=== PATIENT | male | born 1970 | race Caucasian/White ===

== ENCOUNTER 2022-05-16 17:26 | Emergency (ER) | payer MEDICAID, OTHER ==
--- NOTE | 2022-05-16 17:32 | ERPHSYRPT ---
- History of Present Illness Time Seen by Provider: 05/16/22 17:32 Source: patient Exam Limitations: no limitations Physician History: This is a morbidly obese 52-year-old white male patient who was brought to the emergency department by his friend because of increasing bilateral lower extremity swelling with ulcerations over the last 2 to 2-1/2 weeks. Patient has a history of hypertension, chronic venous stasis disease, diabetes, peripheral neuropathy and is on anticoagulation therapy. Patient states that he does ambulate. He states he does not raise the legs above the level of his heart when he is not ambulating. Patient moved here from [facility] and has not had an appointment with a local physician. Patient does have some right upper quadrant abdominal pain. He did fall 2 and half weeks ago and hit his right upper abdomen on the corner of a cabinet and there is been some swelling and tenderness in that area. He also has had, unknowingly, fractures in his lower leg in the past. He does not have a lot of sensation in his lower extremities and feet because of his significant peripheral neuropathy. Patient denies chest pain. He denies shortness of breath. Method of Injury: fell Occurred: other (2 and half weeks ago) Quality: other (Swelling bilateral lower extremities) Severity of Pain-Max: mild Severity of Pain-Current: mild Lower Extremities Pain: leg: bilateral (Below the knee swelling with ulcerations and redness) Modifying Factors: Improves With: nothing Associated Symptoms: none Allergies/Adverse Reactions: No Known Drug Allergies Allergy (Verified 05/16/22 19:06) Home Medications: Apixaban [Eliquis] 5 mg PO BID 05/16/22 [History] Furosemide 40 mg [Lasix 40 MG] 40 mg PO DAILY 05/16/22 [History] Metformin HCl [Metformin ER Gastric] 1,000 mg PO DAILY 05/16/22 [History] Potassium Chloride 10 meq PO DAILY 05/16/22 [History] Sacubitril/Valsartan [Entresto 24 mg-26 mg Tablet] 1 tab PO BID 05/16/22 [History] Travel Risk - International Travel Have you traveled outside of the country in past 3 weeks: No - Coronavirus Screening Are you exhibiting any of the following symptoms?: No Close contact with a COVID-19 positive Pt in past 14-21 Days: No - Review of Systems Constitutional: No Symptoms Eyes: No Symptoms Ears, Nose, & Throat: No Symptoms Respiratory: No Symptoms Cardiac: No Symptoms Abdominal/Gastrointestinal: No Symptoms Genitourinary Symptoms: No Symptoms Musculoskeletal: No Symptoms Skin: Cellulitis (Bilateral lower extremities with chronic venous stasis disease and ulcerations) Neurological: No Symptoms Psychological: No Symptoms Endocrine: No Symptoms Hematologic/Lymphatic: No Symptoms Immunological/Allergic: No Symptoms All Other Systems: Reviewed and Negative - Past Medical History Pertinent Past Medical History: Yes - Past Surgical History Past Surgical History: Yes - Nursing Vital Signs Nursing Vital Signs: Initial Vital Signs Temperature 97.7 F 05/16/22 18:31 Pulse Rate 89 05/16/22 18:31 Blood Pressure 114/71 05/16/22 18:31 O2 Sat by Pulse Oximetry 98 05/16/22 18:31 Pain Scale Pain Intensity 0 - Physical Exam General Appearance: no apparent distress, alert, anxiety, obese Eyes, Ears, Nose, Throat Exam: normal ENT inspection, moist mucous membranes Neck Exam: normal inspection, non-tender, supple, full range of motion Cardiovascular/Respiratory Exam: chest non-tender, no respiratory distress Gastrointestinal/Abdominal Exam: soft, tenderness (Mild tenderness and swelling right upper quadrant abdominal wall. Morbidly obese abdomen) Back Exam: normal inspection, normal range of motion, No CVA tenderness, No vertebral tenderness Hips Exam: bilateral: non-tender, normal inspection, normal range of motion, no evidence of injury Legs Exam: right leg: other (Bilateral below the knee swelling, redness and), bilateral leg: normal range of motion, soft tissue tenderness, swelling Knees Exam: bilateral knee: non-tender, normal inspection, normal range of motion, no evidence of injury Ankle Exam: bilateral ankle: soft tissue tenderness, swelling Foot Exam: bilateral foot: soft tissue tenderness, swelling Neuro/Tendon Exam: normal motor functions, normal tendon functions, no evidence tendon injury, sensory deficit (Bilateral lower extremities below the knee. Patient has significant peripheral neuropathy) Mental Status Exam: alert, oriented x 3, cooperative Skin Exam: other (Bilateral below the knee chronic venous stasis disease with ulcerations and cellulitis present) SpO2 Interpretation: normal O2 Delivery: Room Air - Course Nursing assessment & vital signs reviewed: Yes Ordered Tests: Active Orders 24 hr Category Date Time Status IV Insertion STAT Care 05/16/22 19:09 Active ABDOMEN AND PELVIS W/0 CONTRAS [CT] Stat Exams 05/16/22 19:10 Taken CHEST WITHOUT CONTRAST [CT] Stat Exams 05/16/22 19:43 Taken LOWER LEG Stat Exams 05/16/22 19:11 Taken BLOOD CULTURE Stat Lab 05/16/22 20:20 Received CBC W DIFF Stat Lab 05/16/22 Completed CMP Stat Lab 05/16/22 Completed Medication Summary Generic Name Dose Route Start Last Admin Trade Name Freq PRN Reason Stop Dose Admin Levofloxacin/Dextrose 500 mg in 100 mls @ 100 mls/hr 05/16/22 21:42 05/16/22 21:58 Levofloxacin 500mg/100ml D5w IV 05/16/22 22:41 100 ml/hr STAT STA 100 mls/hr Administration Discontinued Medications Generic Name Dose Route Start Last Admin Trade Name Freq PRN Reason Stop Dose Admin Levofloxacin/Dextrose Confirm 05/16/22 21:57 Levofloxacin 500mg/100ml D5w Administered 05/16/22 21:58 Dose 500 mg in 100 mls @ ud IV .K-MED ONE Lab/Rad Data: Laboratory Result Diagrams 05/16/22 Unknown 05/16/22 Unknown Laboratory Results 05/16/22 05/16/22 Range/Units Unknown Unknown WBC 7.3 (4.0-10.5) x10^3/uL RBC 4.81 (4.1-5.6) x10^6/uL Hgb 14.3 (12.5-18.0) g/dL Hct 43.1 (42-50) % MCV 89.6 (78-100) fL MCH 29.7 (26-32) pg MCHC 33.2 (32-36) g/dL RDW 14.2 H (11.5-14.0) % Plt Count 244 (150-450) x10^3/uL MPV 10.8 (7.5-11.0) fL Gran % 61.0 (36.0-66.0) % Immature Gran % (Auto) 0.3 (0.00-0.4) % Nucleat RBC Rel Count 0.0 (0.00-0.1) % Eos # (Auto) 0.16 (0-0.5) x10^3/uL Immature Gran # (Auto) 0.02 (0.00-0.03) x10^3u/L Absolute Lymphs (auto) 2.03 (1.0-4.6) x10^3/uL Absolute Monos (auto) 0.57 (0.0-1.3) x10^3/uL Absolute Nucleated RBC 0.00 (0.00-0.01) x10^3u/L Lymphocytes % 28.0 (24.0-44.0) % Monocytes % 7.9 (0.0-12.0) % Eosinophils % 2.2 (0.00-5.0) % Basophils % 0.6 (0.0-0.4) % Absolute Granulocytes 4.43 (1.4-6.9) x10^3/uL Basophils # 0.04 (0-0.4) x10^3/uL Sodium 140 (137-145) mmol/L Potassium 3.9 (3.5-5.1) mmol/L Chloride 100 (98-107) mmol/L Carbon Dioxide 26 (22-30) mmol/L Anion Gap 17.3 H (5-15) MEQ/L BUN 10 (9-20) mg/dL Creatinine 0.85 (0.66-1.25) mg/dL Estimated GFR > 60.0 ML/MIN Glucose 111 H (74-106) mg/dL Calcium 9.1 (8.4-10.2) mg/dL Total Bilirubin 0.80 (0.2-1.3) mg/dL AST 32 (17-59) U/L ALT 17 (0-50) U/L Alkaline Phosphatase 89 (38-126) U/L Serum Total Protein 8.8 H (6.3-8.2) g/dL Albumin 4.5 (3.5-5.0) g/dL - Progress Progress: improved, pain not gone completely, re-examined Progress Note: 05/16/22 21:43 X-ray left tib-fib interpreted by me. There is no acute fracture or dislocation . 05/16/22 21:59 CAT scan of the abdomen and pelvis without contrast shows right lower rectus muscle mass versus hematoma. Normal appendectomy. Distended gallbladder with tiny stones. Markedly distended urinary bladder with mild wall thickening concerning for chronic outlet obstruction versus neurogenic bladder. CAT scan of the chest without contrast shows right lung fibrosis/scarring. No acute process present. This patient's medical issue is 1 of moderate complexity. The level of complexi ty in the work-up performed is based on review of the patient's past medical history, medication list, drug allergy list, history of present illness and physical findings on examination. The work-up includes placement of intravenous line, infusion of intravenous fluids, CT scan of the chest without contrast, CT scan of the abdomen pelvis without contrast, x-ray of the left lower leg( tib- fib). In addition we ordered a CBC, CMP, urinalysis. I reviewed the results of this work-up. Patient has cellulitis with chronic venous stasis disease and ulcerations. Patient is receiving Levaquin 500 mg intravenously during his stay in the emergency department. He also has a right abdominal wall hematoma. I feel it is most likely a hematoma versus a mass because he had trauma to this area within the last 2 to 2-1/2 weeks. Discharge planning is to discharge the patient to home with prescription for Levaquin oral antibiotic. Counseled pt/family regarding: lab results, diagnosis, need for follow-up, rad results Medical Desision Making - Discussion of managment Agreed on:: Treatment plan, need for follow-up - Diagnostic Testing Diagnostic test were ordered, analyzed, and reviewed by me: Yes Radiological Interpretation: Interpreted by me, Reviewed by me, Teleradiologist Report - Risk of complications The pt has a mod risk of morbidity or mortality based on: Need for prescription drug management - Departure Departure Disposition: Home Clinical Impression: Cellulitis, Chronic cutaneous venous stasis ulcer Condition: Stable Critical Care Time: No Referrals: DOCTOR,NO FAMILY [Primary Care Provider] - Follow up/PCP as directed Additional Instructions: Keep both your lower extremities elevated above the level of your heart when not ambulating. Keep your skin clean daily with soap and water including both lower extremities thighs knees lower legs ankles and feet. Take your antibiotics as prescribed. Take your medication as prescribed. Keep your appointment with your primary care provider that you schedule. Prescriptions: Levofloxacin [Levaquin 500 MG Tablet] 500 mg PO DAILY #7 tablet
[2022-05-16 19:17] LABS: Absolute Neutrophil Ct (ANC) 4.43 x10^3/uL (1.4-6.9); BASOPHIL % 0.6 % (0.0-0.4); Basophil (Absolute #) 0.04 x10^3/uL (0-0.4); Eosinophil % 2.2 % (0.00-5.0); Eosinophil (Absolute #) 0.16 x10^3/uL (0-0.5); Hematocrit 43.1 % (42-50); Hemoglobin 14.3 g/dL (12.5-18.0); IMMATURE GRAN # 0.02 x10^3u/L (0.00-0.03); IMMATURE GRAN % 0.3 % (0.00-0.4); Lymphocyte (Absolute #) 2.03 x10^3/uL (1.0-4.6); Mean Cell Volume 89.6 fL (78-100); Mean Corpuscular Hemoglobin 29.7 pg (26-32); Mean Corpuscular Hgb Concent. 33.2 g/dL (32-36); Mean Platelet Volume 10.8 fL (7.5-11.0); Monocyte (Absolute #) 0.57 x10^3/uL (0.0-1.3); Monocytes % 7.9 % (0.0-12.0); Platelet Count 244 x10^3/uL (150-450); Red Blood Count 4.81 x10^6/uL (4.1-5.6); Red Cell Distribution Width 14.2 % (11.5-14.0); White Blood Count 7.3 x10^3/uL (4.0-10.5)
[2022-05-16 19:24] LABS: ALBUMIN 4.5 g/dL (3.5-5.0); ALKALINE PHOSPHATASE 89 U/L (38-126); ANION GAP 17.3 MEQ/L (5-15); BLOOD UREA NITROGEN 10 mg/dL (9-20); CHLORIDE 100 mmol/L (98-107); Calcium 9.1 mg/dL (8.4-10.2); Carbon Dioxide 26 mmol/L (22-30); Creatinine 1 0.85 mg/dL (0.66-1.25); EST GLOMERULAR FILTRATION RATE > 60.0 ML/MIN; Glucose 111 mg/dL (74-106); Potassium 3.9 mmol/L (3.5-5.1); SGOT/AST 32 U/L (17-59); SGPT/ALT 17 U/L (0-50); SODIUM 140 mmol/L (137-145); Total Protein 8.8 g/dL (6.3-8.2)
[2022-05-16] MEDS ORDERED: Levofloxacin 500MG/100ML D5W 500 MG/100 ML BAG IV STA (21:42)
[2022-05-16] MEDS ORDERED: Levofloxacin 500MG/100ML D5W 500 MG/100 ML BAG IV ONE (21:57)
[2022-05-16 22:31] VITALS: O2SAT 98
[2022-05-16 23:28] VITALS: BP 138/99; PULSE 75
--- NOTE | 2022-05-17 08:43 | XRAY ---
Indication: Pain and swelling. Comparison: None 2 view left lower leg demonstrates osteopenia, moderate tricompartmental knee degenerative changes, tiny posterior/large plantar heel spurs, moderate scattered vascular calcifications, and multiple posterior medial vascular clips. No other bony, articular, or soft tissue abnormalities.
--- NOTE | 2022-05-17 08:45 | XRAY ---
Indication: Pain following fall. Multiple contiguous axial images obtained through the chest without contrast. Comparison: None Right midlung demonstrates fibrosis/scarring. No suspicious pulmonary mass/nodule, infiltrate, effusion, or pneumothorax. Heart not enlarged with CABG surgery. Aorta minimally atherosclerotic without aneurysm. Small paratracheal calcified nodes. No pathologic mediastinal lymphadenopathy. Bony thorax intact with mild degenerative changes throughout the spine and sternotomy hardware. CT abdomen/pelvis reported separately. Impression: Nonacute CT chest without contrast exam with chronic features.
--- NOTE | 2022-05-17 08:49 | XRAY ---
Indication: Right upper quadrant pain. Status post fall. Multiple contiguous axial images obtained through the abdomen and pelvis without contrast. Comparison: None CT chest reported separately. Noncontrasted stomach and bowel loops appear nonobstructed with normal appendix. Mildly distended gallbladder with tiny gallstones in the dependent portion. Urinary bladder is distended with mild circumferential wall thickening either chronic outlet obstruction versus neurogenic bladder. Enlarged prostate gland impresses on the base of the bladder. A few tiny hepatic/splenic calcified granulomas. No free fluid/air. Remaining liver, gallbladder, pancreas, spleen, adrenal glands, kidneys, ureters, and bladder are unremarkable for noncontrast exam. Mild scattered aortoiliac calcifications without AAA. Osseous structures intact with osteopenia, mild/moderate multilevel degenerative spondylosis, and incompletely visualized right proximal femur orthopedic hardware. Right lower rectus abdominis muscle demonstrates a 3.5 x 4.6 x 5.5 cm mass versus hematoma. Impression: 1. Mild distended gallbladder with tiny gallstones. Sonogram may yield further information. 2. Right lower rectus abdominis muscle mass versus hematoma. 3. Distended urinary bladder with circumferential wall thickening. Rule out chronic outlet obstruction versus neurogenic bladder. 4. Chronic findings including arteriosclerotic disease, chronic bony findings, and old granulomatous disease.
== END 2022-05-16 23:29 | disposition home or self-care (01) ==
LOC: ED 17:26
DX: I83.012 Varicose veins of right lower extremity with ulcer of calf (principal); I83.022 Varicose veins of left lower extremity with ulcer of calf; L97.219 Non-pressure chronic ulcer of right calf with unspecified severity; L97.229 Non-pressure chronic ulcer of left calf with unspecified severity; L03.116 Cellulitis of left lower limb; L03.115 Cellulitis of right lower limb; S30.1XXA Contusion of abdominal wall, initial encounter; W19.XXXA Unspecified fall, initial encounter; I10 Essential (primary) hypertension; E11.42 Type 2 diabetes mellitus with diabetic polyneuropathy; Z79.01 Long term (current) use of anticoagulants; Z79.84 Long term (current) use of oral hypoglycemic drugs; Z79.899 Other long term (current) drug therapy
CPT/HCPCS: 36000; 36415; 71250; 73590; 74176; 80053; 85025; 87040; 96365; 99284; J1956

== ENCOUNTER 2023-03-09 16:03 | Observation (INO) | payer OTHER ==
--- NOTE | 2023-03-09 16:11 | ERPHSYRPT ---
- History of Present Illness Time Seen by Provider: 03/09/23 16:11 Historian: patient, EMS Exam Limitations: no limitations Physician History: This is an overweight 52-year-old white male patient who presents with nausea vomiting for 2 days. He has also had intermittent chest pain. Patient denies fever. Patient denies cough. Patient has not had any fever or diarrhea. Patient does have a history of atrial fibrillation on Eliquis. He has a history of coronary disease (CABG and cardiac stent) he also has a history of CHF, diabetes, peripheral neuropathy, CVA/TIAs and hypertension. Timing/Duration: day(s) (2) Quality: burning Abdominal Pain Onset Location: generalized abdomen Pain Radiation: no radiation Severity of Pain-Max: moderate Severity of Pain-Current: moderate Modifying Factors: Improves With: vomiting Associated Symptoms: chest pain, loss of appetite, nausea, vomiting, weakness Previous symptoms: no prior history, no recent treatment Allergies/Adverse Reactions: No Known Drug Allergies Allergy (Verified 03/09/23 16:05) Home Medications: Apixaban [Eliquis] 5 mg PO BID 05/16/22 [History] Metformin HCl [Metformin ER Gastric] 1,000 mg PO DAILY 05/16/22 [History] Furosemide [Lasix] 1 tab PO DAILY 03/09/23 [History] Gabapentin [Neurontin ] 1 cap PO QID 03/09/23 [History] Metoprolol Succinate 25 mg Xl* [Toprol-Xl 25MG Tablets] 1 tab PO DAILY 03/09/23 [History] Potassium Chloride 1 tab PO BID 03/09/23 [History] Hx Influenza Vaccination/Date Given: Yes Hx Pneumococcal Vaccination/Date Given: No Travel Risk - International Travel Have you traveled outside of the country in past 3 weeks: No - Coronavirus Screening Are you exhibiting any of the following symptoms?: Yes Symptoms: Fever, Vomiting/Diarrhea - Vaccine Status Have you recieved a Covid-19 vaccination: No - Review of Systems Constitutional: Weakness Eyes: No Symptoms Ears, Nose, & Throat: No Symptoms Respiratory: No Symptoms Cardiac: Chest Pain Abdominal/Gastrointestinal: Abdominal Pain (Unremittent), Nausea, Vomiting, Appetite Changes, No Diarrhea, No Constipation Genitourinary Symptoms: No Symptoms Musculoskeletal: No Symptoms Skin: No Symptoms Neurological: No Symptoms Psychological: No Symptoms Endocrine: No Symptoms Hematologic/Lymphatic: No Symptoms Immunological/Allergic: No Symptoms All Other Systems: Reviewed and Negative - Past Medical History Pertinent Past Medical History: Yes Neurological History: Peripheral Neuropathy, Stroke, TIA Cardiac History: Arrhythmia, Coronary Artery Disease, Hypertension, Myocardial Infarction ([place]) Respiratory History: No Pertinent History Endocrine Medical History: Diabetes Type II Musculoskeletal History: Arthritis GI Medical History: Ulcer Other Medical History: CVA IN 2013, 6 MYOCARDIO INFARCTION (MOST RECENT IN 2019), TRIPLE BYPASS SURGERY IN 2010; HE LOST APPROXIMATELY 160 POUNDS IN 2019 DUE TO INFECTION AND LACK OF APPETITE - Past Surgical History Past Surgical History: Yes Cardiac: Angioplasty, CABG, Cardiac Catheterization, Cardiac Stent Musculoskeletal: Amputation, Orthopedic Surgery Other Surgical History: jasvir big toes amputated, 2nd toe on left foot and 3rd toe on right foot, hip with ubaldo and 2 pins - Social History Smoking Status: Never smoker Exposure to second hand smoke: No Drug Use: marijuana Patient Lives Alone: No - Nursing Vital Signs Nursing Vital Signs: Initial Vital Signs Pulse Rate 105 H 03/09/23 16:06 Respiratory Rate 10 L 03/09/23 16:06 Blood Pressure 135/100 03/09/23 16:06 O2 Sat by Pulse Oximetry 99 03/09/23 16:06 Pain Scale Pain Intensity 5 - Physical Exam General Appearance: no apparent distress, alert, anxiety Eye Exam: PERRL/EOMI, eyes nml inspection Ears, Nose, Throat Exam: normal ENT inspection, moist mucous membranes Neck Exam: normal inspection, non-tender, supple, full range of motion Respiratory Exam: normal breath sounds, chest tenderness (Unremittent), lungs clear, airway intact, No respiratory distress Cardiovascular Exam: tachycardia, irregular Gastrointestinal/Abdomen Exam: soft, normal bowel sounds, tenderness (Burning mild diffuse) Rectal Exam: not done Back Exam: normal inspection, normal range of motion, No CVA tenderness, No vertebral tenderness Extremity Exam: normal inspection, normal range of motion, pelvis stable Neurologic Exam: alert, oriented x 3, cooperative, trial lawyer II-XII nml as tested, normal mood/affect, sensation nml Skin Exam: normal color, warm, dry Lymphatic Exam: No adenopathy O2 Delivery: Room Air - Course Nursing assessment & vital signs reviewed: Yes EKG Interpreted by Me: RATE (108), A-fib, NORMAL AXIS, Other (No acute ischemic changes on today's twelve-lead EKG.) Ordered Tests: Active Orders 24 hr Category Date Time Status EKG-ER Only STAT Care 03/09/23 16:15 Active IV Insertion STAT Care 03/09/23 16:15 Active ABDOMEN AND PELVIS W/0 CONTRAS [CT] Stat Exams 03/09/23 16:15 Taken AMYLASE Stat Lab 03/09/23 16:50 Completed BLOOD CULTURE Stat Lab 03/09/23 16:50 Received BNPII [NT PRO BNPII] Stat Lab 03/09/23 Completed CBC W DIFF Stat Lab 03/09/23 16:50 Completed CMP Stat Lab 03/09/23 16:50 Completed CULTURE,URINE Stat Lab 03/09/23 18:50 Received LIPASE Stat Lab 03/09/23 16:50 Completed TROPONIN Q4H Lab 03/09/23 16:50 Completed TROPONIN Q4H Lab 03/09/23 20:15 Ordered TROPONIN Q4H Lab 03/10/23 00:15 Ordered UA W/RFX UR CULTURE Stat Lab 03/09/23 18:50 Completed Medication Summary Generic Name Dose Route Start Last Admin Trade Name Freq PRN Reason Stop Dose Admin Sodium Chloride 1,000 mls @ 100 mls/hr 03/09/23 16:15 03/09/23 16:27 Sodium Chloride 0.9% 1000 Ml IV 04/08/23 16:14 100 mls/hr .Q10H VALERIE Administration Discontinued Medications Generic Name Dose Route Start Last Admin Trade Name Freq PRN Reason Stop Dose Admin Furosemide 40 mg 03/09/23 17:43 03/09/23 18:02 Furosemide 40 Mg/4 Ml Vial IV 03/09/23 17:44 40 mg STAT ONE Administration Furosemide Confirm 03/09/23 18:01 Furosemide 40 Mg/4 Ml Vial Administered 03/09/23 18:02 Dose 40 mg .ROUTE .STK-MED ONE Hydromorphone HCl 0.5 mg 03/09/23 17:06 03/09/23 17:28 Hydromorphone 1 Mg/1ml Inj IV 03/09/23 17:07 0.5 mg STAT ONE Administration Hydromorphone HCl Confirm 03/09/23 17:26 Hydromorphone 1 Mg/1ml Inj Administered 03/09/23 17:27 Dose 1 mg .ROUTE .STK-MED ONE Metoprolol Tartrate 2.5 mg 03/09/23 18:55 Metoprolol Tartrate 5 Mg/5 Ml Vial IV 03/09/23 18:56 STAT ONE Morphine Sulfate 4 mg 03/09/23 16:37 03/09/23 16:42 Morphine Sulfate 4 Mg/Ml Injection IV 03/09/23 16:38 Not Given STAT ONE Morphine Sulfate Confirm 03/09/23 16:39 Morphine Sulfate 4 Mg/Ml Injection Administered 03/09/23 16:40 Dose 4 mg .ROUTE .STK-MED ONE Ondansetron HCl 4 mg 03/09/23 16:15 03/09/23 16:28 Ondansetron Hcl 4 Mg/2 Ml Vial IV 03/09/23 16:16 4 mg STAT ONE Administration Ondansetron HCl Confirm 03/09/23 16:24 Ondansetron Hcl 4 Mg/2 Ml Vial Administered 03/09/23 16:25 Dose 4 mg .ROUTE .STK-MED ONE Lab/Rad Data: Laboratory Result Diagrams 03/09/23 16:50 03/09/23 16:50 Laboratory Results 03/09/23 03/09/23 03/09/23 Range/Units Unknown 18:50 16:55 WBC (4.0-10.5) x10^3/uL RBC (4.1-5.6) x10^6/uL Hgb (12.5-18.0) g/dL Hct (42-50) % MCV (78-100) fL MCH (26-32) pg MCHC (32-36) g/dL RDW (11.5-14.0) % Plt Count (150-450) x10^3/uL MPV (7.5-11.0) fL Gran % (36.0-66.0) % Immature Gran % (Auto) (0.00-0.4) % Nucleat RBC Rel Count (0.00-0.1) % Eos # (Auto) (0-0.5) x10^3/uL Immature Gran # (Auto) (0.00-0.03) x10^3u/L Absolute Lymphs (auto) (1.0-4.6) x10^3/uL Absolute Monos (auto) (0.0-1.3) x10^3/uL Absolute Nucleated RBC (0.00-0.01) x10^3u/L Lymphocytes % (24.0-44.0) % Monocytes % (0.0-12.0) % Eosinophils % (0.00-5.0) % Basophils % (0.0-0.4) % Absolute Granulocytes (1.4-6.9) x10^3/uL Basophils # (0-0.4) x10^3/uL Sodium (137-145) mmol/L Potassium (3.5-5.1) mmol/L Chloride (98-107) mmol/L Carbon Dioxide (22-30) mmol/L Anion Gap (5-15) MEQ/L BUN (9-20) mg/dL Creatinine (0.66-1.25) mg/dL Estimated GFR ML/MIN Glucose (74-106) mg/dL Calcium (8.4-10.2) mg/dL Total Bilirubin (0.2-1.3) mg/dL AST (17-59) U/L ALT (0-50) U/L Alkaline Phosphatase (38-126) U/L Troponin I (0.000-0.034) ng/mL NT-Pro-B Natriuret Pep 3580 (<300) pg/mL Serum Total Protein (6.3-8.2) g/dL Albumin (3.5-5.0) g/dL Amylase (30-110) U/L Lipase (23-300) U/L Urine Color Yellow (Yellow) Urine Appearance Clear (Clear) Urine pH 7.5 (4.6-8.0) Ur Specific [place] 1.010 (1.005-1.030) Urine Protein 100 A (Negative) Urine Glucose (UA) 100 A (Negative) mg/dL Urine Ketones Negative (Negative) Urine Blood Trace (Negative) Urine Nitrite Negative (Negative) Urine Bilirubin Negative (Negative) Urine Urobilinogen 1.0 A (0.2) mg/dL Ur Leukocyte Esterase Negative (Negative) Urine Microscopic RBC 0-2 (0-5) /HPF Urine Microscopic WBC 6-10 A (0-5) /HPF Ur Epithelial Cells None Seen (None Seen) /HPF Urine Bacteria None Seen (None Seen) /HPF Urine Mucus Rare A (NEGATIVE) /HPF Urine Culture Reflexed YES (NO) Influenza Type A Ag NEGATIVE (NEGATIVE) Influenza Type B Ag NEGATIVE (NEGATIVE) RSV (PCR) NEGATIVE (NEGATIVE) SARS-CoV-2 (PCR) NEGATIVE (NEGATIVE) Slides for Path Review 03/09/23 03/09/23 Range/Units 16:50 16:50 WBC 10.1 (4.0-10.5) x10^3/uL RBC 5.42 (4.1-5.6) x10^6/uL Hgb 16.3 (12.5-18.0) g/dL Hct 49.2 (42-50) % MCV 90.8 (78-100) fL MCH 30.1 (26-32) pg MCHC 33.1 (32-36) g/dL RDW 12.8 (11.5-14.0) % Plt Count 213 (150-450) x10^3/uL MPV 10.8 (7.5-11.0) fL Gran % 91.3 H (36.0-66.0) % Immature Gran % (Auto) 0.4 (0.00-0.4) % Nucleat RBC Rel Count 0.0 (0.00-0.1) % Eos # (Auto) 0.01 (0-0.5) x10^3/uL Immature Gran # (Auto) 0.04 H (0.00-0.03) x10^3u/L Absolute Lymphs (auto) 0.59 L (1.0-4.6) x10^3/uL Absolute Monos (auto) 0.23 (0.0-1.3) x10^3/uL Absolute Nucleated RBC 0.00 (0.00-0.01) x10^3u/L Lymphocytes % 5.8 L (24.0-44.0) % Monocytes % 2.3 (0.0-12.0) % Eosinophils % 0.1 (0.00-5.0) % Basophils % 0.1 (0.0-0.4) % Absolute Granulocytes 9.23 H (1.4-6.9) x10^3/uL Basophils # 0.01 (0-0.4) x10^3/uL Sodium 134 L (137-145) mmol/L Potassium 3.7 (3.5-5.1) mmol/L Chloride 97 L (98-107) mmol/L Carbon Dioxide 27 (22-30) mmol/L Anion Gap 13.9 (5-15) MEQ/L BUN 12 (9-20) mg/dL Creatinine 0.77 (0.66-1.25) mg/dL Estimated GFR 106.4 ML/MIN Glucose 173 H (74-106) mg/dL Calcium 9.1 (8.4-10.2) mg/dL Total Bilirubin 0.80 (0.2-1.3) mg/dL AST 24 (17-59) U/L ALT 17 (0-50) U/L Alkaline Phosphatase 86 (38-126) U/L Troponin I 0.088 H* (0.000-0.034) ng/mL NT-Pro-B Natriuret Pep (<300) pg/mL Serum Total Protein 8.4 H (6.3-8.2) g/dL Albumin 4.1 (3.5-5.0) g/dL Amylase 103 (30-110) U/L Lipase 278 (23-300) U/L Urine Color (Yellow) Urine Appearance (Clear) Urine pH (4.6-8.0) Ur Specific [place] (1.005-1.030) Urine Protein (Negative) Urine Glucose (UA) (Negative) mg/dL Urine Ketones (Negative) Urine Blood (Negative) Urine Nitrite (Negative) Urine Bilirubin (Negative) Urine Urobilinogen (0.2) mg/dL Ur Leukocyte Esterase (Negative) Urine Microscopic RBC (0-5) /HPF Urine Microscopic WBC (0-5) /HPF Ur Epithelial Cells (None Seen) /HPF Urine Bacteria (None Seen) /HPF Urine Mucus (NEGATIVE) /HPF Urine Culture Reflexed (NO) Influenza Type A Ag (NEGATIVE) Influenza Type B Ag (NEGATIVE) RSV (PCR) (NEGATIVE) SARS-CoV-2 (PCR) (NEGATIVE) Slides for Path Review YES - Progress Progress: improved, pain not gone completely Progress Note: 03/09/23 17:06 Patient's medical issue is 1 of moderate complexity. Level complex in the workup performed is based on review of the patient's past medical history, review the patient's medication list, review the patient's drug allergy list, history present illness and physical findings on examination. The workup includes placement of intravenous line, infusion lower saline solution, 4 mg of intravenous Zofran, CBC, CMP, amylase, lipase, troponin level, CT scan of the abdomen pelvis without contrast and urinalysis. 03/09/23 17:07 Patient refuses the morphine. It makes him nauseated. We, together, decided on Dilaudid 1/2 mg intravenously. 03/09/23 18:55 I interpreted the patient's laboratory data results. The patient has a troponin of 0.088. He is currently not having any chest pain. Patient has a history of atrial fibrillation and his heart rate is approximately 108 bpm when he came in in an atrial fibrillation type rhythm. Currently, he is running now in the high 90s and low 100s. I will provide him with a low-dose of metoprolol intrave nously. I will discuss with the hospitalist about placing this patient in observation versus transferring the patient out. I think his troponin level 0.88 may be related to the high rate of atrial fibrillation that he was in for a period of time prior to arrival to the emergency department. Again, at this time the patient has no complaints of abdominal pain, shortness of breath or chest pain. CT scan of the abdomen pelvis without contrast shows mild distended gallbladder with tiny gallstones present. The appendix is not seen. This study was interpreted by the radiologist and I reviewed the impression. 03/09/23 19:54 Repeat twelve-lead EKG performed at 1943 on 03/09/2023 shows a heart rate of 90 bpm. Patient is in atrial fibrillation. There is no evidence of any ST elevation or ST depression. There is normal axis deviation. There is normal QRS and normal intervals present. 03/09/23 20:[address] Guidry, our telehospitalist. I reviewed the patient's past medical history, presenting complaint, radiographic study results as well as laboratory data study results and twelve-lead EKG results. We will place the patient in observation and provide the patient with antiemetics, very low rate fluid intravenously and serial troponins and repeat twelve-lead EKG in the morning. Will also repeat CBC and CMP in the morning. Counseled pt/family regarding: lab results, diagnosis, need for follow-up, rad results Medical Desision Making - Independent Historian Additional History obtained from: Desk Representative/EMT - Diagnostic Testing Diagnostic test were ordered, analyzed, and reviewed by me: Yes Radiological Interpretation: Reviewed by me, Teleradiologist Report - Risk of complications The pt has a high risk of morbidity or mortality based on: Decision regarding hospitilization or escalation of hosp level of care - Departure Departure Disposition: Observation Clinical Impression: Vomiting, Atrial fibrillation with RVR, Elevated brain natriuretic peptide (BNP) level, Elevated troponin Condition: Stable Critical Care Time: Yes Critical Care Time(excluding separately billable procedures): Critical 30-74 mins (40 minutes) Referrals: [facility] [Primary Care Provider] - Follow up/PCP as directed
[2023-03-09] MEDS ORDERED: Sodium Chloride 0.9% 1000 ML 1,000 ML IV SCH (16:15)
[2023-03-09] MEDS ORDERED: Zofran 4 MG/2 ML VIAL IV ONE (16:15)
[2023-03-09] MEDS ORDERED: Zofran 4 MG/2 ML VIAL ONE (16:24)
[2023-03-09] MEDS ORDERED: Sodium Chloride 0.9% 1000 ML 1,000 ML ONE (16:24)
[2023-03-09] MEDS ORDERED: MORPHINE SULFATE 4 MG INJ IV ONE (16:37)
[2023-03-09] MEDS ORDERED: MORPHINE SULFATE 4 MG INJ ONE (16:39)
[2023-03-09 17:02] LABS: Absolute Neutrophil Ct (ANC) 9.23 x10^3/uL (1.4-6.9); BASOPHIL % 0.1 % (0.0-0.4); Basophil (Absolute #) 0.01 x10^3/uL (0-0.4); Eosinophil % 0.1 % (0.00-5.0); Eosinophil (Absolute #) 0.01 x10^3/uL (0-0.5); Hematocrit 49.2 % (42-50); Hemoglobin 16.3 g/dL (12.5-18.0); IMMATURE GRAN # 0.04 x10^3u/L (0.00-0.03); IMMATURE GRAN % 0.4 % (0.00-0.4); Lymphocyte (Absolute #) 0.59 x10^3/uL (1.0-4.6); Lymphocytes % 5.8 % (24.0-44.0); Mean Cell Volume 90.8 fL (78-100); Mean Corpuscular Hemoglobin 30.1 pg (26-32); Mean Corpuscular Hgb Concent. 33.1 g/dL (32-36); Mean Platelet Volume 10.8 fL (7.5-11.0); Monocyte (Absolute #) 0.23 x10^3/uL (0.0-1.3); Monocytes % 2.3 % (0.0-12.0); Neutrophil % 91.3 % (36.0-66.0); Platelet Count 213 x10^3/uL (150-450); Red Blood Count 5.42 x10^6/uL (4.1-5.6); Red Cell Distribution Width 12.8 % (11.5-14.0); White Blood Count 10.1 x10^3/uL (4.0-10.5)
[2023-03-09] MEDS ORDERED: Hydromorphone 1 mg/ml Injection IV ONE (17:06)
[2023-03-09] MEDS ORDERED: Hydromorphone 1 mg/ml Injection ONE (17:26)
[2023-03-09 17:27] LABS: ALBUMIN 4.1 g/dL (3.5-5.0); ANION GAP 13.9 MEQ/L (5-15); BILIRUBIN,TOTAL 0.8 mg/dL (0.2-1.3); Calcium 9.1 mg/dL (8.4-10.2); Creatinine 1 0.77 mg/dL (0.66-1.25); EST GLOMERULAR FILTRATION RATE 106.4 ML/MIN; Potassium 3.7 mmol/L (3.5-5.1); Total Protein 8.4 g/dL (6.3-8.2)
[2023-03-09 17:39] LABS: INFLUENZA A NEGATIVE (NEGATIVE); INFLUENZA B NEGATIVE (NEGATIVE); RESPIRATORY SYNCTIAL VIRUS NEGATIVE (NEGATIVE); SARS-CoV-2 Xpert Express NEGATIVE (NEGATIVE)
[2023-03-09] MEDS ORDERED: Lasix 40 MG/4 ML IV ONE (17:43)
[2023-03-09 17:59] LABS: Slide Review 1 YES
[2023-03-09 18:00] LABS: TROPONIN 0.088 ng/mL (0.000-0.034)
[2023-03-09] MEDS ORDERED: Lasix 40 MG/4 ML ONE (18:01)
[2023-03-09] MEDS ORDERED: LOPRESSOR INJECTION IV ONE (18:55)
[2023-03-09 19:09] LABS: Appearance Clear (Clear); Bilirubin Negative (Negative); Blood Trace (Negative); Glucose, Urine 100 mg/dL (Negative); Ketones Negative (Negative); Leukocyte Esterase Negative (Negative); Nitrite Negative (Negative); Ph 7.5 (4.6-8.0); Protein,Urine Dip 100 (Negative)
[2023-03-09 19:12] LABS: ADD URINE CULTURE? YES (NO); Bacteria None Seen /HPF (None Seen); Epithelial Cells None Seen /HPF (None Seen); Mucus Rare /HPF (NEGATIVE); RBC 0-2 /HPF (0-5)
[2023-03-09] MEDS ORDERED: Zofran 4 MG/2 ML VIAL IV PRN (20:53)
[2023-03-09] MEDS ORDERED: TYLENOL 325 MG PO PRN (20:53)
[2023-03-09] MEDS ORDERED: HUMULIN R SQ PRN (20:53)
--- NOTE | 2023-03-09 21:17 | PCM.HP ---
History of Present Illness - Chief Complaint Chief Complaint: Vomiting Date: 03/09/23 History of Present Illness: Mr Garcia is a 52 year old male with a past medical history significant for hypertension, diabetes, hyperlipidemia, atrial fibrillation and coronary artery disease who presents to the ER with complaints of nausea and vomiting for two days. He was given some fluids and anti-emetics but then went into rapid afib that slowed down after IV beta james. Initial labs though demonstrated an elevated troponin of 0.088 associated with an elevated BNP of 3850. He denies any chest pain or shortness of breath. No current nausea, vomiting or diarrhea. No dysuria, hematuria or urinary symptoms. He has been recommended for admission for further evaluation given his cardiac history. - Review of Systems Constitutional: No Fever, No Chills Eyes: No Vision Changes Ears, Nose, & Throat: No Epistaxis Respiratory: No Cough, No Orthopnea, No Short Of Breath Cardiac: No Chest Pain, No Edema Abdominal/Gastrointestinal: Nausea, Vomiting, No Abdominal Pain, No Diarrhea Genitourinary Symptoms: No Dysuria, No Frequency Musculoskeletal: No Arthralgias Skin: No Cellulitis Neurological: No Dizziness Endocrine: No Polyuria, No Polydipsia Medications & Allergies Home Medications: Home Medication List Apixaban [Eliquis] 5 mg PO BID 05/16/22 [History Confirmed 03/09/23] Metformin HCl [Metformin ER Gastric] 1,000 mg PO DAILY 05/16/22 [History Confirmed 03/09/23] Furosemide [Lasix] 1 tab PO DAILY 03/09/23 [History Confirmed 03/09/23] Gabapentin [Neurontin ] 1 cap PO QID 03/09/23 [History Confirmed 03/09/23] Metoprolol Succinate 25 mg Xl* [Toprol-Xl 25MG Tablets] 1 tab PO DAILY 03/09/23 [History Confirmed 03/09/23] Potassium Chloride 1 tab PO BID 03/09/23 [History Confirmed 03/09/23] Allergies/Adverse Reactions: Allergies Allergy/AdvReac Type Severity Reaction Status Date / Time No Known Drug Allergies Allergy Verified 03/09/23 16:05 - Past Medical History Past Medical History: Yes Neurological History: Peripheral Neuropathy, Stroke, TIA Cardiac History: Arrhythmia, Coronary Artery Disease, Hypertension, Myocardial Infarction ([place]) Respiratory History: No Pertinent History Endocrine Medical History: Diabetes Type II Musculoskelatal History: Arthritis GI Medical History: Ulcer Comment: CVA IN 2013, 6 MYOCARDIO INFARCTION (MOST RECENT IN 2019), TRIPLE BYPASS SURGERY IN 2010; HE LOST APPROXIMATELY 160 POUNDS IN 2020 DUE TO INFECTION AND LACK OF APPETITE - Past Surgical History Past Surgical History: Yes Cardiac History: Angioplasty, CABG, Cardiac Catheterization, Cardiac Stent Musculskeletal Surgical Hx: Amputation, Orthopedic Surgery Other Surgical History: jasvir big toes amputated, 2nd toe on left foot and 3rd toe on right foot, hip with ubaldo and 2 pins - Social History Smoking Status: Never smoker Exposure to second hand smoke: No Alcohol: None Drug Use: marijuana - Physical Exam Vital Signs: Vital Signs - 24 hr Temp Pulse Resp BP BP Pulse Ox 03/09/23 20:30 90 125/91 99 03/09/23 20:00 101 H 127/83 99 03/09/23 19:30 91 H 15 111/81 97 03/09/23 19:00 10 L 118/89 96 03/09/23 17:50 103 H 116/86 94 L 03/09/23 17:00 160/111 98 03/09/23 16:35 102 H 13 141/102 03/09/23 16:32 105 H 9 L 96 03/09/23 16:07 96.6 F 110 H 10 L 135/100 100 03/09/23 16:06 105 H 10 L 135/100 99 General Appearance: no apparent distress Neurologic Exam: alert Ears, Nose, Throat Exam: dry mucous membranes Neck Exam: supple, full range of motion Respiratory Exam: lungs clear, No respiratory distress Cardiovascular Exam: irregular, No regular rate/rhythm Gastrointestinal/Abdomen Exam: soft, No tenderness, No distention Extremity Exam: No pedal edema, No swelling Skin Exam: warm, dry Results - Labs Lab/Micro Results: Lab Results-Last 24 Hours 03/09/23 03/09/23 03/09/23 Range/Units 16:50 16:50 16:55 WBC 10.1 (4.0-10.5) x10^3/uL RBC 5.42 (4.1-5.6) x10^6/uL Hgb 16.3 (12.5-18.0) g/dL Hct 49.2 (42-50) % MCV 90.8 (78-100) fL MCH 30.1 (26-32) pg MCHC 33.1 (32-36) g/dL RDW 12.8 (11.5-14.0) % Plt Count 213 (150-450) x10^3/uL MPV 10.8 (7.5-11.0) fL Gran % 91.3 H (36.0-66.0) % Immature Gran % (Auto) 0.4 (0.00-0.4) % Nucleat RBC Rel Count 0.0 (0.00-0.1) % Eos # (Auto) 0.01 (0-0.5) x10^3/uL Immature Gran # (Auto) 0.04 H (0.00-0.03) x10^3u/L Absolute Lymphs (auto) 0.59 L (1.0-4.6) x10^3/uL Absolute Monos (auto) 0.23 (0.0-1.3) x10^3/uL Absolute Nucleated RBC 0.00 (0.00-0.01) x10^3u/L Lymphocytes % 5.8 L (24.0-44.0) % Monocytes % 2.3 (0.0-12.0) % Eosinophils % 0.1 (0.00-5.0) % Basophils % 0.1 (0.0-0.4) % Absolute Granulocytes 9.23 H (1.4-6.9) x10^3/uL Basophils # 0.01 (0-0.4) x10^3/uL Sodium 134 L (137-145) mmol/L Potassium 3.7 (3.5-5.1) mmol/L Chloride 97 L (98-107) mmol/L Carbon Dioxide 27 (22-30) mmol/L Anion Gap 13.9 (5-15) MEQ/L BUN 12 (9-20) mg/dL Creatinine 0.77 (0.66-1.25) mg/dL Estimated GFR 106.4 ML/MIN Glucose 173 H (74-106) mg/dL Calcium 9.1 (8.4-10.2) mg/dL Total Bilirubin 0.80 (0.2-1.3) mg/dL AST 24 (17-59) U/L ALT 17 (0-50) U/L Alkaline Phosphatase 86 (38-126) U/L Troponin I 0.088 H* (0.000-0.034) ng/mL NT-Pro-B Natriuret Pep (<300) pg/mL Serum Total Protein 8.4 H (6.3-8.2) g/dL Albumin 4.1 (3.5-5.0) g/dL Amylase 103 (30-110) U/L Lipase 278 (23-300) U/L Urine Color (Yellow) Urine Appearance (Clear) Urine pH (4.6-8.0) Ur Specific [place] (1.005-1.030) Urine Protein (Negative) Urine Glucose (UA) (Negative) mg/dL Urine Ketones (Negative) Urine Blood (Negative) Urine Nitrite (Negative) Urine Bilirubin (Negative) Urine Urobilinogen (0.2) mg/dL Ur Leukocyte Esterase (Negative) Urine Microscopic RBC (0-5) /HPF Urine Microscopic WBC (0-5) /HPF Ur Epithelial Cells (None Seen) /HPF Urine Bacteria (None Seen) /HPF Urine Mucus (NEGATIVE) /HPF Urine Culture Reflexed (NO) Influenza Type A Ag NEGATIVE (NEGATIVE) Influenza Type B Ag NEGATIVE (NEGATIVE) RSV (PCR) NEGATIVE (NEGATIVE) SARS-CoV-2 (PCR) NEGATIVE (NEGATIVE) Slides for Path Review YES 03/09/23 03/09/23 Range/Units 18:50 Unknown WBC (4.0-10.5) x10^3/uL RBC (4.1-5.6) x10^6/uL Hgb (12.5-18.0) g/dL Hct (42-50) % MCV (78-100) fL MCH (26-32) pg MCHC (32-36) g/dL RDW (11.5-14.0) % Plt Count (150-450) x10^3/uL MPV (7.5-11.0) fL Gran % (36.0-66.0) % Immature Gran % (Auto) (0.00-0.4) % Nucleat RBC Rel Count (0.00-0.1) % Eos # (Auto) (0-0.5) x10^3/uL Immature Gran # (Auto) (0.00-0.03) x10^3u/L Absolute Lymphs (auto) (1.0-4.6) x10^3/uL Absolute Monos (auto) (0.0-1.3) x10^3/uL Absolute Nucleated RBC (0.00-0.01) x10^3u/L Lymphocytes % (24.0-44.0) % Monocytes % (0.0-12.0) % Eosinophils % (0.00-5.0) % Basophils % (0.0-0.4) % Absolute Granulocytes (1.4-6.9) x10^3/uL Basophils # (0-0.4) x10^3/uL Sodium (137-145) mmol/L Potassium (3.5-5.1) mmol/L Chloride (98-107) mmol/L Carbon Dioxide (22-30) mmol/L Anion Gap (5-15) MEQ/L BUN (9-20) mg/dL Creatinine (0.66-1.25) mg/dL Estimated GFR ML/MIN Glucose (74-106) mg/dL Calcium (8.4-10.2) mg/dL Total Bilirubin (0.2-1.3) mg/dL AST (17-59) U/L ALT (0-50) U/L Alkaline Phosphatase (38-126) U/L Troponin I (0.000-0.034) ng/mL NT-Pro-B Natriuret Pep 3580 (<300) pg/mL Serum Total Protein (6.3-8.2) g/dL Albumin (3.5-5.0) g/dL Amylase (30-110) U/L Lipase (23-300) U/L Urine Color Yellow (Yellow) Urine Appearance Clear (Clear) Urine pH 7.5 (4.6-8.0) Ur Specific [place] 1.010 (1.005-1.030) Urine Protein 100 A (Negative) Urine Glucose (UA) 100 A (Negative) mg/dL Urine Ketones Negative (Negative) Urine Blood Trace (Negative) Urine Nitrite Negative (Negative) Urine Bilirubin Negative (Negative) Urine Urobilinogen 1.0 A (0.2) mg/dL Ur Leukocyte Esterase Negative (Negative) Urine Microscopic RBC 0-2 (0-5) /HPF Urine Microscopic WBC 6-10 A (0-5) /HPF Ur Epithelial Cells None Seen (None Seen) /HPF Urine Bacteria None Seen (None Seen) /HPF Urine Mucus Rare A (NEGATIVE) /HPF Urine Culture Reflexed YES (NO) Influenza Type A Ag (NEGATIVE) Influenza Type B Ag (NEGATIVE) RSV (PCR) (NEGATIVE) SARS-CoV-2 (PCR) (NEGATIVE) Slides for Path Review - Radiology Impressions Radiology Exams & Impressions: Radiology Procedures Category Date Time Status ABDOMEN AND PELVIS W/0 CONTRAS [CT] Stat Exams 03/09/23 16:15 Taken - Other Procedures and Tests Respiratory Therapy 03/09/23 20:53 EKG REPEAT IN AM Assessment/Plan (1) Hyponatremia Current Visit: Yes Status: Acute Assessment & Plan: Likely from hypovolemia, doubt SIADH 1. NS IVFs 2. Limit free water 3. Monitor electrolytes closely Code(s): E87.1 - HYPO-OSMOLALITY AND HYPONATREMIA (2) Atrial fibrillation with RVR Current Visit: Yes Status: Acute Assessment & Plan: Likely exacerbated by intravascular volume depletion 1. Rate control 2. Continue eliquis 3. Telemetry Code(s): I48.91 - UNSPECIFIED ATRIAL FIBRILLATION (3) Elevated troponin Current Visit: Yes Status: Acute Assessment & Plan: Likely from elevated heart rate, no signs/symptoms of ACS 1. Trend troponin 2. Monitor on telemetry 3. Continue ASA, beta james, Eliquis Code(s): R79.89 - OTHER SPECIFIED ABNORMAL FINDINGS OF BLOOD CHEMISTRY (4) Vomiting Current Visit: Yes Status: Acute Assessment & Plan: Likely from gastroenteritis versus gallstones 1. IVFs 2. Anti-emetics 3. Trend LFTs Code(s): R11.10 - VOMITING, UNSPECIFIED (5) Type 2 diabetes mellitus with diabetic nephropathy Current Visit: Yes Status: Acute Assessment & Plan: Elevated blood sugars with evidence of proteinuria on u/a with normal specific gravity 1. Check UPC 2. RAAS agents to reduce proteinuria Code(s): E11.21 - TYPE 2 DIABETES MELLITUS WITH DIABETIC NEPHROPATHY Telemedicine Encounter - Telemedicine Encounter Telemedicine Encounter: The entirety of this encounter was performed via Telemedicine"
[2023-03-09] MEDS ORDERED: HUMALOG SQ PRN (21:24)
[2023-03-09] MEDS: ELIQUIS 2.5 MG TABLET PO SCH (22:18)
[2023-03-09] MEDS: Lopressor 25MG Tab PO SCH (22:19)
[2023-03-09] MEDS: NEURONTIN PO SCH (22:19)
[2023-03-09] MEDS: Sodium Chloride 0.9% 1000 ML 1,000 ML IV SCH (22:19)
[2023-03-09 22:27] LABS: CREATININE,URINE RANDOM 47.6 MG/DL
[2023-03-10 02:27] LABS: Absolute Neutrophil Ct (ANC) 8.09 x10^3/uL (1.4-6.9); BASOPHIL % 0.2 % (0.0-0.4); Basophil (Absolute #) 0.02 x10^3/uL (0-0.4); Eosinophil % 0.1 % (0.00-5.0); Eosinophil (Absolute #) 0.01 x10^3/uL (0-0.5); Hematocrit 47.4 % (42-50); Hemoglobin 15.8 g/dL (12.5-18.0); IMMATURE GRAN # 0.06 x10^3u/L (0.00-0.03); IMMATURE GRAN % 0.6 % (0.00-0.4); Lymphocyte (Absolute #) 1.67 x10^3/uL (1.0-4.6); Lymphocytes % 15.9 % (24.0-44.0); Mean Corpuscular Hemoglobin 30.3 pg (26-32); Mean Corpuscular Hgb Concent. 33.3 g/dL (32-36); Mean Platelet Volume 10.8 fL (7.5-11.0); Monocyte (Absolute #) 0.65 x10^3/uL (0.0-1.3); Monocytes % 6.2 % (0.0-12.0); Platelet Count 246 x10^3/uL (150-450); Red Blood Count 5.21 x10^6/uL (4.1-5.6); Red Cell Distribution Width 12.9 % (11.5-14.0); White Blood Count 10.5 x10^3/uL (4.0-10.5)
[2023-03-10 02:58] LABS: ANION GAP 11.8 MEQ/L (5-15); BILIRUBIN,TOTAL 0.7 mg/dL (0.2-1.3); Calcium 8.8 mg/dL (8.4-10.2); Creatinine 1 0.87 mg/dL (0.66-1.25); EST GLOMERULAR FILTRATION RATE 102.5 ML/MIN; MAGNESIUM 1.8 mg/dL (1.6-2.3); Potassium 3.5 mmol/L (3.5-5.1); Total Protein 8.3 g/dL (6.3-8.2)
[2023-03-10 04:19] VITALS: RESP 18
--- NOTE | 2023-03-10 05:15 | PCM.NOTE ---
Date and Time: 03/10/23 0502 Subjective Assessment: Mr. Garcia is a 52 year old male with a pmhx of peripheral neuropathy, stroke, Afib (on eliquis), DMII, RI, CAD (CABG/cardiac stent), and HTN who presented to ED 03/09/23 with complaints of a two day history of nausea and vomiting. During presentation he also had some intermittent chest pain. In ED EKG showed AFIB, normal axis HR 108, no ischemic changes. CT scan of the abdomen pelvis without contrast shows mild distended gallbladder with tiny gallstones present. Lab findings remarkable for mild hyponatremia, BNP at 6410, and uptrending troponins 0.160>0.135>0.088. Patient given metoprolol which has controlled his HR. 135. Objective Exam Wound Assessment: Skin/Wound Assessment Wound/Incision Assessment Start: 03/09/23 21:17 Text: Status: Active Freq: Q6H Protocol: Document 03/10/23 02:00 MP (Rec: 03/10/23 02:55 MP [id number]) Wound/Incision Assessment Left Anterior/Posterior Calf Wound Assessment Admission Wound Stage Non Pressure Wound Dressing Status Dry & Intact Drainage Amount None Wound Photo Photo Taken Yes OBJECTIVE DATA Vital Signs: Vital Signs - 24 hr Temp Pulse Resp BP BP Pulse Ox 03/10/23 04:00 97.7 F 75 18 143/81 98 03/09/23 23:37 98.2 F 88 20 125/77 96 03/09/23 22:00 97 03/09/23 20:55 97.8 F 90 16 134/89 96 03/09/23 20:30 90 125/91 99 03/09/23 20:00 101 H 127/83 99 03/09/23 19:30 91 H 15 111/81 97 03/09/23 19:00 10 L 118/89 96 03/09/23 17:50 103 H 116/86 94 L 03/09/23 17:00 160/111 98 03/09/23 16:35 102 H 13 141/102 03/09/23 16:32 105 H 9 L 96 03/09/23 16:07 96.6 F 110 H 10 L 135/100 100 03/09/23 16:06 105 H 10 L 135/100 99 Pain Assessment - Last Documented Pain Intensity 1 Pain Scale Used 0-10 Pain Scale Intake and Output: Intake & Output 03/07/23 03/08/23 03/09/23 03/10/23 11:59 11:59 11:59 11:59 Intake Total 1138 Output Total 400 Balance 738 Weight 104.9 kg Lab Results: Lab Results-Last 24 Hours 03/09/23 03/09/23 03/09/23 Range/Units 16:50 16:50 16:55 WBC 10.1 (4.0-10.5) x10^3/uL RBC 5.42 (4.1-5.6) x10^6/uL Hgb 16.3 (12.5-18.0) g/dL Hct 49.2 (42-50) % MCV 90.8 (78-100) fL MCH 30.1 (26-32) pg MCHC 33.1 (32-36) g/dL RDW 12.8 (11.5-14.0) % Plt Count 213 (150-450) x10^3/uL MPV 10.8 (7.5-11.0) fL Gran % 91.3 H (36.0-66.0) % Immature Gran % (Auto) 0.4 (0.00-0.4) % Nucleat RBC Rel Count 0.0 (0.00-0.1) % Eos # (Auto) 0.01 (0-0.5) x10^3/uL Immature Gran # (Auto) 0.04 H (0.00-0.03) x10^3u/L Absolute Lymphs (auto) 0.59 L (1.0-4.6) x10^3/uL Absolute Monos (auto) 0.23 (0.0-1.3) x10^3/uL Absolute Nucleated RBC 0.00 (0.00-0.01) x10^3u/L Lymphocytes % 5.8 L (24.0-44.0) % Monocytes % 2.3 (0.0-12.0) % Eosinophils % 0.1 (0.00-5.0) % Basophils % 0.1 (0.0-0.4) % Absolute Granulocytes 9.23 H (1.4-6.9) x10^3/uL Basophils # 0.01 (0-0.4) x10^3/uL Sodium 134 L (137-145) mmol/L Potassium 3.7 (3.5-5.1) mmol/L Chloride 97 L (98-107) mmol/L Carbon Dioxide 27 (22-30) mmol/L Anion Gap 13.9 (5-15) MEQ/L BUN 12 (9-20) mg/dL Creatinine 0.77 (0.66-1.25) mg/dL Estimated GFR 106.4 ML/MIN Glucose 173 H (74-106) mg/dL POC Glucometer (74 to 106) mg/dL Calcium 9.1 (8.4-10.2) mg/dL Magnesium (1.6-2.3) mg/dL Total Bilirubin 0.80 (0.2-1.3) mg/dL AST 24 (17-59) U/L ALT 17 (0-50) U/L Alkaline Phosphatase 86 (38-126) U/L Troponin I 0.088 H* (0.000-0.034) ng/mL NT-Pro-B Natriuret Pep (<300) pg/mL Serum Total Protein 8.4 H (6.3-8.2) g/dL Albumin 4.1 (3.5-5.0) g/dL Amylase 103 (30-110) U/L Lipase 278 (23-300) U/L Urine Color (Yellow) Urine Appearance (Clear) Urine pH (4.6-8.0) Ur Specific [place] (1.005-1.030) Urine Protein (Negative) Urine Glucose (UA) (Negative) mg/dL Urine Ketones (Negative) Urine Blood (Negative) Urine Nitrite (Negative) Urine Bilirubin (Negative) Urine Urobilinogen (0.2) mg/dL Ur Leukocyte Esterase (Negative) Urine Microscopic RBC (0-5) /HPF Urine Microscopic WBC (0-5) /HPF Ur Epithelial Cells (None Seen) /HPF Urine Bacteria (None Seen) /HPF Urine Mucus (NEGATIVE) /HPF Urine Culture Reflexed (NO) Ur Random Creatinine MG/DL U Random Total Protein (0-12) mg/dL Influenza Type A Ag NEGATIVE (NEGATIVE) Influenza Type B Ag NEGATIVE (NEGATIVE) RSV (PCR) NEGATIVE (NEGATIVE) SARS-CoV-2 (PCR) NEGATIVE (NEGATIVE) Slides for Path Review YES 03/09/23 03/09/2303/09/24 Range/Units 18:50 18:50 22:20 WBC (4.0-10.5) x10^3/uL RBC (4.1-5.6) x10^6/uL Hgb (12.5-18.0) g/dL Hct (42-50) % MCV (78-100) fL MCH (26-32) pg MCHC (32-36) g/dL RDW (11.5-14.0) % Plt Count (150-450) x10^3/uL MPV (7.5-11.0) fL Gran % (36.0-66.0) % Immature Gran % (Auto) (0.00-0.4) % Nucleat RBC Rel Count (0.00-0.1) % Eos # (Auto) (0-0.5) x10^3/uL Immature Gran # (Auto) (0.00-0.03) x10^3u/L Absolute Lymphs (auto) (1.0-4.6) x10^3/uL Absolute Monos (auto) (0.0-1.3) x10^3/uL Absolute Nucleated RBC (0.00-0.01) x10^3u/L Lymphocytes % (24.0-44.0) % Monocytes % (0.0-12.0) % Eosinophils % (0.00-5.0) % Basophils % (0.0-0.4) % Absolute Granulocytes (1.4-6.9) x10^3/uL Basophils # (0-0.4) x10^3/uL Sodium (137-145) mmol/L Potassium (3.5-5.1) mmol/L Chloride (98-107) mmol/L Carbon Dioxide (22-30) mmol/L Anion Gap (5-15) MEQ/L BUN (9-20) mg/dL Creatinine (0.66-1.25) mg/dL Estimated GFR ML/MIN Glucose (74-106) mg/dL POC Glucometer (74 to 106) mg/dL Calcium (8.4-10.2) mg/dL Magnesium (1.6-2.3) mg/dL Total Bilirubin (0.2-1.3) mg/dL AST (17-59) U/L ALT (0-50) U/L Alkaline Phosphatase (38-126) U/L Troponin I 0.135 H* (0.000-0.034) ng/mL NT-Pro-B Natriuret Pep (<300) pg/mL Serum Total Protein (6.3-8.2) g/dL Albumin (3.5-5.0) g/dL Amylase (30-110) U/L Lipase (23-300) U/L Urine Color Yellow (Yellow) Urine Appearance Clear (Clear) Urine pH 7.5 (4.6-8.0) Ur Specific [place] 1.010 (1.005-1.030) Urine Protein 100 A (Negative) Urine Glucose (UA) 100 A (Negative) mg/dL Urine Ketones Negative (Negative) Urine Blood Trace (Negative) Urine Nitrite Negative (Negative) Urine Bilirubin Negative (Negative) Urine Urobilinogen 1.0 A (0.2) mg/dL Ur Leukocyte Esterase Negative (Negative) Urine Microscopic RBC 0-2 (0-5) /HPF Urine Microscopic WBC 6-10 A (0-5) /HPF Ur Epithelial Cells None Seen (None Seen) /HPF Urine Bacteria None Seen (None Seen) /HPF Urine Mucus Rare A (NEGATIVE) /HPF Urine Culture Reflexed YES (NO) Ur Random Creatinine 47.6 MG/DL U Random Total Protein 104 H (0-12) mg/dL Influenza Type A Ag (NEGATIVE) Influenza Type B Ag (NEGATIVE) RSV (PCR) (NEGATIVE) SARS-CoV-2 (PCR) (NEGATIVE) Slides for Path Review 03/09/23 03/09/23 03/10/23 Range/Units 22:20 Unknown 02:15 WBC (4.0-10.5) x10^3/uL RBC (4.1-5.6) x10^6/uL Hgb (12.5-18.0) g/dL Hct (42-50) % MCV (78-100) fL MCH (26-32) pg MCHC (32-36) g/dL RDW (11.5-14.0) % Plt Count (150-450) x10^3/uL MPV (7.5-11.0) fL Gran % (36.0-66.0) % Immature Gran % (Auto) (0.00-0.4) % Nucleat RBC Rel Count (0.00-0.1) % Eos # (Auto) (0-0.5) x10^3/uL Immature Gran # (Auto) (0.00-0.03) x10^3u/L Absolute Lymphs (auto) (1.0-4.6) x10^3/uL Absolute Monos (auto) (0.0-1.3) x10^3/uL Absolute Nucleated RBC (0.00-0.01) x10^3u/L Lymphocytes % (24.0-44.0) % Monocytes % (0.0-12.0) % Eosinophils % (0.00-5.0) % Basophils % (0.0-0.4) % Absolute Granulocytes (1.4-6.9) x10^3/uL Basophils # (0-0.4) x10^3/uL Sodium (137-145) mmol/L Potassium (3.5-5.1) mmol/L Chloride (98-107) mmol/L Carbon Dioxide (22-30) mmol/L Anion Gap (5-15) MEQ/L BUN (9-20) mg/dL Creatinine (0.66-1.25) mg/dL Estimated GFR ML/MIN Glucose (74-106) mg/dL POC Glucometer 147 H (74 to 106) mg/dL Calcium (8.4-10.2) mg/dL Magnesium (1.6-2.3) mg/dL Total Bilirubin (0.2-1.3) mg/dL AST (17-59) U/L ALT (0-50) U/L Alkaline Phosphatase (38-126) U/L Troponin I 0.160 H* (0.000-0.034) ng/mL NT-Pro-B Natriuret Pep 3580 (<300) pg/mL Serum Total Protein (6.3-8.2) g/dL Albumin (3.5-5.0) g/dL Amylase (30-110) U/L Lipase (23-300) U/L Urine Color (Yellow) Urine Appearance (Clear) Urine pH (4.6-8.0) Ur Specific [place] (1.005-1.030) Urine Protein (Negative) Urine Glucose (UA) (Negative) mg/dL Urine Ketones (Negative) Urine Blood (Negative) Urine Nitrite (Negative) Urine Bilirubin (Negative) Urine Urobilinogen (0.2) mg/dL Ur Leukocyte Esterase (Negative) Urine Microscopic RBC (0-5) /HPF Urine Microscopic WBC (0-5) /HPF Ur Epithelial Cells (None Seen) /HPF Urine Bacteria (None Seen) /HPF Urine Mucus (NEGATIVE) /HPF Urine Culture Reflexed (NO) Ur Random Creatinine MG/DL U Random Total Protein (0-12) mg/dL Influenza Type A Ag (NEGATIVE) Influenza Type B Ag (NEGATIVE) RSV (PCR) (NEGATIVE) SARS-CoV-2 (PCR) (NEGATIVE) Slides for Path Review 03/10/23 03/10/23 Range/Units 02:15 02:15 WBC 10.5 (4.0-10.5) x10^3/uL RBC 5.21 (4.1-5.6) x10^6/uL Hgb 15.8 (12.5-18.0) g/dL Hct 47.4 (42-50) % MCV 91.0 (78-100) fL MCH 30.3 (26-32) pg MCHC 33.3 (32-36) g/dL RDW 12.9 (11.5-14.0) % Plt Count 246 (150-450) x10^3/uL MPV 10.8 (7.5-11.0) fL Gran % 77.0 H (36.0-66.0) % Immature Gran % (Auto) 0.6 H (0.00-0.4) % Nucleat RBC Rel Count 0.0 (0.00-0.1) % Eos # (Auto) 0.01 (0-0.5) x10^3/uL Immature Gran # (Auto) 0.06 H (0.00-0.03) x10^3u/L Absolute Lymphs (auto) 1.67 (1.0-4.6) x10^3/uL Absolute Monos (auto) 0.65 (0.0-1.3) x10^3/uL Absolute Nucleated RBC 0.00 (0.00-0.01) x10^3u/L Lymphocytes % 15.9 L (24.0-44.0) % Monocytes % 6.2 (0.0-12.0) % Eosinophils % 0.1 (0.00-5.0) % Basophils % 0.2 (0.0-0.4) % Absolute Granulocytes 8.09 H (1.4-6.9) x10^3/uL Basophils # 0.02 (0-0.4) x10^3/uL Sodium 135 L (137-145) mmol/L Potassium 3.5 (3.5-5.1) mmol/L Chloride 97 L (98-107) mmol/L Carbon Dioxide 29 (22-30) mmol/L Anion Gap 11.8 (5-15) MEQ/L BUN 15 (9-20) mg/dL Creatinine 0.87 (0.66-1.25) mg/dL Estimated GFR 102.5 ML/MIN Glucose 135 H (74-106) mg/dL POC Glucometer (74 to 106) mg/dL Calcium 8.8 (8.4-10.2) mg/dL Magnesium 1.8 (1.6-2.3) mg/dL Total Bilirubin 0.70 (0.2-1.3) mg/dL AST 24 (17-59) U/L ALT 16 (0-50) U/L Alkaline Phosphatase 75 (38-126) U/L Troponin I (0.000-0.034) ng/mL NT-Pro-B Natriuret Pep 6410 (<300) pg/mL Serum Total Protein 8.3 H (6.3-8.2) g/dL Albumin 4.0 (3.5-5.0) g/dL Amylase (30-110) U/L Lipase (23-300) U/L Urine Color (Yellow) Urine Appearance (Clear) Urine pH (4.6-8.0) Ur Specific [place] (1.005-1.030) Urine Protein (Negative) Urine Glucose (UA) (Negative) mg/dL Urine Ketones (Negative) Urine Blood (Negative) Urine Nitrite (Negative) Urine Bilirubin (Negative) Urine Urobilinogen (0.2) mg/dL Ur Leukocyte Esterase (Negative) Urine Microscopic RBC (0-5) /HPF Urine Microscopic WBC (0-5) /HPF Ur Epithelial Cells (None Seen) /HPF Urine Bacteria (None Seen) /HPF Urine Mucus (NEGATIVE) /HPF Urine Culture Reflexed (NO) Ur Random Creatinine MG/DL U Random Total Protein (0-12) mg/dL Influenza Type A Ag (NEGATIVE) Influenza Type B Ag (NEGATIVE) RSV (PCR) (NEGATIVE) SARS-CoV-2 (PCR) (NEGATIVE) Slides for Path Review Radiology Exams: Radiology Procedures Category Date Time Status ABDOMEN AND PELVIS W/0 CONTRAS [CT] Stat Exams 03/09/23 16:15 Taken Assessment/Plan (1) Atrial fibrillation with RVR Current Visit: Yes Status: Acute Assessment & Plan: 03/09: Likely exacerbated by intravascular volume depletion 1. Rate control 2. Continue eliquis 3. Telemetry Code(s): I48.91 - UNSPECIFIED ATRIAL FIBRILLATION (2) Nausea & vomiting Current Visit: Yes Status: Acute Assessment & Plan: -ant-emetics -CT abdomen and pelvis demonstrating mild distended gallbladder with tiny gallstones present, will consult surgery Code(s): R11.2 - NAUSEA WITH VOMITING, UNSPECIFIED (3) CAD (coronary artery disease) Current Visit: Yes Status: Acute Assessment & Plan: -noted, continue appropriate home medications Code(s): I25.10 - ATHSCL HEART DISEASE OF [place] CORONARY ARTERY W/O ANG PCTRS (4) HTN (hypertension) Current Visit: Yes Status: Acute Assessment & Plan: -stable, continue appropriate home meds Code(s): I10 - ESSENTIAL (PRIMARY) HYPERTENSION (5) Elevated brain natriuretic peptide (BNP) level Current Visit: Yes Status: Acute Assessment & Plan: -BNP at 6410 -Recent ECHO 09/21/22: EF 40-45% IMPRESSION: 1. MODERATE CONCENTRIC LEFT VENTRICULAR HYPERTROPHY WITH MODERATE LEFT VENTRICULAR SYSTOLIC DYSFUNCTION. 2. BIATRIAL ENLARGEMENT. 3. MILD AORTIC ROOT DILATATION. 4. MILD MITRAL REGURGITATION. 5. TRACE TRICUSPID REGURGITATION. Code(s): R79.89 - OTHER SPECIFIED ABNORMAL FINDINGS OF BLOOD CHEMISTRY (6) Elevated troponin Current Visit: Yes Status: Acute Assessment & Plan: -Most likely secondary to afib, EKG with no ischemia -TELE -Continue ASA/Eliquis/Metoprolol Code(s): R79.89 - OTHER SPECIFIED ABNORMAL FINDINGS OF BLOOD CHEMISTRY (7) Hyponatremia Current Visit: Yes Status: Acute Assessment & Plan: -secondary to hypovolemia -gentle hydration -Monitor renal/lytes daily Code(s): E87.1 - HYPO-OSMOLALITY AND HYPONATREMIA (8) Type 2 diabetes mellitus with diabetic nephropathy Current Visit: Yes Status: Acute Assessment & Plan: -ADA -SSI -a1c Code(s): E11.21 - TYPE 2 DIABETES MELLITUS WITH DIABETIC NEPHROPATHY (9) Vomiting Current Visit: Yes Status: Acute Assessment & Plan: 03/09/23 Likely from gastroenteritis versus gallstones 1. IVFs 2. Anti-emetics 3. Trend LFTs Code(s): R11.10 - VOMITING, UNSPECIFIED
[2023-03-10] MEDS: Sodium Chloride 0.9% 1000 ML 1,000 ML IV SCH (07:38)
--- NOTE | 2023-03-10 08:36 | XRAY ---
Indication: Abdomen pain, nausea, vomiting, diarrhea. Multiple contiguous axial images obtained through the abdomen and pelvis without contrast. Comparison: May 16, 2022 Lung bases again demonstrate scattered fibrosis/scarring. No infiltrate or effusion. Heart not enlarged with CABG. Noncontrasted stomach and bowel loops appear nonobstructed with normal appendix. Again mildly distended gallbladder with tiny gallstones in the dependent portion. There remains a few tiny hepatic/splenic calcified granulomas. No free fluid/air. Remaining liver, gallbladder, pancreas, spleen, adrenal glands, kidneys, ureters, bladder, and uterus are unremarkable for noncontrast exam. Again mild scattered aortoiliac calcifications without AAA. Osseous structures intact again with osteopenia, mild/moderate degenerative changes throughout thoracolumbar spine, and incompletely visualized proximal right femur orthopedic hardware. Impression: 1. Again mildly distended gallbladder with gallstones. Sonogram may yield further information if clinically warranted. 2. Chronic findings including arteriosclerotic disease, chronic bony findings, and old granulomatous disease. 3. Remaining CT abdomen/pelvis without contrast exam is negative.
[2023-03-10] MEDS ORDERED: Unasyn 3 GM Vial*** 3 G in Sodium Chloride 0.9% 100 ML IV ONE (10:00)
[2023-03-10] MEDS ORDERED: Lasix 40 MG/4 ML IV SCH (10:00)
[2023-03-10] MEDS ORDERED: ENOXAPARIN SODIUM SQ SCH (10:00)
--- NOTE | 2023-03-10 10:35 | PCM.DS ---
Discharge Summary Date of Admission: 03/09/23 20:47 Date of Discharge: 03/10/23 Admitting Physician: LILA DE LA CRUZ MD Allergies Allergies No Known Drug Allergies Allergy (Verified 03/09/23 16:05) Hospital Summary - Hospital Course Hospital Course: Mr. Garcia is a 52 year old male with a pmhx of peripheral neuropathy, stroke, Afib (on eliquis), DMII, [place] x 6, CAD (CABG/cardiac stent), and HTN who presented to ED 03/09/23 with complaints of a two day history of nausea and vomiting. During presentation he also had some intermittent chest pain. In ED EKG showed AFIB, normal axis HR 108, no ischemic changes. CT scan of the abdomen pelvis without contrast shows mild distended gallbladder with tiny gallstones present. Lab findings remarkable for mild hyponatremia, BNP at 6410, and uptrending troponins 0.160>0.135>0.088. Patient given metoprolol which has controlled his HR. Repeat EKG showing AFIB, nonspecific IVCD w/LAD, aterolateral infarct age indeterminate. Due to extensive heart history with uptrending troponins as well as the need for possible surgical intervention patient will be transferred to higher level of care for cardiac evaluation/surgical evaluation. I spent 35 minutes [id number] with the patient on the day of discharge per forming discharge exam, discussing hospital stay and discharge instructions with patient and caregivers, preparation of discharge records, prescriptions & referral forms and addressing any questions/concerns the patient had as documented above. - Vitals & Intake/Output Vital Signs: Vital Signs Temperature 97.3 F 03/10/23 08:00 Pulse Rate 65 03/10/23 08:00 Respiratory Rate 18 03/10/23 08:00 Blood Pressure 128/71 03/10/23 08:00 O2 Sat by Pulse Oximetry 92 L 03/10/23 08:00 Intake & Output: Intake & Output 03/07/23 03/08/23 03/09/23 03/10/23 11:59 11:59 11:59 11:59 Intake Total 1138 Output Total 400 Balance 738 Weight 104.9 kg - Lab Result Diagrams: 03/10/23 02:15 03/10/23 02:15 Lab Results-Last 24 Hrs: Lab Results-Last 24 Hours 03/09/23 03/09/23 03/09/23 Range/Units 16:50 16:50 16:55 WBC 10.1 (4.0-10.5) x10^3/uL RBC 5.42 (4.1-5.6) x10^6/uL Hgb 16.3 (12.5-18.0) g/dL Hct 49.2 (42-50) % MCV 90.8 (78-100) fL MCH 30.1 (26-32) pg MCHC 33.1 (32-36) g/dL RDW 12.8 (11.5-14.0) % Plt Count 213 (150-450) x10^3/uL MPV 10.8 (7.5-11.0) fL Gran % 91.3 H (36.0-66.0) % Immature Gran % (Auto) 0.4 (0.00-0.4) % Nucleat RBC Rel Count 0.0 (0.00-0.1) % Eos # (Auto) 0.01 (0-0.5) x10^3/uL Immature Gran # (Auto) 0.04 H (0.00-0.03) x10^3u/L Absolute Lymphs (auto) 0.59 L (1.0-4.6) x10^3/uL Absolute Monos (auto) 0.23 (0.0-1.3) x10^3/uL Absolute Nucleated RBC 0.00 (0.00-0.01) x10^3u/L Lymphocytes % 5.8 L (24.0-44.0) % Monocytes % 2.3 (0.0-12.0) % Eosinophils % 0.1 (0.00-5.0) % Basophils % 0.1 (0.0-0.4) % Absolute Granulocytes 9.23 H (1.4-6.9) x10^3/uL Basophils # 0.01 (0-0.4) x10^3/uL Sodium 134 L (137-145) mmol/L Potassium 3.7 (3.5-5.1) mmol/L Chloride 97 L (98-107) mmol/L Carbon Dioxide 27 (22-30) mmol/L Anion Gap 13.9 (5-15) MEQ/L BUN 12 (9-20) mg/dL Creatinine 0.77 (0.66-1.25) mg/dL Estimated GFR 106.4 ML/MIN Glucose 173 H (74-106) mg/dL POC Glucometer (74 to 106) mg/dL Hemoglobin A1c (4.5-6.0) % Calcium 9.1 (8.4-10.2) mg/dL Magnesium (1.6-2.3) mg/dL Total Bilirubin 0.80 (0.2-1.3) mg/dL AST 24 (17-59) U/L ALT 17 (0-50) U/L Alkaline Phosphatase 86 (38-126) U/L Troponin I 0.088 H* (0.000-0.034) ng/mL NT-Pro-B Natriuret Pep (<300) pg/mL Serum Total Protein 8.4 H (6.3-8.2) g/dL Albumin 4.1 (3.5-5.0) g/dL Amylase 103 (30-110) U/L Lipase 278 (23-300) U/L Urine Color (Yellow) Urine Appearance (Clear) Urine pH (4.6-8.0) Ur Specific [place] (1.005-1.030) Urine Protein (Negative) Urine Glucose (UA) (Negative) mg/dL Urine Ketones (Negative) Urine Blood (Negative) Urine Nitrite (Negative) Urine Bilirubin (Negative) Urine Urobilinogen (0.2) mg/dL Ur Leukocyte Esterase (Negative) Urine Microscopic RBC (0-5) /HPF Urine Microscopic WBC (0-5) /HPF Ur Epithelial Cells (None Seen) /HPF Urine Bacteria (None Seen) /HPF Urine Mucus (NEGATIVE) /HPF Urine Culture Reflexed (NO) Ur Random Creatinine MG/DL U Random Total Protein (0-12) mg/dL Influenza Type A Ag NEGATIVE (NEGATIVE) Influenza Type B Ag NEGATIVE (NEGATIVE) RSV (PCR) NEGATIVE (NEGATIVE) SARS-CoV-2 (PCR) NEGATIVE (NEGATIVE) Slides for Path Review YES 03/09/23 03/09/23 03/09/23 Range/Units 18:50 18:50 22:20 WBC (4.0-10.5) x10^3/uL RBC (4.1-5.6) x10^6/uL Hgb (12.5-18.0) g/dL Hct (42-50) % MCV (78-100) fL MCH (26-32) pg MCHC (32-36) g/dL RDW (11.5-14.0) % Plt Count (150-450) x10^3/uL MPV (7.5-11.0) fL Gran % (36.0-66.0) % Immature Gran % (Auto) (0.00-0.4) % Nucleat RBC Rel Count (0.00-0.1) % Eos # (Auto) (0-0.5) x10^3/uL Immature Gran # (Auto) (0.00-0.03) x10^3u/L Absolute Lymphs (auto) (1.0-4.6) x10^3/uL Absolute Monos (auto) (0.0-1.3) x10^3/uL Absolute Nucleated RBC (0.00-0.01) x10^3u/L Lymphocytes % (24.0-44.0) % Monocytes % (0.0-12.0) % Eosinophils % (0.00-5.0) % Basophils % (0.0-0.4) % Absolute Granulocytes (1.4-6.9) x10^3/uL Basophils # (0-0.4) x10^3/uL Sodium (137-145) mmol/L Potassium (3.5-5.1) mmol/L Chloride (98-107) mmol/L Carbon Dioxide (22-30) mmol/L Anion Gap (5-15) MEQ/L BUN (9-20) mg/dL Creatinine (0.66-1.25) mg/dL Estimated GFR ML/MIN Glucose (74-106) mg/dL POC Glucometer (74 to 106) mg/dL Hemoglobin A1c (4.5-6.0) % Calcium (8.4-10.2) mg/dL Magnesium (1.6-2.3) mg/dL Total Bilirubin (0.2-1.3) mg/dL AST (17-59) U/L ALT (0-50) U/L Alkaline Phosphatase (38-126) U/L Troponin I 0.135 H* (0.000-0.034) ng/mL NT-Pro-B Natriuret Pep (<300) pg/mL Serum Total Protein (6.3-8.2) g/dL Albumin (3.5-5.0) g/dL Amylase (30-110) U/L Lipase (23-300) U/L Urine Color Yellow (Yellow) Urine Appearance Clear (Clear) Urine pH 7.5 (4.6-8.0) Ur Specific [place] 1.010 (1.005-1.030) Urine Protein 100 A (Negative) Urine Glucose (UA) 100 A (Negative) mg/dL Urine Ketones Negative (Negative) Urine Blood Trace (Negative) Urine Nitrite Negative (Negative) Urine Bilirubin Negative (Negative) Urine Urobilinogen 1.0 A (0.2) mg/dL Ur Leukocyte Esterase Negative (Negative) Urine Microscopic RBC 0-2 (0-5) /HPF Urine Microscopic WBC 6-10 A (0-5) /HPF Ur Epithelial Cells None Seen (None Seen) /HPF Urine Bacteria None Seen (None Seen) /HPF Urine Mucus Rare A (NEGATIVE) /HPF Urine Culture Reflexed YES (NO) Ur Random Creatinine 47.6 MG/DL U Random Total Protein 104 H (0-12) mg/dL Influenza Type A Ag (NEGATIVE) Influenza Type B Ag (NEGATIVE) RSV (PCR) (NEGATIVE) SARS-CoV-2 (PCR) (NEGATIVE) Slides for Path Review 03/09/23 03/09/23 03/10/23 Range/Units 22:20 Unknown 02:15 WBC (4.0-10.5) x10^3/uL RBC (4.1-5.6) x10^6/uL Hgb (12.5-18.0) g/dL Hct (42-50) % MCV (78-100) fL MCH (26-32) pg MCHC (32-36) g/dL RDW (11.5-14.0) % Plt Count (150-450) x10^3/uL MPV (7.5-11.0) fL Gran % (36.0-66.0) % Immature Gran % (Auto) (0.00-0.4) % Nucleat RBC Rel Count (0.00-0.1) % Eos # (Auto) (0-0.5) x10^3/uL Immature Gran # (Auto) (0.00-0.03) x10^3u/L Absolute Lymphs (auto) (1.0-4.6) x10^3/uL Absolute Monos (auto) (0.0-1.3) x10^3/uL Absolute Nucleated RBC (0.00-0.01) x10^3u/L Lymphocytes % (24.0-44.0) % Monocytes % (0.0-12.0) % Eosinophils % (0.00-5.0) % Basophils % (0.0-0.4) % Absolute Granulocytes (1.4-6.9) x10^3/uL Basophils # (0-0.4) x10^3/uL Sodium (137-145) mmol/L Potassium (3.5-5.1) mmol/L Chloride (98-107) mmol/L Carbon Dioxide (22-30) mmol/L Anion Gap (5-15) MEQ/L BUN (9-20) mg/dL Creatinine (0.66-1.25) mg/dL Estimated GFR ML/MIN Glucose (74-106) mg/dL POC Glucometer 147 H (74 to 106) mg/dL Hemoglobin A1c (4.5-6.0) % Calcium (8.4-10.2) mg/dL Magnesium (1.6-2.3) mg/dL Total Bilirubin (0.2-1.3) mg/dL AST (17-59) U/L ALT (0-50) U/L Alkaline Phosphatase (38-126) U/L Troponin I 0.160 H* (0.000-0.034) ng/mL NT-Pro-B Natriuret Pep 3580 (<300) pg/mL Serum Total Protein (6.3-8.2) g/dL Albumin (3.5-5.0) g/dL Amylase (30-110) U/L Lipase (23-300) U/L Urine Color (Yellow) Urine Appearance (Clear) Urine pH (4.6-8.0) Ur Specific [place] (1.005-1.030) Urine Protein (Negative) Urine Glucose (UA) (Negative) mg/dL Urine Ketones (Negative) Urine Blood (Negative) Urine Nitrite (Negative) Urine Bilirubin (Negative) Urine Urobilinogen (0.2) mg/dL Ur Leukocyte Esterase (Negative) Urine Microscopic RBC (0-5) /HPF Urine Microscopic WBC (0-5) /HPF Ur Epithelial Cells (None Seen) /HPF Urine Bacteria (None Seen) /HPF Urine Mucus (NEGATIVE) /HPF Urine Culture Reflexed (NO) Ur Random Creatinine MG/DL U Random Total Protein (0-12) mg/dL Influenza Type A Ag (NEGATIVE) Influenza Type B Ag (NEGATIVE) RSV (PCR) (NEGATIVE) SARS-CoV-2 (PCR) (NEGATIVE) Slides for Path Review 03/10/23 03/10/23 03/10/23 Range/Units 02:15 02:15 02:15 WBC 10.5 (4.0-10.5) x10^3/uL RBC 5.21 (4.1-5.6) x10^6/uL Hgb 15.8 (12.5-18.0) g/dL Hct 47.4 (42-50) % MCV 91.0 (78-100) fL MCH 30.3 (26-32) pg MCHC 33.3 (32-36) g/dL RDW 12.9 (11.5-14.0) % Plt Count 246 (150-450) x10^3/uL MPV 10.8 (7.5-11.0) fL Gran % 77.0 H (36.0-66.0) % Immature Gran % (Auto) 0.6 H (0.00-0.4) % Nucleat RBC Rel Count 0.0 (0.00-0.1) % Eos # (Auto) 0.01 (0-0.5) x10^3/uL Immature Gran # (Auto) 0.06 H (0.00-0.03) x10^3u/L Absolute Lymphs (auto) 1.67 (1.0-4.6) x10^3/uL Absolute Monos (auto) 0.65 (0.0-1.3) x10^3/uL Absolute Nucleated RBC 0.00 (0.00-0.01) x10^3u/L Lymphocytes % 15.9 L (24.0-44.0) % Monocytes % 6.2 (0.0-12.0) % Eosinophils % 0.1 (0.00-5.0) % Basophils % 0.2 (0.0-0.4) % Absolute Granulocytes 8.09 H (1.4-6.9) x10^3/uL Basophils # 0.02 (0-0.4) x10^3/uL Sodium 135 L (137-145) mmol/L Potassium 3.5 (3.5-5.1) mmol/L Chloride 97 L (98-107) mmol/L Carbon Dioxide 29 (22-30) mmol/L Anion Gap 11.8 (5-15) MEQ/L BUN 15 (9-20) mg/dL Creatinine 0.87 (0.66-1.25) mg/dL Estimated GFR 102.5 ML/MIN Glucose 135 H (74-106) mg/dL POC Glucometer (74 to 106) mg/dL Hemoglobin A1c 6.40 H (4.5-6.0) % Calcium 8.8 (8.4-10.2) mg/dL Magnesium 1.8 (1.6-2.3) mg/dL Total Bilirubin 0.70 (0.2-1.3) mg/dL AST 24 (17-59) U/L ALT 16 (0-50) U/L Alkaline Phosphatase 75 (38-126) U/L Troponin I (0.000-0.034) ng/mL NT-Pro-B Natriuret Pep 6410 (<300) pg/mL Serum Total Protein 8.3 H (6.3-8.2) g/dL Albumin 4.0 (3.5-5.0) g/dL Amylase (30-110) U/L Lipase (23-300) U/L Urine Color (Yellow) Urine Appearance (Clear) Urine pH (4.6-8.0) Ur Specific [place] (1.005-1.030) Urine Protein (Negative) Urine Glucose (UA) (Negative) mg/dL Urine Ketones (Negative) Urine Blood (Negative) Urine Nitrite (Negative) Urine Bilirubin (Negative) Urine Urobilinogen (0.2) mg/dL Ur Leukocyte Esterase (Negative) Urine Microscopic RBC (0-5) /HPF Urine Microscopic WBC (0-5) /HPF Ur Epithelial Cells (None Seen) /HPF Urine Bacteria (None Seen) /HPF Urine Mucus (NEGATIVE) /HPF Urine Culture Reflexed (NO) Ur Random Creatinine MG/DL U Random Total Protein (0-12) mg/dL Influenza Type A Ag (NEGATIVE) Influenza Type B Ag (NEGATIVE) RSV (PCR) (NEGATIVE) SARS-CoV-2 (PCR) (NEGATIVE) Slides for Path Review 03/10/23 Range/Units 07:46 WBC (4.0-10.5) x10^3/uL RBC (4.1-5.6) x10^6/uL Hgb (12.5-18.0) g/dL Hct (42-50) % MCV (78-100) fL MCH (26-32) pg MCHC (32-36) g/dL RDW (11.5-14.0) % Plt Count (150-450) x10^3/uL MPV (7.5-11.0) fL Gran % (36.0-66.0) % Immature Gran % (Auto) (0.00-0.4) % Nucleat RBC Rel Count (0.00-0.1) % Eos # (Auto) (0-0.5) x10^3/uL Immature Gran # (Auto) (0.00-0.03) x10^3u/L Absolute Lymphs (auto) (1.0-4.6) x10^3/uL Absolute Monos (auto) (0.0-1.3) x10^3/uL Absolute Nucleated RBC (0.00-0.01) x10^3u/L Lymphocytes % (24.0-44.0) % Monocytes % (0.0-12.0) % Eosinophils % (0.00-5.0) % Basophils % (0.0-0.4) % Absolute Granulocytes (1.4-6.9) x10^3/uL Basophils # (0-0.4) x10^3/uL Sodium (137-145) mmol/L Potassium (3.5-5.1) mmol/L Chloride (98-107) mmol/L Carbon Dioxide (22-30) mmol/L Anion Gap (5-15) MEQ/L BUN (9-20) mg/dL Creatinine (0.66-1.25) mg/dL Estimated GFR ML/MIN Glucose (74-106) mg/dL POC Glucometer 128 H (74 to 106) mg/dL Hemoglobin A1c (4.5-6.0) % Calcium (8.4-10.2) mg/dL Magnesium (1.6-2.3) mg/dL Total Bilirubin (0.2-1.3) mg/dL AST (17-59) U/L ALT (0-50) U/L Alkaline Phosphatase (38-126) U/L Troponin I (0.000-0.034) ng/mL NT-Pro-B Natriuret Pep (<300) pg/mL Serum Total Protein (6.3-8.2) g/dL Albumin (3.5-5.0) g/dL Amylase (30-110) U/L Lipase (23-300) U/L Urine Color (Yellow) Urine Appearance (Clear) Urine pH (4.6-8.0) Ur Specific [place] (1.005-1.030) Urine Protein (Negative) Urine Glucose (UA) (Negative) mg/dL Urine Ketones (Negative) Urine Blood (Negative) Urine Nitrite (Negative) Urine Bilirubin (Negative) Urine Urobilinogen (0.2) mg/dL Ur Leukocyte Esterase (Negative) Urine Microscopic RBC (0-5) /HPF Urine Microscopic WBC (0-5) /HPF Ur Epithelial Cells (None Seen) /HPF Urine Bacteria (None Seen) /HPF Urine Mucus (NEGATIVE) /HPF Urine Culture Reflexed (NO) Ur Random Creatinine MG/DL U Random Total Protein (0-12) mg/dL Influenza Type A Ag (NEGATIVE) Influenza Type B Ag (NEGATIVE) RSV (PCR) (NEGATIVE) SARS-CoV-2 (PCR) (NEGATIVE) Slides for Path Review Micro Results-Entire Visit: Accuchecks Date 03/10/23 Time 08:46 - Radiology Exams Ordered Rad Exams-Entire Visit: Radiology Procedures Category Date Time Status ABDOMEN AND PELVIS W/0 CONTRAS [CT] Stat Exams 03/09/23 16:15 Completed - Procedures and Test Procedures and Tests throughout Hospitalization: Therapy Orders & Screens 03/09/23 20:53 EKG REPEAT IN AM Comment: Discharge Exam General Appearance: no apparent distress Neurologic Exam: alert, oriented x 3, cooperative Eye Exam: PERRL Ears, Nose, Throat Exam: normal ENT inspection Neck Exam: normal inspection Respiratory Exam: normal breath sounds, lungs clear Cardiovascular Exam: tachycardia Gastrointestinal/Abdomen Exam: soft, normal bowel sounds, tenderness (TTP RUQ) Male Genitalia Exam: deferred Rectal Exam: deferred Back Exam: normal inspection Skin Exam: other (multiple pock- like abrasions to bilateral forarms in various stages of healing) Wound Assessment: Skin/Wound Assessment Wound/Incision Assessment Start: 03/09/23 21:17 Text: Status: Active Freq: Q6H Protocol: Document 03/10/23 08:00 RF (Rec: 03/10/23 09:19 RF [id number]) Wound/Incision Assessment Left Anterior/Posterior Calf Wound Assessment Admission Wound Stage Non Pressure Wound Dressing Status Dry & Intact Drainage Amount None Wound Photo Photo Taken Yes Final Diagnosis/Problem List - Final Discharge Diagnosis/Problem (1) Cholelithiasis Current Visit: Yes Status: Acute (2) Atrial fibrillation with RVR Current Visit: Yes Status: Acute Code(s): I48.91 - UNSPECIFIED ATRIAL FIBRILLATION (3) Nausea & vomiting Current Visit: Yes Status: Acute Code(s): R11.2 - NAUSEA WITH VOMITING, UNSPECIFIED (4) CAD (coronary artery disease) Current Visit: Yes Status: Acute Code(s): I25.10 - ATHSCL HEART DISEASE OF [place] CORONARY ARTERY W/O ANG PCTRS (5) HTN (hypertension) Current Visit: Yes Status: Acute Code(s): I10 - ESSENTIAL (PRIMARY) HYPERTENSION (6) Elevated brain natriuretic peptide (BNP) level Current Visit: Yes Status: Acute Code(s): R79.89 - OTHER SPECIFIED ABNORMAL FINDINGS OF BLOOD CHEMISTRY (7) Elevated troponin Current Visit: Yes Status: Acute Code(s): R79.89 - OTHER SPECIFIED ABNORMAL FINDINGS OF BLOOD CHEMISTRY (8) Hyponatremia Current Visit: Yes Status: Acute Code(s): E87.1 - HYPO-OSMOLALITY AND HYPONATREMIA (9) Type 2 diabetes mellitus with diabetic nephropathy Current Visit: Yes Status: Acute Code(s): E11.21 - TYPE 2 DIABETES MELLITUS WITH DIABETIC NEPHROPATHY (10) Vomiting Current Visit: Yes Status: Acute Code(s): R11.10 - VOMITING, UNSPECIFIED - Discharge Disposition: DC TO [facility] Condition: Fair Prescriptions: Continue Metformin HCl [Metformin ER Gastric] 1,000 mg PO DAILY Furosemide [Lasix] 1 tab PO DAILY Gabapentin [Neurontin ] 1 cap PO QID Potassium Chloride 1 tab PO BID Metoprolol Succinate 25 mg Xl* [Toprol-Xl 25MG Tablets] 1 tab PO DAILY Discontinued Apixaban [Eliquis] 5 mg PO BID
--- NOTE | 2023-03-10 10:41 | PCM.DS ---
Discharge Summary Date of Admission: 03/09/23 20:47 Admitting Physician: LILA DE LA CRUZ MD Allergies Allergies No Known Drug Allergies Allergy (Verified 03/09/23 16:05) Hospital Summary - Vitals & Intake/Output Vital Signs: Vital Signs Temperature 97.3 F 03/10/23 08:00 Pulse Rate 65 03/10/23 08:00 Respiratory Rate 18 03/10/23 08:00 Blood Pressure 128/71 03/10/23 08:00 O2 Sat by Pulse Oximetry 92 L 03/10/23 08:00 Intake & Output: Intake & Output 03/07/23 03/08/23 03/09/23 03/10/23 11:59 11:59 11:59 11:59 Intake Total 1138 Output Total 400 Balance 738 Weight 104.9 kg - Lab Result Diagrams: 03/10/23 02:15 03/10/23 02:15 Lab Results-Last 24 Hrs: Lab Results-Last 24 Hours 03/09/23 03/09/23 03/09/23 Range/Units 16:50 16:50 16:55 WBC 10.1 (4.0-10.5) x10^3/uL RBC 5.42 (4.1-5.6) x10^6/uL Hgb 16.3 (12.5-18.0) g/dL Hct 49.2 (42-50) % MCV 90.8 (78-100) fL MCH 30.1 (26-32) pg MCHC 33.1 (32-36) g/dL RDW 12.8 (11.5-14.0) % Plt Count 213 (150-450) x10^3/uL MPV 10.8 (7.5-11.0) fL Gran % 91.3 H (36.0-66.0) % Immature Gran % (Auto) 0.4 (0.00-0.4) % Nucleat RBC Rel Count 0.0 (0.00-0.1) % Eos # (Auto) 0.01 (0-0.5) x10^3/uL Immature Gran # (Auto) 0.04 H (0.00-0.03) x10^3u/L Absolute Lymphs (auto) 0.59 L (1.0-4.6) x10^3/uL Absolute Monos (auto) 0.23 (0.0-1.3) x10^3/uL Absolute Nucleated RBC 0.00 (0.00-0.01) x10^3u/L Lymphocytes % 5.8 L (24.0-44.0) % Monocytes % 2.3 (0.0-12.0) % Eosinophils % 0.1 (0.00-5.0) % Basophils % 0.1 (0.0-0.4) % Absolute Granulocytes 9.23 H (1.4-6.9) x10^3/uL Basophils # 0.01 (0-0.4) x10^3/uL Sodium 134 L (137-145) mmol/L Potassium 3.7 (3.5-5.1) mmol/L Chloride 97 L (98-107) mmol/L Carbon Dioxide 27 (22-30) mmol/L Anion Gap 13.9 (5-15) MEQ/L BUN 12 (9-20) mg/dL Creatinine 0.77 (0.66-1.25) mg/dL Estimated GFR 106.4 ML/MIN Glucose 173 H (74-106) mg/dL POC Glucometer (74 to 106) mg/dL Hemoglobin A1c (4.5-6.0) % Calcium 9.1 (8.4-10.2) mg/dL Magnesium (1.6-2.3) mg/dL Total Bilirubin 0.80 (0.2-1.3) mg/dL AST 24 (17-59) U/L ALT 17 (0-50) U/L Alkaline Phosphatase 86 (38-126) U/L Troponin I 0.088 H* (0.000-0.034) ng/mL NT-Pro-B Natriuret Pep (<300) pg/mL Serum Total Protein 8.4 H (6.3-8.2) g/dL Albumin 4.1 (3.5-5.0) g/dL Amylase 103 (30-110) U/L Lipase 278 (23-300) U/L Urine Color (Yellow) Urine Appearance (Clear) Urine pH (4.6-8.0) Ur Specific [place] (1.005-1.030) Urine Protein (Negative) Urine Glucose (UA) (Negative) mg/dL Urine Ketones (Negative) Urine Blood (Negative) Urine Nitrite (Negative) Urine Bilirubin (Negative) Urine Urobilinogen (0.2) mg/dL Ur Leukocyte Esterase (Negative) Urine Microscopic RBC (0-5) /HPF Urine Microscopic WBC (0-5) /HPF Ur Epithelial Cells (None Seen) /HPF Urine Bacteria (None Seen) /HPF Urine Mucus (NEGATIVE) /HPF Urine Culture Reflexed (NO) Ur Random Creatinine MG/DL U Random Total Protein (0-12) mg/dL Influenza Type A Ag NEGATIVE (NEGATIVE) Influenza Type B Ag NEGATIVE (NEGATIVE) RSV (PCR) NEGATIVE (NEGATIVE) SARS-CoV-2 (PCR) NEGATIVE (NEGATIVE) Slides for Path Review YES 03/09/23 03/09/23 03/09/23 Range/Units 18:50 18:50 22:20 WBC (4.0-10.5) x10^3/uL RBC (4.1-5.6) x10^6/uL Hgb (12.5-18.0) g/dL Hct (42-50) % MCV (78-100) fL MCH (26-32) pg MCHC (32-36) g/dL RDW (11.5-14.0) % Plt Count (150-450) x10^3/uL MPV (7.5-11.0) fL Gran % (36.0-66.0) % Immature Gran % (Auto) (0.00-0.4) % Nucleat RBC Rel Count (0.00-0.1) % Eos # (Auto) (0-0.5) x10^3/uL Immature Gran # (Auto) (0.00-0.03) x10^3u/L Absolute Lymphs (auto) (1.0-4.6) x10^3/uL Absolute Monos (auto) (0.0-1.3) x10^3/uL Absolute Nucleated RBC (0.00-0.01) x10^3u/L Lymphocytes % (24.0-44.0) % Monocytes % (0.0-12.0) % Eosinophils % (0.00-5.0) % Basophils % (0.0-0.4) % Absolute Granulocytes (1.4-6.9) x10^3/uL Basophils # (0-0.4) x10^3/uL Sodium (137-145) mmol/L Potassium (3.5-5.1) mmol/L Chloride (98-107) mmol/L Carbon Dioxide (22-30) mmol/L Anion Gap (5-15) MEQ/L BUN (9-20) mg/dL Creatinine (0.66-1.25) mg/dL Estimated GFR ML/MIN Glucose (74-106) mg/dL POC Glucometer (74 to 106) mg/dL Hemoglobin A1c (4.5-6.0) % Calcium (8.4-10.2) mg/dL Magnesium (1.6-2.3) mg/dL Total Bilirubin (0.2-1.3) mg/dL AST (17-59) U/L ALT (0-50) U/L Alkaline Phosphatase (38-126) U/L Troponin I 0.135 H* (0.000-0.034) ng/mL NT-Pro-B Natriuret Pep (<300) pg/mL Serum Total Protein (6.3-8.2) g/dL Albumin (3.5-5.0) g/dL Amylase (30-110) U/L Lipase (23-300) U/L Urine Color Yellow (Yellow) Urine Appearance Clear (Clear) Urine pH 7.5 (4.6-8.0) Ur Specific [place] 1.010 (1.005-1.030) Urine Protein 100 A (Negative) Urine Glucose (UA) 100 A (Negative) mg/dL Urine Ketones Negative (Negative) Urine Blood Trace (Negative) Urine Nitrite Negative (Negative) Urine Bilirubin Negative (Negative) Urine Urobilinogen 1.0 A (0.2) mg/dL Ur Leukocyte Esterase Negative (Negative) Urine Microscopic RBC 0-2 (0-5) /HPF Urine Microscopic WBC 6-10 A (0-5) /HPF Ur Epithelial Cells None Seen (None Seen) /HPF Urine Bacteria None Seen (None Seen) /HPF Urine Mucus Rare A (NEGATIVE) /HPF Urine Culture Reflexed YES (NO) Ur Random Creatinine 47.6 MG/DL U Random Total Protein 104 H (0-12) mg/dL Influenza Type A Ag (NEGATIVE) Influenza Type B Ag (NEGATIVE) RSV (PCR) (NEGATIVE) SARS-CoV-2 (PCR) (NEGATIVE) Slides for Path Review 03/09/23 03/09/23 03/10/23 Range/Units 22:20 Unknown 02:15 WBC (4.0-10.5) x10^3/uL RBC (4.1-5.6) x10^6/uL Hgb (12.5-18.0) g/dL Hct (42-50) % MCV (78-100) fL MCH (26-32) pg MCHC (32-36) g/dL RDW (11.5-14.0) % Plt Count (150-450) x10^3/uL MPV (7.5-11.0) fL Gran % (36.0-66.0) % Immature Gran % (Auto) (0.00-0.4) % Nucleat RBC Rel Count (0.00-0.1) % Eos # (Auto) (0-0.5) x10^3/uL Immature Gran # (Auto) (0.00-0.03) x10^3u/L Absolute Lymphs (auto) (1.0-4.6) x10^3/uL Absolute Monos (auto) (0.0-1.3) x10^3/uL Absolute Nucleated RBC (0.00-0.01) x10^3u/L Lymphocytes % (24.0-44.0) % Monocytes % (0.0-12.0) % Eosinophils % (0.00-5.0) % Basophils % (0.0-0.4) % Absolute Granulocytes (1.4-6.9) x10^3/uL Basophils # (0-0.4) x10^3/uL Sodium (137-145) mmol/L Potassium (3.5-5.1) mmol/L Chloride (98-107) mmol/L Carbon Dioxide (22-30) mmol/L Anion Gap (5-15) MEQ/L BUN (9-20) mg/dL Creatinine (0.66-1.25) mg/dL Estimated GFR ML/MIN Glucose (74-106) mg/dL POC Glucometer 147 H (74 to 106) mg/dL Hemoglobin A1c (4.5-6.0) % Calcium (8.4-10.2) mg/dL Magnesium (1.6-2.3) mg/dL Total Bilirubin (0.2-1.3) mg/dL AST (17-59) U/L ALT (0-50) U/L Alkaline Phosphatase (38-126) U/L Troponin I 0.160 H* (0.000-0.034) ng/mL NT-Pro-B Natriuret Pep 3580 (<300) pg/mL Serum Total Protein (6.3-8.2) g/dL Albumin (3.5-5.0) g/dL Amylase (30-110) U/L Lipase (23-300) U/L Urine Color (Yellow) Urine Appearance (Clear) Urine pH (4.6-8.0) Ur Specific [place] (1.005-1.030) Urine Protein (Negative) Urine Glucose (UA) (Negative) mg/dL Urine Ketones (Negative) Urine Blood (Negative) Urine Nitrite (Negative) Urine Bilirubin (Negative) Urine Urobilinogen (0.2) mg/dL Ur Leukocyte Esterase (Negative) Urine Microscopic RBC (0-5) /HPF Urine Microscopic WBC (0-5) /HPF Ur Epithelial Cells (None Seen) /HPF Urine Bacteria (None Seen) /HPF Urine Mucus (NEGATIVE) /HPF Urine Culture Reflexed (NO) Ur Random Creatinine MG/DL U Random Total Protein (0-12) mg/dL Influenza Type A Ag (NEGATIVE) Influenza Type B Ag (NEGATIVE) RSV (PCR) (NEGATIVE) SARS-CoV-2 (PCR) (NEGATIVE) Slides for Path Review 03/10/23 03/10/23 03/10/23 Range/Units 02:15 02:15 02:15 WBC 10.5 (4.0-10.5) x10^3/uL RBC 5.21 (4.1-5.6) x10^6/uL Hgb 15.8 (12.5-18.0) g/dL Hct 47.4 (42-50) % MCV 91.0 (78-100) fL MCH 30.3 (26-32) pg MCHC 33.3 (32-36) g/dL RDW 12.9 (11.5-14.0) % Plt Count 246 (150-450) x10^3/uL MPV 10.8 (7.5-11.0) fL Gran % 77.0 H (36.0-66.0) % Immature Gran % (Auto) 0.6 H (0.00-0.4) % Nucleat RBC Rel Count 0.0 (0.00-0.1) % Eos # (Auto) 0.01 (0-0.5) x10^3/uL Immature Gran # (Auto) 0.06 H (0.00-0.03) x10^3u/L Absolute Lymphs (auto) 1.67 (1.0-4.6) x10^3/uL Absolute Monos (auto) 0.65 (0.0-1.3) x10^3/uL Absolute Nucleated RBC 0.00 (0.00-0.01) x10^3u/L Lymphocytes % 15.9 L (24.0-44.0) % Monocytes % 6.2 (0.0-12.0) % Eosinophils % 0.1 (0.00-5.0) % Basophils % 0.2 (0.0-0.4) % Absolute Granulocytes 8.09 H (1.4-6.9) x10^3/uL Basophils # 0.02 (0-0.4) x10^3/uL Sodium 135 L (137-145) mmol/L Potassium 3.5 (3.5-5.1) mmol/L Chloride 97 L (98-107) mmol/L Carbon Dioxide 29 (22-30) mmol/L Anion Gap 11.8 (5-15) MEQ/L BUN 15 (9-20) mg/dL Creatinine 0.87 (0.66-1.25) mg/dL Estimated GFR 102.5 ML/MIN Glucose 135 H (74-106) mg/dL POC Glucometer (74 to 106) mg/dL Hemoglobin A1c 6.40 H (4.5-6.0) % Calcium 8.8 (8.4-10.2) mg/dL Magnesium 1.8 (1.6-2.3) mg/dL Total Bilirubin 0.70 (0.2-1.3) mg/dL AST 24 (17-59) U/L ALT 16 (0-50) U/L Alkaline Phosphatase 75 (38-126) U/L Troponin I (0.000-0.034) ng/mL NT-Pro-B Natriuret Pep 6410 (<300) pg/mL Serum Total Protein 8.3 H (6.3-8.2) g/dL Albumin 4.0 (3.5-5.0) g/dL Amylase (30-110) U/L Lipase (23-300) U/L Urine Color (Yellow) Urine Appearance (Clear) Urine pH (4.6-8.0) Ur Specific [place] (1.005-1.030) Urine Protein (Negative) Urine Glucose (UA) (Negative) mg/dL Urine Ketones (Negative) Urine Blood (Negative) Urine Nitrite (Negative) Urine Bilirubin (Negative) Urine Urobilinogen (0.2) mg/dL Ur Leukocyte Esterase (Negative) Urine Microscopic RBC (0-5) /HPF Urine Microscopic WBC (0-5) /HPF Ur Epithelial Cells (None Seen) /HPF Urine Bacteria (None Seen) /HPF Urine Mucus (NEGATIVE) /HPF Urine Culture Reflexed (NO) Ur Random Creatinine MG/DL U Random Total Protein (0-12) mg/dL Influenza Type A Ag (NEGATIVE) Influenza Type B Ag (NEGATIVE) RSV (PCR) (NEGATIVE) SARS-CoV-2 (PCR) (NEGATIVE) Slides for Path Review 03/10/23 Range/Units 07:46 WBC (4.0-10.5) x10^3/uL RBC (4.1-5.6) x10^6/uL Hgb (12.5-18.0) g/dL Hct (42-50) % MCV (78-100) fL MCH (26-32) pg MCHC (32-36) g/dL RDW (11.5-14.0) % Plt Count (150-450) x10^3/uL MPV (7.5-11.0) fL Gran % (36.0-66.0) % Immature Gran % (Auto) (0.00-0.4) % Nucleat RBC Rel Count (0.00-0.1) % Eos # (Auto) (0-0.5) x10^3/uL Immature Gran # (Auto) (0.00-0.03) x10^3u/L Absolute Lymphs (auto) (1.0-4.6) x10^3/uL Absolute Monos (auto) (0.0-1.3) x10^3/uL Absolute Nucleated RBC (0.00-0.01) x10^3u/L Lymphocytes % (24.0-44.0) % Monocytes % (0.0-12.0) % Eosinophils % (0.00-5.0) % Basophils % (0.0-0.4) % Absolute Granulocytes (1.4-6.9) x10^3/uL Basophils # (0-0.4) x10^3/uL Sodium (137-145) mmol/L Potassium (3.5-5.1) mmol/L Chloride (98-107) mmol/L Carbon Dioxide (22-30) mmol/L Anion Gap (5-15) MEQ/L BUN (9-20) mg/dL Creatinine (0.66-1.25) mg/dL Estimated GFR ML/MIN Glucose (74-106) mg/dL POC Glucometer 128 H (74 to 106) mg/dL Hemoglobin A1c (4.5-6.0) % Calcium (8.4-10.2) mg/dL Magnesium (1.6-2.3) mg/dL Total Bilirubin (0.2-1.3) mg/dL AST (17-59) U/L ALT (0-50) U/L Alkaline Phosphatase (38-126) U/L Troponin I (0.000-0.034) ng/mL NT-Pro-B Natriuret Pep (<300) pg/mL Serum Total Protein (6.3-8.2) g/dL Albumin (3.5-5.0) g/dL Amylase (30-110) U/L Lipase (23-300) U/L Urine Color (Yellow) Urine Appearance (Clear) Urine pH (4.6-8.0) Ur Specific [place] (1.005-1.030) Urine Protein (Negative) Urine Glucose (UA) (Negative) mg/dL Urine Ketones (Negative) Urine Blood (Negative) Urine Nitrite (Negative) Urine Bilirubin (Negative) Urine Urobilinogen (0.2) mg/dL Ur Leukocyte Esterase (Negative) Urine Microscopic RBC (0-5) /HPF Urine Microscopic WBC (0-5) /HPF Ur Epithelial Cells (None Seen) /HPF Urine Bacteria (None Seen) /HPF Urine Mucus (NEGATIVE) /HPF Urine Culture Reflexed (NO) Ur Random Creatinine MG/DL U Random Total Protein (0-12) mg/dL Influenza Type A Ag (NEGATIVE) Influenza Type B Ag (NEGATIVE) RSV (PCR) (NEGATIVE) SARS-CoV-2 (PCR) (NEGATIVE) Slides for Path Review Micro Results-Entire Visit: Accuchecks Date 03/10/23 Time 08:46 - Radiology Exams Ordered Rad Exams-Entire Visit: Radiology Procedures Category Date Time Status ABDOMEN AND PELVIS W/0 CONTRAS [CT] Stat Exams 03/09/23 16:15 Completed - Procedures and Test Procedures and Tests throughout Hospitalization: Therapy Orders & Screens 03/09/23 20:53 EKG REPEAT IN AM Comment: Discharge Exam Wound Assessment: Skin/Wound Assessment Wound/Incision Assessment Start: 03/09/23 21:17 Text: Status: Active Freq: Q6H Protocol: Document 03/10/23 08:00 RF (Rec: 03/10/23 09:19 RF [id number]) Wound/Incision Assessment Left Anterior/Posterior Calf Wound Assessment Admission Wound Stage Non Pressure Wound Dressing Status Dry & Intact Drainage Amount None Wound Photo Photo Taken Yes Final Diagnosis/Problem List - Final Discharge Diagnosis/Problem (1) Cholelithiasis Current Visit: Yes Status: Acute (2) Atrial fibrillation with RVR Current Visit: Yes Status: Acute Code(s): I48.91 - UNSPECIFIED ATRIAL FIBRILLATION (3) Nausea & vomiting Current Visit: Yes Status: Acute Code(s): R11.2 - NAUSEA WITH VOMITING, UNSPECIFIED (4) CAD (coronary artery disease) Current Visit: Yes Status: Acute Code(s): I25.10 - ATHSCL HEART DISEASE OF [place] CORONARY ARTERY W/O ANG PCTRS (5) HTN (hypertension) Current Visit: Yes Status: Acute Code(s): I10 - ESSENTIAL (PRIMARY) HYPERTENSION (6) Elevated brain natriuretic peptide (BNP) level Current Visit: Yes Status: Acute Code(s): R79.89 - OTHER SPECIFIED ABNORMAL FINDINGS OF BLOOD CHEMISTRY (7) Elevated troponin Current Visit: Yes Status: Acute Code(s): R79.89 - OTHER SPECIFIED ABNORMAL FINDINGS OF BLOOD CHEMISTRY (8) Hyponatremia Current Visit: Yes Status: Acute Code(s): E87.1 - HYPO-OSMOLALITY AND HYPONATREMIA (9) Type 2 diabetes mellitus with diabetic nephropathy Current Visit: Yes Status: Acute Code(s): E11.21 - TYPE 2 DIABETES MELLITUS WITH DIABETIC NEPHROPATHY (10) Vomiting Current Visit: Yes Status: Acute Code(s): R11.10 - VOMITING, UNSPECIFIED - Discharge Disposition: DC TO [facility] Condition: Fair Prescriptions: New Ampicillin /Sulbactam 3 gm [Unasyn 3 GM Vial] 3 g IV Q6H Continue Metformin HCl [Metformin ER Gastric] 1,000 mg PO DAILY Furosemide [Lasix] 1 tab PO DAILY Gabapentin [Neurontin ] 1 cap PO QID Potassium Chloride 1 tab PO BID Metoprolol Succinate 25 mg Xl* [Toprol-Xl 25MG Tablets] 1 tab PO DAILY Discontinued Apixaban [Eliquis] 5 mg PO BID
[2023-03-10] MEDS: ELIQUIS 2.5 MG TABLET PO SCH (10:50)
[2023-03-10] MEDS ORDERED: Unasyn 3 GM Vial*** 3 G in Sodium Chloride 100ML MINI-BAG PLUS 100 ML IV SCH (11:00)
--- NOTE | 2023-03-10 11:03 | PCM.DCORD ---
- Discharge Discharge Date: 03/10/23 Disposition: DC TO [facility] Condition: Fair Prescriptions: New Ampicillin /Sulbactam 3 gm [Unasyn 3 GM Vial] 3 g IV Q6H Continue Metformin HCl [Metformin ER Gastric] 1,000 mg PO DAILY Furosemide [Lasix] 1 tab PO DAILY Gabapentin [Neurontin ] 1 cap PO QID Potassium Chloride 1 tab PO BID Metoprolol Succinate 25 mg Xl* [Toprol-Xl 25MG Tablets] 1 tab PO DAILY Discontinued Apixaban [Eliquis] 5 mg PO BID Additional Instructions: Please hold Eliquis until surgery has evaluated pt
[2023-03-10] MEDS: Lopressor 25MG Tab PO SCH (11:09)
[2023-03-10] MEDS: NEURONTIN PO SCH ×2 (11:09→15:57)
[2023-03-10 11:55] VITALS: O2SAT 98
[2023-03-10 16:28] VITALS: BP 135/94; PULSE 75; TEMP 97.2
== END 2023-03-10 16:48 | disposition home or self-care (01) ==
LOC: ED 16:03 → MED SURG 20:47
PROVIDERS: ADMIT Internal Medicine Nephrology; ATTEND Internal Medicine Nephrology
DX: K80.20 Calculus of gallbladder without cholecystitis without obstruction (principal); I48.91 Unspecified atrial fibrillation; I25.10 Atherosclerotic heart disease of native coronary artery without angina pectoris; I10 Essential (primary) hypertension; R79.89 Other specified abnormal findings of blood chemistry; E87.1 Hypo-osmolality and hyponatremia; E11.21 Type 2 diabetes mellitus with diabetic nephropathy; R11.10 Vomiting, unspecified; I25.2 Old myocardial infarction; E78.5 Hyperlipidemia, unspecified; Z79.01 Long term (current) use of anticoagulants; Z79.899 Other long term (current) drug therapy; Z20.828 Contact with and (suspected) exposure to other viral communicable diseases; Z86.73 Personal history of transient ischemic attack (TIA), and cerebral infarction without residual deficits; Z95.0 Presence of cardiac pacemaker
CPT/HCPCS: 0241U; 36000; 36415; 74176; 80053; 81001; 82150; 82570; 82947; 83036; 83690; 83735; 83880; 84156; 84484; 85025; 87040; 87086; 93005; 93268; 96374; 96375; 99285; 99291; G0378; Q3014; J0295; J1170; J1940; J2270; J2405; A9270-GY

== ENCOUNTER 2023-05-09 05:27 | Day surgery (SDC) | payer OTHER ==
[2023-05-09 06:16] VITALS: RESP 18; TEMP 97.6
[2023-05-09] MEDS: Lactated Ringers 1,000 ML IV SCH (06:21)
[2023-05-09] MEDS: CEFAZOLIN 2 GM-D5W BAG** 2 GM/50 ML ML IV SCH (06:21)
[2023-05-09 06:31] LABS: Hematocrit 43.7 % (42-50); Mean Cell Volume 95.8 fL (78-100); Mean Corpuscular Hemoglobin 30.7 pg (26-32); Mean Platelet Volume 10.9 fL (7.5-11.0); Platelet Count 201 x10^3/uL (150-450); Red Blood Count 4.56 x10^6/uL (4.1-5.6); Red Cell Distribution Width 13.8 % (11.5-14.0); White Blood Count 5.9 x10^3/uL (4.0-10.5)
[2023-05-09] MEDS ORDERED: Xylocaine 1% Vial 30 ML PF IJ ONE (06:33)
[2023-05-09] MEDS ORDERED: Marcaine Mpf 0.5% Vial 30 Ml ONE (06:33)
[2023-05-09 06:58] LABS: ALBUMIN 3.4 g/dL (3.5-5.0); ANION GAP 10.4 MEQ/L (5-15); BILIRUBIN,TOTAL 0.1 mg/dL (0.2-1.3); Calcium 8.4 mg/dL (8.4-10.2); Creatinine 1 1.34 mg/dL (0.66-1.25); EST GLOMERULAR FILTRATION RATE 62.6 ML/MIN; Potassium 4.5 mmol/L (3.5-5.1); Total Protein 7.1 g/dL (6.3-8.2)
[2023-05-09] MEDS ORDERED: Zofran 4 MG/2 ML VIAL ONE (08:08)
[2023-05-09 08:17] VITALS: BP 139/95; PULSE 65; O2SAT 96
--- NOTE | 2023-05-09 13:49 | OP ---
SURGERY DATE/TIME: 05/09/2023 0716 PREOPERATIVE DIAGNOSES: 1) Vascular myelitis right second toe. 2) Diabetic foot wound. 3) Chronic ulceration with osteomyelitis. 4) Diabetic peripheral neuropathy. 5) Previous history of multiple amputations. POSTOPERATIVE DIAGNOSES: 1) Vascular myelitis right second toe. 2) Diabetic foot wound. 3) Chronic ulceration with osteomyelitis. 4) Diabetic peripheral neuropathy. 5) Previous history of multiple amputations. PROCEDURE: Amputation second digit at the level of the metatarsophalangeal joint right foot. SURGEON: Carson Song DPM. MANAGED SECURITY SALES CONSULTANT: None. HEMOSTASIS: Pressure dressing. ESTIMATED BLOOD LOSS: Minimal. MATERIALS: 4-0 Monocryl, 3-0 Nylon. INJECTABLES: 10 cc of a 1:1 mixture of 1% lidocaine plain and 0.5% bupivacaine plain injected in a digital block-type fashion. INDICATION FOR SURGERY: Edwardo is a very pleasant 53-year-old male known to my service for wound care. He was a handoff from our previous wound care provider. On initial inspection, there is a positive probe to bone to the second distal interphalangeal joint. X-rays were taken which were not as descriptive. However, did show some destructive changes. MRI was obtained demonstrating some significant cortical irregularities and bone marrow edema consistent with infection. As a result, the decision was made to undergo amputation to prevent spread of infection from the second toe to the base of the right foot. The patient understands all risks, complications and benefits of surgical intervention at this time including but not limited to infection, hematoma, seroma, possibility of delayed wound healing, nonwound healing, possible failure of surgical intervention and possible need for surgical intervention at a later date. No guarantees were provided as to the outcome of surgical intervention. Plenty of time was allowed for the patient to ask questions which were answered to his apparent satisfaction. It is with that we decided to proceed. DESCRIPTION OF PROCEDURE AND FINDINGS: The patient is brought into the OR and placed on the OR table in the supine position. At this time, the right foot was prepped and draped in the typical sterile fashion and lowered onto the surgical field. At this time, a fish mouth incision was made over the dorsal aspect of the second digit circumferentially. This was then carried down perpendicular to the longitudinal axis of the toe down to the level of bone. The disarticulation took place at the level of the metatarsophalangeal joint. 1,000 ml of Bactisure was then utilized to flush the surgical site and then 1.5 liters of sterile saline. Following this, 4-0 Monocryl was utilized to coapt the subcutaneous edges of skin and the skin edges were then coapted in simple interrupted and a horizontal mattress-type fashion. Following this, a dressing consisting of Betadine, Adaptic, 4x4, Kerlix and HIRA was applied to the patient's right lower extremity. The patient was returned to the postoperative anesthesia care unit with vital signs stable and vascular status intact. The patient handled the anesthesia as well as the procedure without significant complication. Postoperative orders as indicated in the patient's discharge chart.
== END 2023-05-09 08:37 | disposition home or self-care (01) ==
LOC: SDC 05:27
PROVIDERS: ATTEND Podiatrist Foot & Ankle Surgery
DX: G04.89 Other myelitis (principal); E11.621 Type 2 diabetes mellitus with foot ulcer; M86.9 Osteomyelitis, unspecified; E11.42 Type 2 diabetes mellitus with diabetic polyneuropathy; Z89.9 Acquired absence of limb, unspecified
CPT/HCPCS: 28820; 36415; 80053; 82947; 85027; A6260; J0690; J2001; J2405

== ENCOUNTER 2023-09-11 05:31 | Day surgery (SDC) | payer OTHER ==
[2023-09-11] MEDS ORDERED: CEFAZOLIN 2 GM/100 ML NaCl 2 GM/100 ML IVPB IV ONE (06:16)
[2023-09-11] MEDS ORDERED: Xylocaine 1% Vial 30 ML PF IJ ONE (06:17)
[2023-09-11] MEDS ORDERED: Marcaine Mpf 0.5% Vial 30 Ml ONE (06:17)
[2023-09-11] MEDS ORDERED: Sodium Chloride 0.9% 1000 ML 1,000 ML ONE (06:17)
[2023-09-11 06:22] VITALS: RESP 18
[2023-09-11] MEDS: Sodium Chloride 0.9% 1000 ML 1,000 ML IV SCH (06:23)
[2023-09-11 06:35] LABS: Hematocrit 46.6 % (40.1-51.0); Hemoglobin 15.4 g/dL (13.7-17.5); Mean Corpuscular Hemoglobin 30.1 pg (25.7-32.2); Mean Platelet Volume 10.6 fL (9.4-12.4); Platelet Count 210 x10^3/uL (163-337); Red Blood Count 5.12 x10^6/uL (4.63-6.08); Red Cell Distribution Width 13.6 % (11.6-14.4); White Blood Count 8.2 x10^3/uL (4.23-9.07)
[2023-09-11 06:47] LABS: ALBUMIN 3.9 g/dL (3.5-5.0); ANION GAP 13.1 MEQ/L (5-15); BILIRUBIN,TOTAL 0.4 mg/dL (0.2-1.3); Calcium 8.7 mg/dL (8.4-10.2); Creatinine 1 1.09 mg/dL (0.66-1.25); EST GLOMERULAR FILTRATION RATE 80.2 ML/MIN; Potassium 3.9 mmol/L (3.5-5.1); Total Protein 7.5 g/dL (6.3-8.2)
[2023-09-11] MEDS: CEFAZOLIN 2 GM/100 ML NaCl 2 GM/100 ML IVPB IV SCH (07:00)
[2023-09-11 07:55] VITALS: TEMP 96.7; O2SAT 97
[2023-09-11 08:01] VITALS: BP 131/86; PULSE 66
--- NOTE | 2023-09-14 07:17 | OP ---
SURGERY DATE/TIME: 09/11/2023 3396 - 3088 PREOPERATIVE DIAGNOSES: 1) Osteomyelitis, left foot. 2) Diabetes mellitus. 3) Peripheral neuropathy. POSTOPERATIVE DIAGNOSES: 1) Osteomyelitis, left foot. 2) Diabetes mellitus. 3) Peripheral neuropathy. PROCEDURE: Amputation third digit left foot partial. SURGEON: Carson Song DPM ENGRAVER PANTOGRAPH: None. ANESTHESIA: Local. HEMOSTASIS: Pressure dressing. ESTIMATED BLOOD LOSS: Approximately 1 mL. MATERIALS: 4-0 Monocryl, 3-0 nylon INJECTABLES: 10 mL of a 1:1 mixture of 1% lidocaine plain and 0.5% bupivacaine plain injected in a digital block-type fashion. INDICATIONS: The patient is a very pleasant 53-year-old male well known to my service for peripheral neuropathy and multiple amputations to the bilateral lower extremities. In a recent encounter, the patient was seen approximately 3 months ago, however, showed up with a new concern where he stubbed his left third digit. He indicates that there were some significant issues as far as swelling and drainage. The patient was concerned and requested followup sooner than his originally anticipated date. On clinical examination, the patient did demonstrate an ulceration to the tip of the toe with gross changes of the tip of the toe indicative of at least previous infection. On radiographs, there was some cortical lysis consistent with the ulceration. At this time, discussion was held with the patient in regard to options for treatment. The patient opted to go the route of partial amputation of the toe at this time. The patient understands all risks, complications, and benefits of surgical intervention at this time including, but not limited to, infection, hematoma, seroma, possibility of delayed wound healing, non-wound healing, and possible need for further surgical intervention at a later date. No guarantees were provided as to the outcome of surgical intervention at this time. It is at this time we decided to proceed. DESCRIPTION OF PROCEDURE AND FINDINGS: The patient was brought into the operating room and placed on the operating room table in the supine position. At this time, the left lower extremity was prepped and draped in the typical sterile fashion and lowered onto the surgical field. Secondary to the patient's neuropathy, the option for a block was offered. The patient was amenable, however, did not even feel the block for the injection. He had a 1:1 mixture of 1% lidocaine plain and 0.5% bupivacaine plain injected in a digital block-type fashion with a total of 10 mL. Following this, a fishmouth incision was made over the base of the proximal phalanx of the third digit. This was utilized to make incisions perpendicular to the site of the digit, disarticulating the proximal interphalangeal joint. An 18 mm sagittal saw was then utilized to resect approximately 1/2 of the mid diaphysis of the proximal phalanx. Copious amounts of sterile saline were then utilized to flush the surgical site. A 4-0 Monocryl was then utilized in a simple interrupted buried-type fashion to coapt the subcutaneous skin edges and then a 4-0 nylon was utilized in a simple interrupted-type fashion to coapt the skin edges. A dressing consisting of Betadine, Adaptic, 4 x 4, Kerlix, and Ronnie was applied to the patient's left lower extremity. The patient was then returned to the postoperative anesthesia care unit with vital signs stable and vascular status intact. The patient handled the block as well as the procedure without significant complication. Postoperative orders as indicated in the patient's discharge notes.
== END 2023-09-11 08:08 | disposition home or self-care (01) ==
LOC: SDC 05:31
PROVIDERS: ATTEND Podiatrist Foot & Ankle Surgery
DX: M86.9 Osteomyelitis, unspecified (principal); E11.42 Type 2 diabetes mellitus with diabetic polyneuropathy
CPT/HCPCS: 28124; 36415; 80053; 82947; 85027; J0690

== ENCOUNTER 2023-12-12 09:43 | Observation (INO) | payer MEDICAID, OTHER ==
--- NOTE | 2023-12-19 09:51 | OP ---
THIS REPORT WAS DUPLICATED - IN ANOTHER ACCOUNT NUMBER
[2024-01-16] MEDS ORDERED: Xylocaine 1% Vial 30 ML PF IJ ONE (06:56)
[2024-01-16] MEDS ORDERED: MARCAINE 0.5%-EPI 1:200,000 VL IJ ONE (06:56)
[2024-01-16 07:54] LABS: Hematocrit 39.4 % (40.1-51.0); Hemoglobin 12.8 g/dL (13.7-17.5); Mean Cell Volume 91.2 fL (79.0-92.2); Mean Corpuscular Hemoglobin 29.6 pg (25.7-32.2); Mean Corpuscular Hgb Concent. 32.5 g/dL (32.3-36.5); Mean Platelet Volume 10.1 fL (9.4-12.4); Platelet Count 173 x10^3/uL (163-337); Red Blood Count 4.32 x10^6/uL (4.63-6.08); Red Cell Distribution Width 13.7 % (11.6-14.4); White Blood Count 6.7 x10^3/uL (4.23-9.07)
[2024-01-16 08:00] LABS: ALBUMIN 3.7 g/dL (3.5-5.0); ANION GAP 13.1 MEQ/L (5-15); BILIRUBIN,TOTAL 0.6 mg/dL (0.2-1.3); Calcium 8.7 mg/dL (8.4-10.2); Creatinine 1 1.07 mg/dL (0.66-1.25); Potassium 4.2 mmol/L (3.5-5.1); Total Protein 7.6 g/dL (6.3-8.2)
[2024-01-16] MEDS ORDERED: CEFAZOLIN 2 GM/100 ML NaCl 2 GM/100 ML IVPB IV ONE (08:15)
[2024-01-16] MEDS: CEFAZOLIN 2 GM/100 ML NaCl 2 GM/100 ML IVPB IV SCH (08:16)
[2024-01-16] MEDS ORDERED: MINERAL OIL LIGHT 10 ML FOR SURGERY ONE (09:47)
[2024-01-16] MEDS ORDERED: Thrombin-JMI 5000 UNITS TP ONE (10:10)
--- NOTE | 2024-01-16 10:11 | PCM.HP ---
History of Present Illness - Chief Complaint Chief Complaint: right foot wound Date: 01/16/24 History of Present Illness: is a 53 year old male with a PMHX of a-fib, CAD, HTN, neuropathy, PVD, diabetic foot ulcer, history of multiple amputations, and type II DM patient of Dr. Byrd presents s/p I&D with bone debridement abductor digit minimi muscle flap, peroneus brevis tendon transfer, split thickness graft with possible delayed primary closure of his right foot. Hospitalist consulted for medical management. Medications & Allergies Home Medications: Home Medication List Metformin HCl [Metformin ER Gastric] 1,000 mg PO DAILY 05/16/22 [History Confirmed 01/16/24] Furosemide [Lasix] 20 mg PO UD 03/09/23 [History Confirmed 01/16/24] Metoprolol Succinate 25 mg Xl* [Toprol-Xl 25MG Tablets] 25 mg PO DAILY 0 03/09/23 [History Confirmed 01/16/24] Potassium Chloride 20 meq PO BID 03/09/23 [History Confirmed 01/16/24] Alpha Lipoic Acid/Biotin [Alpha Lipoic Acid - Biotin Cap] 1 each PO BID 05/05/23 [History Confirmed 01/16/24] Apixaban [Eliquis] 5 mg PO BID 05/05/23 [History Confirmed 01/16/24] Atorvastatin Calcium 80 mg PO DAILY 05/05/23 [History Confirmed 01/16/24] Empagliflozin [Jardiance] 10 mg PO DAILY 05/05/23 [History Confirmed 01/16/24] Escitalopram Oxalate 10 mg PO DAILY 05/05/23 [History Confirmed 01/16/24] Isosorbide Mononitrate 30 mg [Imdur 30 MG] 30 mg PO DAILY 05/05/23 [History Confirmed 01/16/24] Multivitamin 1 each PO DAILY 05/05/23 [History Confirmed 01/16/24] Amiodarone HCl 200 mg [Cordarone 200 MG] 200 mg PO DAILY 12/26/23 [History Confirmed 01/16/24] Fexofenadine HCl 180 mg PO DAILY PRN PRN 12/26/23 [History Confirmed 01/16/24] Fluticasone Propionate [Flonase NASAL] 1 spray IH DAILY 12/26/23 [History Confirmed 01/16/24] Gabapentin [Neurontin ] 300 mg PO QID 12/26/23 [History Confirmed 01/16/24] Isosorbide Mononitrate 30 mg [Imdur 30 MG] 30 mg PO DAILY 12/26/23 [History Confirmed 01/16/24] Sacubitril/Valsartan [Entresto 49 mg-51 mg Tablet] 1 tab PO TID 12/26/23 [History Confirmed 01/16/24] Aspirin EC 81 mg [Ecotrin 81 mg] 81 mg PO DAILY 30 Days #30 tablet 12/28/23 [Rx Confirmed 01/16/24] Hydrocodone/Acetaminophen [Hydrocodone-Acetamin 5-325 mg] 1 each PO Q6H PRN PRN 3 Days #12 tablet MDD 4 12/28/23 [Rx Confirmed 01/16/24] Vancomycin/Water For Inj (Peg) [Vancomycin 1.25 gm/250 ml Bag] 1.25 gm IV Q12HT #84 iv piggy 12/28/23 [Rx Confirmed 01/16/24] Allergies/Adverse Reactions: Allergies Allergy/AdvReac Type Severity Reaction Status Date / Time No Known Drug Allergies Allergy Verified 01/16/24 07:33 - Past Medical History Past Medical History: Yes Neurological History: Peripheral Neuropathy, Stroke, TIA ENT History: No Pertinent History Cardiac History: Arrhythmia, Coronary Artery Disease, Hypertension, Myocardial Infarction ([place]), Other Respiratory History: CHF Endocrine Medical History: Diabetes Type II Musculoskelatal History: Arthritis GI Medical History: Ulcer History: No Pertinent History Pyscho-Social History: No Pertinent History Male Reproductive Disorders: No Pertinent History Comment: CVA IN 2013, 6 MYOCARDIO INFARCTION (MOST RECENT IN 2019), TRIPLE BYPASS SURGERY IN 2010; HE LOST APPROXIMATELY 160 POUNDS IN 2019 DUE TO INFECTION AND LACK OF APPETITE, A.FIB - Past Surgical History Past Surgical History: Yes Neuro Surgical History: No Pertinent History Cardiac History: Angioplasty, CABG, Cardiac Catheterization, Cardiac Stent Respiratory Surgery: No Pertinent History GI Surgical History: No Pertinent History Genitourinary Surgical Hx: No Pertinent History Musculskeletal Surgical Hx: Amputation, Orthopedic Surgery Male Surgical History: No Pertinent History Other Surgical History: jasvir big toes amputated, 2nd toe on left foot and 3rd toe on right foot, hip with ubaldo and 2 pins, Hx of TIA 2014, Bleeding tendancy takes blood thinners. - Social History Smoking Status: Never smoker Exposure to second hand smoke: No Alcohol: None Drug Use: marijuana - Social Determinants of Health Will the patient participate in the screening: Yes Do you worry about a steady place to live?: No In the past 12 months,have you had to go without utilities?: No Have you or anyone in your house had to go without enough: No Transportation Issues: No Has anyone in your support network made you feel unsafe?: No Does the patient want assistance with any of the above?: No - Physical Exam Vital Signs: Vital Signs - 24 hr Temp Pulse Resp BP Pulse Ox 01/16/24 07:51 97.4 F 70 18 132/81 99 01/16/24 07:38 97.4 F 70 18 132/81 99 Results - Labs Lab/Micro Results: Lab Results-Last 24 Hours 01/16/24 01/16/24 01/16/24 Range/Units 07:37 07:58 07:58 WBC 6.7 (4.23-9.07) x10^3/uL RBC 4.32 L (4.63-6.08) x10^6/uL Hgb 12.8 L (13.7-17.5) g/dL Hct 39.4 L (40.1-51.0) % MCV 91.2 (79.0-92.2) fL MCH 29.6 (25.7-32.2) pg MCHC 32.5 (32.3-36.5) g/dL RDW 13.7 (11.6-14.4) % Plt Count 173 (163-337) x10^3/uL MPV 10.1 (9.4-12.4) fL Sodium 137 (135-145) mmol/L Potassium 4.2 (3.5-5.1) mmol/L Chloride 106 (98-107) mmol/L Carbon Dioxide 22 (22-30) mmol/L Anion Gap 13.1 (5-15) MEQ/L BUN 17 (9-20) mg/dL Creatinine 1.07 (0.66-1.25) mg/dL Estimated GFR 82.0 ML/MIN Glucose 152 H (74-106) mg/dL POC Glucometer 137 H (74 to 106) mg/dL Calcium 8.7 (8.4-10.2) mg/dL Total Bilirubin 0.60 (0.2-1.3) mg/dL AST 38 (17-59) U/L ALT 29 (0-50) U/L Alkaline Phosphatase 93 (38-126) U/L Serum Total Protein 7.6 (6.3-8.2) g/dL Albumin 3.7 (3.5-5.0) g/dL - Radiology Impressions Radiology Exams & Impressions: Radiology Procedures Category Date Time Status FLUOROSCOPY UP TO 1 HR Routine Exams 01/16/24 07:06 Ordered FOOT (MINIMUM 3 VIEWS) Routine Exams 01/16/24 07:06 Ordered Assessment/Plan (1) Osteomyelitis of right foot Current Visit: No Status: Acute Code(s): M86.9 - OSTEOMYELITIS, UNSPECIFIED (2) Diabetic peripheral neuropathy Current Visit: Yes Status: Acute Assessment & Plan: -Advised good glycemic control, current A1c at 6.34 Code(s): E11.42 - TYPE 2 DIABETES MELLITUS WITH DIABETIC POLYNEUROPATHY (3) Peripheral vascular disease Current Visit: Yes Status: Acute Assessment & Plan: -adds complexity Code(s): I73.9 - PERIPHERAL VASCULAR DISEASE, UNSPECIFIED (4) History of partial amputation of toe of left foot Current Visit: Yes Status: Acute Assessment & Plan: -noted Code(s): Z89.422 - ACQUIRED ABSENCE OF OTHER LEFT TOE(S) (5) HLD (hyperlipidemia) Current Visit: Yes Status: Acute Assessment & Plan: -continue statin Code(s): E78.5 - HYPERLIPIDEMIA, UNSPECIFIED (6) History of atrial fibrillation Current Visit: Yes Status: Acute Assessment & Plan: -Will resume eliquis/ASA when okay with podiatry -continue metoprolol Code(s): Z86.79 - PERSONAL HISTORY OF OTHER DISEASES OF THE CIRCULATORY SYSTEM (7) CAD (coronary artery disease) Current Visit: No Status: Chronic Assessment & Plan: -continue home meds -entresto, Imdur, atorvastatin, jardiance -Most recent Echo 10/11/22 EF 40-45% IMPRESSION: 1. MODERATE CONCENTRIC LEFT VENTRICULAR HYPERTROPHY WITH MODERATE LEFT VENTRICULAR SYSTOLIC DYSFUNCTION. 2. BIATRIAL ENLARGEMENT. 3. MILD AORTIC ROOT DILATATION. 4. MILD MITRAL REGURGITATION. 5. TRACE TRICUSPID REGURGITATION Code(s): I25.10 - ATHSCL HEART DISEASE OF [place] CORONARY ARTERY W/O ANG PCTRS (8) HTN (hypertension) Current Visit: No Status: Chronic Assessment & Plan: -stable continue home meds Code(s): I10 - ESSENTIAL (PRIMARY) HYPERTENSION (9) Type 2 diabetes mellitus with diabetic nephropathy Current Visit: No Status: Chronic Assessment & Plan: -ADA diet -SSI -A1c 12/28/23 6.34 - good glycemic control Code(s): E11.21 - TYPE 2 DIABETES MELLITUS WITH DIABETIC NEPHROPATHY
[2024-01-16] MEDS ORDERED: Marcaine Mpf 0.5% Vial 30 Ml ONE (10:14)
[2024-01-16] MEDS ORDERED: XYLOCAINE 1%/Epi 1:100000 MDV 20 ML ONE (10:14)
[2024-01-16] MEDS ORDERED: Sodium Chloride 0.9% 1000 ML 1,000 ML ONE (10:59)
--- NOTE | 2024-01-16 12:31 | XRAY ---
Indication: Right foot incision and drainage with debridement, abductor digit minimi muscle flap, peroneous brevis tendon transfer, and split thickness graft. Intraoperative fluoroscopy provided for 36 seconds. 5 digital spot images submitted for interpretation demonstrates instrumentation lateral midfoot. Last image demonstrates orthopedic button lateral to 2nd cuneiform. Correlate with intraoperative findings/report.
--- NOTE | 2024-01-16 12:46 | PCM.HP ---
<MATTEO DUMONT - Last Filed: 01/16/24 13:01> History of Present Illness - Chief Complaint Chief Complaint: right foot wound Date: 01/16/24 History of Present Illness: is a 53 year old male with a PMHX of a-fib(recent cardioversion 01/08/24), CAD, stroke (2013) CHF (sees Jeanna), HTN, neuropathy, PVD, diabetic foot ulcer, history of multiple amputations, and type II DM patient of Dr. Byrd presents s/p I&D with bone debridement abductor digit minimi muscle flap, peroneus brevis tendon transfer, split thickness graft with possible delayed primary closure of his right foot. Hospitalist consulted for medical management. Patient doing well s/p surgery. Currently rating pain 0/10. Plan is for IV abx and rehab on discharge. - Review of Systems Constitutional: No Symptoms Eyes: No Symptoms Ears, Nose, & Throat: No Symptoms Respiratory: No Symptoms Cardiac: No Symptoms Abdominal/Gastrointestinal: No Symptoms Genitourinary Symptoms: No Symptoms Musculoskeletal: No Symptoms, Other Skin: Other (Surgical incision to RLE -wrapped in surgical dressing CDI) Neurological: Other (neuropathy BLE ) Psychological: No Symptoms Endocrine: No Symptoms Hematologic/Lymphatic: No Symptoms Immunological/Allergic: No Symptoms Medications & Allergies Home Medications: Home Medication List Metformin HCl [Metformin ER Gastric] 1,000 mg PO DAILY 05/16/22 [History Confirmed 01/16/24] Furosemide [Lasix] 20 mg PO UD 03/09/23 [History Confirmed 01/16/24] Metoprolol Succinate 25 mg Xl* [Toprol-Xl 25MG Tablets] 25 mg PO DAILY 03/09/23 [History Confirmed 01/16/24] Potassium Chloride 20 meq PO BID 03/09/23 [History Confirmed 01/16/24] Apixaban [Eliquis] 5 mg PO BID 05/05/23 [History Confirmed 01/16/24] Atorvastatin Calcium 80 mg PO HS 05/05/23 [History Confirmed 01/16/24] Empagliflozin [Jardiance] 10 mg PO DAILY 05/05/23 [History Confirmed 01/16/24] Escitalopram Oxalate 10 mg PO DAILY 05/05/23 [History Confirmed 01/16/24] Multivitamin 1 each PO DAILY 05/05/23 [History Confirmed 01/16/24] Amiodarone HCl 200 mg [Cordarone 200 MG] 200 mg PO DAILY 12/26/23 [History Confirmed 01/16/24] Fluticasone Propionate [Flonase NASAL] 1 spray IH DAILY 12/26/23 [History Confirmed 01/16/24] Gabapentin [Neurontin ] 600 mg PO BID 12/26/23 [History Confirmed 01/16/24] Isosorbide Mononitrate 30 mg [Imdur 30 MG] 30 mg PO DAILY 12/26/23 [History Confirmed 01/16/24] Sacubitril/Valsartan [Entresto 49 mg-51 mg Tablet] 1 tab PO TID 12/26/23 [History Confirmed 01/16/24] Aspirin EC 81 mg [Ecotrin 81 mg] 81 mg PO DAILY 30 Days #30 tablet 12/28/23 [Rx Confirmed 01/16/24] Hydrocodone/Acetaminophen [Hydrocodone-Acetamin 5-325 mg] 1 each PO Q6H PRN PRN 3 Days #12 tablet MDD 4 12/28/23 [Rx Confirmed 01/16/24] Vancomycin/Water For Inj (Peg) [Vancomycin 1.25 gm/250 ml Bag] 1.25 gm IV Q12HT #84 iv piggy 12/28/23 [Rx Confirmed 01/16/24] Allergies/Adverse Reactions: Allergies Allergy/AdvReac Type Severity Reaction Status Date / Time No Known Drug Allergies Allergy Verified 01/16/24 07:33 - Past Medical History Past Medical History: Yes Neurological History: Peripheral Neuropathy, Stroke, TIA ENT History: No Pertinent History Cardiac History: Arrhythmia, Coronary Artery Disease, Hypertension, Myocardial Infarction ([place]), Other Respiratory History: CHF Endocrine Medical History: Diabetes Type II Musculoskelatal History: Arthritis GI Medical History: Ulcer History: No Pertinent History Pyscho-Social History: No Pertinent History Male Reproductive Disorders: No Pertinent History Comment: CVA IN 2013, 6 MYOCARDIO INFARCTION (MOST RECENT IN 2019), TRIPLE BYPASS SURGERY IN 2010; HE LOST APPROXIMATELY 160 POUNDS IN 2019 DUE TO INFECTION AND LACK OF APPETITE, A.FIB - Past Surgical History Past Surgical History: Yes Neuro Surgical History: No Pertinent History Cardiac History: Angioplasty, CABG, Cardiac Catheterization, Cardiac Stent Respiratory Surgery: No Pertinent History GI Surgical History: No Pertinent History Genitourinary Surgical Hx: No Pertinent History Musculskeletal Surgical Hx: Amputation, Orthopedic Surgery Male Surgical History: No Pertinent History Other Surgical History: jasvir big toes amputated, 2nd toe on left foot and 3rd toe on right foot, hip with ubaldo and 2 pins, Hx of TIA 2013, Bleeding tendancy takes blood thinners. - Social History Smoking Status: Never smoker Exposure to second hand smoke: No Alcohol: None Drug Use: marijuana - Social Determinants of Health Will the patient participate in the screening: Yes Do you worry about a steady place to live?: No In the past 12 months,have you had to go without utilities?: No Have you or anyone in your house had to go without enough: No Transportation Issues: No Has anyone in your support network made you feel unsafe?: No Does the patient want assistance with any of the above?: No - Physical Exam Vital Signs: Vital Signs - 24 hr Temp Pulse Resp BP Pulse Ox 01/16/24 07:51 97.4 F 70 18 132/81 99 01/16/24 07:38 97.4 F 70 18 132/81 99 General Appearance: no apparent distress Neurologic Exam: alert, oriented x 3, cooperative Eye Exam: PERRL/EOMI Ears, Nose, Throat Exam: normal ENT inspection Neck Exam: normal inspection Respiratory Exam: normal breath sounds, lungs clear Cardiovascular Exam: regular rate/rhythm, normal heart sounds Gastrointestinal/Abdomen Exam: soft, normal bowel sounds Rectal Exam: deferred Back Exam: normal inspection Extremity Exam: amputations (Left toes partial amputation digits 1-3 Right toes great toe and second complete amputation - 3rd digit is a partial amputation), swelling (LLE +3 pitting edema) Skin Exam: other (Surgical wound to RLE with dressing CDI no surrounding erythema or shadow drainage) Results - Labs Lab/Micro Results: Lab Results-Last 24 Hours 01/16/24 01/16/24 01/16/24 Range/Units 07:37 07:58 07:58 WBC 6.7 (4.23-9.07) x10^3/uL RBC 4.32 L (4.63-6.08) x10^6/uL Hgb 12.8 L (13.7-17.5) g/dL Hct 39.4 L (40.1-51.0) % MCV 91.2 (79.0-92.2) fL MCH 29.6 (25.7-32.2) pg MCHC 32.5 (32.3-36.5) g/dL RDW 13.7 (11.6-14.4) % Plt Count 173 (163-337) x10^3/uL MPV 10.1 (9.4-12.4) fL Sodium 137 (135-145) mmol/L Potassium 4.2 (3.5-5.1) mmol/L Chloride 106 (98-107) mmol/L Carbon Dioxide 22 (22-30) mmol/L Anion Gap 13.1 (5-15) MEQ/L BUN 17 (9-20) mg/dL Creatinine 1.07 (0.66-1.25) mg/dL Estimated GFR 82.0 ML/MIN Glucose 152 H (74-106) mg/dL POC Glucometer 137 H (74 to 106) mg/dL Calcium 8.7 (8.4-10.2) mg/dL Total Bilirubin 0.60 (0.2-1.3) mg/dL AST 38 (17-59) U/L ALT 29 (0-50) U/L Alkaline Phosphatase 93 (38-126) U/L Serum Total Protein 7.6 (6.3-8.2) g/dL Albumin 3.7 (3.5-5.0) g/dL - Radiology Impressions Radiology Exams & Impressions: Radiology Procedures Category Date Time Status FLUOROSCOPY UP TO 1 HR Routine Exams 01/16/24 07:06 Taken FOOT (MINIMUM 3 VIEWS) Routine Exams 01/16/24 07:06 Completed Assessment/Plan (1) Osteomyelitis of right foot Current Visit: No Status: Acute Assessment & Plan: -S/P I&D with bone debridement abductor digit minimi muscle flap, peroneus brevis tendon transfer, split thickness graft with possible delayed primary closure of his right foot -Last office visit dated 01/08/24 reviewed -CMP, CBC reviewed -Podiatry following, plan for vanc/zosyn per podiatry - will need rehab at d/c Code(s): M86.9 - OSTEOMYELITIS, UNSPECIFIED (2) Diabetic peripheral neuropathy Current Visit: Yes Status: Acute Assessment & Plan: -Advised good glycemic control, current A1c at 6.34 Code(s): E11.42 - TYPE 2 DIABETES MELLITUS WITH DIABETIC POLYNEUROPATHY (3) Peripheral vascular disease Current Visit: Yes Status: Acute Assessment & Plan: -noted, adds complexity Code(s): I73.9 - PERIPHERAL VASCULAR DISEASE, UNSPECIFIED (4) History of partial amputation of toe of left foot Current Visit: Yes Status: Acute Code(s): Z89.422 - ACQUIRED ABSENCE OF OTHER LEFT TOE(S) (5) HLD (hyperlipidemia) Current Visit: Yes Status: Acute Assessment & Plan: -continue statin Code(s): E78.5 - HYPERLIPIDEMIA, UNSPECIFIED (6) History of atrial fibrillation Current Visit: Yes Status: Acute Assessment & Plan: -Recent Cardioversion per pt on 01/08/24 -continue metoprolol/Eliquis Code(s): Z86.79 - PERSONAL HISTORY OF OTHER DISEASES OF THE CIRCULATORY SYSTEM (7) CAD (coronary artery disease) Current Visit: No Status: Chronic Assessment & Plan: -continue home meds -entresto, Imdur, atorvastatin, jardiance -Most recent Echo reviewed from 10/11/22 EF 40-45% IMPRESSION: 1. MODERATE CONCENTRIC LEFT VENTRICULAR HYPERTROPHY WITH MODERATE LEFT VENTRICULAR SYSTOLIC DYSFUNCTION. 2. BIATRIAL ENLARGEMENT. 3. MILD AORTIC ROOT DILATATION. 4. MILD MITRAL REGURGITATION. 5. TRACE TRICUSPID REGURGITATION Code(s): I25.10 - ATHSCL HEART DISEASE OF [place] CORONARY ARTERY W/O ANG PCTRS (8) HTN (hypertension) Current Visit: No Status: Chronic Assessment & Plan: -stable continue home meds Code(s): I10 - ESSENTIAL (PRIMARY) HYPERTENSION (9) Type 2 diabetes mellitus with diabetic nephropathy Current Visit: No Status: Chronic Assessment & Plan: -ADA diet -SSI -A1c 12/28/23 6.34 - good glycemic control Code(s): E11.21 - TYPE 2 DIABETES MELLITUS WITH DIABETIC NEPHROPATHY (10) CHF (congestive heart failure) Current Visit: Yes Status: Acute Assessment & Plan: -Continue home meds Entresto, Jardiance, lasix -EF estimated at 40-45% on echo dated 10/11/22 Code(s): I50.9 - HEART FAILURE, UNSPECIFIED Telemedicine Encounter - Telemedicine Encounter Telemedicine Encounter: "The entirety of this encounter was performed via Telemedicine" This visit was performed using real-time audio and video connection between my location and thepatients locationwith the assistance of a surrogateat the patients location. Written or verbal consent was obtained from the patient/guardian to perform this visit usingnchrOpera Solutionstelemedicine technology. Any patient questions regarding the telemedicine interaction were answered. <VELASQUEZ BAIRD - Last Filed: 01/16/24 21:32> History of Present Illness - Chief Complaint History of Present Illness: is a 53 year old male. - Physical Exam Vital Signs: Vital Signs - 24 hr Temp Pulse Resp BP Pulse Ox 01/16/24 19:54 98.3 F 79 18 128/78 96 01/16/24 15:25 97.4 F 58 L 16 132/77 97 01/16/24 12:37 97.4 F 58 L 16 132/77 97 01/16/24 07:51 97.4 F 70 18 132/81 99 01/16/24 07:38 97.4 F 70 18 132/81 99 Wound Assessment: Skin/Wound Assessment Wound/Incision Assessment Start: 01/16/24 12:55 Text: Status: Active Freq: Protocol: Document 01/16/24 19:07 RB (Rec: 01/16/24 19:09 RB [id number]) Wound/Incision Assessment RIGHT LOWER LEG Comment shadowing noted to outer dressing, , protocal to reennforce drsg as needed, this not warranted yet, will continue to monitor Results - Labs Lab/Micro Results: Lab Results-Last 24 Hours 01/16/24 01/16/24 01/16/24 Range/Units 07:37 07:58 07:58 WBC 6.7 (4.23-9.07) x10^3/uL RBC 4.32 L (4.63-6.08) x10^6/uL Hgb 12.8 L (13.7-17.5) g/dL Hct 39.4 L (40.1-51.0) % MCV 91.2 (79.0-92.2) fL MCH 29.6 (25.7-32.2) pg MCHC 32.5 (32.3-36.5) g/dL RDW 13.7 (11.6-14.4) % Plt Count 173 (163-337) x10^3/uL MPV 10.1 (9.4-12.4) fL Sodium 137 (135-145) mmol/L Potassium 4.2 (3.5-5.1) mmol/L Chloride 106 (98-107) mmol/L Carbon Dioxide 22 (22-30) mmol/L Anion Gap 13.1 (5-15) MEQ/L BUN 17 (9-20) mg/dL Creatinine 1.07 (0.66-1.25) mg/dL Estimated GFR 82.0 ML/MIN Glucose 152 H (74-106) mg/dL POC Glucometer 137 H (74 to 106) mg/dL Calcium 8.7 (8.4-10.2) mg/dL Total Bilirubin 0.60 (0.2-1.3) mg/dL AST 38 (17-59) U/L ALT 29 (0-50) U/L Alkaline Phosphatase 93 (38-126) U/L Serum Total Protein 7.6 (6.3-8.2) g/dL Albumin 3.7 (3.5-5.0) g/dL 01/16/24 01/16/24 01/16/24 Range/Units 13:54 16:13 20:49 WBC (4.23-9.07) x10^3/uL RBC (4.63-6.08) x10^6/uL Hgb (13.7-17.5) g/dL Hct (40.1-51.0) % MCV (79.0-92.2) fL MCH (25.7-32.2) pg MCHC (32.3-36.5) g/dL RDW (11.6-14.4) % Plt Count (163-337) x10^3/uL MPV (9.4-12.4) fL Sodium (135-145) mmol/L Potassium (3.5-5.1) mmol/L Chloride (98-107) mmol/L Carbon Dioxide (22-30) mmol/L Anion Gap (5-15) MEQ/L BUN (9-20) mg/dL Creatinine (0.66-1.25) mg/dL Estimated GFR ML/MIN Glucose (74-106) mg/dL POC Glucometer 84 101 101 (74 to 106) mg/dL Calcium (8.4-10.2) mg/dL Total Bilirubin (0.2-1.3) mg/dL AST (17-59) U/L ALT (0-50) U/L Alkaline Phosphatase (38-126) U/L Serum Total Protein (6.3-8.2) g/dL Albumin (3.5-5.0) g/dL Accuchecks Date 01/16/24 Date 01/16/24 Time 16:20 Time 13:56 - Radiology Impressions Radiology Exams & Impressions: Radiology Procedures Category Date Time Status FLUOROSCOPY UP TO 1 HR Routine Exams 01/16/24 07:06 Completed FOOT (MINIMUM 3 VIEWS) Routine Exams 01/16/24 07:06 Completed Telemedicine Encounter - Telemedicine Encounter Telemedicine Encounter: "The entirety of this encounter was performed via Telemedicine" This visit was performed using real-time audio and video connection between my location and thepatients locationwith the assistance of a surrogateat the patients location. Written or verbal consent was obtained from the patient/guardian to perform this visit usingNodeFly technology. Any patient questions regarding the telemedicine interaction were answered. YUDY Encounter - YUDY Encounter Attestation YUDY Encounter Attestation: "DEVORA Vega andhavediscussed pertinent aspects of their care with Matteo Dumont and agree with the history, physical exam (any modifications based on my personal exam will be noted below), assessment, and plan as outlined in original note. Please see immediately below for my summary of findings and additional assessment and plan along with any meaningful corrections/explanations to the Subjective/Objective portions of the YUDY note will be noted." My portion of the encounter took place via telemedicine. -Patient with right lateral foot ulcer with OM with surgical debridement x 2 in Nov, now s/p skin grafting by podiatry. IV antibiotic until culture available. Plan is for DC to residential due to non weight bearing status of right foot.
[2024-01-16] MEDS ORDERED: HUMALOG SQ PRN (12:50)
[2024-01-16] MEDS ORDERED: TYLENOL 325 MG PO PRN (12:50)
[2024-01-16] MEDS ORDERED: NORCO 7.5/325 MG TAB PO PRN (12:50)
[2024-01-16] MEDS ORDERED: NORCO 5/325 MG PO PRN (12:50)
[2024-01-16] MEDS ORDERED: CLARITIN 10 MG PO PRN (13:05)
[2024-01-16] MEDS ORDERED: MEDICATION INTERVENTION MC SCH ×2 (13:15)
[2024-01-16] MEDS: PIPERACILLIN/TAZOBACTAM 3.375 GM in Sodium Chloride 100ML MINI-BAG PLUS 100 ML IV SCH (13:52)
--- NOTE | 2024-01-16 13:53 | XRAY ---
36 seconds of fluoroscopy was used in surgery for a right foot incision and drainage with debridement, abductor digit minimi muscle flap, peroneous brevis tendon transfer, and split thickness graft.
[2024-01-16] MEDS: ZOCOR 20MG PO SCH (13:55)
[2024-01-16] MEDS: ECOTRIN 81 MG PO SCH (13:55)
[2024-01-16] MEDS: Flonase NASAL NS SCH (13:55)
[2024-01-16] MEDS: Klor Con PO SCH (13:55)
[2024-01-16] MEDS: Cordarone 200 MG PO SCH (13:55)
[2024-01-16] MEDS: Lasix 20 MG/2 ML IV SCH (13:56)
[2024-01-16] MEDS ORDERED: VANCOMYCIN 2 GRAM/400 ML BAG 2 GM/400 ML PIGGYBACK IV SCH (14:00)
[2024-01-16] MEDS: PHARMACY DOSING REQUIRED: VANCOMYCIN IV STA (14:10)
[2024-01-16] MEDS: NEURONTIN PO SCH ×2 (14:10→21:22)
[2024-01-16] MEDS: ENTRESTO 49 MG-51 MG TABLET PO SCH (14:37)
[2024-01-16] MEDS: VANCOMYCIN 1.25 GM/250 ML BAG 1.25 GM/250 ML PIGGYBACK IV SCH (14:37)
[2024-01-16] MEDS ORDERED: Zofran 4 MG/2 ML VIAL IV PRN (17:12)
[2024-01-16] MEDS: NORCO 5/325 MG PO PRN (17:53)
[2024-01-16] MEDS: IMODIUM 2 MG PO PRN (18:59)
[2024-01-16] MEDS: MORPHINE SULFATE 2 MG INJ IV ONE (21:21)
[2024-01-16] MEDS: ELIQUIS 2.5 MG TABLET PO SCH (21:22)
[2024-01-16] MEDS ORDERED: [UNRECOGNIZED DRUG - OTHER] PO SCH (22:00)
[2024-01-16] MEDS ORDERED: ALPHA LIPOIC ACID PO SCH (22:00)
[2024-01-16] MEDS ORDERED: VANCOMYCIN 1.25 GM/250 ML BAG IV SCH (22:00)
[2024-01-16] MEDS ORDERED: BIOTIN PO SCH (22:00)
--- NOTE | 2024-01-17 04:52 | PCM.NOTE ---
Date and Time: 01/17/24 0451 Subjective Assessment: is a 53 year old male with a PMHX of a-fib(recent cardioversion 01/08/24), CAD, stroke (2013) CHF (sees Jeanna), HTN, neuropathy, PVD, diabetic foot ulcer, history of multiple amputations, and type II DM patient of Dr. Byrd presents s/p I&D with bone debridement abductor digit minimi muscle flap, peroneus brevis tendon transfer, split thickness graft with possible delayed primary closure of his right foot. Hospitalist consulted for medical management. Patient doing well s/p surgery. Currently rating pain 0/10. Plan is for IV abx and rehab on discharge. 01/17/24: Met with patient bedside. PODS#1 doing well. Pain is controlled. Reports morphine made him vomit last night but is doing well on [place]. Bone biopsy pending. Continue zosyn/vanc for now. Podiatry following- will notify with plans for final abx course. Denies fever,cough, sob, cp, abdominal pain, ROCHE, dizziness, N/V/D. - Review of Systems Constitutional: No Symptoms Eyes: No Symptoms Ears, Nose, & Throat: No Symptoms Respiratory: No Symptoms Cardiac: No Symptoms Abdominal/Gastrointestinal: No Symptoms Genitourinary Symptoms: No Symptoms Musculoskeletal: Other (right foot pain 4/10) Neurological: Other (Surgical wound to RLE covered in dressing) Psychological: No Symptoms Endocrine: No Symptoms Hematologic/Lymphatic: No Symptoms Immunological/Allergic: No Symptoms Objective Exam General Appearance: no apparent distress Neurologic Exam: alert, oriented x 3, cooperative Skin Exam: normal color, other (Surgical wound to RLE covered in dressing) Wound Assessment: Skin/Wound Assessment Wound/Incision Assessment Start: 01/16/24 12:55 Text: Status: Active Freq: Protocol: Document 01/16/24 19:07 RB (Rec: 01/16/24 19:09 RB [id number]) Wound/Incision Assessment RIGHT LOWER LEG Comment shadowing noted to outer dressing, , protocal to reennforce drsg as needed, this not warranted yet, will continue to monitor Eye Exam: PERRL Ears, Nose, Throat Exam: normal ENT inspection Neck Exam: normal inspection Respiratory Exam: normal breath sounds, lungs clear Cardiovascular Exam: regular rate/rhythm, normal heart sounds Gastrointestinal/Abdomen Exam: soft, normal bowel sounds Extremity Exam: normal inspection Back Exam: normal inspection Male Genitalia Exam: deferred Rectal Exam: deferred Objective Data Vital Signs: Vital Signs - 24 hr Temp Pulse Resp BP Pulse Ox 01/17/24 02:52 97.7 F 73 16 120/70 98 01/16/24 23:26 99.2 F 80 17 152/79 96 01/16/24 19:54 98.3 F 79 18 128/78 96 01/16/24 15:25 97.4 F 58 L 16 132/77 97 01/16/24 12:37 97.4 F 58 L 16 132/77 97 01/16/24 07:51 97.4 F 70 18 132/81 99 01/16/24 07:38 97.4 F 70 18 132/81 99 Pain Assessment - Last Documented Pain Intensity 5 Pain Scale Used 0-10 Pain Scale Intake and Output: Intake & Output 01/14/24 01/15/24 01/16/24 01/17/24 11:59 11:59 11:59 11:59 Intake Total 1740 Output Total 300 Balance 1440 Weight 245 kg 111.13 kg Lab Results: Lab Results-Last 24 Hours 01/16/24 01/16/24 01/16/24 Range/Units 07:37 07:58 07:58 WBC 6.7 (4.23-9.07) x10^3/uL RBC 4.32 L (4.63-6.08) x10^6/uL Hgb 12.8 L (13.7-17.5) g/dL Hct 39.4 L (40.1-51.0) % MCV 91.2 (79.0-92.2) fL MCH 29.6 (25.7-32.2) pg MCHC 32.5 (32.3-36.5) g/dL RDW 13.7 (11.6-14.4) % Plt Count 173 (163-337) x10^3/uL MPV 10.1 (9.4-12.4) fL Sodium 137 (135-145) mmol/L Potassium 4.2 (3.5-5.1) mmol/L Chloride 106 (98-107) mmol/L Carbon Dioxide 22 (22-30) mmol/L Anion Gap 13.1 (5-15) MEQ/L BUN 17 (9-20) mg/dL Creatinine 1.07 (0.66-1.25) mg/dL Estimated GFR 82.0 ML/MIN Glucose 152 H (74-106) mg/dL POC Glucometer 137 H (74 to 106) mg/dL Calcium 8.7 (8.4-10.2) mg/dL Total Bilirubin 0.60 (0.2-1.3) mg/dL AST 38 (17-59) U/L ALT 29 (0-50) U/L Alkaline Phosphatase 93 (38-126) U/L Serum Total Protein 7.6 (6.3-8.2) g/dL Albumin 3.7 (3.5-5.0) g/dL 01/16/24 01/16/24 01/16/24 Range/Units 13:54 16:13 20:49 WBC (4.23-9.07) x10^3/uL RBC (4.63-6.08) x10^6/uL Hgb (13.7-17.5) g/dL Hct (40.1-51.0) % MCV (79.0-92.2) fL MCH (25.7-32.2) pg MCHC (32.3-36.5) g/dL RDW (11.6-14.4) % Plt Count (163-337) x10^3/uL MPV (9.4-12.4) fL Sodium (135-145) mmol/L Potassium (3.5-5.1) mmol/L Chloride (98-107) mmol/L Carbon Dioxide (22-30) mmol/L Anion Gap (5-15) MEQ/L BUN (9-20) mg/dL Creatinine (0.66-1.25) mg/dL Estimated GFR ML/MIN Glucose (74-106) mg/dL POC Glucometer 84 101 101 (74 to 106) mg/dL Calcium (8.4-10.2) mg/dL Total Bilirubin (0.2-1.3) mg/dL AST (17-59) U/L ALT (0-50) U/L Alkaline Phosphatase (38-126) U/L Serum Total Protein (6.3-8.2) g/dL Albumin (3.5-5.0) g/dL Radiology Exams: Radiology Procedures Category Date Time Status FLUOROSCOPY UP TO 1 HR Routine Exams 01/16/24 07:06 Completed FOOT (MINIMUM 3 VIEWS) Routine Exams 01/16/24 07:06 Completed Multi-Disciplinary Progress Notes: Multi-Disciplinary Progress Notes 01/16/24 13:56 Case Management Note by Cesilia Hanley AND LEVEL OF CARE STARTED AT THIS TIME FULL REFERRAL FAXED TO [facility] Initialized on 01/16/24 13:56 - END OF NOTE Assessment/Plan (1) Osteomyelitis of right foot Current Visit: No Status: Acute Assessment & Plan: -S/P I&D with bone debridement abductor digit minimi muscle flap, peroneus brevis tendon transfer, split thickness graft with possible delayed primary closure of his right foot -Last office visit dated 01/08/24 reviewed -CMP, CBC reviewed -Podiatry following, plan for vanc/zosyn per podiatry - will need rehab at d/c 01/16: -Podiatry following, bone biopsy pending -discussed case- awaiting final determination of abx for discharge to rehab -Continue vanc/zosyn pending biopsy results -pain controlled -CMP, CBC reviewed with no concerning findings Code(s): M86.9 - OSTEOMYELITIS, UNSPECIFIED (2) Diabetic peripheral neuropathy Current Visit: Yes Status: Acute Assessment & Plan: -Advised good glycemic control, current A1c at 6.34 Code(s): E11.42 - TYPE 2 DIABETES MELLITUS WITH DIABETIC POLYNEUROPATHY (3) Peripheral vascular disease Current Visit: Yes Status: Acute Assessment & Plan: -noted, adds complexity Code(s): I73.9 - PERIPHERAL VASCULAR DISEASE, UNSPECIFIED (4) History of partial amputation of toe of left foot Current Visit: Yes Status: Acute Code(s): Z89.422 - ACQUIRED ABSENCE OF OTHER LEFT TOE(S) (5) HLD (hyperlipidemia) Current Visit: Yes Status: Acute Assessment & Plan: -continue statin Code(s): E78.5 - HYPERLIPIDEMIA, UNSPECIFIED (6) History of atrial fibrillation Current Visit: Yes Status: Acute Assessment & Plan: -Recent Cardioversion per pt on 01/08/24 -continue metoprolol/Eliquis Code(s): Z86.79 - PERSONAL HISTORY OF OTHER DISEASES OF THE CIRCULATORY SYSTEM (7) CAD (coronary artery disease) Current Visit: No Status: Chronic Assessment & Plan: -continue home meds -entresto, Imdur, atorvastatin, jardiance -Most recent Echo reviewed from 10/11/22 EF 40-45% IMPRESSION: 1. MODERATE CONCENTRIC LEFT VENTRICULAR HYPERTROPHY WITH MODERATE LEFT VENTRICULAR SYSTOLIC DYSFUNCTION. 2. BIATRIAL ENLARGEMENT. 3. MILD AORTIC ROOT DILATATION. 4. MILD MITRAL REGURGITATION. 5. TRACE TRICUSPID REGURGITATION Code(s): I25.10 - ATHSCL HEART DISEASE OF [place] CORONARY ARTERY W/O ANG PCTRS (8) HTN (hypertension) Current Visit: No Status: Chronic Assessment & Plan: -stable continue home meds Code(s): I10 - ESSENTIAL (PRIMARY) HYPERTENSION (9) Type 2 diabetes mellitus with diabetic nephropathy Current Visit: No Status: Chronic Assessment & Plan: -ADA diet -SSI -A1c 12/28/23 6.34 - good glycemic control Code(s): E11.21 - TYPE 2 DIABETES MELLITUS WITH DIABETIC NEPHROPATHY (10) CHF (congestive heart failure) Current Visit: Yes Status: Acute Assessment & Plan: -Continue home meds Entresto, Jardiance, lasix -EF estimated at 40-45% on echo dated 10/11/22 Code(s): M86.9 - OSTEOMYELITIS, UNSPECIFIED (2) Diabetic peripheral neuropathy Current Visit: Yes Status: Acute Code(s): E11.42 - TYPE 2 DIABETES MELLITUS WITH DIABETIC POLYNEUROPATHY (3) Peripheral vascular disease Current Visit: Yes Status: Acute Code(s): I73.9 - PERIPHERAL VASCULAR DISEASE, UNSPECIFIED (4) History of partial amputation of toe of left foot Current Visit: Yes Status: Acute Code(s): Z89.422 - ACQUIRED ABSENCE OF OTHER LEFT TOE(S) (5) HLD (hyperlipidemia) Current Visit: Yes Status: Acute Code(s): E78.5 - HYPERLIPIDEMIA, UNSPECIFIED (6) History of atrial fibrillation Current Visit: Yes Status: Acute Code(s): Z86.79 - PERSONAL HISTORY OF OTHER DISEASES OF THE CIRCULATORY SYSTEM (7) CAD (coronary artery disease) Current Visit: No Status: Chronic Code(s): I25.10 - ATHSCL HEART DISEASE OF [place] CORONARY ARTERY W/O ANG PCTRS (8) HTN (hypertension) Current Visit: No Status: Chronic Code(s): I10 - ESSENTIAL (PRIMARY) HYPERTENSION (9) Type 2 diabetes mellitus with diabetic nephropathy Current Visit: No Status: Chronic Code(s): E11.21 - TYPE 2 DIABETES MELLITUS WITH DIABETIC NEPHROPATHY (10) CHF (congestive heart failure) Current Visit: Yes Status: Acute Code(s): I50.9 - HEART FAILURE, UNSPECIFIED
[2024-01-17 05:19] LABS: Absolute Neutrophil Ct (ANC) 6.06 x10^3/uL (1.78-5.38); BASOPHIL % 0.4 % (0.2-1.2); Basophil (Absolute #) 0.03 x10^3/uL (0.01-0.08); Eosinophil % 1.7 % (0.8-7.0); Eosinophil (Absolute #) 0.14 x10^3/uL (0.04-0.54); Hematocrit 35.8 % (40.1-51.0); Hemoglobin 11.8 g/dL (13.7-17.5); IMMATURE GRAN # 0.02 x10^3u/L (0.001-0.031); IMMATURE GRAN % 0.2 % (0.001-0.429); Lymphocytes % 13.6 % (21.8-53.1); Mean Cell Volume 90.4 fL (79.0-92.2); Mean Corpuscular Hemoglobin 29.8 pg (25.7-32.2); Mean Platelet Volume 10.7 fL (9.4-12.4); Monocyte (Absolute #) 0.72 x10^3/uL (0.30-0.82); Monocytes % 8.9 % (5.3-12.2); Neutrophil % 75.2 % (34.0-67.9); Platelet Count 118 x10^3/uL (163-337); Red Blood Count 3.96 x10^6/uL (4.63-6.08); Red Cell Distribution Width 13.6 % (11.6-14.4); White Blood Count 8.1 x10^3/uL (4.23-9.07)
[2024-01-17 05:45] LABS: ALBUMIN 3.4 g/dL (3.5-5.0); BILIRUBIN,TOTAL 0.8 mg/dL (0.2-1.3); Calcium 8.2 mg/dL (8.4-10.2); Creatinine 1 1.16 mg/dL (0.66-1.25); EST GLOMERULAR FILTRATION RATE 74.4 ML/MIN; Potassium 4.2 mmol/L (3.5-5.1); Total Protein 7.3 g/dL (6.3-8.2)
[2024-01-17] MEDS: Imdur 30 MG PO SCH (08:56)
[2024-01-17] MEDS: Lexapro PO SCH (08:56)
[2024-01-17] MEDS: Toprol-Xl 25MG Tablets PO SCH (08:57)
[2024-01-17] MEDS: THERAGRAN MULTIVITAMIN PO SCH (08:58)
[2024-01-17] MEDS: JARDIANCE PO SCH (08:59)
[2024-01-17] MEDS ORDERED: Glucophage XR 500 MG PO SCH (10:00)
[2024-01-17] MEDS ORDERED: Imdur 30 MG PO SCH (10:00)
[2024-01-17] MEDS ORDERED: LASIX 20 MG PO SCH (10:00)
[2024-01-18 03:58] VITALS: RESP 16
--- NOTE | 2024-01-18 05:03 | PCM.NOTE ---
Date and Time: 01/18/24 0502 Subjective Assessment: is a 53 year old male with a PMHX of a-fib(recent cardioversion 01/08/24), CAD, stroke (2013) CHF (sees Jeanna), HTN, neuropathy, PVD, diabetic foot ulcer, history of multiple amputations, and type II DM patient of Dr. Byrd presents s/p I&D with bone debridement abductor digit minimi muscle flap, peroneus brevis tendon transfer, split thickness graft with possible delayed primary closure of his right foot. Hospitalist consulted for medical management. Patient doing well s/p surgery. Currently rating pain 0/10. Plan is for IV abx and rehab on discharge. 01/17/24: Met with patient bedside. PODS#1 doing well. Pain is controlled. Reports morphine made him vomit last night but is doing well on Palm. Bone biopsy pending. Continue zosyn/vanc for now. Podiatry following- will notify with plans for final abx course. Denies fever,cough, sob, cp, abdominal pain, ROCHE, dizziness, N/V/D. Objective Exam Wound Assessment: Skin/Wound Assessment Wound/Incision Assessment Start: 01/16/24 12:55 Text: Status: Active Freq: Protocol: Document 01/16/24 19:07 RB (Rec: 01/16/24 19:09 RB [id number]) Wound/Incision Assessment RIGHT LOWER LEG Comment shadowing noted to outer dressing, , protocal to reennforce drsg as needed, this not warranted yet, will continue to monitor Objective Data Vital Signs: Vital Signs - 24 hr Temp Pulse Resp BP Pulse Ox 01/18/24 03:56 97 F 59 L 16 108/66 95 01/17/24 23:56 97.7 F 62 18 130/71 97 01/17/24 19:48 96.8 F 63 18 126/60 96 01/17/24 16:00 97.1 F 52 L 16 124/63 97 01/17/24 10:56 97.8 F 67 16 97/66 95 01/17/24 06:53 97.6 F 61 16 126/71 95 Pain Assessment - Last Documented Pain Intensity 4 Pain Scale Used 0-10 Pain Scale Intake and Output: Intake & Output 01/15/24 01/16/24 01/17/24 12/12/24 11:59 11:59 11:59 11:59 Intake Total 4820 1711 Output Total 750 1525 Balance 1570 186 Weight 245 kg 107.9 kg Lab Results: Lab Results-Last 24 Hours 01/17/24 01/17/24 01/17/24 Range/Units 05:10 05:10 07:17 WBC 8.1 (4.23-9.07) x10^3/uL RBC 3.96 L (4.63-6.08) x10^6/uL Hgb 11.8 L (13.7-17.5) g/dL Hct 35.8 L (40.1-51.0) % MCV 90.4 (79.0-92.2) fL MCH 29.8 (25.7-32.2) pg MCHC 33.0 (32.3-36.5) g/dL RDW 13.6 (11.6-14.4) % Plt Count 118 L (163-337) x10^3/uL MPV 10.7 (9.4-12.4) fL Gran % 75.2 H (34.0-67.9) % Immature Gran % (Auto) 0.2 (0.001-0.429) % Nucleat RBC Rel Count 0.0 (0.00-0.2) % Eos # (Auto) 0.14 (0.04-0.54) x10^3/uL Immature Gran # (Auto) 0.02 (0.001-0.031) x10^3u/L Absolute Lymphs (auto) 1.10 L (1.32-3.57) x10^3/uL Absolute Monos (auto) 0.72 (0.30-0.82) x10^3/uL Absolute Nucleated RBC 0.00 (0.00-0.012) x10^3u/L Lymphocytes % 13.6 L (21.8-53.1) % Monocytes % 8.9 (5.3-12.2) % Eosinophils % 1.7 (0.8-7.0) % Basophils % 0.4 (0.2-1.2) % Absolute Granulocytes 6.06 H (1.78-5.38) x10^3/uL Basophils # 0.03 (0.01-0.08) x10^3/uL Sodium 132 L (135-145) mmol/L Potassium 4.2 (3.5-5.1) mmol/L Chloride 103 (98-107) mmol/L Carbon Dioxide 23 (22-30) mmol/L Anion Gap 11.0 (5-15) MEQ/L BUN 20 (9-20) mg/dL Creatinine 1.16 (0.66-1.25) mg/dL Estimated GFR 74.4 ML/MIN Glucose 109 H (74-106) mg/dL POC Glucometer 84 (74 to 106) mg/dL Calcium 8.2 L (8.4-10.2) mg/dL Total Bilirubin 0.80 (0.2-1.3) mg/dL AST 30 (17-59) U/L ALT 24 (0-50) U/L Alkaline Phosphatase 84 (38-126) U/L Serum Total Protein 7.3 (6.3-8.2) g/dL Albumin 3.4 L (3.5-5.0) g/dL 01/17/24 01/17/24 01/17/24 Range/Units 11:24 16:13 20:56 WBC (4.23-9.07) x10^3/uL RBC (4.63-6.08) x10^6/uL Hgb (13.7-17.5) g/dL Hct (40.1-51.0) % MCV (79.0-92.2) fL MCH (25.7-32.2) pg MCHC (32.3-36.5) g/dL RDW (11.6-14.4) % Plt Count (163-337) x10^3/uL MPV (9.4-12.4) fL Gran % (34.0-67.9) % Immature Gran % (Auto) (0.001-0.429) % Nucleat RBC Rel Count (0.00-0.2) % Eos # (Auto) (0.04-0.54) x10^3/uL Immature Gran # (Auto) (0.001-0.031) x10^3u/L Absolute Lymphs (auto) (1.32-3.57) x10^3/uL Absolute Monos (auto) (0.30-0.82) x10^3/uL Absolute Nucleated RBC (0.00-0.012) x10^3u/L Lymphocytes % (21.8-53.1) % Monocytes % (5.3-12.2) % Eosinophils % (0.8-7.0) % Basophils % (0.2-1.2) % Absolute Granulocytes (1.78-5.38) x10^3/uL Basophils # (0.01-0.08) x10^3/uL Sodium (135-145) mmol/L Potassium (3.5-5.1) mmol/L Chloride (98-107) mmol/L Carbon Dioxide (22-30) mmol/L Anion Gap (5-15) MEQ/L BUN (9-20) mg/dL Creatinine (0.66-1.25) mg/dL Estimated GFR ML/MIN Glucose (74-106) mg/dL POC Glucometer 133 H 96 124 H (74 to 106) mg/dL Calcium (8.4-10.2) mg/dL Total Bilirubin (0.2-1.3) mg/dL AST (17-59) U/L ALT (0-50) U/L Alkaline Phosphatase (38-126) U/L Serum Total Protein (6.3-8.2) g/dL Albumin (3.5-5.0) g/dL Radiology Exams: Radiology Procedures Category Date Time Status FLUOROSCOPY UP TO 1 HR Routine Exams 01/16/24 07:06 Completed FOOT (MINIMUM 3 VIEWS) Routine Exams 01/16/24 07:06 Completed Multi-Disciplinary Progress Notes: Multi-Disciplinary Progress Notes 01/17/24 12:37 Case Management Note by Cesilia Hanley OF [facility] HAS ACCEPTED PATIENT LEVEL OF CARE STILL PENDING AT THIS TIME- THIS WILL NEED TO BE COMPLETE BEFORE PATIENT CAN GO TO SNF. S/W PATIENT ABOUT PLANS- HE CONTINUES TO BE AGREEABLE TO THIS PLAN. Initialized on 01/17/24 12:37 - END OF NOTE Assessment/Plan (1) Osteomyelitis of right foot Current Visit: No Status: Acute Assessment & Plan: -S/P I&D with bone debridement abductor digit minimi muscle flap, peroneus brevis tendon transfer, split thickness graft with possible delayed primary closure of his right foot -Last office visit dated 01/08/24 reviewed -CMP, CBC reviewed -Podiatry following, plan for vanc/zosyn per podiatry - will need rehab at d/c 01/16: -Podiatry following, bone biopsy pending -discussed case- awaiting final determination of abx for discharge to rehab -Continue vanc/zosyn pending biopsy results -pain controlled -CMP, CBC reviewed with no concerning findings Code(s): M86.9 - OSTEOMYELITIS, UNSPECIFIED (2) Diabetic peripheral neuropathy Current Visit: Yes Status: Acute Assessment & Plan: -Advised good glycemic control, current A1c at 6.34 Code(s): E11.42 - TYPE 2 DIABETES MELLITUS WITH DIABETIC POLYNEUROPATHY (3) Peripheral vascular disease Current Visit: Yes Status: Acute Assessment & Plan: -noted, adds complexity Code(s): I73.9 - PERIPHERAL VASCULAR DISEASE, UNSPECIFIED (4) History of partial amputation of toe of left foot Current Visit: Yes Status: Acute Code(s): Z89.422 - ACQUIRED ABSENCE OF OTHER LEFT TOE(S) (5) HLD (hyperlipidemia) Current Visit: Yes Status: Acute Assessment & Plan: -continue statin Code(s): E78.5 - HYPERLIPIDEMIA, UNSPECIFIED (6) History of atrial fibrillation Current Visit: Yes Status: Acute Assessment & Plan: -Recent Cardioversion per pt on 01/08/24 -continue metoprolol/Eliquis Code(s): Z86.79 - PERSONAL HISTORY OF OTHER DISEASES OF THE CIRCULATORY SYSTEM (7) CAD (coronary artery disease) Current Visit: No Status: Chronic Assessment & Plan: -continue home meds -entresto, Imdur, atorvastatin, jardiance -Most recent Echo reviewed from 10/11/22 EF 40-45% IMPRESSION: 1. MODERATE CONCENTRIC LEFT VENTRICULAR HYPERTROPHY WITH MODERATE LEFT VENTRICULAR SYSTOLIC DYSFUNCTION. 2. BIATRIAL ENLARGEMENT. 3. MILD AORTIC ROOT DILATATION. 4. MILD MITRAL REGURGITATION. 5. TRACE TRICUSPID REGURGITATION Code(s): I25.10 - ATHSCL HEART DISEASE OF [place] CORONARY ARTERY W/O ANG PCTRS (8) HTN (hypertension) Current Visit: No Status: Chronic Assessment & Plan: -stable continue home meds Code(s): I10 - ESSENTIAL (PRIMARY) HYPERTENSION (9) Type 2 diabetes mellitus with diabetic nephropathy Current Visit: No Status: Chronic Assessment & Plan: -ADA diet -SSI -A1c 12/28/23 6.34 - good glycemic control Code(s): E11.21 - TYPE 2 DIABETES MELLITUS WITH DIABETIC NEPHROPATHY (10) CHF (congestive heart failure) Current Visit: Yes Status: Acute Assessment & Plan: -Continue home meds Entresto, Jardiance, lasix -EF estimated at 40-45% on echo dated 10/11/22 Code(s): M86.9 - OSTEOMYELITIS, UNSPECIFIED (2) Diabetic peripheral neuropathy Current Visit: Yes Status: Acute Code(s): E11.42 - TYPE 2 DIABETES MELLITUS WITH DIABETIC POLYNEUROPATHY (3) Peripheral vascular disease Current Visit: Yes Status: Acute Code(s): I73.9 - PERIPHERAL VASCULAR DISEASE, UNSPECIFIED (4) History of partial amputation of toe of left foot Current Visit: Yes Status: Acute Code(s): Z89.422 - ACQUIRED ABSENCE OF OTHER LEFT TOE(S) (5) HLD (hyperlipidemia) Current Visit: Yes Status: Acute Code(s): E78.5 - HYPERLIPIDEMIA, UNSPECIFIED (6) History of atrial fibrillation Current Visit: Yes Status: Acute Code(s): Z86.79 - PERSONAL HISTORY OF OTHER DISEASES OF THE CIRCULATORY SYSTEM (7) CAD (coronary artery disease) Current Visit: No Status: Chronic Code(s): I25.10 - ATHSCL HEART DISEASE OF [place] CORONARY ARTERY W/O ANG PCTRS (8) HTN (hypertension) Current Visit: No Status: Chronic Code(s): I10 - ESSENTIAL (PRIMARY) HYPERTENSION (9) Type 2 diabetes mellitus with diabetic nephropathy Current Visit: No Status: Chronic Code(s): E11.21 - TYPE 2 DIABETES MELLITUS WITH DIABETIC NEPHROPATHY (10) CHF (congestive heart failure) Current Visit: Yes Status: Acute Code(s): I50.9 - HEART FAILURE, UNSPECIFIED
[2024-01-18 05:51] LABS: Absolute Neutrophil Ct (ANC) 5.94 x10^3/uL (1.78-5.38); BASOPHIL % 0.2 % (0.2-1.2); Basophil (Absolute #) 0.02 x10^3/uL (0.01-0.08); Eosinophil % 3.4 % (0.8-7.0); Eosinophil (Absolute #) 0.29 x10^3/uL (0.04-0.54); Hematocrit 33.3 % (40.1-51.0); IMMATURE GRAN # 0.02 x10^3u/L (0.001-0.031); IMMATURE GRAN % 0.2 % (0.001-0.429); Lymphocytes % 18.6 % (21.8-53.1); Mean Corpuscular Hemoglobin 29.7 pg (25.7-32.2); Mean Platelet Volume 10.4 fL (9.4-12.4); Monocyte (Absolute #) 0.71 x10^3/uL (0.30-0.82); Monocytes % 8.3 % (5.3-12.2); Neutrophil % 69.3 % (34.0-67.9); Platelet Count 103 x10^3/uL (163-337); Red Cell Distribution Width 13.5 % (11.6-14.4); White Blood Count 8.6 x10^3/uL (4.23-9.07)
[2024-01-18 06:06] LABS: ALBUMIN 3.3 g/dL (3.5-5.0); ANION GAP 10.1 MEQ/L (5-15); BILIRUBIN,TOTAL 0.6 mg/dL (0.2-1.3); Creatinine 1 1.09 mg/dL (0.66-1.25); EST GLOMERULAR FILTRATION RATE 80.2 ML/MIN; Total Protein 6.8 g/dL (6.3-8.2)
--- NOTE | 2024-01-18 11:45 | OP ---
SURGERY DATE/TIME: 01/16/2024 [id number] PREOPERATIVE DIAGNOSES: 1) Osteomyelitis, right foot. 2) Diabetes mellitus, uncontrolled. 3) Peripheral neuropathy. 4) Multiple history of amputation. 5) Atrial fibrillation. 6) Difficulty with ambulation. POSTOPERATIVE DIAGNOSES: 1) Osteomyelitis, right foot. 2) Diabetes mellitus, uncontrolled. 3) Peripheral neuropathy. 4) Multiple history of amputation. 5) Atrial fibrillation. 6) Difficulty with ambulation. PROCEDURES: 1) Incision and drainage with bone debridement to cuboid and fourth metatarsal. 2) Partial metatarsal resection. 3) Peroneus brevis tendon transfer to cuboid. 4) Abductor digiti minimi muscle flap. 5) Delayed primary closure of wound and split-thickness skin graft from posteromedial calf of right to right foot. SURGEON: Carson Song DPM. TRANSPORTATION MANAGER: MARIA E Ch. ANESTHESIA: Local. HEMOSTASIS: Pressure dressing. ESTIMATED BLOOD LOSS: Approximately 30 mL. MATERIALS: A 4 mm ToggleLoc, a FiberLoop loop suture, 4-0 Monocryl, 2-0 Vicryl, 3-0 nylon, and 4-0 nylon as well. INJECTABLES: 10 mL of 1% lidocaine with epinephrine and then 10 mL of a 1:1 mixture of 1% lidocaine plain and 0.5% Bupivacaine plain injected in an ankle block-type fashion to the right ankle. INDICATIONS FOR PROCEDURE: This is a staged procedure for the patient. He has since demonstrated relatively clean margins to the remaining bone at the level of the cuboid, the fourth metatarsal, as well as the remaining fifth metatarsal. From that standpoint, we have decided to go ahead and proceed with the second stage of the procedure, which consists of a muscle mobilization and tendon transfer since the amputation was partial amputation of the styloid process at the fifth metatarsal and split-thickness skin graft over the surgical site in order to get better coaptation and closure of the wound. From that standpoint, patient has been made aware of all risks, complications, and benefits of surgical intervention at this time including, but not limited to, infection, hematoma, seroma, possibility of delayed wound healing, non-wound healing, and possible failure of surgical intervention. No guarantees were provided as to the intervention at this time; however, the goal is limb salvage and retained function. From that standpoint, patient has been made aware of all these risks and complications and is willing to proceed. Plenty of time was allowed for the patient to ask questions, which were answered to his apparent satisfaction. It was at this time we decided to proceed. DESCRIPTION OF PROCEDURE AND FINDINGS: Patient was into the operating room and placed on the operating room table in the supine position. At this time, the right lower extremity was prepped and draped in the typical sterile fashion. Attention was directed to the wound on the right leg and the posteromedial calf where a 10 mL injection of lidocaine with epinephrine was injected just 10 cm proximal to the medial malleolus posteromedially just below the palpable dell of the calf. There was also an injection consisting of 10 mL of a mixture of 1% lidocaine plain and 0.5% Bupivacaine plain injected in a sural and a superficial peroneal nerve block. Once this took place, debridement of the wound took place. We utilized a curette and rongeurs in order to debride the cuboid as well as the fourth metatarsal. Following this, a portion of the fifth metatarsal that is remaining was taken for pathology. Copious amounts of sterile saline were utilized to flush the surgical site at this time. Once this was performed, the peroneus brevis tendon was identified. A FiberLoop was attached to it with 5 limbs able to be attached to the peroneus brevis. A drill hole was made through the cuboid, and utilizing a 4 mm ToggleLoc, the ToggleLoc was then introduced and under significant tension with the foot held at neutral the ToggleLoc was tightened and the tendon was pulled into the hole. From that standpoint, once again 1000 mL of Bactisure and 500 mL of sodium chloride were then utilized to flush the surgical site. The abductor digiti minimi flap was then harvested and reflected over the bone that was exposed. Once this occurred, adequate apposition of the edges was seen. The distal extent of the wound, approximately 5 cm, was then coapted utilizing 2-0 Vicryl and 3-0 nylon under minimal tension in an alternating simple interrupted buried sutures as well as horizontal mattress utilizing 3-0 nylon. From that standpoint, a split-thickness skin graft with the dermatome set to 0.016 inch as well as a 2 mm blade was then utilized to harvest from the posteromedial calf after cleansing with sterile saline and then alcohol and then mineral oil was rubbed on the site harvesting approximately a 6 cm split-thickness skin graft. This was then sent through the dermatome where a 1:1.5 ratio was then run through the mesher. Once this was performed, this was secured to the wound base utilizing 4-0 nylon in a running continuous suture. Following this, a dressing consisting of Betadine, Adaptic, 4 x 4, Kerlix, ABD, and Ronnie was then applied to the patient's right lower extremity. The patient was then reversed from anesthesia and returned to the postanesthesia care unit with vital signs stable and vascular status intact. The patient handled the anesthesia as well as the procedure without significant complication. Postoperative orders as indicated in the patient's discharge chart.
[2024-01-18 12:25] VITALS: BP 95/55; PULSE 66; TEMP 96.6; O2SAT 92
--- NOTE | 2024-01-18 12:32 | PCM.DS ---
Discharge Summary Date of Admission: 01/16/24 06:57 Date of Discharge: 01/18/24 Admitting Physician: VELASQUEZ BAIRD MD Primary Care Provider: TOÑO PACK Allergies Allergies morphine Adverse Reaction (Verified 01/17/24 04:47) [facility] Summary - Hospital Course Hospital Course: is a 53 year old male with a PMHX of a-fib(recent cardioversion 01/08/24), CAD, stroke (2013) CHF (sees Jeanna), HTN, neuropathy, PVD, diabetic foot ulcer, history of multiple amputations, and type II DM patient of Dr. Byrd presents s/p I&D with bone debridement abductor digit minimi muscle flap, peroneus brevis tendon transfer, split thickness graft with possible delayed primary closure of his right foot. Hospitalist consulted for medical management. Patient doing well s/p surgery. Currently rating pain 0/10. Plan is for IV abx and rehab on discharge. Patient doing well s/p surgery. Will discharge to SNF for IV abx and rehab. Discharge Note New Medications: Vancomycin Follow Up: podiatry Results pending: biopsy Latest Assessment & Plan (1) Osteomyelitis of right foot Current Visit: No Status: Acute Assessment & Plan: -S/P I&D with bone debridement abductor digit minimi muscle flap, peroneus brevis tendon transfer, split thickness graft with possible delayed primary closure of his right foot -Last office visit dated 01/08/24 reviewed -CMP, CBC reviewed -Podiatry following, plan for vanc/zosyn per podiatry - will need rehab at d/c 01/16: -Podiatry following, bone biopsy pending -discussed case- awaiting final determination of abx for discharge to rehab -Continue vanc/zosyn pending biopsy results -pain controlled -CMP, CBC reviewed with no concerning findings 01/17: -Continue vanc on discharge at SNF -Podiatry will follow OP Code(s): M86.9 - OSTEOMYELITIS, UNSPECIFIED (2) Diabetic peripheral neuropathy Current Visit: Yes Status: Acute Assessment & Plan: -Advised good glycemic control, current A1c at 6.34 Code(s): E11.42 - TYPE 2 DIABETES MELLITUS WITH DIABETIC POLYNEUROPATHY (3) Peripheral vascular disease Current Visit: Yes Status: Acute Assessment & Plan: -noted, adds complexity Code(s): I73.9 - PERIPHERAL VASCULAR DISEASE, UNSPECIFIED (4) History of partial amputation of toe of left foot Current Visit: Yes Status: Acute Code(s): Z89.422 - ACQUIRED ABSENCE OF OTHER LEFT TOE(S) (5) HLD (hyperlipidemia) Current Visit: Yes Status: Acute Assessment & Plan: -continue statin Code(s): E78.5 - HYPERLIPIDEMIA, UNSPECIFIED (6) History of atrial fibrillation Current Visit: Yes Status: Acute Assessment & Plan: -Recent Cardioversion per pt on 01/08/24 -continue metoprolol/Eliquis Code(s): Z86.79 - PERSONAL HISTORY OF OTHER DISEASES OF THE CIRCULATORY SYSTEM (7) CAD (coronary artery disease) Current Visit: No Status: Chronic Assessment & Plan: -continue home meds -entresto, Imdur, atorvastatin, jardiance -Most recent Echo reviewed from 10/11/22 EF 40-45% IMPRESSION: 1. MODERATE CONCENTRIC LEFT VENTRICULAR HYPERTROPHY WITH MODERATE LEFT VENTRICULAR SYSTOLIC DYSFUNCTION. 2. BIATRIAL ENLARGEMENT. 3. MILD AORTIC ROOT DILATATION. 4. MILD MITRAL REGURGITATION. 5. TRACE TRICUSPID REGURGITATION Code(s): I25.10 - ATHSCL HEART DISEASE OF [place] CORONARY ARTERY W/O ANG PCTRS (8) HTN (hypertension) Current Visit: No Status: Chronic Assessment & Plan: -stable continue home meds Code(s): I10 - ESSENTIAL (PRIMARY) HYPERTENSION (9) Type 2 diabetes mellitus with diabetic nephropathy Current Visit: No Status: Chronic Assessment & Plan: -ADA diet -SSI -A1c 12/28/23 6.34 - good glycemic control Code(s): E11.21 - TYPE 2 DIABETES MELLITUS WITH DIABETIC NEPHROPATHY (10) CHF (congestive heart failure) Current Visit: Yes Status: Acute Assessment & Plan: -Continue home meds Entresto, Jardiance, lasix -EF estimated at 40-45% on echo dated 10/11/22 Code(s): M86.9 - OSTEOMYELITIS, UNSPECIFIED I spent 35 minutes [id number] with the patient on the day of discharge performing discharge exam, discussing hospital stay and discharge instructions with patient and caregivers, preparation of discharge records, prescriptions & referral forms and addressing any questions/concerns the patient had as documented above. - Vitals & Intake/Output Vital Signs: Vital Signs Temperature 96.6 F 01/18/24 12:00 Pulse Rate 66 01/18/24 12:00 Respiratory Rate 16 01/18/24 12:00 Blood Pressure 95/55 01/18/24 12:00 O2 Sat by Pulse Oximetry 92 L 01/18/24 12:00 Intake & Output: Intake & Output 01/16/24 01/17/24 01/18/24 01/19/24 11:59 11:59 11:59 11:59 Intake Total 2320 1951 Output Total 545 1525 Balance 1570 426 Weight 245 kg 107.9 kg 108.5 kg - Lab Result Diagrams: 01/18/24 05:45 01/18/24 05:45 Lab Results-Last 24 Hrs: Lab Results-Last 24 Hours 01/17/24 01/17/24 01/18/24 Range/Units 16:13 20:56 05:45 WBC 8.6 (4.23-9.07) x10^3/uL RBC 3.70 L (4.63-6.08) x10^6/uL Hgb 11.0 L (13.7-17.5) g/dL Hct 33.3 L (40.1-51.0) % MCV 90.0 (79.0-92.2) fL MCH 29.7 (25.7-32.2) pg MCHC 33.0 (32.3-36.5) g/dL RDW 13.5 (11.6-14.4) % Plt Count 103 L (163-337) x10^3/uL MPV 10.4 (9.4-12.4) fL Gran % 69.3 H (34.0-67.9) % Immature Gran % (Auto) 0.2 (0.001-0.429) % Nucleat RBC Rel Count 0.0 (0.00-0.2) % Eos # (Auto) 0.29 (0.04-0.54) x10^3/uL Immature Gran # (Auto) 0.02 (0.001-0.031) x10^3u/L Absolute Lymphs (auto) 1.60 (1.32-3.57) x10^3/uL Absolute Monos (auto) 0.71 (0.30-0.82) x10^3/uL Absolute Nucleated RBC 0.00 (0.00-0.012) x10^3u/L Lymphocytes % 18.6 L (21.8-53.1) % Monocytes % 8.3 (5.3-12.2) % Eosinophils % 3.4 (0.8-7.0) % Basophils % 0.2 (0.2-1.2) % Absolute Granulocytes 5.94 H (1.78-5.38) x10^3/uL Basophils # 0.02 (0.01-0.08) x10^3/uL Sodium (135-145) mmol/L Potassium (3.5-5.1) mmol/L Chloride (98-107) mmol/L Carbon Dioxide (22-30) mmol/L Anion Gap (5-15) MEQ/L BUN (9-20) mg/dL Creatinine (0.66-1.25) mg/dL Estimated GFR ML/MIN Glucose (74-106) mg/dL POC Glucometer 96 124 H (74 to 106) mg/dL Calcium (8.4-10.2) mg/dL Total Bilirubin (0.2-1.3) mg/dL AST (17-59) U/L ALT (0-50) U/L Alkaline Phosphatase (38-126) U/L Serum Total Protein (6.3-8.2) g/dL Albumin (3.5-5.0) g/dL 01/18/24 01/18/24 01/18/24 Range/Units 05:45 06:59 08:19 WBC (4.23-9.07) x10^3/uL RBC (4.63-6.08) x10^6/uL Hgb (13.7-17.5) g/dL Hct (40.1-51.0) % MCV (79.0-92.2) fL MCH (25.7-32.2) pg MCHC (32.3-36.5) g/dL RDW (11.6-14.4) % Plt Count (163-337) x10^3/uL MPV (9.4-12.4) fL Gran % (34.0-67.9) % Immature Gran % (Auto) (0.001-0.429) % Nucleat RBC Rel Count (0.00-0.2) % Eos # (Auto) (0.04-0.54) x10^3/uL Immature Gran # (Auto) (0.001-0.031) x10^3u/L Absolute Lymphs (auto) (1.32-3.57) x10^3/uL Absolute Monos (auto) (0.30-0.82) x10^3/uL Absolute Nucleated RBC (0.00-0.012) x10^3u/L Lymphocytes % (21.8-53.1) % Monocytes % (5.3-12.2) % Eosinophils % (0.8-7.0) % Basophils % (0.2-1.2) % Absolute Granulocytes (1.78-5.38) x10^3/uL Basophils # (0.01-0.08) x10^3/uL Sodium 131 L (135-145) mmol/L Potassium 4.0 (3.5-5.1) mmol/L Chloride 104 (98-107) mmol/L Carbon Dioxide 21 L (22-30) mmol/L Anion Gap 10.1 (5-15) MEQ/L BUN 19 (9-20) mg/dL Creatinine 1.09 (0.66-1.25) mg/dL Estimated GFR 80.2 ML/MIN Glucose 77 (74-106) mg/dL POC Glucometer 67 L 114 H (74 to 106) mg/dL Calcium 8.0 L (8.4-10.2) mg/dL Total Bilirubin 0.60 (0.2-1.3) mg/dL AST 24 (17-59) U/L ALT 19 (0-50) U/L Alkaline Phosphatase 80 (38-126) U/L Serum Total Protein 6.8 (6.3-8.2) g/dL Albumin 3.3 L (3.5-5.0) g/dL 01/18/24 Range/Units 11:27 WBC (4.23-9.07) x10^3/uL RBC (4.63-6.08) x10^6/uL Hgb (13.7-17.5) g/dL Hct (40.1-51.0) % MCV (79.0-92.2) fL MCH (25.7-32.2) pg MCHC (32.3-36.5) g/dL RDW (11.6-14.4) % Plt Count (163-337) x10^3/uL MPV (9.4-12.4) fL Gran % (34.0-67.9) % Immature Gran % (Auto) (0.001-0.429) % Nucleat RBC Rel Count (0.00-0.2) % Eos # (Auto) (0.04-0.54) x10^3/uL Immature Gran # (Auto) (0.001-0.031) x10^3u/L Absolute Lymphs (auto) (1.32-3.57) x10^3/uL Absolute Monos (auto) (0.30-0.82) x10^3/uL Absolute Nucleated RBC (0.00-0.012) x10^3u/L Lymphocytes % (21.8-53.1) % Monocytes % (5.3-12.2) % Eosinophils % (0.8-7.0) % Basophils % (0.2-1.2) % Absolute Granulocytes (1.78-5.38) x10^3/uL Basophils # (0.01-0.08) x10^3/uL Sodium (135-145) mmol/L Potassium (3.5-5.1) mmol/L Chloride (98-107) mmol/L Carbon Dioxide (22-30) mmol/L Anion Gap (5-15) MEQ/L BUN (9-20) mg/dL Creatinine (0.66-1.25) mg/dL Estimated GFR ML/MIN Glucose (74-106) mg/dL POC Glucometer 148 H (74 to 106) mg/dL Calcium (8.4-10.2) mg/dL Total Bilirubin (0.2-1.3) mg/dL AST (17-59) U/L ALT (0-50) U/L Alkaline Phosphatase (38-126) U/L Serum Total Protein (6.3-8.2) g/dL Albumin (3.5-5.0) g/dL Micro Results-Entire Visit: Accuchecks Date 01/18/24 Date 01/18/24 Date 01/18/24 Date 01/17/24 Date 01/17/24 Time 21:00 - Procedures and Test Procedures and Tests throughout Hospitalization: Therapy Orders & Screens 01/16/24 12:50 PT Eval & Treat (MD Order) ONCE Reason for Eval:: weakness Diagnosis: right foot wound OT Eval and Treat (MD Order) ONCE Comment: Physician Instructions: Reason For Exam: Diagnosis: right foot wound Discharge Exam General Appearance: no apparent distress Neurologic Exam: alert, oriented x 3, cooperative Eye Exam: PERRL Ears, Nose, Throat Exam: normal ENT inspection Neck Exam: normal inspection Respiratory Exam: normal breath sounds, lungs clear Cardiovascular Exam: regular rate/rhythm, normal heart sounds Gastrointestinal/Abdomen Exam: soft, normal bowel sounds Male Genitalia Exam: deferred Rectal Exam: deferred Extremity Exam: other (RLE covered with surgical dressing) Wound Assessment: Skin/Wound Assessment Wound/Incision Assessment Start: 01/16/24 12:55 Text: Status: Active Freq: Protocol: Document 01/16/24 19:07 RB (Rec: 01/16/24 19:09 RB [id number]) Wound/Incision Assessment RIGHT LOWER LEG Comment shadowing noted to outer dressing, , protocal to reennforce drsg as needed, this not warranted yet, will continue to monitor Final Diagnosis/Problem List - Final Discharge Diagnosis/Problem (1) Osteomyelitis of right foot Current Visit: No Status: Acute Code(s): M86.9 - OSTEOMYELITIS, UNSPECIFIED (2) Diabetic peripheral neuropathy Current Visit: Yes Status: Acute Code(s): E11.42 - TYPE 2 DIABETES MELLITUS WITH DIABETIC POLYNEUROPATHY (3) Peripheral vascular disease Current Visit: Yes Status: Acute Code(s): I73.9 - PERIPHERAL VASCULAR DISEASE, UNSPECIFIED (4) History of partial amputation of toe of left foot Current Visit: Yes Status: Acute Code(s): Z89.422 - ACQUIRED ABSENCE OF OTHER LEFT TOE(S) (5) HLD (hyperlipidemia) Current Visit: Yes Status: Acute Code(s): E78.5 - HYPERLIPIDEMIA, UNSPECIFIED (6) History of atrial fibrillation Current Visit: Yes Status: Acute Code(s): Z86.79 - PERSONAL HISTORY OF OTHER DISEASES OF THE CIRCULATORY SYSTEM (7) CAD (coronary artery disease) Current Visit: No Status: Chronic Code(s): I25.10 - ATHSCL HEART DISEASE OF [place] CORONARY ARTERY W/O ANG PCTRS (8) HTN (hypertension) Current Visit: No Status: Chronic Code(s): I10 - ESSENTIAL (PRIMARY) HYPERTENSION (9) Type 2 diabetes mellitus with diabetic nephropathy Current Visit: No Status: Chronic Code(s): E11.21 - TYPE 2 DIABETES MELLITUS WITH DIABETIC NEPHROPATHY (10) CHF (congestive heart failure) Current Visit: Yes Status: Acute Code(s): I50.9 - HEART FAILURE, UNSPECIFIED - Discharge Discharge Date: 01/18/24 Disposition: DC TO ANY "OTHER" SNF Condition: Stable Prescriptions: New Vancomycin/Water For Inj (Peg) [Vancomycin 1.25 gm/250 ml Bag] 1.25 gm IV Q12H #84 iv piggy Continue Metformin HCl [Metformin ER Gastric] 1,000 mg PO DAILY Furosemide [Lasix] 20 mg PO UD Potassium Chloride 20 meq PO BID Metoprolol Succinate 25 mg Xl* [Toprol-Xl 25MG Tablets] 25 mg PO DAILY Multivitamin 1 each PO DAILY Empagliflozin [Jardiance] 10 mg PO DAILY Escitalopram Oxalate 10 mg PO DAILY Apixaban [Eliquis] 5 mg PO BID Atorvastatin Calcium 80 mg PO HS Amiodarone HCl 200 mg [Cordarone 200 MG] 200 mg PO DAILY Gabapentin [Neurontin ] 600 mg PO BID Fluticasone Propionate [Flonase NASAL] 1 spray IH DAILY Sacubitril/Valsartan [Entresto 49 mg-51 mg Tablet] 1 tab PO TID Isosorbide Mononitrate 30 mg [Imdur 30 MG] 30 mg PO DAILY Aspirin EC 81 mg [Ecotrin 81 mg] 81 mg PO DAILY 30 Days #30 tablet Hydrocodone/Acetaminophen [Hydrocodone-Acetamin 5-325 mg] 1 each PO Q6H PRN PRN 3 Days #12 tablet MDD 4 PRN Reason: Pain Additional Instructions: SNF ORDERS: ADMIT TO USP CARE 1999 NILSA ADA DIET ACHS ACCU CHECKS STRICT NON WTBEARING TO OP FOOT LEAVE DRESSING IN PLACE, DO NOT CHANGE OR ALTER CONTINUE ASPIRIN AND ELIQUIS ORDERED FOR DVT PROPHYLAXIS ROUTINE PICC LINE CARE SEE ORDERS FOR IV VANCOMYCIN Q12H (6 WEEKS), FACILITY PHARMACY TO MONITOR LABS PER PROTOCOL SEE ATTACHED MED LIST Follow up with: MONTSERRAT BALL DPM [ACTIVE STAFF] - 01/23/24 2:00 pm TOÑO PACK MD [Primary Care Provider] - 01/24/24 11:00 am
[2024-01-18] MEDS ORDERED: TROUGH DRUG LEVELS IJ ONE (14:30)
== END 2024-01-18 13:59 ==
LOC: MED SURG 01-16 06:57 → EDSTATUS 01-16 14:07
PROVIDERS: ADMIT Internal Medicine; ATTEND Podiatrist Foot & Ankle Surgery
DX: M86.9 Osteomyelitis, unspecified (principal); E11.42 Type 2 diabetes mellitus with diabetic polyneuropathy; I73.9 Peripheral vascular disease, unspecified; E78.5 Hyperlipidemia, unspecified; Z86.79 Personal history of other diseases of the circulatory system; I25.10 Atherosclerotic heart disease of native coronary artery without angina pectoris; E11.621 Type 2 diabetes mellitus with foot ulcer; E11.21 Type 2 diabetes mellitus with diabetic nephropathy; I11.0 Hypertensive heart disease with heart failure; I50.9 Heart failure, unspecified; I48.91 Unspecified atrial fibrillation; R26.2 Difficulty in walking, not elsewhere classified; Z86.73 Personal history of transient ischemic attack (TIA), and cerebral infarction without residual deficits; Z79.01 Long term (current) use of anticoagulants; Z79.899 Other long term (current) drug therapy; Z89.421 Acquired absence of other right toe(s)
CPT/HCPCS: 13160; 15100; 15738; 27691; 28005; 28122; 36415; 73630; 76000; 80053; 82947; 85025; 85027; 97162; 97165; 97530; A6260; C1713; G0378; Q3014; J0690; J1940; J2270; A9270-GY; J3370

== ENCOUNTER 2023-12-14 05:49 | Day surgery (SDC) | payer OTHER ==
[2023-12-14] MEDS ORDERED: Xylocaine 1% Vial 30 ML PF IJ ONE (06:27)
[2023-12-14] MEDS ORDERED: Marcaine Mpf 0.5% Vial 30 Ml ONE (06:27)
[2023-12-14] MEDS: CEFAZOLIN 2 GM/100 ML NaCl 2 GM/100 ML IVPB IV SCH (06:33)
[2023-12-14] MEDS: Sodium Chloride 0.9% 1000 ML 1,000 ML IV SCH (06:33)
[2023-12-14 06:42] VITALS: RESP 18
[2023-12-14 06:46] LABS: Hematocrit 49.6 % (40.1-51.0); Hemoglobin 16.6 g/dL (13.7-17.5); Mean Cell Volume 90.7 fL (79.0-92.2); Mean Corpuscular Hemoglobin 30.3 pg (25.7-32.2); Mean Corpuscular Hgb Concent. 33.5 g/dL (32.3-36.5); Mean Platelet Volume 10.5 fL (9.4-12.4); Platelet Count 186 x10^3/uL (163-337); Red Blood Count 5.47 x10^6/uL (4.63-6.08); Red Cell Distribution Width 13.2 % (11.6-14.4); White Blood Count 6.3 x10^3/uL (4.23-9.07)
[2023-12-14 07:55] LABS: ALBUMIN 3.5 g/dL (3.5-5.0); ANION GAP 14.6 MEQ/L (5-15); BILIRUBIN,TOTAL 0.5 mg/dL (0.2-1.3); Calcium 8.4 mg/dL (8.4-10.2); Creatinine 1 1.02 mg/dL (0.66-1.25); EST GLOMERULAR FILTRATION RATE 86.8 ML/MIN; Potassium 4.2 mmol/L (3.5-5.1); Total Protein 7.2 g/dL (6.3-8.2)
[2023-12-14 08:26] VITALS: BP 144/90; PULSE 55; TEMP 97; O2SAT 97
--- NOTE | 2023-12-14 09:23 | XRAY ---
Indication: Right foot bone biopsy. Intraoperative fluoroscopy provided for 19 seconds. 10 digital spot images submitted for interpretation initially demonstrates metallic localizer tip lateral to cuboid. Later images demonstrates metallic localizer tip lateral to navicular bone. Correlate with intraoperative findings/report.
--- NOTE | 2023-12-14 12:12 | XRAY ---
19 seconds of fluoroscopy was used in surgery for a right foot bone biopsy.
--- NOTE | 2024-01-01 11:16 | OP ---
SURGERY DATE/TIME: 12/14/2023 [id number] PREOPERATIVE DIAGNOSES: 1) Osteomyelitis, right foot. 2) Diabetic foot ulcer. 3) Diabetic peripheral neuropathy. 4) History of multiple amputations. POSTOPERATIVE DIAGNOSES: 1) Osteomyelitis, right foot. 2) Diabetic foot ulcer. 3) Diabetic peripheral neuropathy. 4) History of multiple amputations. PROCEDURE: Incision and drainage with bone debridement to the right lower extremity with bone biopsy of cuboid and fifth metatarsal and application of negative pressure wound VAC therapy. SURGEON: Carson Song DPM DAM TENDER: None. ANESTHESIA: Local. HEMOSTASIS: A pressure dressing. ESTIMATED BLOOD LOSS: Minimal. INJECTABLES: 20 mL of a 1:1 mixture of 1% lidocaine plain and 0.25% bupivacaine plain injected in a mini Pitts block-type fashion. INDICATIONS: The patient is a very pleasant patient who is very well known for multiple bouts of diabetic foot ulceration as well as osteomyelitis to the bilateral lower extremities. At this time, patient is developing new wound to the right lower extremity which has resulted in a positive probe to bone. An MRI was obtained demonstrating a positive increase in signal on the T2 imaging and a dropout on T1. As a result, the patient was made aware of all risks, complications and benefits of surgical intervention at this time including, but not limited to infection, hematoma, seroma, possibility of delayed wound healing, non-wound healing, and possible need for further surgical intervention at this time. Plenty of time is left for the patient to ask question which were answered to his apparent satisfaction. It is at this time we decided to proceed. DESCRIPTION OF PROCEDURE AND FINDINGS: The patient was brought into the operating room and placed on the operating room table in the supine position. At this time, the right lower extremity was prepped and draped in a typical sterile fashion and lowered onto the surgical field. At this time, utilizing the combination of curettes, rongeurs and a 15 blade, the wound was debrided utilizing the 15 blade to incise the wound edges for a healthy bleeding edge removing any necrotic or devitalized tissue. The bone was then debrided at both the site of the fifth metatarsal as well as the cuboid. A bone biopsy was removed utilizing rongeurs to the fifth metatarsal as well as the cuboid under fluoroscopic guidance. Following this, copious amounts of sterile saline were utilized to flush the surgical site. A 3M wound VAC was then applied utilizing wound VAC drape and black foam and making sure that the wound VAC was operating at 125 mmHg with minimal appreciated leaks. Patient was then reversed from anesthesia and returned to the postoperative anesthesia care unit with vital signs stable and vascular status intact. Patient handled the anesthesia as well as the procedure without significant complication. Postoperative orders as indicated in the patient's discharge chart.
== END 2023-12-14 09:28 | disposition home or self-care (01) ==
LOC: SDC 05:49
PROVIDERS: ATTEND Podiatrist Foot & Ankle Surgery
DX: M86.9 Osteomyelitis, unspecified (principal); E11.621 Type 2 diabetes mellitus with foot ulcer; E11.42 Type 2 diabetes mellitus with diabetic polyneuropathy; Z89.429 Acquired absence of other toe(s), unspecified side
CPT/HCPCS: 20240; 28005; 36415; 73630; 76000; 80053; 85027; 87070; 87075; 88304; 88311; 97607; A6260; J0690

== ENCOUNTER 2023-12-26 09:45 | Observation (INO) | payer OTHER ==
[2023-12-26] MEDS ORDERED: CEFAZOLIN 2 GM/100 ML NaCl 2 GM/100 ML IVPB IV ONE (10:54)
[2023-12-26] MEDS: CEFAZOLIN 2 GM/100 ML NaCl 2 GM/100 ML IVPB IV SCH (11:10)
[2023-12-26] MEDS ORDERED: Xylocaine 1% Vial 30 ML PF IJ ONE (14:41)
[2023-12-26] MEDS ORDERED: Marcaine Mpf 0.5% Vial 30 Ml IJ ONE (14:41)
--- NOTE | 2023-12-26 14:46 | XRAY ---
Indication: Partial right 5th metatarsal amputation. Intraoperative fluoroscopy provided for 32 seconds. 5 digital spot images submitted for interpretation demonstrates partial amputation base 5th metatarsal. Correlate with intraoperative findings/report.
--- NOTE | 2023-12-26 15:14 | XRAY ---
32 seconds of fluoroscopy was used in surgery for a partial right 5th metatarsal amputation.
--- NOTE | 2023-12-26 15:45 | PCM.HP ---
History of Present Illness - Chief Complaint Chief Complaint: right foot Date: 12/26/23 History of Present Illness: is a 53 year old male with PMHX of a-fib, CAD, HTN, and type II DM. Hospitalist asked to consult for medical management. Pt had surgery with pod iatfarhad, Dr. Byrd, for partial right metatarsal amputation. Wound vac in place. He also has diabetic R foot osteomyelitis. Will start broad spectrum antibiotics per podiatry request. Pt gave cefazolin 2mg in the OR. Will continue pain meds. Pt states pain is well controlled at this time. He is agreeable to rehab at d/c. He denies any further concerns at this time. - Review of Systems Constitutional: No Fever, No Chills Eyes: No Symptoms Ears, Nose, & Throat: No Symptoms Respiratory: No Cough, No Short Of Breath Cardiac: No Chest Pain, No Edema, No Syncope Abdominal/Gastrointestinal: No Abdominal Pain, No Nausea, No Vomiting, No Diarrhea Genitourinary Symptoms: No Dysuria Musculoskeletal: No Back Pain, No Neck Pain Skin: Skin Lesions (Right foot 5th toe partial amputation), No Rash Neurological: No Dizziness, No Focal Weakness, No Sensory Changes Psychological: No Symptoms Endocrine: No Symptoms Hematologic/Lymphatic: No Symptoms Immunological/Allergic: No Symptoms Medications & Allergies Home Medications: Home Medication List Metformin HCl [Metformin ER Gastric] 1,000 mg PO DAILY 05/16/22 [History Confirmed 12/26/23] Furosemide [Lasix] 20 mg PO UD 03/09/23 [History Confirmed 12/26/23] Metoprolol Succinate 25 mg Xl* [Toprol-Xl 25MG Tablets] 25 mg PO DAILY 03/09/23 [History Confirmed 12/26/23] Potassium Chloride 20 mg PO BID 03/09/23 [History Confirmed 12/26/23] Alpha Lipoic Acid/Biotin [Alpha Lipoic Acid - Biotin Cap] 1 each PO BID 05/05/23 [History Confirmed 12/26/23] Apixaban [Eliquis] 5 mg PO BID 05/05/23 [History Confirmed 12/26/23] Atorvastatin Calcium 80 mg PO DAILY 05/05/23 [History Confirmed 12/26/23] Empagliflozin [Jardiance] 10 mg PO DAILY 05/05/23 [History Confirmed 12/26/23] Escitalopram Oxalate 10 mg PO DAILY 05/05/23 [History Confirmed 12/26/23] Isosorbide Mononitrate 30 mg [Imdur 30 MG] 30 mg PO DAILY 05/05/23 [History Confirmed 12/26/23] Multivitamin 1 each PO DAILY 05/05/23 [History Confirmed 12/26/23] Amiodarone HCl 200 mg [Cordarone 200 MG] 200 mg PO DAILY 12/26/23 [History Confirmed 12/26/23] Fexofenadine HCl 180 mg PO DAILY PRN PRN 12/26/23 [History Confirmed 12/26/23] Fluticasone Propionate [Flonase NASAL] 1 spray IH DAILY 12/26/23 [History Confirmed 12/26/23] Gabapentin [Neurontin ] 300 mg PO QID 12/26/23 [History Confirmed 12/26/23] Hydrocodone/Acetaminophen [Hydrocodone-Acetamin 5-325 mg] 1 each PO Q6H PRN PRN 12/26/23 [History Confirmed 12/26/23] Isosorbide Mononitrate 30 mg [Imdur 30 MG] 30 mg PO DAILY 12/26/23 [History Confirmed 12/26/23] Sacubitril/Valsartan [Entresto 49 mg-51 mg Tablet] 1 tab PO TID 12/26/23 [History Confirmed 12/26/23] Allergies/Adverse Reactions: Allergies Allergy/AdvReac Type Severity Reaction Status Date / Time No Known Drug Allergies Allergy Verified 12/26/23 10:49 - Past Medical History Past Medical History: Yes Neurological History: Peripheral Neuropathy, Stroke, TIA ENT History: No Pertinent History Cardiac History: Arrhythmia, Coronary Artery Disease, Hypertension, Myocardial Infarction ([place]), Other Respiratory History: CHF Endocrine Medical History: Diabetes Type II Musculoskelatal History: Arthritis GI Medical History: Ulcer History: No Pertinent History Pyscho-Social History: No Pertinent History Male Reproductive Disorders: No Pertinent History Comment: CVA IN 2013, 6 MYOCARDIO INFARCTION (MOST RECENT IN 2019), TRIPLE BYPASS SURGERY IN 2010; HE LOST APPROXIMATELY 160 POUNDS IN 2019 DUE TO INFECTION AND LACK OF APPETITE, A.FIB - Past Surgical History Past Surgical History: Yes Neuro Surgical History: No Pertinent History Cardiac History: Angioplasty, CABG, Cardiac Catheterization, Cardiac Stent Respiratory Surgery: No Pertinent History GI Surgical History: No Pertinent History Genitourinary Surgical Hx: No Pertinent History Musculskeletal Surgical Hx: Amputation, Orthopedic Surgery Male Surgical History: No Pertinent History Other Surgical History: jasvir big toes amputated, 2nd toe on left foot and 3rd toe on right foot, hip with ubaldo and 2 pins, Hx of TIA 2013, Bleeding tendancy takes blood thinners. - Social History Smoking Status: Never smoker Exposure to second hand smoke: Yes Alcohol: None Drug Use: marijuana - Social Determinants of Health Will the patient participate in the screening: Yes Do you worry about a steady place to live?: No In the past 12 months,have you had to go without utilities?: No Have you or anyone in your house had to go without enough: No Transportation Issues: No Has anyone in your support network made you feel unsafe?: No Does the patient want assistance with any of the above?: No - Physical Exam Vital Signs: Vital Signs - 24 hr Temp Pulse Resp BP Pulse Ox 12/26/23 15:03 97.1 F 78 17 133/82 100 12/26/23 11:23 98.7 F 74 16 113/75 99 12/26/23 11:17 98.7 F 74 16 113/75 99 12/26/23 10:53 98.7 F 74 16 113/75 99 General Appearance: no apparent distress, alert Neurologic Exam: alert, oriented x 3, cooperative, normal mood/affect, nml cerebellar function, nml station & gait, sensation nml, No motor deficits Eye Exam: PERRL/EOMI, eyes nml inspection Ears, Nose, Throat Exam: normal ENT inspection, TMs normal, pharynx normal, moist mucous membranes Neck Exam: normal inspection, non-tender, supple, full range of motion Respiratory Exam: normal breath sounds, lungs clear, No respiratory distress Cardiovascular Exam: regular rate/rhythm, normal heart sounds, normal peripheral pulses Gastrointestinal/Abdomen Exam: soft, normal bowel sounds, No tenderness, No mass Back Exam: normal inspection, normal range of motion, No CVA tenderness, No vertebral tenderness Extremity Exam: normal inspection, normal range of motion, pelvis stable, other (Right foot 5th toe amputation, wound vac in place) Skin Exam: normal color, warm, dry, No rash Lymphatic Exam: No adenopathy Results - Radiology Impressions Radiology Exams & Impressions: Radiology Procedures Category Date Time Status FLUOROSCOPY UP TO 1 HR Routine Exams 12/26/23 06:51 Completed FOOT (MINIMUM 3 VIEWS) Routine Exams 12/26/23 06:51 Completed Assessment/Plan (1) Osteomyelitis of right foot Current Visit: Yes Status: Acute Assessment & Plan: - Per podiatry - being diabetic adds to complexity - Broad spectrum antibiotics - vancomycin and zosyn - BC x2 - will need rehab placement per podiatry at d/c. Code(s): M86.9 - OSTEOMYELITIS, UNSPECIFIED (2) Status post amputation of right foot through metatarsal bone Current Visit: Yes Status: Acute Assessment & Plan: - POD #1 Right foot 5th metat[address] with Dr. Byrd- podiatry - Wound vac on place. - cefazolin IV in OR by podiatry - XR reviewed - Per podiatry continue Eliquis, ASA, narcotic pain medication - PT eval per podiatry recs Code(s): Z89.431 - ACQUIRED ABSENCE OF RIGHT FOOT (3) CAD (coronary artery disease) Current Visit: No Status: Chronic Assessment & Plan: - continue home meds Code(s): I25.10 - ATHSCL HEART DISEASE OF [place] CORONARY ARTERY W/O ANG PCTRS (4) HTN (hypertension) Current Visit: No Status: Chronic Assessment & Plan: - BP stable - continue home meds Code(s): I10 - ESSENTIAL (PRIMARY) HYPERTENSION (5) Obesity (BMI 30-39.9) Current Visit: Yes Status: Chronic Assessment & Plan: - advised ADA diet and exercise Code(s): E66.9 - OBESITY, UNSPECIFIED (6) Type 2 diabetes mellitus with diabetic nephropathy Current Visit: No Status: Chronic Assessment & Plan: - continue oral home meds VTE:Eliquis Next of KIN: Ruddy Granados [phone] D/C Plan: per podiatry Code status: "The entirety of this encounter was performed via Telemedicine" This visit was performed using real-time audio and video connection between my location and thepatients locationwith the assistance of a surrogateat the patients location. Written or verbal consent was obtained from the patient/guardian to perform this visit [facility] technology. Any patient questions regarding the telemedicine interaction were a nswered. Code(s): E11.21 - TYPE 2 DIABETES MELLITUS WITH DIABETIC NEPHROPATHY
[2023-12-26] MEDS ORDERED: MEDICATION INTERVENTION MC SCH (17:30)
[2023-12-26] MEDS: Imdur 30 MG PO SCH (17:48)
[2023-12-26] MEDS: ZOCOR 20MG PO SCH (17:48)
[2023-12-26] MEDS: THERAGRAN MULTIVITAMIN PO SCH (17:48)
[2023-12-26] MEDS: Lexapro PO SCH (17:48)
[2023-12-26] MEDS: NEURONTIN PO SCH (17:49)
[2023-12-26] MEDS: Glucophage 500 MG PO SCH (17:49)
[2023-12-26] MEDS: Oxy-IR 5 MG PO PRN (17:49)
[2023-12-26] MEDS: Cordarone 200 MG PO SCH (17:49)
[2023-12-26] MEDS: JARDIANCE PO SCH (17:50)
[2023-12-26] MEDS ORDERED: NORCO 5/325 MG PO PRN (18:13)
[2023-12-26] MEDS ORDERED: NON-FORMULARY ITEM (Fexofenadine Hcl [Fexofenadine Hcl] 180 MG Tablet) PO PRN (18:13)
[2023-12-26] MEDS: PIPERACILLIN/TAZOBACTAM 3.375 GM in Sodium Chloride 100ML MINI-BAG PLUS 100 ML IV SCH (18:27)
[2023-12-26] MEDS: PHARMACY DOSING REQUIRED: VANCOMYCIN IV STA (18:57)
[2023-12-26] MEDS: ELIQUIS 2.5 MG TABLET PO SCH (21:16)
[2023-12-26] MEDS: Klor Con PO SCH (21:16)
[2023-12-26] MEDS: VANCOMYCIN 1.25 GM/250 ML BAG 1.25 GM/250 ML PIGGYBACK IV SCH (21:16)
[2023-12-26] MEDS: Zofran 4 MG/2 ML VIAL IV PRN (21:53)
[2023-12-26] MEDS ORDERED: NON-FORMULARY ITEM (Apixaban [Eliquis] 5 MG Tablet) PO SCH (22:00)
[2023-12-26] MEDS ORDERED: NON-FORMULARY ITEM (Potassium Chloride [Potassium Chloride] 20 MEQ Tablet.Er) PO SCH (22:00)
[2023-12-27 05:21] LABS: Hematocrit 41.5 % (40.1-51.0); Hemoglobin 13.6 g/dL (13.7-17.5); Mean Cell Volume 90.2 fL (79.0-92.2); Mean Corpuscular Hemoglobin 29.6 pg (25.7-32.2); Mean Corpuscular Hgb Concent. 32.8 g/dL (32.3-36.5); Mean Platelet Volume 10.2 fL (9.4-12.4); Platelet Count 246 x10^3/uL (163-337); Red Cell Distribution Width 12.8 % (11.6-14.4); White Blood Count 8.3 x10^3/uL (4.23-9.07)
[2023-12-27 06:38] LABS: ALBUMIN 3.2 g/dL (3.5-5.0); BILIRUBIN,TOTAL 0.6 mg/dL (0.2-1.3); Creatinine 1 1.09 mg/dL (0.66-1.25); EST GLOMERULAR FILTRATION RATE 80.2 ML/MIN; Potassium 4.1 mmol/L (3.5-5.1); Total Protein 7.1 g/dL (6.3-8.2)
[2023-12-27] MEDS ORDERED: Oxy-IR 5 MG PO PRN (07:12)
[2023-12-27] MEDS: ENTRESTO 49 MG-51 MG TABLET PO SCH (08:28)
[2023-12-27] MEDS ORDERED: NON-FORMULARY ITEM (Metformin Hcl [Metformin Er Gastric] 1,000 MG Tabergr24h) PO SCH (10:00)
[2023-12-27] MEDS ORDERED: NON-FORMULARY ITEM (Dapagliflozin Propanediol [Farxiga] 5 MG Tablet) PO SCH (10:00)
[2023-12-27] MEDS ORDERED: NON-FORMULARY ITEM (Multivitamin [Multivitamin] 1 EACH Tablet) PO SCH (10:00)
[2023-12-27] MEDS ORDERED: ALPHA LIPOIC ACID PO SCH (10:00)
[2023-12-27] MEDS ORDERED: BIOTIN PO SCH (10:00)
[2023-12-27] MEDS ORDERED: LIPITOR 40MG PO SCH (10:00)
[2023-12-27] MEDS ORDERED: Imdur 30 MG PO SCH (10:00)
[2023-12-27] MEDS ORDERED: [UNRECOGNIZED DRUG - OTHER] PO SCH (10:00)
[2023-12-27] MEDS: LASIX 20 MG PO SCH (10:13)
[2023-12-27] MEDS: ELIQUIS 2.5 MG TABLET PO SCH (10:13)
[2023-12-27] MEDS: ECOTRIN 81 MG PO SCH (10:13)
[2023-12-27] MEDS: Toprol-Xl 25MG Tablets PO SCH (10:13)
[2023-12-27] MEDS: CLARITIN 10 MG PO SCH (10:13)
[2023-12-27] MEDS: Flonase NASAL NS SCH (10:14)
--- NOTE | 2023-12-27 10:42 | PCM.NOTE ---
Date and Time: 12/27/23 [facility] Subjective Assessment: 12/26/23 is a 53 year old male with PMHX of a-fib, CAD, HTN, and type II DM. Hospitalist asked to consult for medical management. Pt had surgery with podiatry, Dr. Byrd, for partial right metatarsal amputation. Wound vac in place. He also has diabetic R foot osteomyelitis. Will start broad spectrum antibiotics per podiatry request. Pt gave cefazolin 2mg in the OR. Will continue pain meds. Pt states pain is well controlled at this time. He is agreeable to rehab at d/c. He denies any further concerns at this time. 12/27/23 Pt resting in bed. Pain in well controlled. Case management working on rehab placement for OP IV antibiotics and wound care. PICC line to be placed today. Continue IV antibiotics. Pt denies CP, SOB, abd pain, N/V/D. - Review of Systems Constitutional: No Fever, No Chills Eyes: No Symptoms Ears, Nose, & Throat: No Symptoms Respiratory: No Cough, No Short Of Breath Cardiac: No Chest Pain, No Edema, No Syncope Abdominal/Gastrointestinal: No Abdominal Pain, No Nausea, No Vomiting, No Diarrhea Genitourinary Symptoms: No Dysuria Musculoskeletal: No Back Pain, No Neck Pain Skin: Other (Right foot 5th toe partial amputation)), No Rash Neurological: No Dizziness, No Focal Weakness, No Sensory Changes Psychological: No Symptoms Endocrine: No Symptoms Hematologic/Lymphatic: No Symptoms Immunological/Allergic: No Symptoms Objective Exam General Appearance: no apparent distress, alert, obese Neurologic Exam: alert, oriented x 3, cooperative, normal mood/affect, nml cerebellar function, sensation nml, No motor deficits Skin Exam: normal color, warm, dry Eye Exam: PERRL, EOMI, eyes nml inspection Ears, Nose, Throat Exam: normal ENT inspection, pharynx normal, moist mucous membranes Neck Exam: normal inspection, non-tender, supple, full range of motion Respiratory Exam: normal breath sounds, lungs clear, No respiratory distress Cardiovascular Exam: regular rate/rhythm, normal heart sounds Gastrointestinal/Abdomen Exam: soft, No tenderness, No mass Extremity Exam: normal inspection, normal range of motion, other (Right foot 5th toe partial amputation- wrapped and wound vac in place) Back Exam: normal inspection, normal range of motion, No CVA tenderness, No vertebral tenderness Male Genitalia Exam: deferred Rectal Exam: deferred Objective Data Vital Signs: Vital Signs - 24 hr Temp Pulse Resp BP Pulse Ox 12/27/23 07:49 97.0 F 69 16 111/59 96 12/27/23 02:35 97.3 F 79 18 118/77 93 L 12/26/23 23:44 97.5 F 61 18 108/73 97 12/26/23 20:00 97.8 F 75 18 121/74 97 12/26/23 15:03 97.1 F 78 17 133/82 100 12/26/23 11:23 98.7 F 74 16 113/75 99 12/26/23 11:17 98.7 F 74 16 113/75 99 12/26/23 10:53 98.7 F 74 16 113/75 99 Pain Assessment - Last Documented Pain Intensity 3 Pain Scale Used 0-10 Pain Scale Intake and Output: Intake & Output 12/24/23 12/25/23 12/26/23 12/27/23 11:59 11:59 11:59 11:59 Intake Total 1060 Output Total 575 Balance 485 Weight 113.3 kg 113 kg Lab Results: Lab Results-Last 24 Hours 12/27/23 12/27/23 Range/Units 05:00 05:00 WBC 8.3 (4.23-9.07) x10^3/uL RBC 4.60 L (4.63-6.08) x10^6/uL Hgb 13.6 L (13.7-17.5) g/dL Hct 41.5 (40.1-51.0) % MCV 90.2 (79.0-92.2) fL MCH 29.6 (25.7-32.2) pg MCHC 32.8 (32.3-36.5) g/dL RDW 12.8 (11.6-14.4) % Plt Count 246 (163-337) x10^3/uL MPV 10.2 (9.4-12.4) fL Sodium 136 (135-145) mmol/L Potassium 4.1 (3.5-5.1) mmol/L Chloride 104 (98-107) mmol/L Carbon Dioxide 23 (22-30) mmol/L Anion Gap 13.0 (5-15) MEQ/L BUN 14 (9-20) mg/dL Creatinine 1.09 (0.66-1.25) mg/dL Estimated GFR 80.2 ML/MIN Glucose 123 H (74-106) mg/dL Calcium 8.0 L (8.4-10.2) mg/dL Total Bilirubin 0.60 (0.2-1.3) mg/dL AST 29 (17-59) U/L ALT 20 (0-50) U/L Alkaline Phosphatase 104 (38-126) U/L Serum Total Protein 7.1 (6.3-8.2) g/dL Albumin 3.2 L (3.5-5.0) g/dL Radiology Exams: Radiology Procedures Category Date Time Status FLUOROSCOPY UP TO 1 HR Routine Exams 12/26/23 06:51 Completed FOOT (MINIMUM 3 VIEWS) Routine Exams 12/26/23 06:51 Completed Assessment/Plan (1) Osteomyelitis of right foot Current Visit: Yes Status: Acute Code(s): M86.9 - OSTEOMYELITIS, UNSPECIFIED (2) Status post amputation of right foot through metatarsal bone Current Visit: Yes Status: Acute Code(s): Z89.431 - ACQUIRED ABSENCE OF RIGHT FOOT (3) CAD (coronary artery disease) Current Visit: No Status: Chronic Code(s): I25.10 - ATHSCL HEART DISEASE OF [place] CORONARY ARTERY W/O ANG PCTRS (4) HTN (hypertension) Current Visit: No Status: Chronic Code(s): I10 - ESSENTIAL (PRIMARY) HYPERTENSION (5) Obesity (BMI 30-39.9) Current Visit: Yes Status: Chronic Code(s): E66.9 - OBESITY, UNSPECIFIED (6) Type 2 diabetes mellitus with diabetic nephropathy Current Visit: No Status: Chronic Assessment & Plan: (1) Osteomyelitis of right foot Current Visit: Yes Status: Acute Assessment & Plan: - Per podiatry - being diabetic adds to complexity - Broad spectrum antibiotics - vancomycin and zosyn - BC x2- pending - will need rehab placement per podiatry at d/c. - case management working on this. - reviewed previous blood culture results- will need OP IV antibiotics - PICC line ordered - CBC and CMP reviewed Code(s): M86.9 - OSTEOMYELITIS, UNSPECIFIED (2) Status post amputation of right foot through metatarsal bone Current Visit: Yes Status: Acute Assessment & Plan: - POD #1 Right foot 5th metat[address] with Dr. Byrd- podiatry - Wound vac on place. - cefazolin IV in OR by podiatry - XR reviewed - Per podiatry continue Eliquis, ASA, narcotic pain medication - PT eval per podiatry recs 12/26 - POD #2 - pain well controlled 04/15- manageable per pt - non- weight bearing right foot per podiatry - Eliquis 5mg BID - narcotic pain meds Code(s): Z89.431 - ACQUIRED ABSENCE OF RIGHT FOOT (3) CAD (coronary artery disease) Current Visit: No Status: Chronic Assessment & Plan: - continue home meds Code(s): I25.10 - ATHSCL HEART DISEASE OF [place] CORONARY ARTERY W/O ANG PCTRS (4) HTN (hypertension) Current Visit: No Status: Chronic Assessment & Plan: - BP stable - continue home meds Code(s): I10 - ESSENTIAL (PRIMARY) HYPERTENSION (5) Obesity (BMI 30-39.9) Current Visit: Yes Status: Chronic Assessment & Plan: - advised ADA diet and exercise Code(s): E66.9 - OBESITY, UNSPECIFIED (6) Type 2 diabetes mellitus with diabetic nephropathy Current Visit: No Status: Chronic Assessment & Plan: - continue oral home meds VTE:Deloresis Next of KIN: Ruddy Granados [phone] D/C Plan: per podiatry Code status: Code(s): E11.21 - TYPE 2 DIABETES MELLITUS WITH DIABETIC NEPHROPATHY
[2023-12-27] MEDS: NORCO 5/325 MG PO PRN (12:17)
--- NOTE | 2023-12-27 14:41 | XRAY ---
Indication: PICC placement. Comparison: None Portable chest demonstrates left arm PICC line with tip projecting over mid SVC. Lungs demonstrates minimal right base subsegmental atelectasis scarring. Remaining heart and left lung unremarkable with incidental CABG. Bony thorax intact with osteopenia and mild degenerative changes.
--- NOTE | 2023-12-27 23:46 | OP ---
SURGERY DATE/TIME: 12/26/2023 [id number] PREOPERATIVE DIAGNOSES: 1) Osteomyelitis, fifth metatarsal styloid process right foot. 2) Diabetic foot ulcer. 3) Diabetic peripheral neuropathy. 4) Diabetes mellitus, controlled. 5) Peripheral vascular disease. POSTOPERATIVE DIAGNOSES: 1) Osteomyelitis, fifth metatarsal styloid process right foot. 2) Diabetic foot ulcer. 3) Diabetic peripheral neuropathy. 4) Diabetes mellitus, controlled. 5) Peripheral vascular disease. PROCEDURES: 1) Incision and drainage with bone debridement, right lower extremity. 2) Partial amputation fifth metatarsal base. 3) Placement of antibiotic-impregnated spacer. 4) Application of negative pressure wound VAC therapy to the right lower extremity. SURGEON: Carson Song DPM TECHNOLOGY PROJECT MANAGER: Gary Art NP ANESTHESIA: Local. HEMOSTASIS: A pressure dressing. ESTIMATED BLOOD LOSS: Approximately less than 20 mL. MATERIALS: Genex antibiotic cement impregnated with gentamicin and a Medela wound VAC. INJECTABLES: 10 mL of a 1:1 mixture of 1% lidocaine plain and 0.5% bupivacaine plain injected in a superficial peroneal and sural nerve block to the right lower extremity. INDICATIONS: The patient is a very pleasant 53-year-old male very well-known to my service for multiple ulcerations and multiple needs for amputation secondary to peripheral neuropathy and osteomyelitis. At this time, patient has developed a significant wound that probes directly to the bone to the styloid process of the fifth metatarsal. On previous visit, we did do a bone debridement and obtained bone biopsies which demonstrated osteomyelitis of the fifth metatarsal. Given this finding and cultures showing Enterococcus faecalis, discussion was held with the patient in regard to options for proceeding. At this time, we have decided to proceed with a partial amputation of the fifth metatarsal in order to eliminate the infected bone as well as debride the surrounding bone in this area, washing this out with copious amounts of sterile saline, placing an antibiotic spacer, and then placing a wound VAC in order to close off the wound until the infection has been eradicated and proceeding with a staged procedure for a muscle flap and potential transfer of the peroneus brevis tendon to uninfected bone as well as a split-thickness skin graft. Patient has been made aware of all risks, complications, and benefits of surgical intervention at this time including, but not limited to, infection; hematoma; seroma; possibility of delayed wound healing; non-wound healing; and possible need for further surgical intervention at a later date. The patient will be going from an outpatient to inpatient. This has already been discussed with the attending on the floor as well as care coordination. Patient understands all this and also plans for placement into a rehab facility given patient's progressively worsening generalized weakness to the lower extremities. Patient understands all risks, complications, and benefits of surgical intervention at this time including, but not limited to, infection; hematoma; seroma; possibility of delayed wound healing; non-wound healing; possible failure of surgical intervention; and possible need for further amputation or further surgical intervention at a later date. No guarantees have been provided as to the outcome. It is at this time we decided to proceed. DESCRIPTION OF PROCEDURE AND FINDINGS: Patient was brought into the operating room and placed on the operating room table in the supine position. At this time, the right lower extremity was prepped and draped in the typical sterile fashion. Attention was directed to the lateral aspect of the foot where the sural nerve and the superficial peroneal nerve were blocked utilizing 10 mL of a 1:1 mixture of 1% lidocaine plain and 0.5% bupivacaine plain. Following this, the incision was deepened utilizing a 15-blade. A sagittal saw was then utilized to resect the base of the fifth metatarsal, going to the level of the mid diaphysis of the fifth metatarsal, removing the fifth metatarsal from its ligamentous attachments. The peroneus brevis tendon was identified before resecting it and tagged utilizing 2-0 PDS. Following this, copious amounts of sterile saline were utilized to flush the surgical site. The cuboid and the remaining fifth metatarsal were debrided utilizing a combination of rongeurs and curettes. This was once again flushed utilizing copious amounts of Bactisure and sterile saline. Following this, an antibiotic-impregnated cement was then inserted into the deficit to act as a space-occupying object and impregnating the area with gentamicin. From that standpoint, the area was cleansed and a negative pressure wound VAC therapy was applied with 125 mmHg and no appreciated leaks. Following this, a dressing consisting of Betadine, Adaptic, 4 x 4, Kerlix, and Ronnie was applied to the patient's right lower extremity. The patient was then returned to the postoperative anesthesia care unit with vital signs stable and vascular status intact. The patient handled the anesthesia, as well as the procedure, without significant complication. Postoperative orders as indicated in the patient's discharge chart.
[2023-12-28 05:27] LABS: Hematocrit 41.5 % (40.1-51.0); Hemoglobin 13.5 g/dL (13.7-17.5); Mean Cell Volume 90.4 fL (79.0-92.2); Mean Corpuscular Hemoglobin 29.4 pg (25.7-32.2); Mean Corpuscular Hgb Concent. 32.5 g/dL (32.3-36.5); Mean Platelet Volume 10.4 fL (9.4-12.4); Platelet Count 249 x10^3/uL (163-337); Red Blood Count 4.59 x10^6/uL (4.63-6.08); White Blood Count 8.2 x10^3/uL (4.23-9.07)
[2023-12-28 05:43] LABS: ALBUMIN 3.3 g/dL (3.5-5.0); ANION GAP 16.6 MEQ/L (5-15); BILIRUBIN,TOTAL 0.7 mg/dL (0.2-1.3); Calcium 8.1 mg/dL (8.4-10.2); Creatinine 1 1.15 mg/dL (0.66-1.25); EST GLOMERULAR FILTRATION RATE 75.2 ML/MIN; Potassium 4.2 mmol/L (3.5-5.1); Total Protein 7.1 g/dL (6.3-8.2)
[2023-12-28 08:04] VITALS: RESP 16
[2023-12-28] MEDS: TROUGH DRUG LEVELS IJ ONE (10:04)
[2023-12-28 11:30] VITALS: BP 124/68; PULSE 88; TEMP 96.9; O2SAT 94
--- NOTE | 2023-12-28 12:29 | PCM.CONS ---
Podiatry HPI - Consult Date of Consultation Date: 12/26/23 Consulting Provider: MONTSERRAT BALL DPM - HPI History of Present Illness: seen for outpatient amputation 5th metatarsal base. bone debridement of surrounding bone. antibiotic spacer application and wound vac application Medications & Allergies Home Medications: Home Medication List Metformin HCl [Metformin ER Gastric] 1,000 mg PO DAILY 05/16/22 [History Confirmed 12/26/23] Furosemide [Lasix] 20 mg PO UD 03/09/23 [History Confirmed 12/26/23] Metoprolol Succinate 25 mg Xl* [Toprol-Xl 25MG Tablets] 25 mg PO DAILY 03/09/23 [History Confirmed 12/26/23] Potassium Chloride 20 meq PO BID 03/09/23 [History Confirmed 12/26/23] Alpha Lipoic Acid/Biotin [Alpha Lipoic Acid - Biotin Cap] 1 each PO BID 05/05/23 [History Confirmed 12/26/23] Apixaban [Eliquis] 5 mg PO BID 05/05/23 [History Confirmed 12/26/23] Atorvastatin Calcium 80 mg PO DAILY 05/05/23 [History Confirmed 12/26/23] Empagliflozin [Jardiance] 10 mg PO DAILY 05/05/23 [History Confirmed 12/26/23] Escitalopram Oxalate 10 mg PO DAILY 05/05/23 [History Confirmed 12/26/23] Isosorbide Mononitrate 30 mg [Imdur 30 MG] 30 mg PO DAILY 05/05/23 [History Confirmed 12/26/23] Multivitamin 1 each PO DAILY 05/05/23 [History Confirmed 12/26/23] Amiodarone HCl 200 mg [Cordarone 200 MG] 200 mg PO DAILY 12/26/23 [History Confirmed 12/26/23] Fexofenadine HCl 180 mg PO DAILY PRN PRN 12/26/23 [History Confirmed 12/26/23] Fluticasone Propionate [Flonase NASAL] 1 spray IH DAILY 12/26/23 [History Confirmed 12/26/23] Gabapentin [Neurontin ] 300 mg PO QID 12/26/23 [History Confirmed 12/26/23] Hydrocodone/Acetaminophen [Hydrocodone-Acetamin 5-325 mg] 1 each PO Q6H PRN PRN 12/26/23 [History Confirmed 12/26/23] Isosorbide Mononitrate 30 mg [Imdur 30 MG] 30 mg PO DAILY 12/26/23 [History Confirmed 12/26/23] Sacubitril/Valsartan [Entresto 49 mg-51 mg Tablet] 1 tab PO TID 12/26/23 [History Confirmed 12/26/23] Allergies/Adverse Reactions: Allergies Allergy/AdvReac Type Severity Reaction Status Date / Time No Known Drug Allergies Allergy Verified 12/26/23 10:49 - Past Medical History Past Medical History: Yes Neurological History: Peripheral Neuropathy, Stroke, TIA ENT History: No Pertinent History Cardiac History: Arrhythmia, Coronary Artery Disease, Hypertension, Myocardial Infarction (ND), Other Respiratory History: CHF Endocrine Medical History: Diabetes Type II Musculoskelatal History: Arthritis GI Medical History: Ulcer History: No Pertinent History Pyscho-Social History: No Pertinent History Male Reproductive Disorders: No Pertinent History Comment: CVA IN 2013, 6 MYOCARDIO INFARCTION (MOST RECENT IN 2019), TRIPLE BYPASS SURGERY IN 2010; HE LOST APPROXIMATELY 160 POUNDS IN 2019 DUE TO INFECTION AND LACK OF APPETITE, A.FIB - Past Surgical History Past Surgical History: Yes Neuro Surgical History: No Pertinent History Cardiac History: Angioplasty, CABG, Cardiac Catheterization, Cardiac Stent Respiratory Surgery: No Pertinent History GI Surgical History: No Pertinent History Genitourinary Surgical Hx: No Pertinent History Musculskeletal Surgical Hx: Amputation, Orthopedic Surgery Male Surgical History: No Pertinent History Other Surgical History: jasvir big toes amputated, 2nd toe on left foot and 3rd toe on right foot, hip with ubaldo and 2 pins, Hx of TIA 2013, Bleeding tendancy takes blood thinners. - Social History Smoking Status: Never smoker Exposure to second hand smoke: No Alcohol: None Drug Use: marijuana - Social Determinants of Health Will the patient participate in the screening: Yes Do you worry about a steady place to live?: No Do you have any problems with any of the following?: No known problems In the past 12 months,have you had to go without utilities?: No Have you or anyone in your house had to go without enough: No Transportation Issues: No Has anyone in your support network made you feel unsafe?: No Does the patient want assistance with any of the above?: No Physical Exam - Narrative Narrative Physical Exam: Podiatry Physical Exam Results - Labs Lab/Micro Results: Lab Results-Last 24 Hours 12/28/23 12/28/23 12/28/23 Range/Units 05:05 05:05 05:05 WBC 8.2 (4.23-9.07) x10^3/uL RBC 4.59 L (4.63-6.08) x10^6/uL Hgb 13.5 L (13.7-17.5) g/dL Hct 41.5 (40.1-51.0) % MCV 90.4 (79.0-92.2) fL MCH 29.4 (25.7-32.2) pg MCHC 32.5 (32.3-36.5) g/dL RDW 13.0 (11.6-14.4) % Plt Count 249 (163-337) x10^3/uL MPV 10.4 (9.4-12.4) fL Sodium 134 L (135-145) mmol/L Potassium 4.2 (3.5-5.1) mmol/L Chloride 103 (98-107) mmol/L Carbon Dioxide 19 L (22-30) mmol/L Anion Gap 16.6 H (5-15) MEQ/L BUN 15 (9-20) mg/dL Creatinine 1.15 (0.66-1.25) mg/dL Estimated GFR 75.2 ML/MIN Glucose 65 L (74-106) mg/dL Hemoglobin A1c 6.34 H (4.5-6.0) % Calcium 8.1 L (8.4-10.2) mg/dL Total Bilirubin 0.70 (0.2-1.3) mg/dL AST 23 (17-59) U/L ALT 15 (0-50) U/L Alkaline Phosphatase 98 (38-126) U/L Serum Total Protein 7.1 (6.3-8.2) g/dL Albumin 3.3 L (3.5-5.0) g/dL Vancomycin Trough (10-20) ug/mL 12/28/23 Range/Units 09:30 WBC (4.23-9.07) x10^3/uL RBC (4.63-6.08) x10^6/uL Hgb (13.7-17.5) g/dL Hct (40.1-51.0) % MCV (79.0-92.2) fL MCH (25.7-32.2) pg MCHC (32.3-36.5) g/dL RDW (11.6-14.4) % Plt Count (163-337) x10^3/uL MPV (9.4-12.4) fL Sodium (135-145) mmol/L Potassium (3.5-5.1) mmol/L Chloride (98-107) mmol/L Carbon Dioxide (22-30) mmol/L Anion Gap (5-15) MEQ/L BUN (9-20) mg/dL Creatinine (0.66-1.25) mg/dL Estimated GFR ML/MIN Glucose (74-106) mg/dL Hemoglobin A1c (4.5-6.0) % Calcium (8.4-10.2) mg/dL Total Bilirubin (0.2-1.3) mg/dL AST (17-59) U/L ALT (0-50) U/L Alkaline Phosphatase (38-126) U/L Serum Total Protein (6.3-8.2) g/dL Albumin (3.5-5.0) g/dL Vancomycin Trough 14.32 (10-20) ug/mL Microbiology 12/26/23 16:19 Blood Culture Gram Stain - Final Blood Not Reportable 12/26/23 16:19 Blood Culture Gram Stain - Final Blood Not Reportable - Radiology Impressions Radiology Exams & Impressions: Radiology Procedures Category Date Time Status CHEST 1 VIEW (PORTABLE) Routine Exams 12/27/23 14:23 Completed Assessment/Plan (1) Chronic cutaneous venous stasis ulcer Current Visit: No Status: Acute Code(s): I83.009 - VARICOSE VEINS OF UNSP LOWER EXTREMITY W ULCER OF UNSP SITE; L97.909 - NON-PRS CHRONIC ULC UNSP PRT OF UNSP LOW LEG W UNSP SEVERITY (2) Atrial fibrillation with RVR Current Visit: No Status: Acute Code(s): I48.91 - UNSPECIFIED ATRIAL FIBRILLATION (3) Type 2 diabetes mellitus with diabetic nephropathy Current Visit: No Status: Chronic Code(s): E11.21 - TYPE 2 DIABETES MELLITUS WITH DIABETIC NEPHROPATHY (4) CAD (coronary artery disease) Current Visit: No Status: Chronic Code(s): I25.10 - ATHSCL HEART DISEASE OF [place] CORONARY ARTERY W/O ANG PCTRS (5) HTN (hypertension) Current Visit: No Status: Chronic Code(s): I10 - ESSENTIAL (PRIMARY) HYPERTENSION (6) Status post amputation of right foot through metatarsal bone Current Visit: Yes Status: Acute Code(s): Z89.431 - ACQUIRED ABSENCE OF RIGHT FOOT (7) Osteomyelitis of right foot Current Visit: Yes Status: Acute Assessment & Plan: POD 0 doing well. will monitor Code(s): M86.9 - OSTEOMYELITIS, UNSPECIFIED (8) Obesity (BMI 30-39.9) Current Visit: Yes Status: Chronic Code(s): E66.9 - OBESITY, UNSPECIFIED
--- NOTE | 2023-12-28 12:32 | PCM.NOTE ---
Date and Time: 12/28/23 1229 Subjective Assessment: POD #2 wound vac failure due to bleeding. wound vac was removed yesterday. Wet to dry applied. Physical Exam - Narrative Narrative Physical Exam: Podiatry Physical Exam Objective Data Vital Signs: Vital Signs - 24 hr Temp Pulse Resp BP Pulse Ox 12/28/23 11:29 96.9 F 88 16 124/68 94 L 12/28/23 08:00 96.7 F 78 16 126/78 98 12/28/23 04:00 97.4 F 69 20 129/80 96 12/27/23 23:20 97.0 F 71 18 111/66 95 12/27/23 20:00 97.8 F 80 20 110/66 96 12/27/23 16:00 97.4 F 81 14 113/67 95 Pain Assessment - Last Documented Pain Intensity 3 Pain Scale Used 0-10 Pain Scale Intake and Output: Intake & Output 12/26/23 12/27/23 12/28/23 12/29/23 11:59 11:59 11:59 11:59 Intake Total 1060 960 Output Total 575 1500 Balance 485 -540 Weight 113.3 kg 113 kg Lab Results: Lab Results-Last 24 Hours 12/28/23 12/28/23 12/28/23 Range/Units 05:05 05:05 05:05 WBC 8.2 (4.23-9.07) x10^3/uL RBC 4.59 L (4.63-6.08) x10^6/uL Hgb 13.5 L (13.7-17.5) g/dL Hct 41.5 (40.1-51.0) % MCV 90.4 (79.0-92.2) fL MCH 29.4 (25.7-32.2) pg MCHC 32.5 (32.3-36.5) g/dL RDW 13.0 (11.6-14.4) % Plt Count 249 (163-337) x10^3/uL MPV 10.4 (9.4-12.4) fL Sodium 134 L (135-145) mmol/L Potassium 4.2 (3.5-5.1) mmol/L Chloride 103 (98-107) mmol/L Carbon Dioxide 19 L (22-30) mmol/L Anion Gap 16.6 H (5-15) MEQ/L BUN 15 (9-20) mg/dL Creatinine 1.15 (0.66-1.25) mg/dL Estimated GFR 75.2 ML/MIN Glucose 65 L (74-106) mg/dL Hemoglobin A1c 6.34 H (4.5-6.0) % Calcium 8.1 L (8.4-10.2) mg/dL Total Bilirubin 0.70 (0.2-1.3) mg/dL AST 23 (17-59) U/L ALT 15 (0-50) U/L Alkaline Phosphatase 98 (38-126) U/L Serum Total Protein 7.1 (6.3-8.2) g/dL Albumin 3.3 L (3.5-5.0) g/dL Vancomycin Trough (10-20) ug/mL 12/28/23 Range/Units 09:30 WBC (4.23-9.07) x10^3/uL RBC (4.63-6.08) x10^6/uL Hgb (13.7-17.5) g/dL Hct (40.1-51.0) % MCV (79.0-92.2) fL MCH (25.7-32.2) pg MCHC (32.3-36.5) g/dL RDW (11.6-14.4) % Plt Count (163-337) x10^3/uL MPV (9.4-12.4) fL Sodium (135-145) mmol/L Potassium (3.5-5.1) mmol/L Chloride (98-107) mmol/L Carbon Dioxide (22-30) mmol/L Anion Gap (5-15) MEQ/L BUN (9-20) mg/dL Creatinine (0.66-1.25) mg/dL Estimated GFR ML/MIN Glucose (74-106) mg/dL Hemoglobin A1c (4.5-6.0) % Calcium (8.4-10.2) mg/dL Total Bilirubin (0.2-1.3) mg/dL AST (17-59) U/L ALT (0-50) U/L Alkaline Phosphatase (38-126) U/L Serum Total Protein (6.3-8.2) g/dL Albumin (3.5-5.0) g/dL Vancomycin Trough 14.32 (10-20) ug/mL Radiology Exams: Radiology Procedures Category Date Time Status CHEST 1 VIEW (PORTABLE) Routine Exams 12/27/23 14:23 Completed Multi-Disciplinary Progress Notes: Multi-Disciplinary Progress Notes 12/28/23 10:57 Case Management Note by Cesilia Hanley LOC APPROVED, NO LEVEL II REQUIRED- COPIES PLACED ON CHART PASRR, LOC, PICC LINE INFORMATION AND CHEST XRAY FAXED TO [facility] AT THIS TIME Initialized on 12/28/23 10:57 - END OF NOTE 12/28/23 10:54 Case Management Note by Cesilia HanleyEM CALLED AND STATED PATIENT WAS APPROVED FOR REHAB STAY AT [facility] AUTH #[id number], APPROVAL PERIOD FROM 12/27-01/08 NOTIFIED SHANTAL AT [facility] Initialized on 12/28/23 10:54 - END OF NOTE 12/27/23 15:00 (created 12/27/23 15:57) Case Management Note by Cesilia Hanley REFERRAL WAS FAXED TO [facility] [place] PER PATIENT REQUEST. THEY HAVE ACCEPTED AND WILL START AUTH. INSURANCE WILL HAVE TO AUTHORIZE STAY BEFORE PATIENT CAN TRANSITION. PATIENT WILL GO TO THEIR FACILITY WITH CURRENT WOUND VAC IN PLACE, THEY WILL ORDER WOUND VAC AND CHANGE IT OUT ONCE PATIENT IS AT THEIR FACILITY AND RETURN THE ORIGINAL ONE BACK TO [facility]. Initialized on 12/27/23 15:57 - END OF NOTE 12/27/23 13:05 Case Management Note by Cesilia Hanley S/W DR. MARIANO- PATIENT WILL NEED TO DC TO SNF FACILITY WITH AT LEAST 6 WEEKS OF IV ANTIBIOTICS, PATIENT WILL BE NON WEIGHTBEARING TO RIGHT FOOT INITIALLY. AFTER POST OP PERIOD PATIENT WILL NEED SNF FOR PHYSICAL REHAB Initialized on 12/27/23 13:05 - END OF NOTE Assessment/Plan (1) Chronic cutaneous venous stasis ulcer Current Visit: No Status: Acute Code(s): I83.009 - VARICOSE VEINS OF UNSP LOWER EXTREMITY W ULCER OF UNSP SITE; L97.909 - NON-PRS CHRONIC ULC UNSP PRT OF UNSP LOW LEG W UNSP SEVERITY (2) Atrial fibrillation with RVR Current Visit: No Status: Acute Code(s): I48.91 - UNSPECIFIED ATRIAL FIBRILLATION (3) Type 2 diabetes mellitus with diabetic nephropathy Current Visit: No Status: Chronic Code(s): E11.21 - TYPE 2 DIABETES MELLITUS WITH DIABETIC NEPHROPATHY (4) CAD (coronary artery disease) Current Visit: No Status: Chronic Code(s): I25.10 - ATHSCL HEART DISEASE OF [place] CORONARY ARTERY W/O ANG PCTRS (5) HTN (hypertension) Current Visit: No Status: Chronic Code(s): I10 - ESSENTIAL (PRIMARY) HYPERTENSION (6) Status post amputation of right foot through metatarsal bone Current Visit: Yes Status: Acute Assessment & Plan: ABX IV through PICC line for 2 weeks before plan for definitive closure Vancomycin through PICC Wound vac reapplied with no appreciated leaks operating as intended. Compression dressing applied to right lower extremity Ok for d/c to [facility] as anticipated Will follow outpatient. Code(s): Z89.431 - ACQUIRED ABSENCE OF RIGHT FOOT (7) Osteomyelitis of right foot Current Visit: Yes Status: Acute Code(s): M86.9 - OSTEOMYELITIS, UNSPECIFIED (8) Obesity (BMI 30-39.9) Current Visit: Yes Status: Chronic Code(s): E66.9 - OBESITY, UNSPECIFIED
--- NOTE | 2023-12-28 13:21 | PCM.DS ---
Discharge Summary Date of Admission: 12/26/23 14:40 Date of Discharge: 12/28/23 Admitting Physician: AUSTIN SMITH MD Primary Care Provider: TOÑO PACK Allergies Allergies No Known Drug Allergies Allergy (Verified 12/26/23 10:49) Hospital Summary - Hospital Course Hospital Course: 12/26/23 is a 53 year old male with PMHX of a-fib, CAD, HTN, and type II DM. Hospitalist asked to consult for medical management. Pt had surgery with podiatry, Dr. Byrd, for partial right metatarsal amputation. Wound vac in place. He also has diabetic R foot osteomyelitis. Will start broad spectrum antibiotics per podiatry request. Pt gave cefazolin 2mg in the OR. Will continue pain meds. Pt states pain is well controlled at this time. He is a greeable to rehab at d/c. He denies any further concerns at this time. 12/27/23 Pt resting in bed. Pain in well controlled. Case management working on rehab placement for OP IV antibiotics and wound care. PICC line to be placed today. Continue IV antibiotics. Pt denies CP, SOB, abd pain, N/V/D. 12/28/23 Pt resting in bed. Pain well controlled. Plan per podiatry is to change wound vac today. Pt also to transfer to rehab when accepted today. Midline placed yesterday and to d/c with narcotic pain meds and IV antibiotic. Anion gap elevated today and encouraged oral rehydration as hospital on IV fluid restriction. Pt denies any further concerns at this time. - Vitals & Intake/Output Vital Signs: Vital Signs Temperature 96.9 F 12/28/23 11:29 Pulse Rate 88 12/28/23 11:29 Respiratory Rate 16 12/28/23 11:29 Blood Pressure 124/68 12/28/23 11:29 O2 Sat by Pulse Oximetry 94 L 12/28/23 11:29 Intake & Output: Intake & Output 12/26/23 12/27/23 12/28/23 12/29/23 11:59 11:59 11:59 11:59 Intake Total 1060 960 Output Total 575 1500 Balance 485 -540 Weight 113.3 kg 113 kg - Lab Result Diagrams: 12/28/23 05:05 11/21/24 05:05 Lab Results-Last 24 Hrs: Lab Results-Last 24 Hours 12/28/23 12/28/23 12/28/23 Range/Units 05:05 05:05 05:05 WBC 8.2 (4.23-9.07) x10^3/uL RBC 4.59 L (4.63-6.08) x10^6/uL Hgb 13.5 L (13.7-17.5) g/dL Hct 41.5 (40.1-51.0) % MCV 90.4 (79.0-92.2) fL MCH 29.4 (25.7-32.2) pg MCHC 32.5 (32.3-36.5) g/dL RDW 13.0 (11.6-14.4) % Plt Count 249 (163-337) x10^3/uL MPV 10.4 (9.4-12.4) fL Sodium 134 L (135-145) mmol/L Potassium 4.2 (3.5-5.1) mmol/L Chloride 103 (98-107) mmol/L Carbon Dioxide 19 L (22-30) mmol/L Anion Gap 16.6 H (5-15) MEQ/L BUN 15 (9-20) mg/dL Creatinine 1.15 (0.66-1.25) mg/dL Estimated GFR 75.2 ML/MIN Glucose 65 L (74-106) mg/dL Hemoglobin A1c 6.34 H (4.5-6.0) % Calcium 8.1 L (8.4-10.2) mg/dL Total Bilirubin 0.70 (0.2-1.3) mg/dL AST 23 (17-59) U/L ALT 15 (0-50) U/L Alkaline Phosphatase 98 (38-126) U/L Serum Total Protein 7.1 (6.3-8.2) g/dL Albumin 3.3 L (3.5-5.0) g/dL Vancomycin Trough (10-20) ug/mL 12/28/23 Range/Units 09:30 WBC (4.23-9.07) x10^3/uL RBC (4.63-6.08) x10^6/uL Hgb (13.7-17.5) g/dL Hct (40.1-51.0) % MCV (79.0-92.2) fL MCH (25.7-32.2) pg MCHC (32.3-36.5) g/dL RDW (11.6-14.4) % Plt Count (163-337) x10^3/uL MPV (9.4-12.4) fL Sodium (135-145) mmol/L Potassium (3.5-5.1) mmol/L Chloride (98-107) mmol/L Carbon Dioxide (22-30) mmol/L Anion Gap (5-15) MEQ/L BUN (9-20) mg/dL Creatinine (0.66-1.25) mg/dL Estimated GFR ML/MIN Glucose (74-106) mg/dL Hemoglobin A1c (4.5-6.0) % Calcium (8.4-10.2) mg/dL Total Bilirubin (0.2-1.3) mg/dL AST (17-59) U/L ALT (0-50) U/L Alkaline Phosphatase (38-126) U/L Serum Total Protein (6.3-8.2) g/dL Albumin (3.5-5.0) g/dL Vancomycin Trough 14.32 (10-20) ug/mL Micro Results-Entire Visit: Microbiology 12/26/23 16:19 Blood Culture Gram Stain - Final Blood Not Reportable 12/26/23 16:19 Blood Culture Gram Stain - Final Blood Not Reportable - Radiology Exams Ordered Rad Exams-Entire Visit: Radiology Procedures Category Date Time Status CHEST 1 VIEW (PORTABLE) Routine Exams 12/27/23 14:23 Completed - Procedures and Test Procedures and Tests throughout Hospitalization: Therapy Orders & Screens 12/26/23 17:31 OT Screen per Nursing Assess ONCE Comment: Protocol Order Physician Instructions: Greater than 3 points order OT Admission Screening Reason For Exam: Triggered on Admission Diagnosis: SURGERY RIGHT FOOT Open Wound/Cellutlitis/Pressure Ulcers: Yes Acute Fx/ORIF/Change in wt bearing status: Yes Severe MUSCULOSKELETAL pain: No ADL Dysfunction: No Acute CVA w/Hemiparesis/Hemiplegia: No Decreased Functional Mobility/Strength: Yes Sprain/Strain: No Acute Post-op Mobility Dysfunction: Yes Total Points: 14 PT Screen per Nursing Assess ONCE Comment: Protocol Order Physician Instructions: Greater than 3 points order PT Admission Screenin Reason For Exam: Triggered on Admission Diagnosis: SURGERY RIGHT FOOT Open Wound/Cellutlitis/Pressure Ulcers: Yes Acute Fx/ORIF/Change in wt bearing status: Yes Severe MUSCULOSKELETAL pain: No ADL Dysfunction: No Acute CVA w/Hemiparesis/Hemiplegia: No Decreased Functional Mobility/Strength: Yes Sprain/Strain: No Acute Post-op Mobility Dysfunction: Yes Total Points: 14 12/27/23 13:01 PT Eval & Treat (MD Order) ONCE Reason for Eval:: NON WTBEARING TO RIGHT FOOT Diagnosis: SURGERY RIGHT FOOT, OSTEOMYELITIS R FOOT Discharge Exam General Appearance: no apparent distress, alert, obese Neurologic Exam: alert, oriented x 3, cooperative, normal mood/affect, nml cerebellar function, sensation nml, No motor deficits Eye Exam: PERRL, EOMI, eyes nml inspection Ears, Nose, Throat Exam: normal ENT inspection, pharynx normal, moist mucous membranes Neck Exam: normal inspection, non-tender, supple, full range of motion Respiratory Exam: normal breath sounds, lungs clear, No respiratory distress Cardiovascular Exam: regular rate/rhythm, normal heart sounds Gastrointestinal/Abdomen Exam: soft, No tenderness, No mass Male Genitalia Exam: deferred Rectal Exam: deferred Back Exam: normal inspection, normal range of motion, No CVA tenderness, No vertebral tenderness Extremity Exam: other (Right foot 5th toe partial amputation) Skin Exam: normal color, warm, dry Final Diagnosis/Problem List - Final Discharge Diagnosis/Problem (1) Osteomyelitis of right foot Current Visit: Yes Status: Acute Code(s): M86.9 - OSTEOMYELITIS, UNSPECIFIED (2) Status post amputation of right foot through metatarsal bone Current Visit: Yes Status: Acute Code(s): Z89.431 - ACQUIRED ABSENCE OF RIGHT FOOT (3) CAD (coronary artery disease) Current Visit: No Status: Chronic Code(s): I25.10 - ATHSCL HEART DISEASE OF [place] CORONARY ARTERY W/O ANG PCTRS (4) HTN (hypertension) Current Visit: No Status: Chronic Code(s): I10 - ESSENTIAL (PRIMARY) HYPER TENSION (5) Obesity (BMI 30-39.9) Current Visit: Yes Status: Chronic Code(s): E66.9 - OBESITY, UNSPECIFIED (6) Type 2 diabetes mellitus with diabetic nephropathy Current Visit: No Status: Chronic Assessment & Plan: (1) Osteomyelitis of right foot Current Visit: Yes Status: Acute Assessment & Plan: - Per podiatry - being diabetic adds to complexity - Broad spectrum antibiotics - vancomycin and zosyn - BC x2- pending - will need rehab placement per podiatry at d/c. - case management working on this. - reviewed previous blood culture results- will need OP IV antibiotics - PICC line ordered - CBC and CMP reviewed 12/27 - podiatry note reviewed and agree with plan of care - D/C with IV vancomycin x2 weeks, narcotic pain meds - CBC and CMP reviewed Code(s): M86.9 - OSTEOMYELITIS, UNSPECIFIED (2) Status post amputation of right foot through metatarsal bone Current Visit: Yes Status: Acute Assessment & Plan: - POD #1 Right foot 5th metat[address] Dr. Byrd- podiatry - Wound vac on place. - cefazolin IV in OR by podiatry - XR reviewed - Per podiatry continue Eliquis, ASA, narcotic pain medication - PT eval per podiatry recs 12/26 - POD #2 - pain well controlled 04/15- manageable per pt - non- weight bearing right foot per podiatry - Eliquis 5mg BID - narcotic pain meds 12/27 - D/C to rehab today - wound vac changed by podiatry - podiatry to follow OP Code(s): Z89.431 - ACQUIRED ABSENCE OF RIGHT FOOT (3) CAD (coronary artery disease) Current Visit: No Status: Chronic Assessment & Plan: - continue home meds Code(s): I25.10 - ATHSCL HEART DISEASE OF [place] CORONARY ARTERY W/O ANG PCTRS (4) HTN (hypertension) Current Visit: No Status: Chronic Assessment & Plan: - BP stable - continue home meds Code(s): I10 - ESSENTIAL (PRIMARY) HYPERTENSION (5) Obesity (BMI 30-39.9) Current Visit: Yes Status: Chronic Assessment & Plan: - advised ADA diet and exercise Code(s): E66.9 - OBESITY, UNSPECIFIED (6) Type 2 diabetes mellitus with diabetic nephropathy Current Visit: No Status: Chronic Assessment & Plan: - continue oral home meds Code(s): E11.21 - TYPE 2 DIABETES MELLITUS WITH DIABETIC NEPHROPATHY - Discharge Discharge Date: 12/28/23 Disposition: Home, Self-Care Condition: Stable Prescriptions: New Vancomycin/Water For Inj (Peg) [Vancomycin 1.25 gm/250 ml Bag] 1.25 gm IV Q12HT #84 iv piggy Aspirin EC 81 mg [Ecotrin 81 mg] 81 mg PO DAILY 30 Days #30 tablet Continue Metformin HCl [Metformin ER Gastric] 1,000 mg PO DAILY Furosemide [Lasix] 20 mg PO UD Potassium Chloride 20 meq PO BID Metoprolol Succinate 25 mg Xl* [Toprol-Xl 25MG Tablets] 25 mg PO DAILY Multivitamin 1 each PO DAILY Empagliflozin [Jardiance] 10 mg PO DAILY Isosorbide Mononitrate 30 mg [Imdur 30 MG] 30 mg PO DAILY Escitalopram Oxalate 10 mg PO DAILY Apixaban [Eliquis] 5 mg PO BID Atorvastatin Calcium 80 mg PO DAILY Alpha Lipoic Acid/Biotin [Alpha Lipoic Acid - Biotin Cap] 1 each PO BID Amiodarone HCl 200 mg [Cordarone 200 MG] 200 mg PO DAILY Gabapentin [Neurontin ] 300 mg PO QID Fexofenadine HCl 180 mg PO DAILY PRN PRN PRN Reason: Allergies Fluticasone Propionate [Flonase NASAL] 1 spray IH DAILY Sacubitril/Valsartan [Entresto 49 mg-51 mg Tablet] 1 tab PO TID Isosorbide Mononitrate 30 mg [Imdur 30 MG] 30 mg PO DAILY Hydrocodone/Acetaminophen [Hydrocodone-Acetamin 5-325 mg] 1 each PO Q6H PRN PRN 3 Days #12 tablet MDD 4 PRN Reason: Pain Additional Instructions: ASSISTED ORDERS: ADMIT TO [facility] [address] NON WTBEARING TO RIGHT FOOT SEE ORDERS FOR VANCOMYCIN IV X 6 WEEKS, APPROPRIATE LAB WORK AND MONITORING PER FACILITY PHARMACY ROUTINE PICC LINE CARE, DOES NOT REQUIRE HEPARIN CONTINUE ASPIRIN AND ELIQUIS ORDERED FOR DVT PROPHYLAXIS Dressing on right lower extremity to remain CDI. Nursing Home Facility to monitor operation of wound vac (AT -125mmHg) and contact Dr Byrd's office if not functioning normally. Can change canister if needed. If wound vac is not functioning and issue cannot be resolved, nursing staff can remove the wound vac and apply a saline wet to dry dressing consisting of 2 to 3 sterile 4x4 gauze moistened with sterile normal saline, 2 to 3 dry sterile 4x4 gauze, ABD pad, wrap with kerlix and katerine. Dr Byrd's office is to be contacted if this is necessary. SEE ATTACHED MED LIST Follow up with: MONTSERRAT BALL DPM [ACTIVE STAFF] - 01/02/24 2:00 pm TOÑO PACK MD [Primary Care Provider] -
== END 2023-12-28 13:52 ==
LOC: SDC 09:45 → MED SURG 14:40
PROVIDERS: ADMIT Internal Medicine; ATTEND Internal Medicine
DX: M86.9 Osteomyelitis, unspecified (principal); E11.621 Type 2 diabetes mellitus with foot ulcer; I25.10 Atherosclerotic heart disease of native coronary artery without angina pectoris; I10 Essential (primary) hypertension; E66.9 Obesity, unspecified; E11.21 Type 2 diabetes mellitus with diabetic nephropathy; I48.91 Unspecified atrial fibrillation; I25.2 Old myocardial infarction; Z95.0 Presence of cardiac pacemaker; E11.51 Type 2 diabetes mellitus with diabetic peripheral angiopathy without gangrene; I83.91 Asymptomatic varicose veins of right lower extremity; L97.919 Non-pressure chronic ulcer of unspecified part of right lower leg with unspecified severity; Z79.01 Long term (current) use of anticoagulants; Z79.899 Other long term (current) drug therapy
CPT/HCPCS: 20704; 28005; 28810; 36415; 71045; 73630; 76000; 80053; 80202; 83036; 85027; 93268; 97161; 97530; 97605; A6260; C1713; G0378; Q3014; 28805; J0690; J1642; J2405; A9270-GY; J3370

== ENCOUNTER 2024-01-25 10:08 | Day surgery (SDC) | payer MEDICAID, OTHER ==
[2024-01-25 11:58] LABS: Hematocrit 37.6 % (40.1-51.0); Hemoglobin 12.4 g/dL (13.7-17.5); Mean Cell Volume 90.8 fL (79.0-92.2); Mean Platelet Volume 9.9 fL (9.4-12.4); Platelet Count 257 x10^3/uL (163-337); Red Blood Count 4.14 x10^6/uL (4.63-6.08); Red Cell Distribution Width 13.5 % (11.6-14.4); White Blood Count 7.3 x10^3/uL (4.23-9.07)
[2024-01-25 12:08] LABS: ALBUMIN 3.9 g/dL (3.5-5.0); ANION GAP 14.7 MEQ/L (5-15); BILIRUBIN,TOTAL 0.4 mg/dL (0.2-1.3); Calcium 8.9 mg/dL (8.4-10.2); Creatinine 1 1.11 mg/dL (0.66-1.25); EST GLOMERULAR FILTRATION RATE 78.4 ML/MIN; Total Protein 7.8 g/dL (6.3-8.2)
[2024-01-25] MEDS ORDERED: Marcaine Mpf 0.5% Vial 30 Ml ONE (12:39)
[2024-01-25] MEDS ORDERED: Xylocaine 1% Vial 30 ML PF IJ ONE (12:39)
[2024-01-25] MEDS ORDERED: Sodium Chloride 0.9% 1000 ML 1,000 ML ONE (12:56)
[2024-01-25] MEDS ORDERED: VANCOCIN INJECTION IV ONE (12:57)
[2024-01-25] MEDS ORDERED: MINERAL OIL LIGHT 10 ML FOR SURGERY ONE (13:30)
[2024-01-25] MEDS ORDERED: XYLOCAINE 1%/Epi 1:100000 MDV 20 ML ONE (13:30)
[2024-01-25] MEDS ORDERED: Thrombin-JMI 5000 UNITS TP ONE (14:18)
[2024-01-25 15:11] VITALS: RESP 16; TEMP 96.5
[2024-01-25 15:21] VITALS: BP 143/78; PULSE 55; O2SAT 99
--- NOTE | 2024-01-26 12:10 | OP ---
SURGERY DATE/TIME: 01/25/2024 [id number] PREOPERATIVE DIAGNOSES: 1) Osteomyelitis right foot. 2) Diabetes mellitus. 3) Peripheral neuropathy secondary to type 2 diabetes. 4) Multiple amputations. 5) Instability. 6) Noncompliance with weightbearing protocol. POSTOPERATIVE DIAGNOSES: 1) Osteomyelitis right foot. 2) Diabetes mellitus. 3) Peripheral neuropathy secondary to type 2 diabetes. 4) Multiple amputations. 5) Instability. 6) Noncompliance with weightbearing protocol. PROCEDURES: 1) Incision and drainage with bone debridement to the right cuboid and fourth metatarsal. 2) Partial metatarsal resection, fifth metatarsal. 3) Debridement of muscle flap. 4) Delayed primary closure. 5) Split-thickness skin graft from right calf to right foot and application of a negative pressure wound VAC therapy right lower extremity. SURGEON: Carson Song DPM. TERRAZZO POLISHER: MARIA E Ch. ANESTHESIA: Local. HEMOSTASIS: Pressure dressing. ESTIMATED BLOOD LOSS: Approximately 30 mL. MATERIALS: A 3-0 nylon, 2-0 Vicryl. INJECTABLES: 10 mL of 1% lidocaine plain injected in a proximal block-type fashion. INDICATIONS: The patient is a very pleasant 53-year-old male very well known to my service for multiple amputations to the bilateral lower extremities. The patient, at this time, has developed a wound to the lateral aspect of the right fifth metatarsal. He has undergone subsequent procedures in order to eliminate the infection. There has been a recurrence of the infection secondary somewhat to noncompliance. From that standpoint, decision was made to proceed with an incision and drainage with removal of the fifth metatarsal. That also being said, the patient has damaged or destroyed the split-thickness skin graft that was harvested approximately 2 weeks ago by weightbearing on it. From that standpoint, we decided to repeat this portion of the procedure with a delayed primary closure of the distal aspect of the wound. The harvest of the split-thickness skin graft will be harvested from the right calf medially. The patient has made aware of all risks, complications, and benefits of surgical intervention at this time including, but not limited to, infection, hematoma, seroma, possibility of delayed wound healing, non-wound healing, and possible need for further surgical intervention at a later date. Plenty of time was allowed for the patient to ask questions, which were answered to his apparent satisfaction. It is at this time we decided to proceed. DESCRIPTION OF PROCEDURE AND FINDINGS: The patient was brought into the operating room and placed on the operating room table in the supine position. At this time, the right lower extremity was prepped and draped in the typical sterile fashion. A time-out was called identifying all patient risk factors. The right foot sutures were removed. Incision was carried down to the level of the fifth metatarsal at its distal extent which was disarticulated and handed off the field for pathological assessment. At this time, copious amounts of sterile saline were utilized to flush the surgical site. Once again, at this time, a curette rongeur, 15 blade, and pick-ups were utilized to debride any necrotic or nonviable tissue along the fourth metatarsal and cuboid base. The tendon transfer site was inspected and deemed to be in an adequate position within the cuboid. A sample of bone was taken at this site to ensure that no osteomyelitis had gotten inside the bone here. From that standpoint, 1000 mL of sterile saline were then utilized to flush the surgical site. Following this, 2-0 Vicryl was then utilized to coapt the subcutaneous skin edges on the distal extent of the wound and then 3-0 nylon was utilized in a horizontal mattress-type fashion to coapt the skin edges at the distal extent of the wound, completing the delayed primary closure portion of the procedure. Following this, the wound that was left open a split-thickness skin graft was performed and this was utilizing a 2 inch blade with a 1/16 inch portion. This was run through a 1:1.5 measure. From that standpoint, this was apposed to the graft to the muscle belly that was exposed and secured utilizing 4-0 nylon in a simple running continuous fashion. From that standpoint, iodine was placed around the surrounding incision. Adaptic was placed on the wound site and then a negative pressure wound VAC therapy was applied to the right lower extremity gaining excellent apposition of the graft as well as minimal leaks identified. From that standpoint, once hemostasis was assessed and the bleeding was decreased, the patient was then placed in a well-padded dressing consisting of Betadine, Adaptic, 4 x 4, Kerlix, ABD, and a well-padded posterior splint. The patient was then returned to the preop area with vital signs stable and vascular status intact. The patient handled the anesthesia as well as the procedure without significant complication. Postoperative orders as indicated in the patient's discharge chart.
== END 2024-01-25 15:38 | disposition home or self-care (01) ==
LOC: SDC 10:08
PROVIDERS: ATTEND Podiatrist Foot & Ankle Surgery
DX: M86.9 Osteomyelitis, unspecified (principal); E11.621 Type 2 diabetes mellitus with foot ulcer; E11.40 Type 2 diabetes mellitus with diabetic neuropathy, unspecified; E11.42 Type 2 diabetes mellitus with diabetic polyneuropathy; M79.671 Pain in right foot; I87.2 Venous insufficiency (chronic) (peripheral); I73.9 Peripheral vascular disease, unspecified; R60.0 Localized edema; G89.18 Other acute postprocedural pain; R26.89 Other abnormalities of gait and mobility; Z91.198 Patient's noncompliance with other medical treatment and regimen for other reason; Z89.421 Acquired absence of other right toe(s)
CPT/HCPCS: 11043; 13160; 15100; 28005; 28122; 36415; 36591; 80053; 85027; J1642; J3370; A9270-GY

== ENCOUNTER 2024-04-02 06:12 | Day surgery (SDC) | payer MEDICAID ==
[2024-04-02] MEDS ORDERED: CEFAZOLIN 2 GM/100 ML NaCl 2 GM/100 ML IVPB IV ONE (06:20)
[2024-04-02] MEDS ORDERED: Sodium Chloride 0.9% 1000 ML 1,000 ML ONE (06:20)
[2024-04-02 06:36] LABS: Hematocrit 38.5 % (40.1-51.0); Hemoglobin 12.2 g/dL (13.7-17.5); Mean Corpuscular Hemoglobin 28.5 pg (25.7-32.2); Mean Corpuscular Hgb Concent. 31.7 g/dL (32.3-36.5); Mean Platelet Volume 10.5 fL (9.4-12.4); Platelet Count 194 x10^3/uL (163-337); Red Blood Count 4.28 x10^6/uL (4.63-6.08); Red Cell Distribution Width 14.6 % (11.6-14.4); White Blood Count 6.3 x10^3/uL (4.23-9.07)
[2024-04-02 06:39] VITALS: RESP 18
[2024-04-02] MEDS: Sodium Chloride 0.9% 1000 ML 1,000 ML IV SCH (06:40)
[2024-04-02] MEDS: CEFAZOLIN 2 GM/100 ML NaCl 2 GM/100 ML IVPB IV SCH (06:40)
[2024-04-02] MEDS ORDERED: Xylocaine 1% Vial 30 ML PF IJ ONE (06:46)
[2024-04-02] MEDS ORDERED: MINERAL OIL LIGHT 10 ML FOR SURGERY ONE ×2 (06:46→06:49)
[2024-04-02] MEDS ORDERED: Marcaine Mpf 0.5% Vial 30 Ml ONE (06:46)
[2024-04-02] MEDS ORDERED: Thrombin-JMI 5000 UNITS TP ONE (06:49)
[2024-04-02] MEDS ORDERED: XYLOCAINE 1%/Epi 1:100000 MDV 20 ML ONE (06:51)
[2024-04-02 07:07] LABS: ALBUMIN 4.1 g/dL (3.5-5.0); ANION GAP 17.9 MEQ/L (5-15); BILIRUBIN,TOTAL 0.5 mg/dL (0.2-1.3); Calcium 8.7 mg/dL (8.4-10.2); Creatinine 1 1.37 mg/dL (0.66-1.25); EST GLOMERULAR FILTRATION RATE 60.9 ML/MIN; Potassium 3.9 mmol/L (3.5-5.1); Total Protein 7.9 g/dL (6.3-8.2)
[2024-04-02 10:23] VITALS: BP 156/80; PULSE 68; TEMP 97; O2SAT 99
[2024-04-02] MEDS: NORCO 5/325 MG PO PRN (12:18)
[2024-04-02] MEDS ORDERED: LASIX 20 MG PO SCH (13:00)
[2024-04-02] MEDS: NEURONTIN PO SCH (15:02)
[2024-04-02] MEDS: ECOTRIN 81 MG PO SCH (15:03)
[2024-04-02] MEDS: ELIQUIS 2.5 MG TABLET PO SCH (15:03)
[2024-04-02] MEDS: Glucophage XR 500 MG PO SCH (15:03)
[2024-04-02] MEDS: Imdur 30 MG PO SCH (15:04)
[2024-04-02] MEDS: ENTRESTO 49 MG-51 MG TABLET PO SCH (15:04)
[2024-04-02] MEDS: Klor Con PO SCH (15:04)
[2024-04-02] MEDS: Lexapro PO SCH (15:04)
[2024-04-02] MEDS: Cordarone 200 MG PO SCH (15:04)
[2024-04-02] MEDS: Toprol-Xl 25MG Tablets PO SCH (15:04)
[2024-04-02] MEDS: JARDIANCE PO SCH (15:05)
[2024-04-02] MEDS ORDERED: NON-FORMULARY ITEM (Apixaban [Eliquis] 5 MG Tablet) PO SCH (22:00)
[2024-04-02] MEDS ORDERED: NON-FORMULARY ITEM (Potassium Chloride [Potassium Chloride] 20 MEQ Tablet.Er) PO SCH (22:00)
[2024-04-03] MEDS ORDERED: NON-FORMULARY ITEM (Metformin Hcl [Metformin Er Gastric] 1,000 MG Tabergr24h) PO SCH (10:00)
--- NOTE | 2024-04-03 17:47 | OP ---
SURGERY DATE/TIME: 04/02/2024 [id number] PREOPERATIVE DIAGNOSES: 1) Osteomyelitis. 2) Diabetic peripheral neuropathy. 3) Uncontrolled diabetes. 4) Diabetic foot wound. 5) Difficulty with ambulation. POSTOPERATIVE DIAGNOSES: 1) Osteomyelitis. 2) Diabetic peripheral neuropathy. 3) Uncontrolled diabetes. 4) Diabetic foot wound. 5) Difficulty with ambulation. PROCEDURES: 1) Incision and drainage with bone debridement, right foot to level of 4th metatarsal. 2) Delayed primary closure of distal foot wound. 3) Split-thickness skin graft from posterior aspect of right calf to right foot. SURGEON: Carson Song DPM ASSISTANTS: Melissa Kenyon, Surgical Police Captain Senior, and Gary Harkins, SUSTAINABILITY COACH-C ANESTHESIA: Local. HEMOSTASIS: Pressure dressing. ESTIMATED BLOOD LOSS: Approximately 15 mL. MATERIALS: 3-0 nylon, Suturegard, 2-0 Vicryl. INDICATIONS FOR PROCEDURE: The patient is a very pleasant 53-year-old male very well known to my service for multiple amputations in the past as well as difficulty with healing wounds. He did establish osteomyelitis to the 5th metatarsal with involvement of the peroneus brevis tendon. We have staged procedures in the past in order to provide him function with weightbearing to the right lower extremity; however, he is having trouble healing the wounds to the lateral aspect of the right foot. He has made significant improvements with the use of a wound VAC over the course of the last 6 weeks; however, at this point, the wound base distally does have significant depth that does probe to the 4th metatarsal and would require some debridement as well as an attempt at a delayed primary closure. From that standpoint, decision was made to proceed with this with an attempt at split-thickness skin graft from the right calf to the right foot. The patient at this time understands all risks, complications, and benefits of surgical intervention included but not limited to infection, hematoma, seroma, possibility of delayed wound healing, non-wound healing, and possible need for further surgical intervention at a later date. No guarantees were provided as to the outcome of surgical intervention. Plenty of time was allowed for the patient to ask questions which were answered to his apparent satisfaction. At this time, we decided to proceed. DESCRIPTION OF PROCEDURE AND FINDINGS: Patient was brought in the operating room and placed on the operating room table in the supine position. No anesthesia was provided. The right lower extremity was prepped and draped in the typical sterile fashion and lowered onto the surgical field. At this time, attention was directed to the distal aspect of the wound of the right foot, where there was depth to the level of the 4th metatarsal base. From that standpoint, a curette was utilized to debride the wound surface and more importantly the bone at the base of the 4th metatarsal. The cortex was relatively intact, so decision was made to not proceed with a bone biopsy. At this time, irrigation took place, utilizing 1 L of sterile saline. Once this was performed, gloves were changed out and a 2-0 Vicryl was utilized to coapt the subcutaneous skin edges in a box buried-type fashion. Once this occurred, Suturegard was placed on both sides of the distal foot wound and then a 2-0 nylon was utilized to coapt the incision. A 3-0 nylon was then utilized in a simple interrupted-type fashion to coapt the surgical site, gaining good apposition under minimal tension. From that standpoint, attention was directed to the posterior thigh where an injection of 1% lidocaine plain was injected at the surface level. Following this, sterile saline and then mineral oil was applied to the leg and then a 2-inch blade on a dermatome was utilized at 0.016 inch to harvest a small 2-inch split-thickness skin graft. Once this was performed, this was run through the mesher at 1 to 1.5 rate. Once this was performed, the graft was then sutured to the granulation tissue over the styloid process of the 5th metatarsal. Once this was performed, copious amounts of sterile saline were utilized to flush the surgical site. A dressing consisting of Betadine, Adaptic, 4 x 4, Kerlix, ABD, and Ronnie was applied to the patient's right lower extremity. Patient was returned to the preop area with vital signs stable and vascular status intact. He handled the procedure as well as the anesthesia without complications. Postoperative orders as indicated in the patient's discharge chart.
== END 2024-04-02 15:35 ==
LOC: SDC 06:12 → MED SURG 09:40 → SDC 15:35
PROVIDERS: ATTEND Podiatrist Foot & Ankle Surgery
DX: M86.9 Osteomyelitis, unspecified (principal); E11.42 Type 2 diabetes mellitus with diabetic polyneuropathy; E11.65 Type 2 diabetes mellitus with hyperglycemia; E11.621 Type 2 diabetes mellitus with foot ulcer; R26.2 Difficulty in walking, not elsewhere classified
CPT/HCPCS: 11043; 13160; 15100; 28005; 36415; 80053; 82947; 85027; J0690; A9270-GY

== ENCOUNTER 2024-10-17 07:54 | Inpatient (IN) | payer OTHER ==
[2024-10-17 09:19] LABS: Hematocrit 41.1 % (40.1-51.0); Hemoglobin 13.2 g/dL (13.7-17.5); Mean Corpuscular Hemoglobin 29.3 pg (25.7-32.2); Mean Corpuscular Hgb Concent. 32.1 g/dL (32.3-36.5); Platelet Count 171 x10^3/uL (163-337); Red Blood Count 4.51 x10^6/uL (4.63-6.08); White Blood Count 5.3 x10^3/uL (4.23-9.07)
[2024-10-17] MEDS ORDERED: Zofran 4 MG/2 ML VIAL IV PRN (09:26)
[2024-10-17] MEDS ORDERED: Compazine 10 MG/2 ML IV PRN (09:36)
[2024-10-17] MEDS ORDERED: HUMALOG SQ PRN (09:36)
[2024-10-17] MEDS: Flonase NASAL NS SCH (09:43)
[2024-10-17] MEDS: ENTRESTO 49 MG-51 MG TABLET PO SCH (09:43)
[2024-10-17 09:44] LABS: Calcium 8.8 mg/dL (8.4-10.2); Carbon Dioxide 19.0 mmol/L (22-30); Creatinine 1 1.45 mg/dL (0.66-1.25); EST GLOMERULAR FILTRATION RATE 56.6 ML/MIN; Glucose 104.0 mg/dL (74-106); Potassium 4.7 mmol/L (3.5-5.1)
[2024-10-17] MEDS: Klor Con PO SCH (09:44)
[2024-10-17] MEDS: Imdur 30 MG PO SCH (09:44)
[2024-10-17] MEDS: THERAGRAN MULTIVITAMIN PO SCH (09:44)
[2024-10-17] MEDS: NEURONTIN PO SCH (09:44)
--- NOTE | 2024-10-17 10:13 | PCM.HP ---
History of Present Illness - Chief Complaint Chief Complaint: Left Foot Infection Date: 10/17/24 History of Present Illness: is a 54 year old male with a complex past medical history including type 2 diabetes mellitus, hypertension, hyperlipidemia, coronary artery disease status post CABG with multiple stents, peripheral artery disease, a prior stroke in 2013, and atrial fibrillation on Eliquis. he was a direct admit today by podiatry and scheduled for surgery of left foot 2nd toe with osteomyelitis. IV antibiotics started after reviewing cultures form previous visits. Labs pending. Pt states he is is to d/c to the [facility] at time of discharge. He has brought in all items from his home with him today. 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 PT to eval pt after surgery as he will need a wound VAC. He denies any further concerns at this time. - Review of Systems Constitutional: Weakness (BL feet), No Fever, No Chills Eyes: No Symptoms Ears, Nose, & Throat: No Symptoms Respiratory: No Cough, No Short Of Breath Cardiac: No Chest Pain, No Edema, No Syncope Abdominal/Gastrointestinal: No Abdominal Pain, No Nausea, No Vomiting, No Diarrhea Genitourinary Symptoms: No Dysuria Musculoskeletal: Joint Pain (BL feet), No Back Pain, No Neck Pain Skin: Other (BLLE wrapped), No Rash Neurological: No Dizziness, No Focal Weakness, No Sensory Changes Psychological: No Symptoms Endocrine: No Symptoms Hematologic/Lymphatic: No Symptoms Immunological/Allergic: No Symptoms Medications & Allergies Home Medications: Home Medication List Metformin HCl [Metformin ER Gastric] 1,000 mg PO DAILY 05/16/22 [History Confirmed 10/17/24] Furosemide [Lasix] 20 mg PO UD 03/09/23 [History Confirmed 10/17/24] Potassium Chloride 20 meq PO BID 03/09/23 [History Confirmed 10/17/24] Apixaban [Eliquis] 5 mg PO BID 05/05/23 [History Confirmed 10/17/24] Atorvastatin Calcium 80 mg PO HS 05/05/23 [History Confirmed 10/17/24] Multivitamin 1 each PO DAILY 05/05/23 [History Confirmed 10/17/24] Fluticasone Propionate [Flonase NASAL] 1 spray IH DAILY 12/26/23 [History Confirmed 10/17/24] Gabapentin [Neurontin ] 600 mg PO BID 12/26/23 [History Confirmed 10/17/24] Isosorbide Mononitrate 30 mg [Imdur 30 MG] 30 mg PO DAILY 12/26/23 [History Confirmed 10/17/24] Sacubitril/Valsartan [Entresto 49 mg-51 mg Tablet] 1 tab PO BID 12/26/23 [History Confirmed 10/17/24] Carvedilol 3.125 mg [Coreg 3.125 MG] 3.125 mg PO BID 10/17/24 [History Confirmed 10/17/24] Spironolactone 25 mg [Aldactone 25 MG] 25 mg PO DAILY 10/17/24 [History Confirmed 10/17/24] Allergies/Adverse Reactions: Allergies Allergy/AdvReac Type Severity Reaction Status Date / Time morphine AdvReac vomting Verified 10/17/24 08:04 - Past Medical History Past Medical History: Yes Neurological History: Peripheral Neuropathy, Stroke, TIA ENT History: No Pertinent History Cardiac History: Arrhythmia, Congestive Heart Failure, Coronary Artery Disease, Hypertension, Myocardial Infarction ([place]), Other Respiratory History: CHF Endocrine Medical History: Diabetes Type II Musculoskelatal History: Arthritis GI Medical History: Ulcer History: No Pertinent History Pyscho-Social History: No Pertinent History Male Reproductive Disorders: No Pertinent History Comment: Usability Architect: Dr. Meeks, Director Market Intelligence: Dr. Byrd, MOST RECENT [place] IN 2019, A.FIB - Past Surgical History Past Surgical History: Yes Neuro Surgical History: No Pertinent History Cardiac History: Angioplasty, CABG, Cardiac Catheterization, Cardiac Stent Respiratory Surgery: No Pertinent History GI Surgical History: No Pertinent History Genitourinary Surgical Hx: No Pertinent History Musculskeletal Surgical Hx: Amputation, Orthopedic Surgery Male Surgical History: No Pertinent History Other Surgical History: jasvir big toes amputated, 2nd toe on left foot and 3rd toe on right foot, hip with ubaldo and 2 pins, multiple surgeries to right foot Significant Family History: no pertinent family hx (No family history pertaining to this admission reported) - Social History Smoking Status: Never smoker Exposure to second hand smoke: No Alcohol: None Drug Use: marijuana - Social Determinants of Health Will the patient participate in the screening: Yes Do you worry about a steady place to live?: No Do you have any problems with any of the following?: No known problems In the past 12 months,have you had to go without utilities?: No Have you or anyone in your house had to go without enough: No Transportation Issues: No Has anyone in your support network made you feel unsafe?: No Does the patient want assistance with any of the above?: No - Physical Exam Vital Signs: Vital Signs - 24 hr Temp Pulse Resp BP Pulse Ox 10/17/24 08:22 97.4 F 68 18 104/65 99 10/17/24 08:04 97.4 F 68 18 104/65 99 General Appearance: no apparent distress, alert, obese Neurologic Exam: alert, oriented x 3, cooperative, normal mood/affect, nml cerebellar function, nml station & gait, sensation nml, No motor deficits Eye Exam: PERRL/EOMI, eyes nml inspection Ears, Nose, Throat Exam: normal ENT inspection, TMs normal, pharynx normal, moist mucous membranes Neck Exam: normal inspection, non-tender, supple, full range of motion Respiratory Exam: normal breath sounds, lungs clear, No respiratory distress Cardiovascular Exam: regular rate/rhythm, normal heart sounds, normal peripheral pulses Gastrointestinal/Abdomen Exam: soft, normal bowel sounds, No tenderness, No mass Back Exam: normal inspection, normal range of motion, No CVA tenderness, No vertebral tenderness Extremity Exam: normal inspection, normal range of motion, pelvis stable Skin Exam: normal color, warm, dry, other (BLLE wrapped), No rash Lymphatic Exam: No adenopathy Results - Labs Lab/Micro Results: Lab Results-Last 24 Hours 10/17/24 Range/Units 09:10 WBC 5.3 (4.23-9.07) x10^3/uL RBC 4.51 L (4.63-6.08) x10^6/uL Hgb 13.2 L (13.7-17.5) g/dL Hct 41.1 (40.1-51.0) % MCV 91.1 (79.0-92.2) fL MCH 29.3 (25.7-32.2) pg MCHC 32.1 L (32.3-36.5) g/dL RDW 15.1 H (11.6-14.4) % Plt Count 171 (163-337) x10^3/uL MPV 11.0 (9.4-12.4) fL Assessment/Plan (1) Osteomyelitis of toe of left foot Current Visit: Yes Status: Acute Assessment & Plan: - Per podiatry - Scheduled for surgery today - IV antibiotics - CBC, CMP pending - BC x2 pending Code(s): M86.9 - OSTEOMYELITIS, UNSPECIFIED (2) CKD (chronic kidney disease) Current Visit: Yes Status: Chronic Assessment & Plan: - Labs pending Code(s): N18.9 - CHRONIC KIDNEY DISEASE, UNSPECIFIED (3) CAD (coronary artery disease) Current Visit: No Status: Chronic Assessment & Plan: -Status post multiple stents and CABG -Follows up unix administrator regularly last visit was 1 month ago -Will resume all home meds Code(s): I25.10 - ATHSCL HEART DISEASE OF [place] CORONARY ARTERY W/O ANG PCTRS (4) Chronic pain syndrome Current Visit: No Status: Chronic Assessment & Plan: - Continue home narcotic pain medication when not NPO - IV Dilaudid for now since NPO Code(s): G89.4 - CHRONIC PAIN SYNDROME (5) Clostridioides difficile carrier Current Visit: No Status: Chronic Assessment & Plan: - Per last visit lab results - Placed in isolation Code(s): Z22.1 - CARRIER OF OTHER INTESTINAL INFECTIOUS DISEASES (6) HLD (hyperlipidemia) Current Visit: No Status: Chronic Assessment & Plan: - Continue statin Code(s): E78.5 - HYPERLIPIDEMIA, UNSPECIFIED (7) HTN (hypertension) Current Visit: No Status: Chronic Assessment & Plan: - BP stable - Continue home meds Code(s): I10 - ESSENTIAL (PRIMARY) HYPERTENSION (8) Obesity (BMI 30-39.9) Current Visit: No Status: Chronic Assessment & Plan: - Advised ADA diet and exercise control Code(s): E66.9 - OBESITY, UNSPECIFIED (9) Peripheral vascular disease Current Visit: No Status: Chronic Assessment & Plan: - Podiatry consulted - BLLE wrapped Code(s): I73.9 - PERIPHERAL VASCULAR DISEASE, UNSPECIFIED (10) Type 2 diabetes mellitus with diabetic nephropathy Current Visit: No Status: Chronic Assessment & Plan: - Continue gabapentin - A1C 5.77- 10/15/24- controlled - Hold metformin - Humalog s/s - Accuchecks AC/HS VTE: SCD's PPI: Protonix Next of KIN: Ruddy [facility]- [phone] D/C plan: per podiatry when ready Code status: Full Plan of care time > 45 minutes Code(s): E11.21 - TYPE 2 DIABETES MELLITUS WITH DIABETIC NEPHROPATHY
[2024-10-17] MEDS: Coreg 3.125 MG PO SCH (10:48)
[2024-10-17] MEDS: Aldactone 25 MG PO SCH (10:48)
[2024-10-17] MEDS ORDERED: LEVOFLOXACIN 750MG/150ML D5W 750 MG/150 ML BAG IV SCH (11:00)
[2024-10-17] MEDS: Lactated Ringers 1,000 ML IV SCH (12:52)
[2024-10-17] MEDS: Protonix 20MG Tablet PO SCH (12:52)
[2024-10-17] MEDS: VANCOMYCIN 1 GRAM/200 ML BAG 1 GM/200 ML PIGGYBACK IV SCH (12:52)
[2024-10-17] MEDS: PHARMACY DOSING REQUIRED: VANCOMYCIN IV STA (12:55)
[2024-10-17] MEDS: LEVOFLOXACIN 750MG/150ML D5W 750 MG/150 ML BAG IV SCH (14:39)
[2024-10-17] MEDS: ZOCOR 20MG PO SCH (20:50)
[2024-10-17] MEDS: Hydromorphone 1 mg/ml Injection IV PRN (20:54)
[2024-10-18 05:40] LABS: Hematocrit 37.0 % (40.1-51.0); Hemoglobin 12.2 g/dL (13.7-17.5); Mean Corpuscular Hemoglobin 29.8 pg (25.7-32.2); Mean Corpuscular Hgb Concent. 33.0 g/dL (32.3-36.5); Platelet Count 150 x10^3/uL (163-337); Red Blood Count 4.09 x10^6/uL (4.63-6.08); White Blood Count 4.6 x10^3/uL (4.23-9.07)
[2024-10-18 06:08] LABS: Calcium 8.5 mg/dL (8.4-10.2); Carbon Dioxide 21.0 mmol/L (22-30); Creatinine 1 1.37 mg/dL (0.66-1.25); EST GLOMERULAR FILTRATION RATE 60.5 ML/MIN; Glucose 100.0 mg/dL (74-106); Potassium 4.2 mmol/L (3.5-5.1); SGOT/AST 19.0 U/L (17-59); SGPT/ALT 10.0 U/L (0-50); Total Protein 6.6 g/dL (6.3-8.2)
--- NOTE | 2024-10-18 07:01 | PCM.CONS ---
Podiatry HPI - Consult Date of Consultation Date: 10/17/24 Reason for Consult: Osteomyelitis, non pressure ulceration left foot, DFU Consulting Provider: MONTSERRAT BALL DPM - [facility] History of Present Illness: Mr. Garcia is a 54-year-old male with a complex medical history significant for type 2 diabetes mellitus, hypertension, hyperlipidemia, coronary artery disease status post CABG with multiple stents, peripheral artery disease, prior cerebrovascular accident in 2013, and atrial fibrillation currently anticoagulated with Eliquis. He was admitted directly under our service for planned surgical management of osteomyelitis involving the left second metatarsal. Intravenous antibiotics were initiated following review of prior culture results. Current laboratory studies are pending. Per his most recent labs, the patient is a known C. difficile carrier, and he will be maintained under isolation precautions. He denies any other pedal complaints at this time. Medications & Allergies Home Medications: Home Medication List Metformin HCl [Metformin ER Gastric] 1,000 mg PO DAILY 05/16/22 [History Confirmed 10/17/24] Furosemide [Lasix] 20 mg PO UD 03/09/23 [History Confirmed 10/17/24] Potassium Chloride 20 meq PO BID 03/09/23 [History Confirmed 10/17/24] Apixaban [Eliquis] 5 mg PO BID 05/05/23 [History Confirmed 10/17/24] Atorvastatin Calcium 80 mg PO HS 05/05/23 [History Confirmed 10/17/24] Multivitamin 1 each PO DAILY 05/05/23 [History Confirmed 10/17/24] Fluticasone Propionate [Flonase NASAL] 1 spray IH DAILY 12/26/23 [History Confirmed 10/17/24] Gabapentin [Neurontin ] 600 mg PO BID 12/26/23 [History Confirmed 10/17/24] Isosorbide Mononitrate 30 mg [Imdur 30 MG] 30 mg PO DAILY 12/26/23 [History Confirmed 10/17/24] Sacubitril/Valsartan [Entresto 49 mg-51 mg Tablet] 1 tab PO BID 12/26/23 [History Confirmed 10/17/24] Carvedilol 3.125 mg [Coreg 3.125 MG] 3.125 mg PO BID 09/11/25 [History Confirmed 10/17/24] Spironolactone 25 mg [Aldactone 25 MG] 25 mg PO DAILY 10/17/24 [History Confirmed 10/17/24] Allergies/Adverse Reactions: Allergies Allergy/AdvReac Type Severity Reaction Status Date / Time morphine AdvReac vomting Verified 10/17/24 08:04 - Past Medical History Past Medical History: Yes Neurological History: Peripheral Neuropathy, Stroke, TIA ENT History: No Pertinent History Cardiac History: Arrhythmia, Congestive Heart Failure, Coronary Artery Disease, Hypertension, Myocardial Infarction ([place]), Other Respiratory History: CHF Endocrine Medical History: Diabetes Type II Musculoskelatal History: Arthritis GI Medical History: Ulcer History: No Pertinent History Pyscho-Social History: No Pertinent History Male Reproductive Disorders: No Pertinent History Comment: Display Decorator: Dr. Meeks, Medical Affairs Manager: Dr. Byrd, MOST RECENT [place] IN 2019, [place] - Past Surgical History Past Surgical History: Yes Neuro Surgical History: No Pertinent History Cardiac History: Angioplasty, CABG, Cardiac Catheterization, Cardiac Stent Respiratory Surgery: No Pertinent History GI Surgical History: No Pertinent History Genitourinary Surgical Hx: No Pertinent History Musculskeletal Surgical Hx: Amputation, Orthopedic Surgery Male Surgical History: No Pertinent History Other Surgical History: jasvir big toes amputated, 2nd toe on left foot and 3rd toe on right foot, hip with ubaldo and 2 pins, multiple surgeries to right foot Significant Family History: no pertinent family hx (No family history pertaining to this admission reported) - Social History Smoking Status: Never smoker Exposure to second hand smoke: No Alcohol: None Drug Use: marijuana - Social Determinants of Health Will the patient participate in the screening: Yes Do you worry about a steady place to live?: No Do you have any problems with any of the following?: No known problems In the past 12 months,have you had to go without utilities?: No Have you or anyone in your house had to go without enough: No Transportation Issues: No Has anyone in your support network made you feel unsafe?: No Does the patient want assistance with any of the above?: No Physical Exam - Narrative Narrative Physical Exam: Podiatry Physical Exam Results - Labs Lab/Micro Results: Lab Results-Last 24 Hours 10/17/24 10/17/24 10/17/24 Range/Units 09:10 09:10 11:10 WBC 5.3 (4.23-9.07) x10^3/uL RBC 4.51 L (4.63-6.08) x10^6/uL Hgb 13.2 L (13.7-17.5) g/dL Hct 41.1 (40.1-51.0) % MCV 91.1 (79.0-92.2) fL MCH 29.3 (25.7-32.2) pg MCHC 32.1 L (32.3-36.5) g/dL RDW 15.1 H (11.6-14.4) % Plt Count 171 (163-337) x10^3/uL MPV 11.0 (9.4-12.4) fL Sodium 135 (135-145) mmol/L Potassium 4.7 (3.5-5.1) mmol/L Chloride 104 (98-107) mmol/L Carbon Dioxide 19 L (22-30) mmol/L Anion Gap 16.5 H (5-15) MEQ/L BUN 21 H (9-20) mg/dL Creatinine 1.45 H (0.66-1.25) mg/dL Estimated GFR 56.6 ML/MIN Glucose 104 (74-106) mg/dL POC Glucometer 92 (74 to 106) mg/dL Calcium 8.8 (8.4-10.2) mg/dL Total Bilirubin (0.2-1.3) mg/dL AST (17-59) U/L ALT (0-50) U/L Alkaline Phosphatase (38-126) U/L Serum Total Protein (6.3-8.2) g/dL Albumin (3.5-5.0) g/dL Prealbumin 17.72 (17.6-36.0) mg/dL 10/17/24 10/17/24 10/18/24 Range/Units 16:33 22:04 05:30 WBC 4.6 (4.23-9.07) x10^3/uL RBC 4.09 L (4.63-6.08) x10^6/uL Hgb 12.2 L (13.7-17.5) g/dL Hct 37.0 L (40.1-51.0) % MCV 90.5 (79.0-92.2) fL MCH 29.8 (25.7-32.2) pg MCHC 33.0 (32.3-36.5) g/dL RDW 15.3 H (11.6-14.4) % Plt Count 150 L (163-337) x10^3/uL MPV 11.5 (9.4-12.4) fL Sodium (135-145) mmol/L Potassium (3.5-5.1) mmol/L Chloride (98-107) mmol/L Carbon Dioxide (22-30) mmol/L Anion Gap (5-15) MEQ/L BUN (9-20) mg/dL Creatinine (0.66-1.25) mg/dL Estimated GFR ML/MIN Glucose (74-106) mg/dL POC Glucometer 129 H 85 (74 to 106) mg/dL Calcium (8.4-10.2) mg/dL Total Bilirubin (0.2-1.3) mg/dL AST (17-59) U/L ALT (0-50) U/L Alkaline Phosphatase (38-126) U/L Serum Total Protein (6.3-8.2) g/dL Albumin (3.5-5.0) g/dL Prealbumin (17.6-36.0) mg/dL 10/18/24 Range/Units 05:30 WBC (4.23-9.07) x10^3/uL RBC (4.63-6.08) x10^6/uL Hgb (13.7-17.5) g/dL Hct (40.1-51.0) % MCV (79.0-92.2) fL MCH (25.7-32.2) pg MCHC (32.3-36.5) g/dL RDW (11.6-14.4) % Plt Count (163-337) x10^3/uL MPV (9.4-12.4) fL Sodium 132 L (135-145) mmol/L Potassium 4.2 (3.5-5.1) mmol/L Chloride 103 (98-107) mmol/L Carbon Dioxide 21 L (22-30) mmol/L Anion Gap 12.3 (5-15) MEQ/L BUN 22 H (9-20) mg/dL Creatinine 1.37 H (0.66-1.25) mg/dL Estimated GFR 60.5 ML/MIN Glucose 100 (74-106) mg/dL POC Glucometer (74 to 106) mg/dL Calcium 8.5 (8.4-10.2) mg/dL Total Bilirubin 0.30 (0.2-1.3) mg/dL AST 19 (17-59) U/L ALT 10 (0-50) U/L Alkaline Phosphatase 68 (38-126) U/L Serum Total Protein 6.6 (6.3-8.2) g/dL Albumin 3.3 L (3.5-5.0) g/dL Prealbumin (17.6-36.0) mg/dL Accuchecks Date 10/17/24 Date 10/17/24 Time 11:40 Assessment/Plan (1) Osteomyelitis Current Visit: Yes Status: Acute Assessment & Plan: Initiate intravenous antibiotics with PICC line placement for long-term therapy. Patient will require correction facility placement for wound care and IV antibiotic administration. Cultures to be obtained at bedside. Pain control to continue as prescribed. DVT prophylaxis to continue as prescribed. Weight bearing permitted for short distances as tolerated, wheelchair required for distances greater than ten steps. Wound VAC to operate at 125 mmHg continuous suction without evidence of leaks. changes discussed with YARD COUPLER and Minerva Barba RN. Monday and Monday. Will reassess Monday. Bedside procedure performed and dictated in separate report. Will follow with you. Code(s): M86.9 - OSTEOMYELITIS, UNSPECIFIED (2) Cellulitis Current Visit: No Status: Acute Code(s): L03.90 - CELLULITIS, UNSPECIFIED (3) Obesity (BMI 30-39.9) Current Visit: No Status: Chronic Code(s): E66.9 - OBESITY, UNSPECIFIED (4) Ulcer of foot due to type 2 diabetes mellitus Current Visit: No Status: Acute Code(s): E11.621 - TYPE 2 DIABETES MELLITUS WITH FOOT ULCER; L97.509 - NON-PRESSURE CHRONIC ULCER OTH PRT UNSP FOOT W UNSP SEVERITY (5) Diabetic peripheral neuropathy Current Visit: No Status: Chronic Code(s): E11.42 - TYPE 2 DIABETES MELLITUS WITH DIABETIC POLYNEUROPATHY (6) History of atrial fibrillation Current Visit: No Status: Acute Code(s): Z86.79 - PERSONAL HISTORY OF OTHER DISEASES OF THE CIRCULATORY SYSTEM (7) CHF (congestive heart failure) Current Visit: No Status: Acute Code(s): I50.9 - HEART FAILURE, UNSPECIFIED (8) Clostridioides difficile carrier Current Visit: No Status: Chronic Code(s): Z22.1 - CARRIER OF OTHER INTESTINAL INFECTIOUS DISEASES (9) CAD (coronary artery disease) Current Visit: No Status: Chronic Code(s): I25.10 - ATHSCL HEART DISEASE OF [place] CORONARY ARTERY W/O ANG PCTRS
[2024-10-18] MEDS: LASIX 20 MG PO SCH (09:13)
--- NOTE | 2024-10-18 12:12 | PCM.CONS ---
Podiatry HPI - Consult Date of Consultation Date: 10/18/24 Consulting Provider: LYNDSAY TRACEY NP - HPI History of Present Illness: is a 54 year old male With complex medical history significant for type 2 diabetes mellitus, hypertension, hyperlipidemia, coronary artery disease status post CABG with multiple stents, peripheral artery disease, prior cerebrovascular accident 2013, and atrial fibrillation currently anticoagulated with Eliquis. He is 1 day status post incision and drainage with bone debridement. At this time he denies any signs or symptoms consistent with systemic infection. Wound VAC taken down to the level of the incision and drainage with minimal serosanguineous discharge and no signs of extending cellulitis or lymphangitis. Wound VAC to be reapplied by Minerva Barba RN and set to operate at 125 mmHg continuous suction. Right lower extremity to be dressed with iodine Adaptic 4 x 4 and Unna boot. Left lower extremity to be dressed with multilayer compression dressing following negative pressure wound VAC therapy placement Medications & Allergies Home Medications: Home Medication List Metformin HCl [Metformin ER Gastric] 1,000 mg PO DAILY 05/16/22 [History Confir med 10/17/24] Furosemide [Lasix] 20 mg PO UD 03/09/23 [History Confirmed 10/17/24] Potassium Chloride 20 meq PO BID 03/09/23 [History Confirmed 10/17/24] Apixaban [Eliquis] 5 mg PO BID 05/05/23 [History Confirmed 10/17/24] Atorvastatin Calcium 80 mg PO HS 05/05/23 [History Confirmed 10/17/24] Multivitamin 1 each PO DAILY 05/05/23 [History Confirmed 10/17/24] Fluticasone Propionate [Flonase NASAL] 1 spray IH DAILY 12/26/23 [History Confirmed 10/17/24] Gabapentin [Neurontin ] 600 mg PO BID 12/26/23 [History Confirmed 10/17/24] Isosorbide Mononitrate 30 mg [Imdur 30 MG] 30 mg PO DAILY 12/26/23 [History Confirmed 10/17/24] Sacubitril/Valsartan [Entresto 49 mg-51 mg Tablet] 1 tab PO BID 12/26/23 [History Confirmed 10/17/24] Carvedilol 3.125 mg [Coreg 3.125 MG] 3.125 mg PO BID 10/17/24 [History Confirmed 10/17/24] Spironolactone 25 mg [Aldactone 25 MG] 25 mg PO DAILY 10/17/24 [History Confirmed 10/17/24] Allergies/Adverse Reactions: Allergies Allergy/AdvReac Type Severity Reaction Status Date / Time morphine AdvReac vomting Verified 10/17/24 08:04 - Past Medical History Past Medical History: Yes Neurological History: Peripheral Neuropathy, Stroke, TIA ENT History: No Pertinent History Cardiac History: Arrhythmia, Congestive Heart Failure, Coronary Artery Disease, Hypertension, Myocardial Infarction ([place]), Other Respiratory History: CHF Endocrine Medical History: Diabetes Type II Musculoskelatal History: Arthritis GI Medical History: Ulcer History: No Pertinent History Pyscho-Social History: No Pertinent History Male Reproductive Disorders: No Pertinent History Comment: 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, MOST RECENT [place] IN 2019, A.FIB - Past Surgical History Past Surgical History: Yes Neuro Surgical History: No Pertinent History Cardiac History: Angioplasty, CABG, Cardiac Catheterization, Cardiac Stent Respiratory Surgery: No Pertinent History GI Surgical History: No Pertinent History Genitourinary Surgical Hx: No Pertinent History Musculskeletal Surgical Hx: Amputation, Orthopedic Surgery Male Surgical History: No Pertinent History Other Surgical History: jasvir big toes amputated, 2nd toe on left foot and 3rd toe on right foot, hip with ubaldo and 2 pins, multiple surgeries to right foot Significant Family History: no pertinent family hx (No family history pertaining to this admission reported) - Social History Smoking Status: Never smoker Exposure to second hand smoke: No Alcohol: None Drug Use: marijuana - Social Determinants of Health Will the patient participate in the screening: Yes Do you worry about a steady place to live?: No Do you have any problems with any of the following?: No known problems In the past 12 months,have you had to go without utilities?: No Have you or anyone in your house had to go without enough: No Transportation Issues: No Has anyone in your support network made you feel unsafe?: No Does the patient want assistance with any of the above?: No Physical Exam - General General Appearance: no apparent distress, alert - Vascular Peripheral Pulses: Posterior tibialis: 1+, Dorsalis-Pedis: 2+ Capillary Refill Time: < 3 seconds Varicosities: Positive Edema Degree: 2+ Skin Temperature: Warm to touch - Narrative Narrative Physical Exam: Podiatry Physical Exam Results - Labs Lab/Micro Results: Lab Results-Last 24 Hours 10/17/24 10/17/24 10/18/24 Range/Units 16:33 22:04 05:30 WBC 4.6 (4.23-9.07) x10^3/uL RBC 4.09 L (4.63-6.08) x10^6/uL Hgb 12.2 L (13.7-17.5) g/dL Hct 37.0 L (40.1-51.0) % MCV 90.5 (79.0-92.2) fL MCH 29.8 (25.7-32.2) pg MCHC 33.0 (32.3-36.5) g/dL RDW 15.3 H (11.6-14.4) % Plt Count 150 L (163-337) x10^3/uL MPV 11.5 (9.4-12.4) fL Sodium (135-145) mmol/L Potassium (3.5-5.1) mmol/L Chloride (98-107) mmol/L Carbon Dioxide (22-30) mmol/L Anion Gap (5-15) MEQ/L BUN (9-20) mg/dL Creatinine (0.66-1.25) mg/dL Estimated GFR ML/MIN Glucose (74-106) mg/dL POC Glucometer 129 H 85 (74 to 106) mg/dL Calcium (8.4-10.2) mg/dL Total Bilirubin (0.2-1.3) mg/dL AST (17-59) U/L ALT (0-50) U/L Alkaline Phosphatase (38-126) U/L Serum Total Protein (6.3-8.2) g/dL Albumin (3.5-5.0) g/dL 10/18/24 10/18/24 10/18/24 Range/Units 05:30 07:08 11:35 WBC (4.23-9.07) x10^3/uL RBC (4.63-6.08) x10^6/uL Hgb (13.7-17.5) g/dL Hct (40.1-51.0) % MCV (79.0-92.2) fL MCH (25.7-32.2) pg MCHC (32.3-36.5) g/dL RDW (11.6-14.4) % Plt Count (163-337) x10^3/uL MPV (9.4-12.4) fL Sodium 132 L (135-145) mmol/L Potassium 4.2 (3.5-5.1) mmol/L Chloride 103 (98-107) mmol/L Carbon Dioxide 21 L (22-30) mmol/L Anion Gap 12.3 (5-15) MEQ/L BUN 22 H (9-20) mg/dL Creatinine 1.37 H (0.66-1.25) mg/dL Estimated GFR 60.5 ML/MIN Glucose 100 (74-106) mg/dL POC Glucometer 112 H 119 H (74 to 106) mg/dL Calcium 8.5 (8.4-10.2) mg/dL Total Bilirubin 0.30 (0.2-1.3) mg/dL AST 19 (17-59) U/L ALT 10 (0-50) U/L Alkaline Phosphatase 68 (38-126) U/L Serum Total Protein 6.6 (6.3-8.2) g/dL Albumin 3.3 L (3.5-5.0) g/dL Accuchecks Date 10/18/24 Date 10/18/24 Date 10/17/24 Time 11:45 Time 07:47 - Radiology Impressions Radiology Exams & Impressions: Radiology Procedures Category Date Time Status PICC LINE PLACEMENT Routine Exams 10/18/24 10:30 Ordered Assessment/Plan (1) Osteomyelitis Current Visit: Yes Status: Acute Assessment & Plan: Continue intravenous antibiotics with PICC line for long-term therapy Pending medical clearance by medical team patient is okay to be discharged to care home facility for continued wound care and IV antibiotic administration Weightbearing permitted for short distances as tolerated, wheelchair required for distances greater than 10 steps Continue negative pressure wound VAC therapy to left lower extremity set to 125 mmHg with continuous suction without evidence of leaks Code(s): M86.9 - OSTEOMYELITIS, UNSPECIFIED (2) Osteomyelitis of toe of left foot Current Visit: Yes Status: Acute Code(s): M86.9 - OSTEOMYELITIS, UNSPECIFIED (3) Acute on chronic kidney failure Current Visit: No Status: Acute Code(s): N17.9 - ACUTE KIDNEY FAILURE, UNSPECIFIED; N18.9 - CHRONIC KIDNEY DISEASE, UNSPECIFIED (4) Cellulitis Current Visit: No Status: Acute Code(s): L03.90 - CELLULITIS, UNSPECIFIED (5) History of atrial fibrillation Current Visit: No Status: Acute Code(s): Z86.79 - PERSONAL HISTORY OF OTHER DISEASES OF THE CIRCULATORY SYSTEM (6) History of partial amputation of toe of left foot Current Visit: No Status: Acute Code(s): Z89.422 - ACQUIRED ABSENCE OF OTHER LEFT TOE(S)
--- NOTE | 2024-10-18 13:38 | PCM.NOTE ---
Date and Time: 10/18/24 1332 Subjective Assessment: 10/17/24 is a 54 year old male with a complex past medical history including type 2 diabetes mellitus, hypertension, hyperlipidemia, coronary artery disease status post CABG with multiple stents, peripheral artery disease, a prior stroke in 2013, and atrial fibrillation on Eliquis. he was a direct admit today by podiatry and scheduled for surgery of left foot 2nd toe with osteomyelitis. IV antibiotics started after reviewing cultures form previous visits. Labs pending. Pt states he is is to d/c to the [facility] at time of discharge. He has brought in all items from his home with him today. 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 PT to eval pt after surgery as he will need a wound VAC. He denies any further concerns at this time. 10/18/24 Pt resting in bed. He had a bedside debridement with podiatry yesterday. He is awaiting placement at rehab. CM working on approval. Discussed pt case with podiatry and ok with d/c when ready. Podiatry requesting PICC line placement for OP antibiotics. Pt denies any further concerns at this time. - Review of Systems Constitutional: No Fever, No Chills Eyes: No Symptoms Ears, Nose, & Throat: No Symptoms Respiratory: No Cough, No Short Of Breath Cardiac: No Chest Pain, No Edema, No Syncope Abdominal/Gastrointestinal: No Abdominal Pain, No Nausea, No Vomiting, No Diarrhea Genitourinary Symptoms: No Dysuria Musculoskeletal: No Back Pain, No Neck Pain Skin: Other (BLLE wrapped), No Rash Neurological: No Dizziness, No Focal Weakness, No Sensory Changes Psychological: No Symptoms Endocrine: No Symptoms Hematologic/Lymphatic: No Symptoms Immunological/Allergic: No Symptoms Objective Exam General Appearance: no apparent distress, alert Neurologic Exam: alert, oriented x 3, cooperative, normal mood/affect, nml cerebellar function, sensation nml, motor weakness, No motor deficits Skin Exam: normal color, warm, dry Wound Assessment: Skin/Wound Assessment Wound/Incision Assessment Start: 10/17/24 08:45 Text: Status: Active Freq: Q6H Protocol: Document 10/18/24 09:00 DS (Rec: 10/18/24 09:57 DS [id number]) Wound/Incision Assessment Left foot (previous 2nd toe site) Wound Assessment Shift Assessment Wound Type Amputation Comment area dressed by dr. chris. Unable to assess properly. Right lateral foot Comment unable to assess d/t wrapped lower extremity. Wound Photo Photo Taken No Date: 10/17/24 Time: 13:30 Eye Exam: PERRL, EOMI, eyes nml inspection Ears, Nose, Throat Exam: normal ENT inspection, pharynx normal, moist mucous membranes Neck Exam: normal inspection, non-tender, supple, full range of motion Respiratory Exam: normal breath sounds, lungs clear, No respiratory distress Cardiovascular Exam: regular rate/rhythm, normal heart sounds Gastrointestinal/Abdomen Exam: soft, No tenderness, No mass Extremity Exam: normal inspection, normal range of motion, tenderness (BLLE wrapped) Back Exam: normal inspection, normal range of motion, No CVA tenderness, No vertebral tenderness Male Genitalia Exam: deferred Rectal Exam: deferred Objective Data Vital Signs: Vital Signs - 24 hr Temp Pulse Resp BP Pulse Ox 10/18/24 11:46 97.7 F 75 17 115/62 97 10/18/24 07:47 97.5 F 55 L 17 108/67 95 10/18/24 04:00 96.8 F 53 L 17 92/54 97 10/18/24 01:55 97.8 F 53 L 18 110/70 96 10/17/24 19:51 97.5 F 61 18 94/56 99 10/17/24 14:00 97.7 F 55 L 16 93/58 99 Pain Assessment - Last Documented Pain Intensity 0 Pain Scale Used 0-10 Pain Scale,FLACC Intake and Output: Intake & Output 10/16/24 10/17/24 10/18/24 10/19/24 11:59 11:59 11:59 11:59 Intake Total 3595 Output Total 900 Balance 2695 Weight 101.1 kg 101.1 kg Lab Results: Lab Results-Last 24 Hours 10/17/24 10/17/24 10/18/24 Range/Units 16:33 22:04 05:30 WBC 4.6 (4.23-9.07) x10^3/uL RBC 4.09 L (4.63-6.08) x10^6/uL Hgb 12.2 L (13.7-17.5) g/dL Hct 37.0 L (40.1-51.0) % MCV 90.5 (79.0-92.2) fL MCH 29.8 (25.7-32.2) pg MCHC 33.0 (32.3-36.5) g/dL RDW 15.3 H (11.6-14.4) % Plt Count 150 L (163-337) x10^3/uL MPV 11.5 (9.4-12.4) fL Sodium (135-145) mmol/L Potassium (3.5-5.1) mmol/L Chloride (98-107) mmol/L Carbon Dioxide (22-30) mmol/L Anion Gap (5-15) MEQ/L BUN (9-20) mg/dL Creatinine (0.66-1.25) mg/dL Estimated GFR ML/MIN Glucose (74-106) mg/dL POC Glucometer 129 H 85 (74 to 106) mg/dL Calcium (8.4-10.2) mg/dL Total Bilirubin (0.2-1.3) mg/dL AST (17-59) U/L ALT (0-50) U/L Alkaline Phosphatase (38-126) U/L Serum Total Protein (6.3-8.2) g/dL Albumin (3.5-5.0) g/dL 10/18/24 10/18/24 10/18/24 Range/Units 05:30 07:08 11:35 WBC (4.23-9.07) x10^3/uL RBC (4.63-6.08) x10^6/uL Hgb (13.7-17.5) g/dL Hct (40.1-51.0) % MCV (79.0-92.2) fL MCH (25.7-32.2) pg MCHC (32.3-36.5) g/dL RDW (11.6-14.4) % Plt Count (163-337) x10^3/uL MPV (9.4-12.4) fL Sodium 132 L (135-145) mmol/L Potassium 4.2 (3.5-5.1) mmol/L Chloride 103 (98-107) mmol/L Carbon Dioxide 21 L (22-30) mmol/L Anion Gap 12.3 (5-15) MEQ/L BUN 22 H (9-20) mg/dL Creatinine 1.37 H (0.66-1.25) mg/dL Estimated GFR 60.5 ML/MIN Glucose 100 (74-106) mg/dL POC Glucometer 112 H 119 H (74 to 106) mg/dL Calcium 8.5 (8.4-10.2) mg/dL Total Bilirubin 0.30 (0.2-1.3) mg/dL AST 19 (17-59) U/L ALT 10 (0-50) U/L Alkaline Phosphatase 68 (38-126) U/L Serum Total Protein 6.6 (6.3-8.2) g/dL Albumin 3.3 L (3.5-5.0) g/dL Medications: Medications Generic Name Dose Route Start Last Admin Trade Name Freq PRN Reason Stop Dose Admin Carvedilol 3.125 mg 10/17/24 10:00 10/18/24 09:08 Carvedilol 3.125 Mg Tablet PO 11/16/24 09:59 3.125 mg BID VALERIE Administration Device 1 10/19/24 09:30 Therapuetic Drug Level Monitor Each IJ 10/19/24 09:31 1XONLY ONE Fluticasone Propionate 0 gm 10/17/24 10:00 10/18/24 09:07 Fluticasone Propionate 16 Gm Bottle Nasal [place] NS 11/16/24 09:59 16 gm DAILY VALERIE Administration Furosemide 20 mg 10/18/24 10:00 10/18/24 09:13 Furosemide 20 Mg Tablet PO 11/17/24 09:59 20 mg MoWeFr VALERIE Administration Gabapentin 600 mg 10/17/24 10:00 10/18/24 09:08 Gabapentin 300 Mg Capsule PO 11/16/24 09:59 600 mg BID VALERIE Administration Hydromorphone HCl 1 mg 10/17/24 09:35 10/17/24 20:54 Hydromorphone 1 Mg/1ml Inj IV 10/22/24 09:34 1 mg Q4H PRN PRN Administration PAIN Lactated Ringer's 1,000 mls @ 75 mls/hr 10/17/24 10:30 10/18/24 06:51 Lactated Ringers IV 11/16/24 10:29 75 mls/hr .[id number] VALERIE Administration Levofloxacin/Dextrose 750 mg in 150 mls @ 100 mls/hr 10/17/24 12:00 10/18/24 11:47 Levofloxacin 750mg/150ml D5w IV 11/16/24 10:59 100 mls/hr NOON VALERIE Administration Vancomycin HCl 1 gm in 200 mls @ 133.333 mls/hr 10/17/24 11:00 10/18/24 09:13 Vancomycin 1 Gram/200 Ml Bag IV 11/16/24 10:59 133.333 mls/hr Q12HT VALERIE Administration Insulin Human Lispro 0 unit 10/17/24 09:36 Insulin Lispro 1 Unit SQ 11/16/24 09:35 UD PRN HYPERGLYCEMIA Isosorbide Mononitrate 30 mg 10/17/24 10:00 10/18/24 09:08 Isosorbide Mononitrate 30 Mg Tab PO 11/16/24 09:59 30 mg DAILY VALERIE Administration Multivitamins Therapeutic 1 tab 10/17/24 10:00 10/18/24 09:08 Multivitamins,Therapeutic 1 Tab Tab PO 11/16/24 09:59 1 tab DAILY VALERIE Administration Pantoprazole Sodium 20 mg 10/17/24 11:00 10/18/24 09:08 Pantoprazole 20 Mg Tab PO 11/16/24 10:59 20 mg DAILY VALERIE Administration Potassium Chloride 20 meq 10/17/24 10:00 10/18/24 09:08 Potassium Chloride Tab 10 Meq Tab PO 11/16/24 09:59 20 meq BID VALERIE Administration Prochlorperazine Edisylate 10 mg 10/17/24 09:36 Prochlorperazine Edisylate 10 Mg/2 Ml Vial IV 11/16/24 09:35 Q6H PRN PRN NAUSEA/VOMITING Sacubitril/Valsartan 1 tablet 10/17/24 10:00 10/18/24 09:08 Sacubitril/Valsartan 1 Tablet Tablet PO 11/16/24 09:59 1 tablet BID VALERIE Administration Simvastatin 40 mg 10/17/24 22:00 10/17/24 20:50 Simvastatin 20 Mg Tablet PO 11/16/24 21:59 40 mg HS VALERIE Administration Spironolactone 25 mg 10/17/24 10:00 10/18/24 09:08 Spironolactone 25 Mg Tablet PO 11/16/24 09:59 25 mg DAILY VALERIE Administration Discontinued Medications Generic Name Dose Route Start Last Admin Trade Name Freq PRN Reason Stop Dose Admin Levofloxacin/Dextrose 750 mg in 150 mls @ 100 mls/hr 10/17/24 11:00 Levofloxacin 750mg/150ml D5w IV 11/16/24 10:59 [id number] VALERIE Non-Formulary Medication 1 each 10/17/24 09:32 10/17/24 12:55 Pharmacy Dose Request: Vancomycin 1 Each IV 10/17/24 09:33 1 each STAT STA Administration Ondansetron HCl 4 mg 10/17/24 09:26 Ondansetron Hcl 4 Mg/2 Ml Vial IV 11/16/24 09:25 Q6H PRN PRN NAUSEA/VOMITING Multi-Disciplinary Progress Notes: Multi-Disciplinary Progress Notes 10/18/24 09:17 Case Management Note by Melissa Grier AT THE [facility], THEY HAVE AUTH FOR HIM TO COME AND IS VALID UNTIL 10/20/24, BUT HIS LEVEL OF CARE IS STILL PENDING. THEY WILL LIKELY HAVE TO RESUBMIT AUTH FIRST OF WEEK, WE ARE STILL WAITING ON LOC CLEARANCE FROM [place] [facility]. Initialized on 10/18/24 09:17 - END OF NOTE 10/18/24 08:44 Case Management Note by Una Dewey REFERRAL FAXED TO THE [facility] WITH DR HENRY CHADWICK'S NOTE AND [place] MED LIST. AWAITING APPROVAL FOR LOC. Initialized on 10/18/24 08:44 - END OF NOTE Assessment/Plan (1) Osteomyelitis of toe of left foot Current Visit: Yes Status: Acute Code(s): M86.9 - OSTEOMYELITIS, UNSPECIFIED (2) CKD (chronic kidney disease) Current Visit: Yes Status: Chronic Code(s): N18.9 - CHRONIC KIDNEY DISEASE, UNSPECIFIED (3) CAD (coronary artery disease) Current Visit: No Status: Chronic Code(s): I25.10 - ATHSCL HEART DISEASE OF [place] CORONARY ARTERY W/O ANG PCTRS (4) Chronic pain syndrome Current Visit: No Status: Chronic Code(s): G89.4 - CHRONIC PAIN SYNDROME (5) Clostridioides difficile carrier Current Visit: No Status: Chronic Code(s): Z22.1 - CARRIER OF OTHER INTESTINAL INFECTIOUS DISEASES (6) HLD (hyperlipidemia) Current Visit: No Status: Chronic Code(s): E78.5 - HYPERLIPIDEMIA, UNSPECIFIED (7) HTN (hypertension) Current Visit: No Status: Chronic Code(s): I10 - ESSENTIAL (PRIMARY) HYPERTENSION (8) Obesity (BMI 30-39.9) Current Visit: No Status: Chronic Code(s): E66.9 - OBESITY, UNSPECIFIED (9) Peripheral vascular disease Current Visit: No Status: Chronic Code(s): I73.9 - PERIPHERAL VASCULAR DISEASE, UNSPECIFIED (10) Type 2 diabetes mellitus with diabetic nephropathy Current Visit: No Status: Chronic Assessment & Plan: (1) Osteomyelitis of toe of left foot Current Visit: Yes Status: Acute Assessment & Plan: - Per podiatry - Scheduled for surgery today - IV antibiotics - CBC, CMP pending - BC x2 pending 10/18 - WC pending - Bedside debridement by podiatry yesterday - OK per podiatry to d/c when ready to rehab, also wants PICC line for OP antibiotics. - CBC, CMP reviewed - Wound vac Code(s): M86.9 - OSTEOMYELITIS, UNSPECIFIED (2) CKD (chronic kidney disease) Current Visit: Yes Status: Chronic Assessment & Plan: - Labs pending 10/18 - Creat 1.37- BL 1.30 - LR at 75ml/hr Code(s): N18.9 - CHRONIC KIDNEY DISEASE, UNSPECIFIED (3) CAD (coronary artery disease) Current Visit: No Status: Chronic Assessment & Plan: -Status post multiple stents and CABG -Follows up manager labor delivery regularly last visit was 1 month ago -Will resume all home meds Code(s): I25.10 - ATHSCL HEART DISEASE OF [place] CORONARY ARTERY W/O ANG PCTRS (4) Chronic pain syndrome Current Visit: No Status: Chronic Assessment & Plan: - IV Dilaudid PRN Code(s): G89.4 - CHRONIC PAIN SYNDROME (5) Clostridioides difficile carrier Current Visit: No Status: Chronic Assessment & Plan: - Per last visit lab results - Placed in isolation Code(s): Z22.1 - CARRIER OF OTHER INTESTINAL INFECTIOUS DISEASES (6) HLD (hyperlipidemia) Current Visit: No Status: Chronic Assessment & Plan: - Continue statin Code(s): E78.5 - HYPERLIPIDEMIA, UNSPECIFIED (7) HTN (hypertension) Current Visit: No Status: Chronic Assessment & Plan: - BP stable - Continue home meds Code(s): I10 - ESSENTIAL (PRIMARY) HYPERTENSION (8) Obesity (BMI 30-39.9) Current Visit: No Status: Chronic Assessment & Plan: - Advised ADA diet and exercise control Code(s): E66.9 - OBESITY, UNSPECIFIED (9) Peripheral vascular disease Current Visit: No Status: Chronic Assessment & Plan: - Podiatry consulted - BLLE wrapped Code(s): I73.9 - PERIPHERAL VASCULAR DISEASE, UNSPECIFIED (10) Type 2 diabetes mellitus with diabetic nephropathy Current Visit: No Status: Chronic Assessment & Plan: - Continue gabapentin - A1C 5.77- 10/15/24- controlled - Hold metformin - Humalog s/s - Accuchecks AC/HS VTE: SCD's PPI: Protonix Next of KIN: Ruddy Lancaster- [phone] D/C plan: pending placement Code status: Full Plan of care time > 45 minutes Code(s): E11.21 - TYPE 2 DIABETES MELLITUS WITH DIABETIC NEPHROPATHY Code(s): E11.21 - TYPE 2 DIABETES MELLITUS WITH DIABETIC NEPHROPATHY
[2024-10-18] MEDS: Docusate Sodium 100 MG PO PRN (20:29)
[2024-10-19] MEDS: NORCO 5/325 MG PO ONE (05:30)
[2024-10-19 06:00] LABS: Hematocrit 40.3 % (40.1-51.0); Hemoglobin 13.1 g/dL (13.7-17.5); Mean Corpuscular Hemoglobin 29.0 pg (25.7-32.2); Mean Corpuscular Hgb Concent. 32.5 g/dL (32.3-36.5); Platelet Count 153 x10^3/uL (163-337); Red Blood Count 4.51 x10^6/uL (4.63-6.08); White Blood Count 5.0 x10^3/uL (4.23-9.07)
[2024-10-19 06:11] LABS: Calcium 9.0 mg/dL (8.4-10.2); Carbon Dioxide 19.0 mmol/L (22-30); Creatinine 1 1.32 mg/dL (0.66-1.25); EST GLOMERULAR FILTRATION RATE 63.3 ML/MIN; Glucose 86.0 mg/dL (74-106); Potassium 4.2 mmol/L (3.5-5.1)
--- NOTE | 2024-10-19 08:45 | PCM.NOTE ---
Date and Time: 10/19/24 0840 Subjective Assessment: 10/17/24 is a 54 year old male with a complex past medical history including type 2 diabetes mellitus, hypertension, hyperlipidemia, coronary artery disease status post CABG with multiple stents, peripheral artery disease, a prior stroke in 2013, and atrial fibrillation on Eliquis. he was a direct admit today by podiatry and scheduled for surgery of left foot 2nd toe with osteomyelitis. IV antibiotics started after reviewing cultures form previous visits. Labs pending. Pt states he is is to d/c to the [facility] at time of discharge. He has brought in all items from his home with him today. 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 PT to eval pt after surgery as he will need a wound VAC. He denies any further concerns at this time. 10/18/24 Pt resting in bed. He had a bedside debridement with podiatry yesterday. He is awaiting placement at rehab. CM working on approval. Discussed pt case with podiatry and ok with d/c when ready. Podiatry requesting PICC line placement for OP antibiotics. Pt denies any further concerns at this time. 10/19/24 Pt resting in bed. IV pain med changed to PO PRN. Pt refused IVF so they were stopped last night per nursing. Kidney function at baseline. PICC line to be placed today for OP antibiotics. BCx2 and UC negative. Pt awaiting placement. He denies any further concerns at this time. - Review of Systems Constitutional: No Fever, No Chills Eyes: No Symptoms Ears, Nose, & Throat: No Symptoms Respiratory: No Cough, No Short Of Breath Cardiac: No Chest Pain, No Edema, No Syncope Abdominal/Gastrointestinal: No Abdominal Pain, No Nausea, No Vomiting, No Diarrhea Genitourinary Symptoms: No Dysuria Musculoskeletal: No Back Pain, No Neck Pain Skin: Other (BLLE wrapped), No Rash Neurological: No Dizziness, No Focal Weakness, No Sensory Changes Psychological: No Symptoms Endocrine: No Symptoms Hematologic/Lymphatic: No Symptoms Immunological/Allergic: No Symptoms Objective Exam General Appearance: no apparent distress, alert, obese Neurologic Exam: alert, oriented x 3, cooperative, normal mood/affect, nml cerebellar function, sensation nml, No motor deficits Skin Exam: normal color, warm, dry Wound Assessment: Skin/Wound Assessment Wound/Incision Assessment Start: 10/17/24 08:45 Text: Status: Active Freq: Q6H Protocol: Document 10/19/24 03:00 CWB (Rec: 10/19/24 04:00 CWB [id number]) Wound/Incision Assessment Left foot (previous 2nd toe site) Wound Assessment Shift Assessment Wound Type Amputation Comment area dressed by dr. chris. Unable to assess properly.- remains true Right lateral foot Comment unable to assess d/t wrapped lower extremity.- remains true Left Lower Foot Drain Type Hemovac Wound Photo Photo Taken No Eye Exam: PERRL, EOMI, eyes nml inspection Ears, Nose, Throat Exam: normal ENT inspection, pharynx normal, moist mucous membranes Neck Exam: normal inspection, non-tender, supple, full range of motion Respiratory Exam: normal breath sounds, lungs clear, No respiratory distress Cardiovascular Exam: regular rate/rhythm, normal heart sounds Gastrointestinal/Abdomen Exam: soft, No tenderness, No mass Extremity Exam: normal inspection, normal range of motion, tenderness (BLLE wrapped) Back Exam: normal inspection, normal range of motion, No CVA tenderness, No vertebral tenderness Male Genitalia Exam: deferred Rectal Exam: deferred Objective Data Vital Signs: Vital Signs - 24 hr Temp Pulse Resp BP Pulse Ox 10/19/24 07:21 97.7 F 53 L 16 123/65 99 10/19/24 03:54 97.4 F 62 18 138/79 100 10/18/24 23:39 97.5 F 56 L 18 127/58 99 10/18/24 20:00 97.8 F 62 18 113/67 98 10/18/24 16:00 97.5 F 60 17 137/80 98 10/18/24 11:46 97.7 F 75 17 115/62 97 Pain Assessment - Last Documented Pain Intensity 5 Pain Scale Used 0-10 Pain Scale Intake and Output: Intake & Output 10/16/24 10/17/24 10/18/24 10/19/24 11:59 11:59 11:59 11:59 Intake Total 3595 2819 Output Total 900 900 Balance 2695 6269 Weight 101.1 kg 101.1 kg Lab Results: Lab Results-Last 24 Hours 10/18/24 10/18/24 10/18/24 Range/Units 11:35 16:19 21:04 WBC (4.23-9.07) x10^3/uL RBC (4.63-6.08) x10^6/uL Hgb (13.7-17.5) g/dL Hct (40.1-51.0) % MCV (79.0-92.2) fL MCH (25.7-32.2) pg MCHC (32.3-36.5) g/dL RDW (11.6-14.4) % Plt Count (163-337) x10^3/uL MPV (9.4-12.4) fL Sodium (135-145) mmol/L Potassium (3.5-5.1) mmol/L Chloride (98-107) mmol/L Carbon Dioxide (22-30) mmol/L Anion Gap (5-15) MEQ/L BUN (9-20) mg/dL Creatinine (0.66-1.25) mg/dL Estimated GFR ML/MIN Glucose (74-106) mg/dL POC Glucometer 119 H 108 H 90 (74 to 106) mg/dL Calcium (8.4-10.2) mg/dL 10/19/24 10/19/24 10/19/24 Range/Units 05:56 05:56 07:13 WBC 5.0 (4.23-9.07) x10^3/uL RBC 4.51 L (4.63-6.08) x10^6/uL Hgb 13.1 L (13.7-17.5) g/dL Hct 40.3 (40.1-51.0) % MCV 89.4 (79.0-92.2) fL MCH 29.0 (25.7-32.2) pg MCHC 32.5 (32.3-36.5) g/dL RDW 15.0 H (11.6-14.4) % Plt Count 153 L (163-337) x10^3/uL MPV 11.4 (9.4-12.4) fL Sodium 134 L (135-145) mmol/L Potassium 4.2 (3.5-5.1) mmol/L Chloride 103 (98-107) mmol/L Carbon Dioxide 19 L (22-30) mmol/L Anion Gap 15.9 H (5-15) MEQ/L BUN 24 H (9-20) mg/dL Creatinine 1.32 H (0.66-1.25) mg/dL Estimated GFR 63.3 ML/MIN Glucose 86 (74-106) mg/dL POC Glucometer 79 (74 to 106) mg/dL Calcium 9.0 (8.4-10.2) mg/dL Medications: Medications Generic Name Dose Route Start Last Admin Trade Name Freq PRN Reason Stop Dose Admin Carvedilol 3.125 mg 10/17/24 10:00 10/18/24 20:29 Carvedilol 3.125 Mg Tablet PO 11/16/24 09:59 3.125 mg BID VALERIE Administration Device 1 10/19/24 09:30 Therapuetic Drug Level Monitor Each IJ 10/19/24 09:31 1XONLY ONE Docusate Sodium 100 mg 10/18/24 19:38 10/18/24 20:29 Docusate Sodium 100 Mg Capsule PO 11/17/24 19:37 100 mg BIDPRN PRN Administration CONSTIPATION Fluticasone Propionate 0 gm 10/17/24 10:00 10/18/24 09:07 Fluticasone Propionate 16 Gm Bottle Nasal Freedom NS 11/16/24 09:59 16 gm DAILY VALERIE Administration Furosemide 20 mg 10/18/24 10:00 10/18/24 09:13 Furosemide 20 Mg Tablet PO 11/17/24 09:59 20 mg MoWeFr VALERIE Administration Gabapentin 600 mg 10/17/24 10:00 10/18/24 20:29 Gabapentin 300 Mg Capsule PO 11/16/24 09:59 600 mg BID VALERIE Administration Lactated Ringer's 1,000 mls @ 75 mls/hr 10/17/24 10:30 10/19/24 01:25 Lactated Ringers IV 11/16/24 10:29 75 mls/hr .[id number] VALERIE Administration Levofloxacin/Dextrose 750 mg in 150 mls @ 100 mls/hr 10/17/24 12:00 10/18/24 11:47 Levofloxacin 750mg/150ml D5w IV 11/16/24 10:59 100 mls/hr NOON VALERIE Administration Vancomycin HCl 1 gm in 200 mls @ 133.333 mls/hr 10/17/24 11:00 10/18/24 21:41 Vancomycin 1 Gram/200 Ml Bag IV 11/16/24 10:59 133.333 mls/hr Q12HT VALERIE Administration Insulin Human Lispro 0 unit 10/17/24 09:36 Insulin Lispro 1 Unit SQ 11/16/24 09:35 UD PRN HYPERGLYCEMIA Isosorbide Mononitrate 30 mg 10/17/24 10:00 10/18/24 09:08 Isosorbide Mononitrate 30 Mg Tab PO 11/16/24 09:59 30 mg DAILY VALERIE Administration Multivitamins Therapeutic 1 tab 10/17/24 10:00 10/18/24 09:08 Multivitamins,Therapeutic 1 Tab Tab PO 11/16/24 09:59 1 tab DAILY VALERIE Administration Pantoprazole Sodium 20 mg 10/17/24 11:00 10/18/24 09:08 Pantoprazole 20 Mg Tab PO 11/16/24 10:59 20 mg DAILY VALERIE Administration Potassium Chloride 20 meq 10/17/24 10:00 10/18/24 20:29 Potassium Chloride Tab 10 Meq Tab PO 11/16/24 09:59 20 meq BID VALERIE Administration Prochlorperazine Edisylate 10 mg 10/17/24 09:36 Prochlorperazine Edisylate 10 Mg/2 Ml Vial IV 11/16/24 09:35 Q6H PRN PRN NAUSEA/VOMITING Sacubitril/Valsartan 1 tablet 10/17/24 10:00 10/18/24 20:29 Sacubitril/Valsartan 1 Tablet Tablet PO 11/16/24 09:59 1 tablet BID VALERIE Administration Simvastatin 40 mg 10/17/24 22:00 10/18/24 20:29 Simvastatin 20 Mg Tablet PO 11/16/24 21:59 40 mg HS VALERIE Administration Spironolactone 25 mg 10/17/24 10:00 10/18/24 09:08 Spironolactone 25 Mg Tablet PO 11/16/24 09:59 25 mg DAILY VALERIE Administration Tramadol HCl 50 mg 10/19/24 07:30 Tramadol Hcl 50 Mg Tablet PO 11/18/24 07:29 QID PRN PRN PAIN Discontinued Medications Generic Name Dose Route Start Last Admin Trade Name Freq PRN Reason Stop Dose Admin Hydrocodone Bitart/Acetaminophen 1 tab 10/19/24 05:30 10/19/24 05:30 Hydrocodone/Apap 5/325 1 Tab Tablet PO 10/19/24 05:31 1 tab STAT ONE Administration Hydromorphone HCl 1 mg 10/17/24 09:35 10/18/24 20:28 Hydromorphone 1 Mg/1ml Inj IV 10/22/24 09:34 1 mg Q4H PRN PRN Administration PAIN Levofloxacin/Dextrose 750 mg in 150 mls @ 100 mls/hr 10/17/24 11:00 Levofloxacin 750mg/150ml D5w IV 11/16/24 10:59 Q24H10 [facility] Non-Formulary Medication 1 each 10/17/24 09:32 10/17/24 12:55 Pharmacy Dose Request: Vancomycin 1 Each IV 10/17/24 09:33 1 each STAT STA Administration Ondansetron HCl 4 mg 10/17/24 09:26 Ondansetron Hcl 4 Mg/2 Ml Vial IV 11/16/24 09:25 Q6H PRN PRN NAUSEA/VOMITING Multi-Disciplinary Progress Notes: Multi-Disciplinary Progress Notes 10/18/24 09:17 Case Management Note by Melissa Grier AT THE [facility], THEY HAVE AUTH FOR HIM TO COME AND IS VALID UNTIL 10/20/24, BUT HIS LEVEL OF CARE IS STILL PENDING. THEY WILL LIKELY HAVE TO RESUBMIT AUTH FIRST OF WEEK, WE ARE STILL WAITING ON LOC CLEARANCE FROM [facility]. Initialized on 10/18/24 09:17 - END OF NOTE 10/18/24 08:44 Case Management Note by Una Dewey REFERRAL FAXED TO THE [facility] WITH DR HENRY CHADWICK'S NOTE AND [place] MED LIST. AWAITING APPROVAL FOR LOC. Initialized on 10/18/24 08:44 - END OF NOTE Assessment/Plan (1) Osteomyelitis of toe of left foot Current Visit: Yes Status: Acute Code(s): M86.9 - OSTEOMYELITIS, UNSPECIFIED (2) CKD (chronic kidney disease) Current Visit: Yes Status: Chronic Code(s): N18.9 - CHRONIC KIDNEY DISEASE, UNSPECIFIED (3) CAD (coronary artery disease) Current Visit: No Status: Chronic Code(s): I25.10 - ATHSCL HEART DISEASE OF [place] CORONARY ARTERY W/O ANG PCTRS (4) Chronic pain syndrome Current Visit: No Status: Chronic Code(s): G89.4 - CHRONIC PAIN SYNDROME (5) Clostridioides difficile carrier Current Visit: No Status: Chronic Code(s): Z22.1 - CARRIER OF OTHER INTESTINAL INFECTIOUS DISEASES (6) HLD (hyperlipidemia) Current Visit: No Status: Chronic Code(s): E78.5 - HYPERLIPIDEMIA, UNSPECIFIED (7) HTN (hypertension) Current Visit: No Status: Chronic Code(s): I10 - ESSENTIAL (PRIMARY) HYPERTENSION (8) Obesity (BMI 30-39.9) Current Visit: No Status: Chronic Code(s): E66.9 - OBESITY, UNSPECIFIED (9) Peripheral vascular disease Current Visit: No Status: Chronic Code(s): I73.9 - PERIPHERAL VASCULAR DISEASE, UNSPECIFIED (10) Type 2 diabetes mellitus with diabetic nephropathy Current Visit: No Status: Chronic Assessment & Plan: (1) Osteomyelitis of toe of left foot Current Visit: Yes Status: Acute Assessment & Plan: - Per podiatry - See plan of care notes - Scheduled for surgery today - IV antibiotics - CBC, CMP pending - BC x2 pending 10/18 - WC pending - Bedside debridement by podiatry yesterday - OK per podiatry to d/c when ready to rehab, also wants PICC line for OP antibiotics. 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 last visit was 1 month ago -Will resume all home meds Code(s): I25.10 - ATHSCL HEART DISEASE OF [place] CORONARY ARTERY W/O ANG PCTRS (4) Chronic pain syndrome Current Visit: No Status: Chronic Assessment & Plan: - IV Dilaudid PRN- stopped - Changed to tramadol PRN - Pt has decreased sensation in BLLE Code(s): G89.4 - CHRONIC PAIN SYNDROME (5) Clostridioides difficile carrier Current Visit: No Status: Chronic Assessment & Plan: - Per last visit lab results - Placed in isolation Code(s): Z22.1 - CARRIER OF OTHER INTESTINAL INFECTIOUS DISEASES (6) HLD (hyperlipidemia) Current Visit: No Status: Chronic Assessment & Plan: - Continue statin Code(s): E78.5 - HYPERLIPIDEMIA, UNSPECIFIED (7) HTN (hypertension) Current Visit: No Status: Chronic Assessment & Plan: - BP stable - Continue home meds Code(s): I10 - ESSENTIAL (PRIMARY) HYPERTENSION (8) Obesity (BMI 30-39.9) Current Visit: No Status: Chronic Assessment & Plan: - Advised ADA diet and exercise control Code(s): E66.9 - OBESITY, UNSPECIFIED (9) Peripheral vascular disease Current Visit: No Status: Chronic Assessment & Plan: - Podiatry consulted - BLLE wrapped Code(s): I73.9 - PERIPHERAL VASCULAR DISEASE, UNSPECIFIED (10) Type 2 diabetes mellitus with diabetic nephropathy Current Visit: No Status: Chronic Assessment & Plan: - Continue gabapentin - A1C 5.77- 10/15/24- controlled - Hold metformin - Humalog s/s - Accuchecks AC/HS VTE: SCD's PPI: Protonix Next of KIN: Ruddy Lancaster- [phone] D/C plan: pending placement Code status: Full Plan of care time > 40 minutes Code(s): E11.21 - TYPE 2 DIABETES MELLITUS WITH DIABETIC NEPHROPATHY
--- NOTE | 2024-10-19 11:44 | XRAY ---
CLINICAL HISTORY: picc COMPARISON: 08/20/2024 CR. TECHNIQUE: X-ray images of the chest were obtained in PA projection. FINDINGS: Pulmonary Parenchyma: Left-sided PICC is seen in place. Bilateral increased lung markings with bilateral basal non-homogeneous haziness. No evidence of pleural effusion or pleural thickening. Heart and Mediastinum: Heart size and shape are normal. No mediastinal widening or masses. No hilar or mediastinal lymphadenopathy. Bony Thorax: thoracic spine internal metallic fixation Bony thorax appears intact without fractures or deformities. Soft Tissues: Soft tissues overlying the chest wall are unremarkable. A few surgical metallic clips are noted. IMPRESSION: 1. Bilateral increased lung markings with bilateral basal non-homogeneous haziness. likely non-specific could be age-related/projectional. 2. Left-sided PICC is seen in place. new. 3. No other interval changes were detected. Electronically Signed by: Pablo Shen MD. (10/19/2024 11:43:08 EDT)
[2024-10-19] MEDS: ULTRAM 50 MG PO PRN (17:37)
[2024-10-19] MEDS: ATARAX 25 MG PO ONE (23:39)
[2024-10-19] MEDS: MELATONIN PO PRN (23:39)
[2024-10-20 05:55] LABS: Hematocrit 36.2 % (40.1-51.0); Hemoglobin 11.9 g/dL (13.7-17.5); Mean Corpuscular Hemoglobin 29.7 pg (25.7-32.2); Mean Corpuscular Hgb Concent. 32.9 g/dL (32.3-36.5); Platelet Count 156 x10^3/uL (163-337); Red Blood Count 4.01 x10^6/uL (4.63-6.08); White Blood Count 6.2 x10^3/uL (4.23-9.07)
[2024-10-20 06:13] LABS: Calcium 8.7 mg/dL (8.4-10.2); Carbon Dioxide 20.0 mmol/L (22-30); Creatinine 1 1.36 mg/dL (0.66-1.25); EST GLOMERULAR FILTRATION RATE 61.1 ML/MIN; Glucose 95.0 mg/dL (74-106); Potassium 4.6 mmol/L (3.5-5.1)
[2024-10-20] MEDS: TROUGH DRUG LEVELS IJ ONE ×2 (07:29→12:02)
--- NOTE | 2024-10-20 10:46 | PCM.NOTE ---
Date and Time: 10/20/24 1042 Subjective Assessment: 10/17/24 is a 54 year old male with a complex past medical history including type 2 diabetes mellitus, hypertension, hyperlipidemia, coronary artery disease status post CABG with multiple stents, peripheral artery disease, a prior stroke in 2013, and atrial fibrillation on Eliquis. he was a direct admit today by podiatry and scheduled for surgery of left foot 2nd toe with osteomyelitis. IV antibiotics started after reviewing cultures form previous visits. Labs pending. Pt states he is is to d/c to the [facility], [place] at time of discharge. He has brought in all items from his home with him today. 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 PT to eval pt after surgery as he will need a wound VAC. He denies any further concerns at this time. 10/18/24 Pt resting in bed. He had a bedside debridement with podiatry yesterday. He is awaiting placement at rehab. CM working on approval. Discussed pt case with podiatry and ok with d/c when ready. Podiatry requesting PICC line placement for OP antibiotics. Pt denies any further concerns at this time. 10/19/24 Pt resting in bed. IV pain med changed to PO PRN. Pt refused IVF so they were stopped last night per nursing. Kidney function at baseline. PICC line to be placed today for OP antibiotics. BCx2 and UC negative. Pt awaiting placement. He denies any further concerns at this time. 10/20/24 No new overnight changes. PICC line placed yesterday. Pt continues to await placement. Denies any further concerns at this time. - Review of Systems Constitutional: No Fever, No Chills Eyes: No Symptoms Ears, Nose, & Throat: No Symptoms Respiratory: No Cough, No Short Of Breath Cardiac: No Chest Pain, No Edema, No Syncope Abdominal/Gastrointestinal: No Abdominal Pain, No Nausea, No Vomiting, No Diarrhea Genitourinary Symptoms: No Dysuria Musculoskeletal: No Back Pain, No Neck Pain Skin: Other (BLLE wrapped), No Rash Neurological: No Dizziness, No Focal Weakness, No Sensory Changes Psychological: No Symptoms Endocrine: No Symptoms Hematologic/Lymphatic: No Symptoms Immunological/Allergic: No Symptoms Objective Exam General Appearance: no apparent distress, alert, obese Neurologic Exam: alert, oriented x 3, cooperative, normal mood/affect, nml cerebellar function, sensation nml, motor weakness (BLLE), No motor deficits Skin Exam: normal color, warm, dry Wound Assessment: Skin/Wound Assessment Wound/Incision Assessment Start: 10/17/24 08:45 Text: Status: Active Freq: Q6H Protocol: Document 10/20/24 03:00 CWB (Rec: 10/20/24 03:43 CWB [id number]) Wound/Incision Assessment Left foot (previous 2nd toe site) Wound Assessment Shift Assessment Wound Type Amputation Right lateral foot Comment unable to assess d/t wrapped lower extremity.- remains true Left Lower Foot Drain Type Hemovac Wound Photo Photo Taken No Eye Exam: PERRL, EOMI, eyes nml inspection Ears, Nose, Throat Exam: normal ENT inspection, pharynx normal, moist mucous membranes Neck Exam: normal inspection, non-tender, supple, full range of motion Respiratory Exam: normal breath sounds, lungs clear, No respiratory distress Cardiovascular Exam: regular rate/rhythm, normal heart sounds Gastrointestinal/Abdomen Exam: soft, No tenderness, No mass Extremity Exam: normal inspection, normal range of motion, tenderness (BLLE wrapped) Back Exam: normal inspection, normal range of motion, No CVA tenderness, No vertebral tenderness Male Genitalia Exam: deferred Rectal Exam: deferred Objective Data Vital Signs: Vital Signs - 24 hr Temp Pulse Resp BP Pulse Ox 10/20/24 07:23 97.8 F 54 L 16 91/54 95 10/20/24 03:30 97.9 F 54 L 17 94/50 93 L 10/19/24 23:33 98.5 F 69 16 100/55 96 10/19/24 19:42 97.8 F 69 18 102/62 96 10/19/24 16:00 97.3 F 58 L 16 89/58 97 10/19/24 11:36 97.3 F 70 16 116/65 98 Pain Assessment - Last Documented Pain Intensity 5 Pain Scale Used 0-10 Pain Scale Intake and Output: Intake & Output 10/17/24 10/18/24 10/19/24 10/20/24 11:59 11:59 11:59 11:59 Intake Total 3595 3299 1200 Output Total 900 900 550 Balance 4365 4069 650 Weight 101.1 kg 101.1 kg Lab Results: Lab Results-Last 24 Hours 10/19/24 10/19/24 10/19/24 Range/Units 11:22 15:11 16:36 WBC (4.23-9.07) x10^3/uL RBC (4.63-6.08) x10^6/uL Hgb (13.7-17.5) g/dL Hct (40.1-51.0) % MCV (79.0-92.2) fL MCH (25.7-32.2) pg MCHC (32.3-36.5) g/dL RDW (11.6-14.4) % Plt Count (163-337) x10^3/uL MPV (9.4-12.4) fL Sodium (135-145) mmol/L Potassium (3.5-5.1) mmol/L Chloride (98-107) mmol/L Carbon Dioxide (22-30) mmol/L Anion Gap (5-15) MEQ/L BUN (9-20) mg/dL Creatinine (0.66-1.25) mg/dL Estimated GFR ML/MIN Glucose (74-106) mg/dL POC Glucometer 147 H 79 99 (74 to 106) mg/dL Calcium (8.4-10.2) mg/dL Vancomycin Trough (10-20) ug/mL 10/19/24 10/20/24 10/20/24 Range/Units 20:35 05:45 05:45 WBC 6.2 (4.23-9.07) x10^3/uL RBC 4.01 L (4.63-6.08) x10^6/uL Hgb 11.9 L (13.7-17.5) g/dL Hct 36.2 L (40.1-51.0) % MCV 90.3 (79.0-92.2) fL MCH 29.7 (25.7-32.2) pg MCHC 32.9 (32.3-36.5) g/dL RDW 15.1 H (11.6-14.4) % Plt Count 156 L (163-337) x10^3/uL MPV 11.2 (9.4-12.4) fL Sodium 133 L (135-145) mmol/L Potassium 4.6 (3.5-5.1) mmol/L Chloride 105 (98-107) mmol/L Carbon Dioxide 20 L (22-30) mmol/L Anion Gap 12.5 (5-15) MEQ/L BUN 24 H (9-20) mg/dL Creatinine 1.36 H (0.66-1.25) mg/dL Estimated GFR 61.1 ML/MIN Glucose 95 (74-106) mg/dL POC Glucometer 145 H (74 to 106) mg/dL Calcium 8.7 (8.4-10.2) mg/dL Vancomycin Trough (10-20) ug/mL 10/20/24 10/20/24 Range/Units 07:08 09:40 WBC (4.23-9.07) x10^3/uL RBC (4.63-6.08) x10^6/uL Hgb (13.7-17.5) g/dL Hct (40.1-51.0) % MCV (79.0-92.2) fL MCH (25.7-32.2) pg MCHC (32.3-36.5) g/dL RDW (11.6-14.4) % Plt Count (163-337) x10^3/uL MPV (9.4-12.4) fL Sodium (135-145) mmol/L Potassium (3.5-5.1) mmol/L Chloride (98-107) mmol/L Carbon Dioxide (22-30) mmol/L Anion Gap (5-15) MEQ/L BUN (9-20) mg/dL Creatinine (0.66-1.25) mg/dL Estimated GFR ML/MIN Glucose (74-106) mg/dL POC Glucometer 89 (74 to 106) mg/dL Calcium (8.4-10.2) mg/dL Vancomycin Trough 16.65 (10-20) ug/mL Radiology Exams: Radiology Procedures Category Date Time Status CHEST 1 VIEW (PORTABLE) Stat Exams 10/19/24 10:40 Completed Medications: Medications Generic Name Dose Route Start Last Admin Trade Name Freq PRN Reason Stop Dose Admin Carvedilol 3.125 mg 10/17/24 10:00 10/20/24 10:03 Carvedilol 3.125 Mg Tablet PO 11/16/24 09:59 Not Given BID VALERIE Docusate Sodium 100 mg 10/18/24 19:38 10/19/24 20:53 Docusate Sodium 100 Mg Capsule PO 11/17/24 19:37 100 mg BIDPRN PRN Administration CONSTIPATION Fluticasone Propionate 0 gm 10/17/24 10:00 10/20/24 09:58 Fluticasone Propionate 16 Gm Bottle Nasal [place] NS 11/16/24 09:59 16 gm DAILY VALERIE Administration Furosemide 20 mg 10/18/24 10:00 10/18/24 09:13 Furosemide 20 Mg Tablet PO 11/17/24 09:59 20 mg MoWeFr VALERIE Administration Gabapentin 600 mg 10/17/24 10:00 10/20/24 09:58 Gabapentin 300 Mg Capsule PO 11/16/24 09:59 600 mg BID VALERIE Administration Lactated Ringer's 1,000 mls @ 75 mls/hr 10/17/24 10:30 10/19/24 01:25 Lactated Ringers IV 11/16/24 10:29 75 mls/hr .[id number] VALERIE Administration Levofloxacin/Dextrose 750 mg in 150 mls @ 100 mls/hr 10/17/24 12:00 10/19/24 11:18 Levofloxacin 750mg/150ml D5w IV 11/16/24 10:59 100 mls/hr NOON VALERIE Administration Vancomycin HCl 1 gm in 200 mls @ 133.333 mls/hr 10/17/24 11:00 10/19/24 20:53 Vancomycin 1 Gram/200 Ml Bag IV 11/16/24 10:59 133.333 mls/hr Q12HT VALERIE Administration Insulin Human Lispro 0 unit 10/17/24 09:36 Insulin Lispro 1 Unit SQ 11/16/24 09:35 UD PRN HYPERGLYCEMIA Isosorbide Mononitrate 30 mg 10/17/24 10:00 10/20/24 09:58 Isosorbide Mononitrate 30 Mg Tab PO 11/16/24 09:59 30 mg DAILY VALERIE Administration Melatonin 3 mg 10/19/24 23:00 10/19/24 23:39 Melatonin 3 Mg Tablet PO 11/18/24 22:59 3 mg HS PRN PRN Administration INSOMNIA Multivitamins Therapeutic 1 tab 10/17/24 10:00 10/20/24 09:58 Multivitamins,Therapeutic 1 Tab Tab PO 11/16/24 09:59 1 tab DAILY VALERIE Administration Pantoprazole Sodium 20 mg 10/17/24 11:00 10/20/24 09:58 Pantoprazole 20 Mg Tab PO 11/16/24 10:59 20 mg DAILY VALERIE Administration Potassium Chloride 20 meq 10/17/24 10:00 10/20/24 09:58 Potassium Chloride Tab 10 Meq Tab PO 11/16/24 09:59 20 meq BID VALERIE Administration Prochlorperazine Edisylate 10 mg 10/17/24 09:36 Prochlorperazine Edisylate 10 Mg/2 Ml Vial IV 11/16/24 09:35 Q6H PRN PRN NAUSEA/VOMITING Sacubitril/Valsartan 1 tablet 10/17/24 10:00 10/20/24 09:58 Sacubitril/Valsartan 1 Tablet Tablet PO 11/16/24 09:59 1 tablet BID VALERIE Administration Simvastatin 40 mg 10/17/24 22:00 10/19/24 20:53 Simvastatin 20 Mg Tablet PO 11/16/24 21:59 40 mg HS VALERIE Administration Spironolactone 25 mg 10/17/24 10:00 10/20/24 10:02 Spironolactone 25 Mg Tablet PO 11/16/24 09:59 Not Given DAILY VALERIE Tramadol HCl 50 mg 10/19/24 07:30 10/20/24 10:02 Tramadol Hcl 50 Mg Tablet PO 11/18/24 07:29 50 mg QID PRN PRN Administration PAIN Discontinued Medications Generic Name Dose Route Start Last Admin Trade Name Freq PRN Reason Stop Dose Admin Hydrocodone Bitart/Acetaminophen 1 tab 10/19/24 05:30 10/19/24 05:30 Hydrocodone/Apap 5/325 1 Tab Tablet PO 10/19/24 05:31 1 tab STAT ONE Administration Device 1 10/19/24 09:30 10/20/24 07:29 Therapuetic Drug Level Monitor Each IJ 10/19/24 09:31 Not Given 1XONLY ONE Device 1 10/20/24 09:30 Therapuetic Drug Level Monitor Each IJ 10/20/24 09:31 1XONLY ONE Hydromorphone HCl 1 mg 10/17/24 09:35 10/18/24 20:28 Hydromorphone 1 Mg/1ml Inj IV 10/22/24 09:34 1 mg Q4H PRN PRN Administration PAIN Hydroxyzine HCl 25 mg 10/19/24 23:20 10/19/24 23:39 Hydroxyzine Hcl 25 Mg Tablet PO 10/19/24 23:21 25 mg STAT ONE Administration Levofloxacin/Dextrose 750 mg in 150 mls @ 100 mls/hr 10/17/24 11:00 Levofloxacin 750mg/150ml D5w IV 11/16/24 10:59 Q24H10 [facility] Non-Formulary Medication 1 each 10/17/24 09:32 10/17/24 12:55 Pharmacy Dose Request: Vancomycin 1 Each IV 10/17/24 09:33 1 each STAT STA Administration Ondansetron HCl 4 mg 10/17/24 09:26 Ondansetron Hcl 4 Mg/2 Ml Vial IV 11/16/24 09:25 Q6H PRN PRN NAUSEA/VOMITING Assessment/Plan (1) Osteomyelitis of toe of left foot Current Visit: Yes Status: Acute Code(s): M86.9 - OSTEOMYELITIS, UNSPECIFIED (2) CKD (chronic kidney disease) Current Visit: Yes Status: Chronic Code(s): N18.9 - CHRONIC KIDNEY DISEASE, UNSPECIFIED (3) CAD (coronary artery disease) Current Visit: No Status: Chronic Code(s): I25.10 - ATHSCL HEART DISEASE OF [place] CORONARY ARTERY W/O ANG PCTRS (4) Chronic pain syndrome Current Visit: No Status: Chronic Code(s): G89.4 - CHRONIC PAIN SYNDROME (5) Clostridioides difficile carrier Current Visit: No Status: Chronic Code(s): Z22.1 - CARRIER OF OTHER INTESTINAL INFECTIOUS DISEASES (6) HLD (hyperlipidemia) Current Visit: No Status: Chronic Code(s): E78.5 - HYPERLIPIDEMIA, UNSPECIFIED (7) HTN (hypertension) Current Visit: No Status: Chronic Code(s): I10 - ESSENTIAL (PRIMARY) HYPERTENSION (8) Obesity (BMI 30-39.9) Current Visit: No Status: Chronic Code(s): E66.9 - OBESITY, UNSPECIFIED (9) Peripheral vascular disease Current Visit: No Status: Chronic Code(s): I73.9 - PERIPHERAL VASCULAR DISEASE, UNSPECIFIED (10) Type 2 diabetes mellitus with diabetic nephropathy Current Visit: No Status: Chronic Assessment & Plan: (1) Osteomyelitis of toe of left foot Current Visit: Yes Status: Acute Assessment & Plan: - Per podiatry - See plan of care notes - Scheduled for surgery today - IV antibiotics - CBC, CMP pending - BC x2 pending 10/18 - WC pending - Bedside debridement by podiatry yesterday - OK per podiatry to d/c when ready to rehab, also wants PICC line for OP antibiotics. 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 supervisor assembling regularly last visit was 1 month ago -Will resume all home meds Code(s): I25.10 - ATHSCL HEART DISEASE OF [place] CORONARY ARTERY W/O ANG PCTRS (4) Chronic pain syndrome Current Visit: No Status: Chronic Assessment & Plan: - IV Dilaudid PRN- stopped - Changed to tramadol PRN - Pt has decreased sensation in BLLE Code(s): G89.4 - CHRONIC PAIN SYNDROME (5) Clostridioides difficile carrier Current Visit: No Status: Chronic Assessment & Plan: - Per last visit lab results - Placed in isolation Code(s): Z22.1 - CARRIER OF OTHER INTESTINAL INFECTIOUS DISEASES (6) HLD (hyperlipidemia) Current Visit: No Status: Chronic Assessment & Plan: - Continue statin Code(s): E78.5 - HYPERLIPIDEMIA, UNSPECIFIED (7) HTN (hypertension) Current Visit: No Status: Chronic Assessment & Plan: - BP stable - Continue home meds Code(s): I10 - ESSENTIAL (PRIMARY) HYPERTENSION (8) Obesity (BMI 30-39.9) Current Visit: No Status: Chronic Assessment & Plan: - Advised ADA diet and exercise control Code(s): E66.9 - OBESITY, UNSPECIFIED (9) Peripheral vascular disease Current Visit: No Status: Chronic Assessment & Plan: - Podiatry consulted- reviewed not and agree with plan of care - BLLE wrapped Code(s): I73.9 - PERIPHERAL VASCULAR DISEASE, UNSPECIFIED (10) Type 2 diabetes mellitus with diabetic nephropathy Current Visit: No Status: Chronic Assessment & Plan: - Continue gabapentin - A1C 5.77- 10/15/24- controlled - Hold metformin - Humalog s/s - Accuchecks AC/HS VTE: SCD's PPI: Protonix Next of KIN: Ruddy Lancaster- [phone] D/C plan: pending placement Code status: Full Plan of care time > 40 minutes Code(s): E11.21 - TYPE 2 DIABETES MELLITUS WITH DIABETIC NEPHROPATHY Code(s): E11.21 - TYPE 2 DIABETES MELLITUS WITH DIABETIC NEPHROPATHY
[2024-10-20] MEDS: Lidoderm Patch 5% TOP ONE (23:25)
[2024-10-21 05:06] LABS: Hematocrit 40.4 % (40.1-51.0); Hemoglobin 12.7 g/dL (13.7-17.5); Mean Corpuscular Hemoglobin 29.0 pg (25.7-32.2); Mean Corpuscular Hgb Concent. 31.4 g/dL (32.3-36.5); Platelet Count 173 x10^3/uL (163-337); Red Blood Count 4.38 x10^6/uL (4.63-6.08); White Blood Count 5.8 x10^3/uL (4.23-9.07)
--- NOTE | 2024-10-21 05:08 | PCM.NOTE ---
Date and Time: 10/21/24 0502 Subjective Assessment: Mr. 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 He has undergone bedside debridement by podiatry with plans for wound VAC placement and outpatient IV antibiotics via PICC line. PICC Placed 10/19/24. IV antibiotics were initiated after review of prior cultures, and blood and urine cultures obtained during this admission remain negative. CBC and CMP have been stable, with creatinine near baseline (1.3). Pain management was transitioned from IV opioids to oral agents, and renal function has remained stable off IV fluids. He continues in contact isolation given prior positive C. difficile testing. Case management is coordinating discharge placement to a rehab facility per patient preference, and he remains medically stable. PICC placed. 10/21/24: Patient was evaluated at the bedside and reported mild pain in the right hip and right shoulder, rating his overall discomfort as 5 /10 on the numerical pain scale. Right shoulder x-ray revealed no acute findings. Case was reviewed with podiatry, and the plan is for the patient to complete 14 total days of levofloxacin and 14 total days of daptomycin. correction facility placement is pending insurance approval. Medically, the patient is stable and ready for discharge once placement is authorized. - Review of Systems Constitutional: No Symptoms Eyes: No Symptoms Ears, Nose, & Throat: No Symptoms Respiratory: No Symptoms Cardiac: No Symptoms Abdominal/Gastrointestinal: No Symptoms Genitourinary Symptoms: No Symptoms Musculoskeletal: Joint Pain (right shoulder/hip) Skin: Other (right foot surgical incision with dressing CDI) Neurological: No Symptoms Psychological: No Symptoms Endocrine: No Symptoms Hematologic/Lymphatic: No Symptoms Objective Exam General Appearance: no apparent distress Neurologic Exam: alert, oriented x 3, cooperative Skin Exam: normal color, warm, dry, other (surgical incision to right 2nd toe covered in surgical dressing CDI) Wound Assessment: Skin/Wound Assessment Wound/Incision Assessment Start: 10/17/24 08:45 Text: Status: Active Freq: Q6H Protocol: Document 10/21/24 02:19 AK (Rec: 10/21/24 02:19 AK [id number]) Wound/Incision Assessment Left foot (previous 2nd toe site) Wound Assessment Shift Assessment Wound Type Amputation Wound Stage Non Pressure Wound Dressing Status Dry & Intact Comment wound vac in place with - 125mmHg continuous suction Right lateral foot Wound Assessment Shift Assessment Wound Type Diabetic ulcer Wound Stage Non Pressure Wound Dressing Status Dry & Intact Comment REED wound - dressing CDI Left Lower Foot Odor None/Absent Drainage Amount (ml) 0 Comment wound vac at -125mmHg continuous suction - no drainage in tubing or cannister Wound Photo Photo Taken No Eye Exam: PERRL Ears, Nose, Throat Exam: normal ENT inspection Neck Exam: normal inspection Respiratory Exam: normal breath sounds, lungs clear Cardiovascular Exam: regular rate/rhythm, normal heart sounds Gastrointestinal/Abdomen Exam: soft, normal bowel sounds Extremity Exam: swelling (RLE) Back Exam: normal inspection Male Genitalia Exam: deferred Rectal Exam: deferred Objective Data Vital Signs: Vital Signs - 24 hr Temp Pulse Resp BP Pulse Ox 10/21/24 04:26 97.0 F 57 L 18 108/63 95 10/20/24 23:49 98.1 F 56 L 17 95/53 95 10/20/24 23:32 98.1 F 56 L 17 95/53 95 10/20/24 19:57 97.9 F 58 L 16 97/52 95 10/20/24 18:32 58 L 16 98/43 10/20/24 16:00 97.2 F 60 16 87/51 97 10/20/24 11:25 97.6 F 56 L 16 113/58 96 10/20/24 07:23 97.8 F 54 L 16 91/54 95 Pain Assessment - Last Documented Pain Intensity 4 Pain Scale Used 0-10 Pain Scale Intake and Output: Intake & Output 10/18/24 10/19/24 10/20/24 10/21/24 11:59 11:59 11:59 11:59 Intake Total 3595 3299 1580 3289 Output Total 275 457 2548 1200 Balance 2695 2399 330 2089 Weight 101.1 kg Lab Results: Lab Results-Last 24 Hours 10/20/24 10/20/24 10/20/24 Range/Units 05:45 05:45 07:08 WBC 6.2 (4.23-9.07) x10^3/uL RBC 4.01 L (4.63-6.08) x10^6/uL Hgb 11.9 L (13.7-17.5) g/dL Hct 36.2 L (40.1-51.0) % MCV 90.3 (79.0-92.2) fL MCH 29.7 (25.7-32.2) pg MCHC 32.9 (32.3-36.5) g/dL RDW 15.1 H (11.6-14.4) % Plt Count 156 L (163-337) x10^3/uL MPV 11.2 (9.4-12.4) fL Sodium 133 L (135-145) mmol/L Potassium 4.6 (3.5-5.1) mmol/L Chloride 105 (98-107) mmol/L Carbon Dioxide 20 L (22-30) mmol/L Anion Gap 12.5 (5-15) MEQ/L BUN 24 H (9-20) mg/dL Creatinine 1.36 H (0.66-1.25) mg/dL Estimated GFR 61.1 ML/MIN Glucose 95 (74-106) mg/dL POC Glucometer 89 (74 to 106) mg/dL Calcium 8.7 (8.4-10.2) mg/dL Vancomycin Trough (10-20) ug/mL 10/20/24 10/20/24 10/20/24 Range/Units 09:40 11:14 16:02 WBC (4.23-9.07) x10^3/uL RBC (4.63-6.08) x10^6/uL Hgb (13.7-17.5) g/dL Hct (40.1-51.0) % MCV (79.0-92.2) fL MCH (25.7-32.2) pg MCHC (32.3-36.5) g/dL RDW (11.6-14.4) % Plt Count (163-337) x10^3/uL MPV (9.4-12.4) fL Sodium (135-145) mmol/L Potassium (3.5-5.1) mmol/L Chloride (98-107) mmol/L Carbon Dioxide (22-30) mmol/L Anion Gap (5-15) MEQ/L BUN (9-20) mg/dL Creatinine (0.66-1.25) mg/dL Estimated GFR ML/MIN Glucose (74-106) mg/dL POC Glucometer 118 H 143 H (74 to 106) mg/dL Calcium (8.4-10.2) mg/dL Vancomycin Trough 16.65 (10-20) ug/mL 10/20/24 Range/Units 20:54 WBC (4.23-9.07) x10^3/uL RBC (4.63-6.08) x10^6/uL Hgb (13.7-17.5) g/dL Hct (40.1-51.0) % MCV (79.0-92.2) fL MCH (25.7-32.2) pg MCHC (32.3-36.5) g/dL RDW (11.6-14.4) % Plt Count (163-337) x10^3/uL MPV (9.4-12.4) fL Sodium (135-145) mmol/L Potassium (3.5-5.1) mmol/L Chloride (98-107) mmol/L Carbon Dioxide (22-30) mmol/L Anion Gap (5-15) MEQ/L BUN (9-20) mg/dL Creatinine (0.66-1.25) mg/dL Estimated GFR ML/MIN Glucose (74-106) mg/dL POC Glucometer 140 H (74 to 106) mg/dL Calcium (8.4-10.2) mg/dL Vancomycin Trough (10-20) ug/mL Radiology Exams: Radiology Procedures Category Date Time Status CHEST 1 VIEW (PORTABLE) Stat Exams 10/19/24 10:40 Completed Medications: Medications Generic Name Dose Route Start Last Admin Trade Name Freq PRN Reason Stop Dose Admin Carvedilol 3.125 mg 10/17/24 10:00 10/20/24 19:38 Carvedilol 3.125 Mg Tablet PO 11/16/24 09:59 Not Given BID VALERIE Docusate Sodium 100 mg 10/18/24 19:38 10/20/24 19:45 Docusate Sodium 100 Mg Capsule PO 11/17/24 19:37 100 mg BIDPRN PRN Administration CONSTIPATION Fluticasone Propionate 0 gm 10/17/24 10:00 10/20/24 09:58 Fluticasone Propionate 16 Gm Bottle Nasal [place] NS 11/16/24 09:59 16 gm DAILY VALERIE Administration Furosemide 20 mg 10/18/24 10:00 10/18/24 09:13 Furosemide 20 Mg Tablet PO 11/17/24 09:59 20 mg MoWeFr VALERIE Administration Gabapentin 600 mg 10/17/24 10:00 10/20/24 19:44 Gabapentin 300 Mg Capsule PO 11/16/24 09:59 600 mg BID VALERIE Administration Lactated Ringer's 1,000 mls @ 75 mls/hr 10/17/24 10:30 10/20/24 18:32 Lactated Ringers IV 11/16/24 10:29 Not Given .[id number] VALERIE Levofloxacin/Dextrose 750 mg in 150 mls @ 100 mls/hr 10/17/24 12:00 10/20/24 13:26 Levofloxacin 750mg/150ml D5w IV 11/16/24 10:59 100 mls/hr NOON VALERIE Administration Vancomycin HCl 1 gm in 200 mls @ 133.333 mls/hr 10/17/24 11:00 10/20/24 22:03 Vancomycin 1 Gram/200 Ml Bag IV 11/16/24 10:59 133.333 mls/hr Q12HT VALERIE Administration Insulin Human Lispro 0 unit 10/17/24 09:36 Insulin Lispro 1 Unit SQ 11/16/24 09:35 UD PRN HYPERGLYCEMIA Isosorbide Mononitrate 30 mg 10/17/24 10:00 10/20/24 09:58 Isosorbide Mononitrate 30 Mg Tab PO 11/16/24 09:59 30 mg DAILY VALERIE Administration Lidocaine 1 patch 10/20/24 23:23 10/20/24 23:25 Lidocaine Hcl 1 Patch Patch TOP 10/20/24 23:24 1 patch ONCE ONE Administration Melatonin 3 mg 10/19/24 23:00 10/20/24 22:03 Melatonin 3 Mg Tablet PO 11/18/24 22:59 3 mg HS PRN PRN Administration INSOMNIA Multivitamins Therapeutic 1 tab 10/17/24 10:00 10/20/24 09:58 Multivitamins,Therapeutic 1 Tab Tab PO 11/16/24 09:59 1 tab DAILY VALERIE Administration Pantoprazole Sodium 20 mg 10/17/24 11:00 10/20/24 09:58 Pantoprazole 20 Mg Tab PO 11/16/24 10:59 20 mg DAILY VALERIE Administration Potassium Chloride 20 meq 10/17/24 10:00 10/20/24 19:45 Potassium Chloride Tab 10 Meq Tab PO 11/16/24 09:59 20 meq BID VALERIE Administration Prochlorperazine Edisylate 10 mg 10/17/24 09:36 Prochlorperazine Edisylate 10 Mg/2 Ml Vial IV 11/16/24 09:35 Q6H PRN PRN NAUSEA/VOMITING Sacubitril/Valsartan 1 tablet 10/17/24 10:00 10/20/24 19:45 Sacubitril/Valsartan 1 Tablet Tablet PO 11/16/24 09:59 1 tablet BID VALERIE Administration Simvastatin 40 mg 10/17/24 22:00 10/20/24 19:44 Simvastatin 20 Mg Tablet PO 11/16/24 21:59 40 mg HS VALERIE Administration Spironolactone 25 mg 10/17/24 10:00 10/20/24 10:02 Spironolactone 25 Mg Tablet PO 11/16/24 09:59 Not Given DAILY VALERIE Tramadol HCl 50 mg 10/19/24 07:30 10/21/24 04:25 Tramadol Hcl 50 Mg Tablet PO 11/18/24 07:29 50 mg QID PRN PRN Administration PAIN Discontinued Medications Generic Name Dose Route Start Last Admin Trade Name Freq PRN Reason Stop Dose Admin Hydrocodone Bitart/Acetaminophen 1 tab 10/19/24 05:30 10/19/24 05:30 Hydrocodone/Apap 5/325 1 Tab Tablet PO 10/19/24 05:31 1 tab STAT ONE Administration Device 1 10/19/24 09:30 10/20/24 07:29 Therapuetic Drug Level Monitor Each IJ 10/19/24 09:31 Not Given 1XONLY ONE Device 1 10/20/24 09:30 10/20/24 12:02 Therapuetic Drug Level Monitor Each IJ 10/20/24 09:31 1 1XONLY ONE Administration Hydromorphone HCl 1 mg 10/17/24 09:35 10/18/24 20:28 Hydromorphone 1 Mg/1ml Inj IV 10/22/24 09:34 1 mg Q4H PRN PRN Administration PAIN Hydroxyzine HCl 25 mg 10/19/24 23:20 10/19/24 23:39 Hydroxyzine Hcl 25 Mg Tablet PO 10/19/24 23:21 25 mg STAT ONE Administration Levofloxacin/Dextrose 750 mg in 150 mls @ 100 mls/hr 10/17/24 11:00 Levofloxacin 750mg/150ml D5w IV 11/16/24 10:59 Q24H10 [facility] Non-Formulary Medication 1 each 10/17/24 09:32 10/17/24 12:55 Pharmacy Dose Request: Vancomycin 1 Each IV 10/17/24 09:33 1 each STAT STA Administration Ondansetron HCl 4 mg 10/17/24 09:26 Ondansetron Hcl 4 Mg/2 Ml Vial IV 11/16/24 09:25 Q6H PRN PRN NAUSEA/VOMITING Assessment/Plan (1) Osteomyelitis of toe of left foot Current Visit: Yes Status: Acute Assessment & Plan: -Podiatry following; bedside debridement performed 10/18 -IV Levaquin/Vanc per culture data (previous cultures with enterococcus/psuedomonas putida/staph aureus from 09/16;09/23;09/30); plan for OP antibiotics via PICC line placed 10/19/24 -patient to continue for a total of 14 days Dapto/Levaquin per podiatry OP -CBC, CMP monitored daily within acceptable range - WBC at 5.3 -Blood cultures negative x2 -Wound VAC -Medically stable for discharge once placement approved Code(s): M86.9 - OSTEOMYELITIS, UNSPECIFIED (2) CKD (chronic kidney disease) Current Visit: Yes Status: Chronic Assessment & Plan: -Baseline creatinine 1.3 (admission 1.37 now reviewed at 1.19 -IVF initially started, later discontinued per patient preference -Renal function remains stable near baseline Code(s): N18.9 - CHRONIC KIDNEY DISEASE, UNSPECIFIED (3) CAD (coronary artery disease) Current Visit: No Status: Chronic Assessment & Plan: -Hx CABG and multiple stents -Follows cardiology; last visit 1 month prior -Resume all home cardiac medications Code(s): I25.10 - ATHSCL HEART DISEASE OF [place] CORONARY ARTERY W/O ANG PCTRS (4) Chronic pain syndrome Current Visit: No Status: Chronic Assessment & Plan: -IV dilaudid PRN discontinued -Pain regimen transitioned to tramadol PRN -Baseline neuropathy with decreased sensation in bilateral lower extremities Code(s): G89.4 - CHRONIC PAIN SYNDROME (5) Clostridioides difficile carrier Current Visit: No Status: Chronic Assessment & Plan: -Prior positive testing -Placed on contact isolation precautions Code(s): Z22.1 - CARRIER OF OTHER INTESTINAL INFECTIOUS DISEASES (6) HLD (hyperlipidemia) Current Visit: No Status: Chronic Assessment & Plan: -Continue home statin therapy Code(s): E78.5 - HYPERLIPIDEMIA, UNSPECIFIED (7) HTN (hypertension) Current Visit: No Status: Chronic Assessment & Plan: -BP stable on home regimen Code(s): I10 - ESSENTIAL (PRIMARY) HYPERTENSION (8) Obesity (BMI 30-39.9) Current Visit: No Status: Chronic Assessment & Plan: -[employer] on ADA diet and exercise for weight management Code(s): E66.9 - OBESITY, UNSPECIFIED (9) Peripheral vascular disease Current Visit: No Status: Chronic Assessment & Plan: -Podiatry following -Bilateral lower extremities wrapped Code(s): I73.9 - PERIPHERAL VASCULAR DISEASE, UNSPECIFIED (10) Type 2 diabetes mellitus with diabetic nephropathy Current Visit: No Status: Chronic Assessment & Plan: -A1C 5.77 (10/15/24), well-controlled -Continue gabapentin for neuropathy -Hold metformin during hospitalization -Use Humalog sliding scale; accuchecks AC/HS VTE: SCD's PPI: Protonix Next of KIN: Ruddy Lancaster- [phone] D/C plan: pending placement Code status: Full Plan of care time > 35 minutes Code(s): E11.21 - TYPE 2 DIABETES MELLITUS WITH DIABETIC NEPHROPATHY
[2024-10-21 05:17] LABS: Calcium 8.9 mg/dL (8.4-10.2); Carbon Dioxide 19.0 mmol/L (22-30); Creatinine 1 1.19 mg/dL (0.66-1.25); EST GLOMERULAR FILTRATION RATE 71.7 ML/MIN; Glucose 85.0 mg/dL (74-106); Potassium 4.7 mmol/L (3.5-5.1); SGOT/AST 23.0 U/L (17-59); SGPT/ALT 9.0 U/L (0-50); Total Protein 7.2 g/dL (6.3-8.2)
--- NOTE | 2024-10-21 09:59 | XRAY ---
Indication: Pain. Decreased range of motion. Comparison: None 3 view right shoulder demonstrates osteopenia, 8 mm humeral head bone island, sternotomy hardware, and incompletely visualized left sided central venous access catheter. No acute bony, articular, or soft tissue abnormalities.
--- NOTE | 2024-10-21 11:08 | OP ---
SURGERY DATE/TIME: 10/17/2024 [id number] PREOPERATIVE DIAGNOSES: 1) Left foot non-pressure ulcer to level of bone. 2) Surgical wound dehiscence. 3) Osteomyelitis. 4) Diabetic foot ulcer. 5) Venous insufficiency. 6) Hematoma sequelae. POSTOPERATIVE DIAGNOSES: 1) Left foot non-pressure ulcer to level of bone. 2) Surgical wound dehiscence. 3) Osteomyelitis. 4) Diabetic foot ulcer. 5) Venous insufficiency. 6) Hematoma sequelae. PROCEDURES: 1) Incision and drainage with bone debridement and irrigation to level of second metatarsal with bone biopsy. 2) Application of negative-pressure wound VAC therapy less than 20 sq cm. SURGEON: Carson Song MD ENVIRONMENTAL SAMPLING TECHNICIAN: Gary Harkins NP-Amita HEMOSTASIS: Pressure dressing. ESTIMATED BLOOD LOSS: Approximately 2 mL. MATERIALS: None. INJECTABLES: None. INDICATIONS FOR PROCEDURE: The patient is a very pleasant, 54-year-old male, who is very well known to my service for a number of diabetic food ulcers and amputations in the past. In his recent encounter, he is trying to heal a right foot amputation; however, he has had an infection to the second digit of the left foot, which subsequently underwent amputation secondary to acute osteomyelitis. He then developed a hematoma, which broke down the surface of the skin, and we have been dealing that in an outpatient setting. He has failed outpatient therapy at this time and the wound now probes to bone. There is some concern for osteomyelitis with recent radiographs demonstrating cortical erosions. Patient was advised to proceed with admission under direct admission of our care and to proceed with IV antibiotics as well as debridement of the bone and placement of a wound VAC secondary to the breakdown of this ulceration for over 6 weeks with conservative therapy. From that standpoint, patient has been made aware of all risks, complications and benefits of surgical intervention at this time, including but not limited to infection, hematoma, seroma, possibility of delayed wound healing, non-wound healing and possible need for further surgical intervention at a later date. No guarantees were provided as to the outcome. Plenty of time was allowed for the patient to ask questions, which were answered to his apparent satisfaction. It is at this time we decided to proceed. DESCRIPTION OF PROCEDURE AND FINDINGS: At this time, following consent being signed, a time-out was called identifying the patient, allergies and any risk factors, as well as the operative procedure and the position. Once this was performed at bedside, we decided to proceed. Patient is extraordinarily neuropathic. The left lower extremity was prepped and draped in the typical sterile fashion and lowered onto the surgical field. At this time, utilizing a 15 blade and pick ups, the wound was excised down to the level of the subcutaneous, which at the central aspect, the second metatarsal head with cortical erosions was identified. At this time, utilizing a combination of 15 blade, roller picker, curette, and rongeurs, the bone was debrided, as well as the remaining edges of the wound until a healthy bleeding surface was identified. Once this was deemed appropriate, a rongeur was utilized to remove the articular surface of the second metatarsal head. Bone cultures and bone pathology was taken at this time and handed off the field for pathological and microbiological assessment. From that standpoint, copious amounts of sterile saline in the form of gravity irrigation was performed, approximately 1000 mL. Following that, a negative-pressure wound VAC therapy was applied to the patient's left lower extremity, operating with minimal appreciated leaks and 125 mmHg. From that standpoint, patient handled the procedure without any complication. Postoperative dressings consisted of drain, gauze and Kerlix and Ronnie to the left lower extremity. At the end of the procedure, patient's vital signs were stable and vascular status was intact. Remaining orders as indicated in the inpatient chart.
--- NOTE | 2024-10-21 12:55 | PCM.NOTE ---
Date and Time: 10/21/24 1255 Subjective Assessment: doing well at bedside this am. Anticipated discharge today Physical Exam - Narrative Narrative Physical Exam: Podiatry Physical Exam Objective Data Vital Signs: Vital Signs - 24 hr Temp Pulse Resp BP Pulse Ox 10/21/24 11:56 97.6 F 75 22 96/60 100 10/21/24 07:48 98.1 F 62 20 113/67 96 10/21/24 04:26 97.0 F 57 L 18 108/63 95 10/20/24 23:49 98.1 F 56 L 17 95/53 95 10/20/24 23:32 98.1 F 56 L 17 95/53 95 10/20/24 19:57 97.9 F 58 L 16 97/52 95 10/20/24 18:32 58 L 16 98/43 10/20/24 16:00 97.2 F 60 16 87/51 97 Pain Assessment - Last Documented Pain Intensity 6 Pain Scale Used 0-10 Pain Scale Intake and Output: Intake & Output 10/19/24 10/20/24 10/21/24 10/22/24 11:59 11:59 11:59 11:59 Intake Total 3299 1580 3529 Output Total 900 1250 1200 Balance 2399 330 2329 Weight 101.1 kg Lab Results: Lab Results-Last 24 Hours 10/20/24 10/20/24 10/21/24 Range/Units 16:02 20:54 04:24 WBC 5.8 (4.23-9.07) x10^3/uL RBC 4.38 L (4.63-6.08) x10^6/uL Hgb 12.7 L (13.7-17.5) g/dL Hct 40.4 (40.1-51.0) % MCV 92.2 (79.0-92.2) fL MCH 29.0 (25.7-32.2) pg MCHC 31.4 L (32.3-36.5) g/dL RDW 15.0 H (11.6-14.4) % Plt Count 173 (163-337) x10^3/uL MPV 11.3 (9.4-12.4) fL Sodium (135-145) mmol/L Potassium (3.5-5.1) mmol/L Chloride (98-107) mmol/L Carbon Dioxide (22-30) mmol/L Anion Gap (5-15) MEQ/L BUN (9-20) mg/dL Creatinine (0.66-1.25) mg/dL Estimated GFR ML/MIN Glucose (74-106) mg/dL POC Glucometer 143 H 140 H (74 to 106) mg/dL Calcium (8.4-10.2) mg/dL Total Bilirubin (0.2-1.3) mg/dL AST (17-59) U/L ALT (0-50) U/L Alkaline Phosphatase (38-126) U/L Serum Total Protein (6.3-8.2) g/dL Albumin (3.5-5.0) g/dL 10/21/24 10/21/24 10/21/24 Range/Units 04:24 07:25 11:13 WBC (4.23-9.07) x10^3/uL RBC (4.63-6.08) x10^6/uL Hgb (13.7-17.5) g/dL Hct (40.1-51.0) % MCV (79.0-92.2) fL MCH (25.7-32.2) pg MCHC (32.3-36.5) g/dL RDW (11.6-14.4) % Plt Count (163-337) x10^3/uL MPV (9.4-12.4) fL Sodium 134 L (135-145) mmol/L Potassium 4.7 (3.5-5.1) mmol/L Chloride 105 (98-107) mmol/L Carbon Dioxide 19 L (22-30) mmol/L Anion Gap 14.4 (5-15) MEQ/L BUN 23 H (9-20) mg/dL Creatinine 1.19 (0.66-1.25) mg/dL Estimated GFR 71.7 ML/MIN Glucose 85 (74-106) mg/dL POC Glucometer 82 104 (74 to 106) mg/dL Calcium 8.9 (8.4-10.2) mg/dL Total Bilirubin 0.30 (0.2-1.3) mg/dL AST 23 (17-59) U/L ALT 9 (0-50) U/L Alkaline Phosphatase 66 (38-126) U/L Serum Total Protein 7.2 (6.3-8.2) g/dL Albumin 3.7 (3.5-5.0) g/dL Radiology Exams: Radiology Procedures Category Date Time Status SHOULDER Routine Exams 10/21/24 08:21 Completed Medications: Medications Generic Name Dose Route Start Last Admin Trade Name Freq PRN Reason Stop Dose Admin Carvedilol 3.125 mg 10/17/24 10:00 10/21/24 09:54 Carvedilol 3.125 Mg Tablet PO 11/16/24 09:59 Not Given BID VALERIE Docusate Sodium 100 mg 10/18/24 19:38 10/20/24 19:45 Docusate Sodium 100 Mg Capsule PO 11/17/24 19:37 100 mg BIDPRN PRN Administration CONSTIPATION Fluticasone Propionate 0 gm 10/17/24 10:00 10/21/24 09:53 Fluticasone Propionate 16 Gm Bottle Nasal [place] NS 11/16/24 09:59 1 gm DAILY VALERIE Administration Furosemide 20 mg 10/18/24 10:00 10/21/24 09:56 Furosemide 20 Mg Tablet PO 11/17/24 09:59 20 mg MoWeFr VALERIE Administration Gabapentin 600 mg 10/17/24 10:00 10/21/24 09:52 Gabapentin 300 Mg Capsule PO 11/16/24 09:59 600 mg BID VALERIE Administration Lactated Ringer's 1,000 mls @ 75 mls/hr 10/17/24 10:30 10/21/24 11:47 Lactated Ringers IV 11/16/24 10:29 Not Given .[id number] VALERIE Levofloxacin/Dextrose 750 mg in 150 mls @ 100 mls/hr 10/17/24 12:00 10/21/24 11:50 Levofloxacin 750mg/150ml D5w IV 11/16/24 10:59 100 mls/hr NOON VALERIE Administration Vancomycin HCl 1 gm in 200 mls @ 133.333 mls/hr 10/17/24 11:00 10/21/24 09:54 Vancomycin 1 Gram/200 Ml Bag IV 11/16/24 10:59 133.333 mls/hr Q12HT VALERIE Administration Insulin Human Lispro 0 unit 10/17/24 09:36 Insulin Lispro 1 Unit SQ 11/16/24 09:35 UD PRN HYPERGLYCEMIA Isosorbide Mononitrate 30 mg 10/17/24 10:00 10/21/24 09:53 Isosorbide Mononitrate 30 Mg Tab PO 11/16/24 09:59 30 mg DAILY VALERIE Administration Melatonin 3 mg 10/19/24 23:00 10/20/24 22:03 Melatonin 3 Mg Tablet PO 11/18/24 22:59 3 mg HS PRN PRN Administration INSOMNIA Multivitamins Therapeutic 1 tab 10/17/24 10:00 10/21/24 09:53 Multivitamins,Therapeutic 1 Tab Tab PO 11/16/24 09:59 1 tab DAILY VALERIE Administration Pantoprazole Sodium 20 mg 10/17/24 11:00 10/21/24 09:53 Pantoprazole 20 Mg Tab PO 11/16/24 10:59 20 mg DAILY VALERIE Administration Potassium Chloride 20 meq 10/17/24 10:00 10/21/24 09:53 Potassium Chloride Tab 10 Meq Tab PO 11/16/24 09:59 20 meq BID VALERIE Administration Prochlorperazine Edisylate 10 mg 10/17/24 09:36 Prochlorperazine Edisylate 10 Mg/2 Ml Vial IV 11/16/24 09:35 Q6H PRN PRN NAUSEA/VOMITING Sacubitril/Valsartan 1 tablet 10/17/24 10:00 10/21/24 09:53 Sacubitril/Valsartan 1 Tablet Tablet PO 11/16/24 09:59 1 tablet BID VALERIE Administration Simvastatin 40 mg 10/17/24 22:00 10/20/24 19:44 Simvastatin 20 Mg Tablet PO 11/16/24 21:59 40 mg HS VALERIE Administration Spironolactone 25 mg 10/17/24 10:00 10/21/24 09:48 Spironolactone 25 Mg Tablet PO 11/16/24 09:59 Not Given DAILY VALERIE Tramadol HCl 50 mg 10/19/24 07:30 10/21/24 11:25 Tramadol Hcl 50 Mg Tablet PO 11/18/24 07:29 50 mg QID PRN PRN Administration PAIN Discontinued Medications Generic Name Dose Route Start Last Admin Trade Name Freq PRN Reason Stop Dose Admin Hydrocodone Bitart/Acetaminophen 1 tab 10/19/24 05:30 10/19/24 05:30 Hydrocodone/Apap 5/325 1 Tab Tablet PO 10/19/24 05:31 1 tab STAT ONE Administration Device 1 10/19/24 09:30 10/20/24 07:29 Therapuetic Drug Level Monitor Each IJ 10/19/24 09:31 Not Given 1XONLY ONE Device 1 10/20/24 09:30 10/20/24 12:02 Therapuetic Drug Level Monitor Each IJ 10/20/24 09:31 1 1XONLY ONE Administration Hydromorphone HCl 1 mg 10/17/24 09:35 10/18/24 20:28 Hydromorphone 1 Mg/1ml Inj IV 10/22/24 09:34 1 mg Q4H PRN PRN Administration PAIN Hydroxyzine HCl 25 mg 10/19/24 23:20 10/19/24 23:39 Hydroxyzine Hcl 25 Mg Tablet PO 10/19/24 23:21 25 mg STAT ONE Administration Levofloxacin/Dextrose 750 mg in 150 mls @ 100 mls/hr 10/17/24 11:00 Levofloxacin 750mg/150ml D5w IV 11/16/24 10:59 Q24H10 VALERIE Lidocaine 1 patch 10/20/24 23:23 10/20/24 23:25 Lidocaine Hcl 1 Patch Patch TOP 10/20/24 23:24 1 patch ONCE ONE Administration Non-Formulary Medication 1 each 10/17/24 09:32 10/17/24 12:55 Pharmacy Dose Request: Vancomycin 1 Each IV 10/17/24 09:33 1 each STAT STA Administration Ondansetron HCl 4 mg 10/17/24 09:26 Ondansetron Hcl 4 Mg/2 Ml Vial IV 11/16/24 09:25 Q6H PRN PRN NAUSEA/VOMITING Multi-Disciplinary Progress Notes: Multi-Disciplinary Progress Notes 10/21/24 10:40 Case Management Note by Cesilia Hanley LOC IS BACK AND APPROVED- FAXED TO [facility] S/W SHANTAL SHE IS REACHING OUT TO INSURANCE TO GET AN ADMISSION DATE EXTENSION SO PATIENT CAN ADMIT TODAY. ORDERS FOR WOUND VAC AND PICC LINE INFO FAXED TO [facility] SO THEY CAN ORDER WOUND VAC. SHANTAL REPORTS WOUND VAC IS USUALLY OVERNIGHTED AND SHOULD BE AT FACILITY FOR PLACEMENT 10/22. [facility] NOTIFIED-OKAY WITH THIS PLAN. S/W PATIENT- HE CONTINUES TO PLAN TO GO TO [facility] AT TIME OF DC. AWARE THIS WILL LIKELY BE LATER TODAY ONCE AUTH IS BACK (AGAIN). Initialized on 10/21/24 10:40 - END OF NOTE Assessment/Plan (1) Osteomyelitis Current Visit: Yes Status: Acute Assessment & Plan: Patient assessment and examination Wound inspection this a.m. demonstrating significant improvement in depth with overall quality of the wound improving Wet-to-dry applied with anticipation for transition to rehabwaters Wound VAC to be reapplied with windowing applied around wound and bridging to dorsal midfoot for application of Vani pad. Operating 125 mmHg with no appreciated leaks 2 times weekly with 1 weekly follow-up at my office. Okay to resume Eliquis on discharge PICC line in place Will start with daptomycin with pharmacy to dose for 14 days. Soft tissue cultures demonstrating organisms consistent with normal skin scott however we will be awaiting bone biopsy and bone culture for final decision Patient okay for discharge on my standpoint Following with you Code(s): M86.9 - OSTEOMYELITIS, UNSPECIFIED (2) Cellulitis Current Visit: No Status: Acute Code(s): L03.90 - CELLULITIS, UNSPECIFIED (3) Obesity (BMI 30-39.9) Current Visit: No Status: Chronic Code(s): E66.9 - OBESITY, UNSPECIFIED (4) Ulcer of foot due to type 2 diabetes mellitus Current Visit: No Status: Acute Code(s): E11.621 - TYPE 2 DIABETES MELLITUS WITH FOOT ULCER; L97.509 - NON-PRESSURE CHRONIC ULCER OTH PRT UNSP FOOT W UNSP SEVERITY (5) Diabetic peripheral neuropathy Current Visit: No Status: Chronic Code(s): E11.42 - TYPE 2 DIABETES MELLITUS WITH DIABETIC POLYNEUROPATHY (6) History of atrial fibrillation Current Visit: No Status: Acute Code(s): Z86.79 - PERSONAL HISTORY OF OTHER DISEASES OF THE CIRCULATORY SYSTEM (7) CHF (congestive heart failure) Current Visit: No Status: Acute Code(s): I50.9 - HEART FAILURE, UNSPECIFIED (8) Clostridioides difficile carrier Current Visit: No Status: Chronic Code(s): Z22.1 - CARRIER OF OTHER INTESTINAL INFECTIOUS DISEASES (9) CAD (coronary artery disease) Current Visit: No Status: Chronic Code(s): I25.10 - ATHSCL HEART DISEASE OF [place] CORONARY ARTERY W/O ANG PCTRS
[2024-10-21] MEDS: PHARMACY DOSING REQUEST MC ONE (19:46)
[2024-10-21] MEDS: Lidoderm Patch 5% TOP ONE (23:16)
[2024-10-22 04:43] VITALS: RESP 16
[2024-10-22 05:52] LABS: Hematocrit 35.6 % (40.1-51.0); Hemoglobin 11.6 g/dL (13.7-17.5); Mean Corpuscular Hemoglobin 29.4 pg (25.7-32.2); Mean Corpuscular Hgb Concent. 32.6 g/dL (32.3-36.5); Platelet Count 161 x10^3/uL (163-337); Red Blood Count 3.95 x10^6/uL (4.63-6.08); White Blood Count 4.7 x10^3/uL (4.23-9.07)
[2024-10-22 06:13] LABS: Calcium 8.6 mg/dL (8.4-10.2); Carbon Dioxide 22.0 mmol/L (22-30); Creatinine 1 1.32 mg/dL (0.66-1.25); EST GLOMERULAR FILTRATION RATE 63.3 ML/MIN; Glucose 112.0 mg/dL (74-106); Potassium 4.6 mmol/L (3.5-5.1)
[2024-10-22 06:53] VITALS: TEMP 97.7
--- NOTE | 2024-10-22 09:11 | PCM.DS ---
Discharge Summary Date of Admission: 10/17/24 07:54 Date of Discharge: 10/22/24 Admitting Physician: AUSTIN SMITH MD Consults: Consults on Case 10/17/24 10:23 Consult Podiatry ROUTINE Primary Care Provider: TOÑO PACK Allergies Allergies morphine Adverse Reaction (Verified 10/17/24 08:04) [facility] Summary - Hospital Course Hospital Course: Mr. 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 He was admitted for management of left second toe osteomyelitis. During admission, he underwent bedside debridement by podiatry with plans for wound VAC placement and outpatient IV antibiotics via PICC line. A PICC was placed on 10/19/24. He was started on IV antibiotics per culture history (levofloxacin and vancomycin), with negative blood and urine cultures obtained this admission. CBC and CMP remained stable, with creatinine near baseline at 1.3 mg/dL. Pain management was transitioned from IV opioids to oral agents, and renal function remained stable. Right shoulder pain was evaluated with x-ray showing no acute findings. 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 Case management coordinated discharge planning, and patient is stable for transfer to a senior living facility pending insurance approval. Per podiatry recommendations patient to complete a 14 day course of levaquin and Daptomycin. Pharmacy renally dosed. New Medications: Levaquin/Daptomycin x 14 days I spent 35 minutes [id number] with the patient on the day of discharge performing discharge exam, discussing hospital stay and discharge instructions with patient and caregivers, preparation of discharge records, prescriptions & referral forms and addressing any questions/concerns the patient had as documented above. - Vitals & Intake/Output Vital Signs: Vital Signs Temperature 97.7 F 10/22/24 06:52 Pulse Rate 61 10/22/24 06:52 Respiratory Rate 16 10/22/24 06:52 Blood Pressure 100/59 10/22/24 06:52 O2 Sat by Pulse Oximetry 98 10/22/24 06:52 Intake & Output: Intake & Output 10/19/24 10/20/24 10/21/2416/25 11:59 11:59 11:59 11:59 Intake Total 3298 1580 3520 2063 Output Total 900 1250 1200 Balance 2399 330 2329 2062 Weight 101.1 kg - Lab Result Diagrams: 10/22/24 04:44 10/22/24 04:44 Lab Results-Last 24 Hrs: Lab Results-Last 24 Hours 10/21/24 10/21/24 10/21/24 Range/Units 11:13 13:57 16:14 WBC (4.23-9.07) x10^3/uL RBC (4.63-6.08) x10^6/uL Hgb (13.7-17.5) g/dL Hct (40.1-51.0) % MCV (79.0-92.2) fL MCH (25.7-32.2) pg MCHC (32.3-36.5) g/dL RDW (11.6-14.4) % Plt Count (163-337) x10^3/uL MPV (9.4-12.4) fL Sodium (135-145) mmol/L Potassium (3.5-5.1) mmol/L Chloride (98-107) mmol/L Carbon Dioxide (22-30) mmol/L Anion Gap (5-15) MEQ/L BUN (9-20) mg/dL Creatinine (0.66-1.25) mg/dL Estimated GFR ML/MIN Glucose (74-106) mg/dL POC Glucometer 104 105 (74 to 106) mg/dL Calcium (8.4-10.2) mg/dL Creatine Kinase 66 (55-170) U/L 10/21/24 10/22/24 10/22/24 Range/Units 22:03 04:44 04:44 WBC 4.7 (4.23-9.07) x10^3/uL RBC 3.95 L (4.63-6.08) x10^6/uL Hgb 11.6 L (13.7-17.5) g/dL Hct 35.6 L (40.1-51.0) % MCV 90.1 (79.0-92.2) fL MCH 29.4 (25.7-32.2) pg MCHC 32.6 (32.3-36.5) g/dL RDW 15.1 H (11.6-14.4) % Plt Count 161 L (163-337) x10^3/uL MPV 11.5 (9.4-12.4) fL Sodium 132 L (135-145) mmol/L Potassium 4.6 (3.5-5.1) mmol/L Chloride 102 (98-107) mmol/L Carbon Dioxide 22 (22-30) mmol/L Anion Gap 12.6 (5-15) MEQ/L BUN 25 H (9-20) mg/dL Creatinine 1.32 H (0.66-1.25) mg/dL Estimated GFR 63.3 ML/MIN Glucose 112 H (74-106) mg/dL POC Glucometer 98 (74 to 106) mg/dL Calcium 8.6 (8.4-10.2) mg/dL Creatine Kinase (55-170) U/L 10/22/24 Range/Units 07:06 WBC (4.23-9.07) x10^3/uL RBC (4.63-6.08) x10^6/uL Hgb (13.7-17.5) g/dL Hct (40.1-51.0) % MCV (79.0-92.2) fL MCH (25.7-32.2) pg MCHC (32.3-36.5) g/dL RDW (11.6-14.4) % Plt Count (163-337) x10^3/uL MPV (9.4-12.4) fL Sodium (135-145) mmol/L Potassium (3.5-5.1) mmol/L Chloride (98-107) mmol/L Carbon Dioxide (22-30) mmol/L Anion Gap (5-15) MEQ/L BUN (9-20) mg/dL Creatinine (0.66-1.25) mg/dL Estimated GFR ML/MIN Glucose (74-106) mg/dL POC Glucometer 78 (74 to 106) mg/dL Calcium (8.4-10.2) mg/dL Creatine Kinase (55-170) U/L Micro Results-Entire Visit: Microbiology 10/17/24 09:50 Blood Culture - Final Blood 10/17/24 09:42 Blood Culture - Final Blood 10/17/24 14:37 Wound Culture - Final Foot - Left ORGANISMS ISOLATED ARE CONSISTENT WITH NORMAL SKIN JACQUELYN MODERATE GROWTH, NO PREDOMINANT ORGANISM Accuchecks Date 10/22/24 Date 10/22/24 Date 10/21/24 Date 10/21/24 Date 10/21/24 Time 07:09 Time 07:08 Time 22:10 - Radiology Exams Ordered Rad Exams-Entire Visit: Radiology Procedures Category Date Time Status SHOULDER Routine Exams 10/21/24 08:21 Completed - Procedures and Test Procedures and Tests throughout Hospitalization: Therapy Orders & Screens 10/17/24 08:45 OT Screen per Nursing Assess ONCE Comment: Protocol Order Physician Instructions: Greater than 3 points order OT Admission Screening Reason For Exam: Triggered on Admission Diagnosis: Left Foot Infection Open Wound/Cellutlitis/Pressure Ulcers: Yes Acute Fx/ORIF/Change in wt bearing status: No Severe MUSCULOSKELETAL pain: No ADL Dysfunction: No Acute CVA w/Hemiparesis/Hemiplegia: No Decreased Functional Mobility/Strength: No Sprain/Strain: No Acute Post-op Mobility Dysfunction: No Total Points: 5 PT Screen per Nursing Assess ONCE Comment: Protocol Order Physician Instructions: Greater than 3 points order PT Admission Screenin Reason For Exam: Triggered on Admission Diagnosis: Left Foot Infection Open Wound/Cellutlitis/Pressure Ulcers: Yes Acute Fx/ORIF/Change in wt bearing status: No Severe MUSCULOSKELETAL pain: No ADL Dysfunction: No Acute CVA w/Hemiparesis/Hemiplegia: No Decreased Functional Mobility/Strength: No Sprain/Strain: No Acute Post-op Mobility Dysfunction: No Total Points: 5 Discharge Exam General Appearance: no apparent distress Neurologic Exam: alert, oriented x 3, cooperative Eye Exam: PERRL, EOM palsy/anisocoria Neck Exam: normal inspection Respiratory Exam: normal breath sounds, lungs clear Cardiovascular Exam: regular rate/rhythm, normal heart sounds Gastrointestinal/Abdomen Exam: soft Male Genitalia Exam: deferred Extremity Exam: other (Left second toe with surgical incision covered in dressing CDI) Wound Assessment: Skin/Wound Assessment Wound/Incision Assessment Start: 10/17/24 08:45 Text: Status: Active Freq: Q6H Protocol: Document 10/22/24 02:00 AK (Rec: 10/22/24 02:41 AK [id number]) Wound/Incision Assessment Left foot (previous 2nd toe site) Wound Assessment Shift Assessment Wound Type Amputation Wound Stage Non Pressure Wound Dressing Status Dry & Intact Primary Dressing mepilex Comment mepilex in place - CDI - awaiting wound vac supplies from longterm Right lateral foot Wound Assessment Shift Assessment Wound Type Diabetic ulcer Wound Stage Non Pressure Wound Dressing Status Dry & Intact Comment REED wound - dressing CDI Wound Photo Photo Taken No Final Diagnosis/Problem List - Final Discharge Diagnosis/Problem (1) Osteomyelitis of toe of left foot Current Visit: Yes Status: Acute Assessment & Plan: Bedside debridement performed 10/18 PICC placed 10/19/24 for outpatient IV therapy Continue IV daptomycin and po levofloxacin for a total of 14 days per podiatry Wound VAC in place, podiatry to follow outpatient Monitor CBC and CMP weekly while on antibiotics Blood cultures negative 2 Code(s): M86.9 - OSTEOMYELITIS, UNSPECIFIED (2) CKD (chronic kidney disease) Current Visit: Yes Status: Chronic Assessment & Plan: Baseline creatinine 1.3, stable this admission at baseline Avoid nephrotoxins and adjust medication dosing for renal function Outpatient nephrology follow-up as scheduled Code(s): N18.9 - CHRONIC KIDNEY DISEASE, UNSPECIFIED (3) CAD (coronary artery disease) Current Visit: No Status: Chronic Assessment & Plan: History of CABG and multiple stents Resume home cardiac medications (aspirin, statin, beta james, HIRA/ARB if tolerated) Continue cardiology follow-up Code(s): I25.10 - ATHSCL HEART DISEASE OF [place] CORONARY ARTERY W/O ANG PCTRS (4) Chronic pain syndrome Current Visit: No Status: Chronic Assessment & Plan: Transitioned from IV opioids to oral tramadol PRN Continue gabapentin for neuropathy Monitor for sedation or renal accumulation Code(s): G89.4 - CHRONIC PAIN SYNDROME (5) Clostridioides difficile carrier Current Visit: No Status: Chronic Assessment & Plan: Continue contact isolation precautions in healthcare settings Monitor for signs of active infection (diarrhea, leukocytosis) Code(s): Z22.1 - CARRIER OF OTHER INTESTINAL INFECTIOUS DISEASES (6) HLD (hyperlipidemia) Current Visit: No Status: Chronic Assessment & Plan: continue statin Code(s): E78.5 - HYPERLIPIDEMIA, UNSPECIFIED (7) HTN (hypertension) Current Visit: No Status: Chronic Assessment & Plan: continue home meds Code(s): I10 - ESSENTIAL (PRIMARY) HYPERTENSION (8) Obesity (BMI 30-39.9) Current Visit: No Status: Chronic Assessment & Plan: Bus Assistant on ADA diet and weight reduction strategies Recommend 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 at SNF or outpatient Code(s): E66.9 - OBESITY, UNSPECIFIED (9) Peripheral vascular disease Current Visit: No Status: Chronic Assessment & Plan: Bilateral lower extremity wraps continued during admission Continue podiatry follow-up for wound care and circulation monitoring Code(s): I73.9 - PERIPHERAL VASCULAR DISEASE, UNSPECIFIED (10) Type 2 diabetes mellitus with diabetic nephropathy Current Visit: No Status: Chronic Assessment & Plan: A1C 5.7 (10/15/24), currently well controlled Continue gabapentin for neuropathy Resume metformin outpatient if renal function stable, held during admission Code(s): E11.21 - TYPE 2 DIABETES MELLITUS WITH DIABETIC NEPHROPATHY - Discharge Discharge Date: 10/22/24 Disposition: DC TO ANY "OTHER" LONG TERM Condition: Stable Prescriptions: New DAPTOmycin [Daptomycin] 600 mg IV DAILY 14 Days #14 iv piggy Levofloxacin [Levofloxacin 500 MG Tablet] 750 mg PO DAILY 9 Days #9 tablet Docusate Sodium 100 mg [Docusate Sodium 100 MG] 100 mg PO BIDPRN PRN cap PRN Reason: Constipation Pantoprazole 20 mg [Protonix 20MG Tablet] 20 mg PO DAILY tablet Tramadol HCl 50 mg [Ultram 50 mg] 50 mg PO QID PRN PRN 3 Days #12 tablet PRN Reason: Pain Continue Metformin HCl [Metformin ER Gastric] 1,000 mg PO DAILY Furosemide [Lasix] 20 mg PO UD Potassium Chloride 20 meq PO BID Multivitamin 1 each PO DAILY Apixaban [Eliquis] 5 mg PO BID Atorvastatin Calcium 80 mg PO HS Gabapentin [Neurontin ] 600 mg PO BID Fluticasone Propionate [Flonase NASAL] 1 spray IH DAILY Sacubitril/Valsartan [Entresto 49 mg-51 mg Tablet] 1 tab PO BID Isosorbide Mononitrate 30 mg [Imdur 30 MG] 30 mg PO DAILY Spironolactone 25 mg [Aldactone 25 MG] 25 mg PO DAILY Carvedilol 3.125 mg [Coreg 3.125 MG] 3.125 mg PO BID Additional Instructions: LONG TERM ORDERS: ADMIT TO SNF [address] [facility] ACCU CHECKS ROUTINE PICC LINE CARE PT/OT EVAL AND TREAT WEIGHT BEARING TOLERATED FOR SHORT DISTANCES ANYTHING >10 STEPS- USE WHEELCHAIR WET TO DRY DRESSING CHANGES DAILY TO RIGHT FOOT UNTIL WOUND VAC APPLIED APPLY WOUND VAC KYRIE- CALL [facility] IF UNABLE TO APPLY BY WED 10/23/24 WOUND VAC TO BE REAPPLIED WITH WINDOWING APPLIED AROUND WOUND AND BRIDGING TO DORSAL MIDFOOT FOR APPLICATION OF LYNSEY PAD. OPERATING 125 mmHG WITH NO APPRECIATED LEAKS, 2 TIMES WEEKLY AT FACILITY AND ONCE WEEKLY AT PODIATRY OFFICE- IF ANY QUESTIONS PLEASE REACH OUT TO PODIATRY OFFICE SEE RX FOR PO LEVAQUIN AND IV DAPTOMYCIN (DAPTO STARTED 10/22) CHECK CK AND CREATININE LEVELS Q7DAYS WHILE ON DAPTOMYCIN HOLD ATORVASTATIN WHILE GETTING DAPTOMYCIN SEE ATTACHED MED LIST Follow up with: [facility] BALL DPM [ACTIVE STAFF, PODIATRY] - 10/24/24 10:30 am ROBERTA COLLINS PA [NON-STAFF PHY W/O PRIVILEGES, UNKNOWN] - 11/11/24 9:30 am Referral Note: SEE PATIENT AT [facility] OFFICE FOR
[2024-10-22 11:06] VITALS: BP 116/67; PULSE 56; O2SAT 97
[2024-10-22] MEDS: DAPTOmycin 600 MG in Sodium Chloride Flush 30 ML*** 12 ML IV SCH (12:15)
[2024-10-22] MEDS ORDERED: LIPITOR 40MG PO SCH (22:00)
== END 2024-10-22 13:15 | DRG 504 ==
LOC: OBSVTOIN 07:54 → MED SURG 07:54
PROVIDERS: ADMIT Internal Medicine; ATTEND Internal Medicine
PROC: 0Q9P0ZZ Drainage of Left Metatarsal, Open Approach (ICD-10-PCS; principal; 2024-10-17)
PROC: 2W1MX6Z Compression of Left Lower Extremity using Pressure Dressing (ICD-10-PCS; 2024-10-17)
DX: M86.9 Osteomyelitis, unspecified (principal); L03.115 Cellulitis of right lower limb; N17.9 Acute kidney failure, unspecified; T81.30XA Disruption of wound, unspecified, initial encounter; E66.9 Obesity, unspecified; E11.621 Type 2 diabetes mellitus with foot ulcer; E11.42 Type 2 diabetes mellitus with diabetic polyneuropathy; E11.22 Type 2 diabetes mellitus with diabetic chronic kidney disease; I12.9 Hypertensive chronic kidney disease with stage 1 through stage 4 chronic kidney disease, or unspecified chronic kidney disease; I50.9 Heart failure, unspecified; N18.9 Chronic kidney disease, unspecified; Z86.79 Personal history of other diseases of the circulatory system; Z22.1 Carrier of other intestinal infectious diseases; I25.10 Atherosclerotic heart disease of native coronary artery without angina pectoris; E78.5 Hyperlipidemia, unspecified; G89.4 Chronic pain syndrome; I87.2 Venous insufficiency (chronic) (peripheral); Z95.0 Presence of cardiac pacemaker; Z79.899 Other long term (current) drug therapy; Z79.01 Long term (current) use of anticoagulants; Z89.422 Acquired absence of other left toe(s)